=== PATIENT | male | born 1945 | race African-American/Black ===

== ENCOUNTER → 2018-04-08 06:46 | Outpatient (CLI) | payer MEDICARE, BC, SELFPAY ==
--- NOTE | 2018-04-08 17:26 | STRESSREP ---
Stress Test Report Exercise/pharmacologic myocardial perfusion stress test. 72-year-old man with a history of shortness of breath. Stress protocol: Resting EKG demonstrates normal sinus rhythm with rate of 60 bpm normal intervals and noted resting blood pressure is 118/84 mmHg. Patient exercised according to regular Santino protocol for total duration of 6 minutes and 35 seconds attaining a maximum heart rate of 101 bpm which was 68% of the maximum predicted heart rate. The maximum workload attained was 7.8 metabolic equivalents. The patient could not obtain 85% of the maximum predicted heart rate and therefore the test was terminated and changed to a pharmacologic myocardial perfusion stress test. 0.4 mg of regadenoson was then infused per usual protocol followed by rapid intravenous saline flush injection continuous EKG monitoring was performed. At rest there were no ST or T-wave changes noted suggest ischemia at peak infusion no ST or T-wave changes were noted suggest ischemia. During the exercise portion there were no ST or T-wave changes noted suggest ischemia. There was adequate blood rate response and blood pressure response to exercise the peak blood pressure was 140/76 mmHg. Myocardial perfusion protocol. 14.0 mCi of technetium 99m sestamibi was injected at rest. 0.4 mg of regadenoson was infused per usual protocol at peak infusion 42.0 mCi of technetium 99m sestamibi was injected stress images were obtained stress and rest images were reconstructed and compared in the short axis vertical long and horizontal long axis. Gated images were also obtained. Perfusion SPECT analysis. Review of the stress images demonstrate normal uptake of tracer noted in all areas of the myocardium. The resting images similarly demonstrated normal uptake of tracer noted in all areas of the myocardium no areas of reversibility are noted suggest ischemia. Gated SPECT analysis: The gated ejection fraction is noted to be 59%. Conclusion: Normal pharmacologic myocardial perfusion stress test. No clinical angina noted. Good functional aerobic capacity.
== END ==
PROVIDERS: Family Provider Family Medicine; PCP Family Medicine; Visit Provider Internal Medicine Cardiovascular Disease
DX: R07.9 Chest pain, unspecified (principal)
CPT/HCPCS: 78452; 93017; A9500; A4216; J2785

== ENCOUNTER → 2018-09-23 11:29 | Outpatient (CLI) | payer MEDICARE, BC, SELFPAY ==
[2018-09-23 11:32] LABS: Bacteria 0 SEEN /hpf (None Seen); Mucous, Urine 0 SEEN /hpf (<or=2+); Red Blood Cells-Urine 0 SEEN /hpf (0-5); Squamous Epithelial Cells - UA 0 SEEN /hpf (0-5); White Blood Cells 0 SEEN /hpf (0-5)
[2018-09-23 14:38] LABS: Color, Urine Yellow (Yellow); Glucose, Dipstick Normal (Normal); Ketone-Dipstick Negative (Negative); Leukocyte Esterase-Dipstick Negative /ul (Negative); Nitrite-Dipstick Negative (Negative); Occult Blood-Urine Negative /ul (Negative); Protein-Dipstick Negative (Negative); Urine Bilirubin Dipstick Negative (Negative); Urine Clarity Clear (Clear); Urine Urobilinogen 1 mg/dl (Normal); Urine pH 6.5 (5.0 - 8.0)
[2018-09-23 14:41] LABS: Absolute Lymphocyte Count 0.89 X10^3/ul (0.83-4.51); Absolute Neutrophil Count 1.5 X10^3/uL (2.0-7.7); Eosinophil# 0.01 X10^3/uL; Eosinophils% 0.3 % (0-5); Hematocrit 44.7 % (40-54); Hemoglobin 14.2 g/dl (13.0-16.5); Lymphocyte # 0.89 X10^3/ul (4.0); Lymphocyte % 30.7 % (19-41); Mean Corp Hgb Conc 31.8 g/gl (32-36); Mean Corpuscular Hgb 29.5 pg (27.0-32.0); Mean Corpuscular Volume 92.7 fL (80-94); Mean Platelet Vol. 9.6 fl (6.2-12.0); Monocyte# 0.47 X10^3/uL; Monocyte% 16.2 % (0-10); Neutrophil # 1.52 X10^3/uL (2.7-7.7); Neutrophil % 52.5 % (47-70); Platelet Count 229 K/mm3 (150-450); RBC Distribution Width CV 13.6 % (11.6-14.6); RBC Distribution Width SD 46.1 fl (35.1-43.9); Red Blood Count 4.82 M/mm3 (4.6-6.2); White Blood Count 2.9 K/mm3 (4.4-11.0)
[2018-09-23 14:42] LABS: POSITIVE COUNT NO; POSITIVE DIFFERENTIAL NO; POSITIVE MORPHOLOGY NO
[2018-09-23 14:57] LABS: Vitamin D,25 Hydroxy 46.1 ng/mL (29.95-100.01)
[2018-09-23 15:14] LABS: ALB/GLOB Ratio 0.8 RATIO (0.9-2.4); AST(SGOT) 16 U/L (15-37); Alanine Aminotransfer ALT/SGPT 26 U/L (16-61); Albumin, Serum 3.5 g/dL (3.2-5.0); Alkaline Phosphatase 56 U/L (45-117); Anion Gap 7 (5-15); BUN 16 mg/dL (7-18); BUN/Creat Ratio 13.9 RATIO (10-20); Calcium,Total 10.3 mg/dL (8.5-10.1); Chloride 105 mmol/L (98-107); Cholesterol 162 mg/dL (200); Creatinine, Serum 1.15 mg/dL (0.70-1.30); EST Glomerular Filtration Rate 66 mL/min (>60); Est Glom Filt Rate - Afr Amer 80 mL/min (>60); Globulin 4.4 g/dL (2.2-4.2); Glucose 83 mg/dL (74-106); High Density Lipoprotein 45 mg/dL; Potassium 4.5 mmol/L (3.5-5.1); Protein, Total 7.9 g/dL (6.4-8.2); Sodium Level 138 mmol/L (136-145); T4 Free Direct 0.83 ng/dL (0.76-1.46); Thyroid Stim Hormone (TSH) 1.13 uIU/mL (0.358-3.74); Triglycerides 56 mg/dL; Very Low Density Lipoprotein 11 mg/dL (5-40)
== END ==
PROVIDERS: Family Provider Family Medicine; PCP Family Medicine; Visit Provider Family Medicine
DX: I10 Essential (primary) hypertension (principal); E03.9 Hypothyroidism, unspecified; E55.9 Vitamin D deficiency, unspecified
CPT/HCPCS: 36415; 80053; 80061; 81001; 82306; 84439; 84443; 85025

== ENCOUNTER → 2018-09-27 12:13 | Outpatient (CLI) | payer MEDICARE, BC, SELFPAY ==
--- NOTE | 2018-09-27 12:16 | US_ITS ---
STUDY: THYROID ULTRASOUND REASON FOR EXAM: Male, 73 years old. Nodule and right thyroidectomy TECHNIQUE: Ultrasound evaluation of the thyroid was performed with real-time and static parrish-scale imaging. COMPARISON: None. FINDINGS: A right thyroidectomy has been performed. No nodules or masses are seen in the right thyroid bed. LEFT LOBE: The left lobe of the thyroid gland measures 4.3 x 1.6 x 1.6 cm. There is a homogeneous echotexture. In the midportion left thyroid lobe, an ovoid heterogeneous nodule is identified that measures 17 x 12 x 11 mm. No associated echogenic foci are seen. It is peripherally vascular. ISTHMUS: The isthmus measures 6 mm . US/Thyroid IMPRESSION: 17 mm heterogeneous nodule in the left thyroid lobe. Tissue diagnosis is likely indicated. Electronically Signed: Jose Angel Joaquin MD at 8:51 EST Tel , Service support ,
== END ==
PROVIDERS: Family Provider Family Medicine; PCP Family Medicine; Referring Provider Family Medicine; Visit Provider Family Medicine
DX: E04.1 Nontoxic single thyroid nodule (principal)
CPT/HCPCS: 76536

== ENCOUNTER → 2018-10-05 15:40 | Outpatient (CLI) | payer MEDICARE, BC, SELFPAY ==
--- NOTE | 2018-10-05 | ASPS_PTH ---
PATIENT: SANDEEP WOODS LOC: [facility] U#:[id number] AGE/SX: 80/M ROOM: RE10/05/[address]: Dr. Akash Jack MD : 1945 BED: DIS: SPEC #: [id number] RECD: 10/06/18 13:45 STATUS: CIRA REBOLLEDOJesus #: [id number] MARGARET: 10/05/18 00:[address]: Akash Jack DEPT: CYTOLOGY RECD BY: Ced Sommer ENTERED: 10/07/18 13:46 SP TYPE: ASPIRATION OTHR DR: Dr. Jayden Butt MD Tissues: Thyroid gland, NOS Procedures: Pap Stain (control) Special Stain Group II Cytology Other HEADER OPERATION: Left thyroid FNA PRE-OP DIAGNOSIS: Left thyroid nodules TISSUE SUBMITTED: Left thyroid slides DIAGNOSIS CYTOLOGY Fine needle aspiration, left thyroid nodule (smears): Adequate for evaluation. Negative, consistent with benign follicular nodule. AM:octaviano 10/10/18 COMMENT Immediate cytologic evaluation to determine adequacy is not applicable. CYTOLOGY STUDY Slides are reviewed. CYTOLOGY GROSS Received are 6 smears labeled with the patient's name and designated per the requisition as left thyroid. Submitted for staining. ASHLEY:dandre 10/07/18 TC:5 CPT: 32284
== END ==
PROVIDERS: Family Provider Family Medicine; PCP Family Medicine; Referring Provider Surgery; Visit Provider Surgery
DX: E04.2 Nontoxic multinodular goiter (principal)
CPT/HCPCS: 88161; 88313

== ENCOUNTER → 2018-10-12 09:37 | Outpatient (CLI) | payer MEDICARE, BC, SELFPAY ==
[2018-10-12 12:23] LABS: Absolute Lymphocyte Count 1.12 X10^3/ul (0.83-4.51); Absolute Neutrophil Count 1.9 X10^3/uL (2.0-7.7); Basophil# 0.01 X10^3/uL; Basophil% 0.3 % (0-1); Eosinophil# 0.01 X10^3/uL; Eosinophils% 0.3 % (0-5); Hematocrit 46.3 % (40-54); Hemoglobin 15.4 g/dl (13.0-16.5); Lymphocyte # 1.12 X10^3/ul (4.0); Lymphocyte % 28.3 % (19-41); Mean Corp Hgb Conc 33.3 g/gl (32-36); Mean Corpuscular Hgb 30.4 pg (27.0-32.0); Mean Corpuscular Volume 91.5 fL (80-94); Mean Platelet Vol. 9.4 fl (6.2-12.0); Monocyte# 0.87 X10^3/uL; Neutrophil # 1.93 X10^3/uL (2.7-7.7); Neutrophil % 48.6 % (47-70); Platelet Count 216 K/mm3 (150-450); RBC Distribution Width CV 13.6 % (11.6-14.6); RBC Distribution Width SD 45.1 fl (35.1-43.9); Red Blood Count 5.06 M/mm3 (4.6-6.2)
[2018-10-12 12:35] LABS: POSITIVE COUNT NO; POSITIVE DIFFERENTIAL NO; POSITIVE MORPHOLOGY NO
[2018-10-12 12:41] LABS: ALB/GLOB Ratio 0.8 RATIO (0.9-2.4); AST(SGOT) 14 U/L (15-37); Alanine Aminotransfer ALT/SGPT 26 U/L (16-61); Albumin, Serum 3.5 g/dL (3.2-5.0); Alkaline Phosphatase 59 U/L (45-117); Anion Gap 10 (5-15); BUN 19 mg/dL (7-18); Calcium,Total 10.5 mg/dL (8.5-10.1); Chloride 106 mmol/L (98-107); Creatinine, Serum 1.19 mg/dL (0.70-1.30); EST Glomerular Filtration Rate 63 mL/min (>60); Est Glom Filt Rate - Afr Amer 77 mL/min (>60); Globulin 4.4 g/dL (2.2-4.2); Glucose 65 mg/dL (74-106); Protein, Total 7.9 g/dL (6.4-8.2); Sodium Level 140 mmol/L (136-145)
[2018-10-12 19:32] LABS: PTHIN 90.7 pg/mL (18.4-80.1)
== END ==
PROVIDERS: Family Provider Family Medicine; PCP Family Medicine; Visit Provider Family Medicine
DX: E83.52 Hypercalcemia (principal); D72.819 Decreased white blood cell count, unspecified
CPT/HCPCS: 36415; 80053; 82330; 83970; 85025

== ENCOUNTER → 2018-10-21 09:34 | Outpatient (CLI) | payer MEDICARE, BC, SELFPAY ==
--- NOTE | 2018-10-21 09:38 | NM_ITS ---
CLINICAL: 73-year-old male with reported history of clinical hyperparathyroidism, status post right thyroid lobectomy. 99m Tc SESTAMIBI DUAL PHASE PARATHYROID SCINTIGRAPHY COMPARISON: Thyroid ultrasound report 09/27/2018 FINDINGS: Following the intravenous administration of 25.0 mCi of 99m Tc sestamibi, image acquisitions of the anterior neck at 20 minutes and 2.0 hours post radiopharmaceutical provision reveal: 1. Immediate static blood pool acquisitions demonstrate asymmetric visualization of the left lobe thyroid colloid. 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 Physiologic distribution of the radiopharmaceutical is defined within the left submandibular gland. The right submandibular gland is not visualized. 2. Delayed images depict near complete washout of the radiotracer from the previously defined left thyroid bed without evidence of focal retention of the radiotracer identified. NM/Parathyroid Scan IMPRESSION: 1. NEGATIVE 99m Tc SESTAMIBI PARATHYROID IMAGING DUAL PHASE EXAMINATION. 2. there is no definitive scintigraphic evidence of parathyroid adenoma on the current evaluation. Electronically Signed: Ced Hawkins DO at 23:24 EST Tel , Service support ,
--- OUTSIDE RECORDS SUMMARY | 2018-12-16 04:26 | XMS RPT_ITS ---
:1945 Author Organization OHIP Support Name Relationship Address Phone R Unavailable Unavailable Unavailable RIDERRAE Unavailable [address] + [place] [address] R Unavailable Unavailable Unavailable RIDER, DOLLY Unavailable [address] + [place] [address] R Unavailable Unavailable Unavailable RIDER, DOLLY Unavailable [address] + [place] [address] R Unavailable Unavailable Unavailable RIDER, DOLLY Unavailable [address] + [place] [address] R Unavailable Unavailable Unavailable RIDER, DOLLY Unavailable [address] + [place] [address] R Unavailable Unavailable Unavailable RIDER, DOLLY Unavailable [address] + [place] [address] R Unavailable Unavailable Unavailable RIDER, DOLLY Unavailable [address] + [place] [address] RIDER, DOLLY Unavailable [address] + [place] [address] RIDER, DOLLY Unavailable [address] + [place] [address] RIDER, DOLLY Unavailable [address] + [place] [address] RIDER, DOLLY Unavailable [address] + [place] [address] R Unavailable Unavailable Unavailable RIDER, DOLLY Unavailable [address] + [place] [address] R Unavailable Unavailable Unavailable RIDER, DOLLY Unavailable [address] + [place] [address] R Unavailable Unavailable Unavailable RIDER, DOLLY Unavailable [address] + [place] [address] R Unavailable Unavailable Unavailable DOLLY RIDER Unavailable [address] + [place] [address] Care Team Providers Name Role Reyna ELA FLORENTINO Attending Unavailable LUIS ASCENCIO Referring Unavailable DARIAN Velasco Attending Unavailable SILVA DO, LUIS Ulloa Primary Care Unavailable SILVA DO, LUIS Ulloa Attending Unavailable SILVA DO, LUIS D Primary Care Unavailable Mohit Pal Attending Unavailable Darren, Eleazar Attending Unavailable Silva Luis Referring Unavailable Luis Ascencio Primary Care Unavailable Darren, Tilly Attending Unavailable Darren, Tilly Referring Unavailable Silva, Luis Primary Care Unavailable Darren, Tilly Attending Unavailable Jayden Butt Attending Unavailable Schinkyler, Jayden Dye Primary Care Unavailable SchJayden manrique Attending Unavailable Schburton, Jayden Dye Referring Unavailable SchinJayden chávez Primary Care Unavailable Cebul, Akash Attending Unavailable SchinJayden chávez Referring Unavailable Cebul, Akash Attending Unavailable SchinnerJayden Referring Unavailable Cebul, Akash Attending Unavailable Cebul, Akash Referring Unavailable SchinnerJayden E Primary Care Unavailable Schinkyler, Jayden Dye Attending Unavailable SchinJayden chávez Primary Care Unavailable SchJayden manrique Attending Unavailable SchJayden manrique Referring Unavailable SchJayden manrique Primary Care Unavailable PROBLEMS PROBLEMS DATE TYPE CONDITION / CODE ATTENDING STATUS SOURCE 10/21/2018 Unknown E83.52 - Jayden Butt Active [facility] / [facility] E83.52(ICD-10) Hospital Repository 10/05/2018 Unknown 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 Community nodule / Hospital E04.1(ICD-10) Repository 08/04/2018 Admitting Essential (primary) DARIAN Velasco Active [facility] Diagnosis hypertension / [facility] I10(ICD-10) Repository 03/29/2018 Unknown R07.9 - Chest pain, Darren, Eleazar Active [facility] unspecified / Community R07.9(ICD-10) Hospital Repository 03/29/2018 Unknown I50.32 - Chronic Darren, Tilly Active [facility] diastolic Community (congestive) heart Hospital failure / Repository I50.32(ICD-10) 03/29/2018 Unknown I10 - Essential Darren, Eleazar Active [facility] (primary) Community hypertension / Hospital I10(ICD-10) Repository 03/29/2018 Unknown I26.99 - Other Darren, Eleazar Active [facility] pulmonary embolism Community without acute cor Hospital pulmonale / Repository I26.99(ICD-10) PROCEDURES PROCEDURES No Procedure Records FoundRESULTS RESULTS PARATHYROID SCAN Observed: 10/21/2018 Status: F Source: [place] 9:38 AM [facility] REPOSITORY [facility] Imaging Services [address] [place] [address] Parathyroid Scan MR#: [id number] Acct: [id number] Name: LUIS RIDER Rep #: [id number] : 1945 M 73 From: Ced Hawkins DO PCP: Jayden Butt MD Status: REG CLI Study: Parathyroid Scan Date of Exam: 10/21/18 Exam# [id number] Ordering Dr: Jayden Butt MD CLINICAL: 73-year-old male with reported history of clinical hyperparathyroidism, status post right thyroid lobectomy. 99m Tc SESTAMIBI DUAL PHASE PARATHYROID SCINTIGRAPHY COMPARISON: Thyroid ultrasound report 09/27/2018 FINDINGS: Following the intravenous administration of 25.0 mCi of 99m Tc sestamibi, image acquisitions of the anterior neck at 20 minutes and 2.0 hours post radiopharmaceutical provision reveal: 1. Immediate static blood pool acquisitions demonstrate asymmetric visualization of the left lobe thyroid colloid. 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 Physiologic distribution of the radiopharmaceutical is defined within the left submandibular gland. The right submandibular gland is not visualized. 2. Delayed images depict near complete washout of the radiotracer from the previously defined left thyroid bed without evidence of focal retention of the radiotracer identified. NM/Parathyroid Scan IMPRESSION: 1. NEGATIVE 99m Tc SESTAMIBI PARATHYROID IMAGING DUAL PHASE EXAMINATION. 2. there is no definitive scintigraphic evidence of parathyroid adenoma on the current evaluation. Electronically Signed: Ced Hawkins DO at 23:24 EST Tel , Service support , CC: Jayden Butt MD Lunchroom Mother: Signed CBC W/DIFF, AUTOMATED Collected: 10/12/2018 Status: F Source: [place] 9:41 AM [facility] REPOSITORY Order Comment: PERIPHERAL SMEAR TYPE CODE TESTS RESULT OUT OF RANGE REFERENCE UNITS LAB L100.1000 4.4-11.0 K/mm3 Low WBC 4.0 LAB L100.1200 4.6-6.2 M/mm3 Normal RBC 5.06 LAB L100.1300 13.0-16.5 g/dl Normal HGB 15.4 LAB L100.1400 40-54 % Normal HCT 46.3 LAB L100.1500 80-94 fL Normal MCV 91.5 LAB L100.1600 27.0-32.0 pg Normal MCH 30.4 LAB L100.1700 32-36 g/gl Normal MCHC 33.3 LAB L100.1810 11.6-14.6 % Normal RDW CV 13.6 LAB L100.1820 35.1-43.9 fl High RDW SD 45.1 LAB L100.1900 150-450 K/mm3 Normal PLT 216 LAB L100.2000 6.2-12.0 fl Normal MPV 9.4 LAB L100.2100 47-70 % Normal NEUT% 48.6 LAB L100.2200 19-41 % Normal LY% 28.3 LAB L100.2300 0-10 % High MONO% 22.0 LAB L100.2400 0-5 % Normal EO% 0.3 LAB L100.2500 0-1 % Normal BASO% 0.3 LAB L100.2550 0.0-0.9 % Normal IM GRAN % 0.500 Result Comment: IG% - Immature Granulocytes (promyelocytes, myelocytes and metamyelocytes) > 1% indicates that a LEFT SHIFT is Present. LAB L100.2620 2.0-7.7 X10 3/uL Low Absolute Neut 1.9 LAB L100.2720 0.83-4.51 X10 3/ul Normal Absolute Lymph 1.12 Performed By: #### L100.0100, L500.4050, L509.1000 #### [facility] [address] [place], [place], [id number] COMPREHENSIVE METABOLIC Collected: 10/12/2018 Status: F Source: [place] 9:41 AM [facility] REPOSITORY Order Comment: Comments: [id number] PERIPHERAL SMEAR TYPE CODE TESTS RESULT OUT OF RANGE REFERENCE UNITS LAB L501.0100 74-106 mg/dL Low GLU 65 Result Comment: Please note revised GLUCOSE reference range effective 2017. LAB L501.1000 7-18 mg/dL High BUN 19 LAB L501.1100 0.70-1.30 mg/dL Normal CREAT,SERUM 1.19 Result Comment: The validity of the calculated GFR AND GFRAA in patients over 70 years has not been determined. Clinical correlation is essential. LAB L501.1110 >60 mL/min Normal EST GFR 63 Result Comment: Non- GFR Calc LAB L501.1115 >60 mL/min Normal EST GFR - AA 77 Result Comment: GFR Calc LAB L501.1300 10-20 RATIO Normal BUN/CRE 16.0 LAB L501.1500 6.4-8.2 g/dL T Normal PROT 7.9 LAB L501.1800 3.2-5.0 g/dL Normal ALB 3.5 LAB L501.1950 2.2-4.2 g/dL High GLOB 4.4 LAB L501.2000 0.9-2.4 RATIO Low A/G 0.8 LAB L501.2200 8.5-10.1 mg/dL High CA 10.5 LAB L501.4100 15-37 U/L Low AST 14 Result Comment: Slight Hemolysis, Result may be falsely increased. LAB L501.4305 45-117 U/L Normal ALK P 59 LAB L501.4405 16-61 U/L Normal ALT 26 LAB L501.4600 0.20-1.00 mg/dL Normal T BILI 0.30 LAB L501.5300 136-145 mmol/L Normal NA 140 LAB L501.5600 3.5-5.1 mmol/L Normal K 4.0 Result Comment: Slight Hemolysis, Result may be falsely increased. LAB L501.5900 98-107 mmol/L Normal CL 106 LAB L501.6100 21.0-32.0 mmol/L Normal CO2 24.0 LAB L501.6200 5-15 Normal GAP 10 Performed By: #### L100.0100, L500.4050, L509.1000 #### [facility] [address] [place], [address] PTHIN Collected: 10/12/2018 Status: F Source: [place] 9:41 AM [facility] REPOSITORY TYPE CODE TESTS RESULT OUT OF RANGE REFERENCE UNITS LAB L509.1000 18.4-80.1 pg/mL High PTHIN 90.7 Performed By: #### L100.0100, L500.4050, L509.1000 #### [facility] [address] [facility] [place], [address] CALCIUM IONIZED Collected: 10/12/2018 Status: F Source: [place] 9:41 AM [facility] REPOSITORY TYPE CODE TESTS RESULT OUT OF REFERENCE UNITS RANGE LAB L3100.9600 4.5-5.6 mg/dL High IONIZED CA 7.0 Result Comment: Verified by repeat analysis Performed at: [facility] [id number] Contract Officer: Osei Avila PhD, Phone: [phone] Performed By: #### L3100.9600 #### [facility] (refer to report for specific site) refer to report for address and phone number SURGERY VISIT REPORT Observed: 10/05/2018 Status: F Source: [place] 4:19 PM [facility] REPOSITORY [facility] [address] [place] [address]. [address] [place] [address] OFFICE VISIT Date of Service: 10/05/18 MR#: [id number] Acct: [id number] Name: RIDERLUIS Sara Rep #: [id number] : 1945 Provider: Akash Jack MD Age/Sex: 73/M Location: [facility] Status: Signed with Addenda ADDENDUM by Nahed Rolle on 10/05/18 at 1619 OFFICE PROCEDURES Office Procedure Documentation entered by Nahed Rolle 10/05/18 16:19: Procedure Time Out Time Out Informed consent given: Yes Consent signed: Yes Time out checklist: patient, procedure, site marked/identified, positioning of patient, supplies available, allergies confirmed, team agrees on procedure Time out staff in room: Yes Time out verified: Yes Time out date: 10/05/18 Time out time: 15:40 10/05/18 1619 <Electronically signed by Nahed Rolle > Date Nahed Rolle cc: Jayden Butt MD * Signed Intake Intake Visit Reasons: left thyroid FNA Chief Complaint: left thyroid nodule Allergies Iodinated Contrast- Oral and IV Dye [Iodinated Contrast Media - IV Dye] Allergy (Verified 10/03/18 14:36) Hives acetaminophen [From Percocet] Adverse Reaction (Verified 10/03/18 14:36) Swelling oxycodone HCl [From Percocet] Adverse Reaction (Verified 10/03/18 14:36) Swelling Medications Escitalopram Oxalate [Lexapro] 20 mg PO DAILY 05/07/17 [History Confirmed 10/03/18] Hydrochlorothiazide [Hctz] 25 mg PO DAILY 05/07/17 [History Confirmed 10/03/18] Levothyroxine [Synthroid] 100 mcg PO DAILY 05/07/17 [History Confirmed 10/03/18] Losartan Potassium 100 mg PO DAILY 05/07/17 [History Confirmed 10/03/18] Montelukast Sodium [Singulair] 10 mg PO DAILY 05/07/17 [History Confirmed 10/03/18] Spironolactone [Aldactone] 25 mg PO DAILY 05/07/17 [History Confirmed 10/03/18] apixaban 5 mg tablet 5 mg PO BID 10/03/18 [History Confirmed 10/03/18] PFSH Medical History Left thyroid nodule (Acute) Chronic diastolic heart failure (Chronic) SYDNEE (obstructive sleep apnea) (Chronic) HLD (hyperlipidemia) (Chronic) Acute deep vein thrombosis of left lower extremity (Chronic) Bilateral pulmonary embolism (Chronic) Hypothyroid (Chronic) HTN (hypertension) (Chronic) Anxiety (Chronic) Depression (Chronic) Syncope (Chronic) Surgical History History of bilateral knee replacement (Chronic) History of hydrocele (Chronic) History of partial thyroidectomy (Chronic) History of shoulder surgery (Chronic) Hx of cataract extraction (Chronic) Hx of hernia repair (Chronic) Hx of sinus surgery (Chronic) hx saliva gland removal (Chronic) hx uvula removal (Chronic) hx wrist surgery (Chronic) Family History Father Cancer Mother Cancer Hypertension Aunt Diabetes Uncle Diabetes Social History Smoking Status: Former smoker alcohol intake: never substance use type: does not use caffeine: Yes Type: coffee what type of physical activity do you participate in: none seatbelt use: always do you feel safe at home: Yes HPI HPI HPI: LUIS RIDER, is a 73 M who presents to the office today for ultrasound-guided final aspiration left thyroid nodule measuring 1.7 x 1.2 x 1.1 cm Office Procedures Fine Needle Aspiration Provider Documentation Details: Ultrasound-guided final aspiration left thyroid nodule Timeout and informed consent was obtained. 73-year-old gentleman was taken to the procedure room placed on the table. The left neck was sterilely prepped and draped with ChloraPrep because of his allergy to iodine. Under ultrasound guidance 1% lidocaine mixed 50-50 with 0.5% Marcaine was used as a local anesthetic. A total of 2 cc was used under ultrasound guidance. Then a 25-gauge needle was advanced into the lesion. This was technically challenging because of the depth of the nodule and positioning of the nodule close to the jugular vein. A rapid etkk-dro-murtw motion was performed. Specimen was obtained and smeared out on slides. 3 separate passes were performed. He was given activity and wound care instructions. The specimens were treated with fixative. He was given activity wound care instructions. Akash Jack M.D., F.A.C.S. FNA [id number] Thyroid Assessment AND Plan Problems 1. Left thyroid nodule E04.1 Plan 73-year-old -Greek gentleman with a left thyroid nodule with microcalcifications and vascularity. Difficult fine needle aspiration approach. We will await cytology. Hopefully will be able to follow conservatively with ultrasound at 6 or 12 months. Akash Jack M.D., F.A.C.S. TC: Dr Jayden Butt Orders Orders: Coding Level of Care Code Attention Eleni Diagnoses Left thyroid nodule E04.1 Additional Codes FNA - Fine Needle Aspiration: 64933 Thyroid (65554) 10/05/18 1613 <Electronically signed by Akash Jack MD> Date [facility]: Date (if applicable) CC: Jayden Butt MD ASPIRATION (SLIDES Observed: 10/05/2018 Status: F Source: [place] ONLY) 12:00 AM [facility] REPOSITORY Patient: LUIS RIDER : 1945 (73/M) Acct Num: [id number] Phys: Akash Jack MD Unit Num: [id number] Loc: [facility] Specimen: [id number] Received: 10/06/185 Spec Type: ASPIRATION TISSUES 1 TISSUES: Thyroid gland, NOS COMMENT Immediate cytologic evaluation to determine adequacy is not applicable. CYTOLOGY GROSS Received are 6 smears labeled with the patient's name and designated per the requisition as left thyroid. Submitted for staining. RY:dandre 10/07/18 TC:5 CPT: 00608 CYTOLOGY STUDY Slides are reviewed. DIAGNOSIS CYTOLOGY Fine needle aspiration, left thyroid nodule (smears): Adequate for evaluation. Negative, consistent with benign follicular nodule. AM:rg 10/10/18 HEADER OPERATION: Left thyroid FNA PRE-OP DIAGNOSIS: Left thyroid nodules TISSUE SUBMITTED: Left thyroid slides Signed Dc Prabhakar 10/10/18 <signature on file> Performed By: #### PASPS #### [facility] [address] [place], [place] [address]. [place], [place], [address] SURGERY VISIT REPORT Observed: 10/03/2018 Status: F Source: [place] 6:24 PM [facility] REPOSITORY [facility] [address] [place], [place] [address]. [address] [place] [address] OFFICE VISIT Date of Service: 10/03/18 MR#: [id number] Acct: [id number] Name: LUIS RIDER Rep #: [id number] : 1945 Provider: Akash Jack MD Age/Sex: 73/M Location: [facility] Status: Signed Intake Vital Signs10/03/18 Height 6 ft 4 in 10/03/18 Weight: 265 lb 4 oz 10/03/18 Body Mass Index (BMI) 32.3 10/03/18 Blood Pressure 143/83 H Intake Visit Reasons: Thyroid Nodule/US 09/27 [facility] Chief Complaint: left thyroid nodule Networking Technician Required: No Is patient in pain?: No Allergies Iodinated Contrast- Oral and IV Dye [Iodinated Contrast Media - IV Dye] Allergy (Verified 10/03/18 14:36) Hives acetaminophen [From Percocet] Adverse Reaction (Verified 10/03/18 14:36) Swelling oxycodone HCl [From Percocet] Adverse Reaction (Verified 10/03/18 14:36) Swelling Medications Escitalopram Oxalate [Lexapro] 20 mg PO DAILY 05/07/17 [History Confirmed 10/03/18] Hydrochlorothiazide [Hctz] 25 mg PO DAILY 05/07/17 [History Confirmed 10/03/18] Levothyroxine [Synthroid] 100 mcg PO DAILY 05/07/17 [History Confirmed 10/03/18] Losartan Potassium 100 mg PO DAILY 05/07/17 [History Confirmed 10/03/18] Montelukast Sodium [Singulair] 10 mg PO DAILY 05/07/17 [History Confirmed 10/03/18] Spironolactone [Aldactone] 25 mg PO DAILY 05/07/17 [History Confirmed 10/03/18] apixaban 5 mg tablet 5 mg PO BID 10/03/18 [History Confirmed 10/03/18] ON LICENSE OF [facility] Medical History Chronic diastolic heart failure (Chronic) SYDNEE (obstructive sleep apnea) (Chronic) HLD (hyperlipidemia) (Chronic) Acute deep vein thrombosis of left lower extremity (Chronic) Bilateral pulmonary embolism (Chronic) Hypothyroid (Chronic) HTN (hypertension) (Chronic) Anxiety (Chronic) Depression (Chronic) Syncope (Chronic) Surgical History History of bilateral knee replacement (Chronic) History of hydrocele (Chronic) History of partial thyroidectomy (Chronic) History of shoulder surgery (Chronic) Hx of cataract extraction (Chronic) Hx of hernia repair (Chronic) Hx of sinus surgery (Chronic) hx saliva gland removal (Chronic) hx uvula removal (Chronic) hx wrist surgery (Chronic) Family History Father Cancer Mother Cancer Hypertension Aunt Diabetes Uncle Diabetes Social History Smoking Status: Former smoker alcohol intake: never substance use type: does not use caffeine: Yes Type: coffee what type of physical activity do you participate in: none seatbelt use: always do you feel safe at home: Yes HPI HPI HPI: LUIS RIDER, is a 73 M who presents to the office today for surgical consultation regarding a left thyroid nodule. The patient is referred by his primary care physician Dr Jayden Butt and a written copy of my surgical consult recommendations will be returned to him. Mr. Rider is a new patient with Dr. Butt. On review it became apparent that at least 20 years ago the patient had had a right thyroid mass incidentally identified on imaging. He subsequent he had a right thyroid lobectomy. He states that it was benign. The patient apparently runs a chronic low white blood cell count. Claims that approximately 2001 and a bone marrow biopsy. That apparently was not remarkable. The patient also has had a history about 3-4 years ago of a deep venous thrombosis with pulmonary embolism. He states that no specific etiology was found. He was initially treated with Coumadin but because of variability he was more recently changed to Eliquis. At the [facility] to help evaluate his thyroid on September 27, 2018 and he had a thyroid ultrasound. Evidence of the right thyroid lobectomy was noted. The left lobe measures 4.3 x 1.6 x 1.6 cm. There is a 1.7 x 1.2 x 1.1 cm ovoid nodule in the midportion of the left lobe. As of September 23, 2018 white blood cell count was 2.9 with a hemoglobin 14.2 and hematocrit 44.7 and platelet count of 229,000. BUN was 16 and creatinine 1.16. TSH was 1.13 and free T4 0.83 ROS General General: Yes fatigue; no weight change, appetite, colon cancer, breast cancer or weakness HEENT HEENT: Yes eye surgery; no difficulty swallowing, eye injury, swollen glands or hoarseness Endo Endocrine: Yes thyroid disease; no diabetes mellitus, thyroid cancer, Hair loss, heat intolerance or cold intolerance Musc Musculoskeletal: Yes back problems and arthritis; no rheumatoid arthritis, gout or joint pain Cardio Cardiovascular: Yes high blood pressure; no murmur, pacemaker, heart disease, atrial fibrillation, heart attack, heart stent, palpitations, shortness of breat with exertion or chest pain Psych Psychiatric: Yes depression and anxiety; no hearing voices Resp Respiratory: Yes shortness of breath, Yes sleep apnea, No cough, No COPD, Yes asthma, No emphysema, No wheezing Gastro Gastrointestinal: No abdominal pain, No nausea or vomiting, No diarrhea, No constipation, No blood in stool, No acid reflux, No hemorrhoids, No ulcers, No gallbladder problem, No black,tarry stools Ray Hematologic: Yes blood thinners, No blood disorders, No bleeding, No anemia, Yes blood clots Neuro Neurologic: No weakness Exam Neck Other: Well-healed transverse suprasternal incision. Left lobe is just palpable. Neck is supple. Carotids are 3+ no bruits. No cervical adenopathy. Chvostek is negative Cardio Heart Sounds: no murmurs Assessment AND Plan Problems 1. Left thyroid nodule E04.1 Plan 73-year-old gentleman. He has a solitary left thyroid nodule. He has had a remote history of a right thyroid lobectomy for a nodule which on pathology by patient report was benign. He does have a history of DVT and pulmonary embolus. He is on Eliquis. I propose for him a ultrasound-guided final aspiration of the left lobe. I discussed the technique, benefits, risks, alternatives. He has had an opportunity to ask and have questions answered. We will simply have him hold his Eliquis the evening prior to presentation. I would anticipate that after the fine-needle aspiration he would be able to very soon resume that medication. We will schedule and proceed at his discretion. I very much appreciate the kind opportunity of assisting with his surgical care CC: Dr Jayden Jack M.D., F.A.C.S. Coding Level of Care Code Prob focused, straight fwd Diagnoses Left thyroid nodule E04.1 10/03/18 1824 <Electronically signed by Aksah Jack MD> Date [facility]ash [facility] Signature: Date (if applicable) CC: THYROID Observed: 09/27/2018 Status: F Source: [place] 12:16 PM [facility] REPOSITORY [facility] Imaging Services [address] [place] [address] Thyroid MR#: [id number] Acct: [id number] Name: LUIS RIDER Rep #: [id number] : 1945 M 73 From: Jose Angel Joaquin MD PCP: Jayden Butt MD Status: REG CLI Study: Thyroid Date of Exam: 09/27/18 Exam# [id number] Ordering Dr: Jayden Butt MD STUDY: THYROID ULTRASOUND REASON FOR EXAM: Male, 73 years old. Nodule and right thyroidectomy TECHNIQUE: Ultrasound evaluation of the thyroid was performed with real-time and static parrish-scale imaging. COMPARISON: None. FINDINGS: A right thyroidectomy has been performed. No nodules or masses are seen in the right thyroid bed. LEFT LOBE: The left lobe of the thyroid gland measures 4.3 x 1.6 x 1.6 cm. There is a homogeneous echotexture. In the midportion left thyroid lobe, an ovoid heterogeneous nodule is identified that measures 17 x 12 x 11 mm. No associated echogenic foci are seen. It is peripherally vascular. ISTHMUS: The isthmus measures 6 mm . US/Thyroid IMPRESSION: 17 mm heterogeneous nodule in the left thyroid lobe. Tissue diagnosis is likely indicated. Electronically Signed: Jose Angel Joaquin MD at 8:51 EST Tel , Service support , CC: Jayden Butt MD Lunchroom Mother: Signed URINALYSIS, COMPLETE Collected: 09/23/2018 Status: F Source: [place] 11:31 AM [facility] REPOSITORY Order Comment: How was Urine Obtained? CLEAN CATCH TYPE CODE TESTS RESULT OUT OF RANGE REFERENCE UNITS LAB L400.3000 Yellow COLOR Normal Yellow LAB L400.3050 Clear Normal CLARITY Clear LAB L400.3200 Normal mg/dl Normal GLUCOSE, UR Normal LAB L400.3300 Negative mg/dL Normal BILIRUBIN URINE Negative LAB L400.3400 Negative mg/dl Normal KETONE UR Negative LAB L400.3465 1.002-1.030 Normal SP.GR. DIPSTX 1.010 LAB L400.3550 5.0 - 8.0 pH UR Normal 6.5 LAB L400.3600 Negative mg/dl PROT Normal DIPSTX Negative LAB L400.3700 Normal mg/dl High 1 UROBILI LAB L400.3750 Negative Normal NITRITE UR Negative LAB L400.3780 Negative /ul Normal OCCULT BLOOD-UR Negative LAB L400.3800 Negative /ul LEUK Normal ESTERASE Negative LAB L400.4050 0-5 /hpf WBC 0 Normal SEEN LAB L400.4100 0-5 /hpf 0 Normal RBC-UA SEEN LAB L400.4150 0-5 /hpf SQUAM 0 Normal EPI SEEN LAB L400.4300 None Seen /hpf 0 Normal BACTERIA SEEN LAB L400.4350 <or=2+ /hpf 0 Normal MUCUS, URINE SEEN Performed By: #### L400.0001 #### [facility] [place], [address] CBC W/DIFF, AUTOMATED Collected: 09/23/2018 Status: F Source: [place] 11:31 AM [facility] REPOSITORY TYPE CODE TESTS RESULT OUT OF RANGE REFERENCE UNITS LAB L100.1000 4.4-11.0 K/mm3 Low WBC 2.9 LAB L100.1200 4.6-6.2 M/mm3 Normal RBC 4.82 LAB L100.1300 13.0-16.5 g/dl Normal HGB 14.2 LAB L100.1400 40-54 % Normal HCT 44.7 LAB L100.1500 80-94 fL Normal MCV 92.7 LAB L100.1600 27.0-32.0 pg Normal MCH 29.5 LAB L100.1700 32-36 g/gl Low MCHC 31.8 LAB L100.1810 11.6-14.6 % Normal RDW CV 13.6 LAB L100.1820 35.1-43.9 fl High RDW SD 46.1 LAB L100.1900 150-450 K/mm3 Normal PLT 229 LAB L100.2000 6.2-12.0 fl Normal MPV 9.6 LAB L100.2100 47-70 % Normal NEUT% 52.5 LAB L100.2200 19-41 % Normal LY% 30.7 LAB L100.2300 0-10 % High MONO% 16.2 LAB L100.2400 0-5 % Normal EO% 0.3 LAB L100.2500 0-1 % Normal BASO% 0.0 LAB L100.2550 0.0-0.9 % Normal IM GRAN % 0.300 Result Comment: IG% - Immature Granulocytes (promyelocytes, myelocytes and metamyelocytes) > 1% indicates that a LEFT SHIFT is Present. LAB L100.2620 2.0-7.7 X10 3/uL Low Absolute Neut 1.5 LAB L100.2720 0.83-4.51 X10 3/ul Normal Absolute Lymph 0.89 Performed By: #### L100.0100, L506.1000, L500.4050, L500.4100, L501.9520, L506.0400 #### [facility] [address] [place], [address] VITAMIN D,25 HYDROXY Collected: 09/23/2018 Status: F Source: [place] 11:31 AM [facility] REPOSITORY TYPE CODE TESTS RESULT OUT OF RANGE REFERENCE UNITS LAB L506.1000 29.95-100.01 ng/mL Normal Vitamin D 46.1 25-OH Result Comment: Vitamin D 25(OH) Status Range Deficiency <20 ng/mL (50nmol/L) Insuffciency 20 - 30 ng/mL (50 - 75 nmol/L) Sufficiency 30 - 100 ng/mL (75 - 250 nmol/L) Toxicity >100 ng/mL (>250 nmol/L) Performed By: #### L100.0100, L506.1000, L500.4050, L500.4100, L501.9520, L506.0400 #### [facility] [place], [address] COMPREHENSIVE METABOLIC Collected: 09/23/2018 Status: F Source: [place] 11:31 AM [facility] REPOSITORY TYPE CODE TESTS RESULT OUT OF RANGE REFERENCE UNITS LAB L501.0100 74-106 mg/dL Normal GLU 83 Result Comment: Please note revised GLUCOSE reference range effective 2017. LAB L501.1000 7-18 mg/dL Normal BUN 16 LAB L501.1100 0.70-1.30 mg/dL Normal CREAT,SERUM 1.15 Result Comment: The validity of the calculated GFR AND GFRAA in patients over 70 years has not been determined. Clinical correlation is essential. LAB L501.1110 >60 mL/min Normal EST GFR 66 Result Comment: Non- GFR Calc LAB L501.1115 >60 mL/min Normal EST GFR - AA 80 Result Comment: GFR Calc LAB L501.1300 10-20 RATIO Normal BUN/CRE 13.9 LAB L501.1500 6.4-8.2 g/dL T Normal PROT 7.9 LAB L501.1800 3.2-5.0 g/dL Normal ALB 3.5 LAB L501.1950 2.2-4.2 g/dL High GLOB 4.4 LAB L501.2000 0.9-2.4 RATIO Low A/G 0.8 LAB L501.2200 8.5-10.1 mg/dL High CA 10.3 LAB L501.4100 15-37 U/L Normal AST 16 LAB L501.4305 45-117 U/L Normal ALK P 56 LAB L501.4405 16-61 U/L Normal ALT 26 LAB L501.4600 0.20-1.00 mg/dL T Normal BILI 0.40 LAB L501.5300 136-145 mmol/L NA Normal 138 LAB L501.5600 3.5-5.1 mmol/L K Normal 4.5 LAB L501.5900 98-107 mmol/L CL Normal 105 LAB L501.6100 21.0-32.0 mmol/L Normal CO2 26.0 LAB L501.6200 5-15 Normal GAP 7 Performed By: #### L100.0100, L506.1000, L500.4050, L500.4100, L501.9520, L506.0400 #### [facility] [address] [place], [place], [id number] LIPID PROFILE Collected: 09/23/2018 Status: F Source: [place] 11:31 AM [facility] REPOSITORY TYPE CODE TESTS RESULT OUT OF RANGE REFERENCE UNITS LAB L501.4900 200 mg/dL Normal CHOL 162 Result Comment: <200 mg/dL Desirable 200-240 mg/dL Borderline >240 mg/dL High Risk LAB L501.5000 mg/dL Normal TRIG 56 Result Comment: The drugs N-Acetylcysteine and Metamizole may falsely depress this assay. Serum Triglycerides Reference Interval Normal <150 mg/dL Borderline high 150 - 199 mg/dL High 200 - 499 mg/dL Very High > or = 500 mg/dL LAB L501.6400 mg/dL Normal HDL 45 Result Comment: The drugs N-Acetylcysteine and Metamizole may falsely depress this assay. Reference Range HDL <40 mg/dL Low HDL Cholesterol HDL >or= 60 mg/dL High HDL Cholesterol LAB L501.6500 0-130 mg/dL Normal LDL 106 LAB L501.6600 5-40 mg/dL Normal VLDL 11 Performed By: #### L100.0100, L506.1000, L500.4050, L500.4100, L501.9520, L506.0400 #### [facility] [address] [place], [place], [id number] THYROID STIM HORMONE Collected: 09/23/2018 Status: F Source: [place] ([place]) 11:31 AM [facility] REPOSITORY TYPE CODE TESTS RESULT OUT OF RANGE REFERENCE UNITS LAB L501.9520 0.358-3.74 uIU/mL Normal TSH 1.13 Performed By: #### L100.0100, L506.1000, L500.4050, L500.4100, L501.9520, L506.0400 #### [facility] [address] [place], [place], [id number] T4 FREE DIRECT Collected: 09/23/2018 Status: F Source: [place] 11:31 AM [facility] REPOSITORY TYPE CODE TESTS RESULT OUT OF RANGE REFERENCE UNITS LAB L506.0400 0.76-1.46 ng/dL Normal T4 FREE 0.83 DIRECT Performed By: #### L100.0100, L506.1000, L500.4050, L500.4100, L501.9520, L506.0400 #### [facility] [address] [place], [address] K Collected: 08/25/2018 Status: F Source: [facility] 11:36 AM [facility] REPOSITORY TYPE CODE TESTS RESULT OUT OF REFERENCE UNITS RANGE LAB K(LOINC) 3.5-5.1 mmol/L Potassium Level 4.5 Performed By: #### K #### [facility] [address] [place] [id number] LIPID Collected: 08/04/2018 Status: F Source: [facility] 8:45 AM [facility] REPOSITORY TYPE CODE TESTS RESULT OUT OF REFERENCE UNITS RANGE LAB CHOL(LOINC 0-200 mg/dL ) Cholesterol 169 Result Comment: Cholesterol Reference Interval: Less than 200 Desirable 200-239 Borderline high risk 240 and above High risk LAB TRIG(LOINC) 0-150 mg/dL Triglycerides 77 Result Comment: Triglyceride Reference Interval: Less than 150 Normal 150-199 Borderline high risk 200-499 High risk 500 or higher Very high risk LAB HD(LOINC) 40-60 mg/dL HDL Cholesterol 44 LAB LDL(LOINC) 0-130 mg/dL LDL Cholesterol 110 Performed By: #### GFR, CMP, LIPID #### [place] [id number] [place] [id number] CMP Collected: 08/04/2018 Status: F Source: [facility] 8:45 AM [facility] REPOSITORY TYPE CODE TESTS RESULT OUT OF REFERENCE UNITS RANGE LAB GLU(LOINC) 83-110 mg/dL Low Glucose Level 81 LAB NA(LOINC) 136-145 mmol/L Sodium Level 145 LAB K(LOINC) 3.5-5.1 mmol/L Potassium Level 4.3 LAB CL(LOINC) 98-107 mmol/L Chloride High 108 LAB CO2(LOINC) 23-31 mmol/L CO2 26 LAB EBAL(LOINC mEq/L ) Electrolyte Balance 11.0 LAB BUN(LOINC) 7-18 mg/dL BUN 11 LAB CRE(LOINC) 0.70-1.30 mg/dL Creatinine Lvl (s) 1.02 LAB BC(LOINC) 7-27 ratio BUN/Creatinine 11 Ratio LAB CA(LOINC) 8.4-10.2 mg/dL Calcium Lvl 10.2 LAB PROT(LOINC 6.4-8.2 G/dL ) Total Protein 7.4 LAB ALB(LOINC) 3.4-4.8 G/dL Albumin Level 3.6 LAB GLB(LOINC) G/dL Globulin 3.8 LAB AG(LOINC) 1.1-2.5 ratio Low A/G Ratio 0.9 LAB BILT(LOINC 0.2-1.0 mg/dL ) Bili Total 0.4 LAB AP(LOINC) 40-135 U/L Alk Phos 50 LAB AST(LOINC) 10-40 U/L AST/SGOT 16 LAB ALT(LOINC) 10-35 U/L ALT/SGPT 24 Performed By: #### GFR, CMP, LIPID #### [place] [id number] .GFR Collected: 08/04/2018 Status: F Source: [facility] 8:45 AM [facility] REPOSITORY TYPE CODE TESTS RESULT OUT OF REFERENCE UNITS RANGE LAB GFRAA(LOINC ml/min/1.73 ) sqm GFR 87 Greek Result Comment: GFR Population mean for , Non- Americans Ages 20-29 = 116 mL/min/1.73 sq.m. Ages 30-39 = 107 mL/min/1.73 sq.m. Ages 40-49 = 99 mL/min/1.73 sq.m. Ages 50-59 = 93 mL/min/1.73 sq.m. Ages 60-69 = 85 mL/min/1.73 sq.m. Ages 70+ = 75 mL/min/1.73 sq.m. Chronic Kidney Disease: Less than 60 mL/min/1.73 square meters End Stage Renal Disease: Less than 15 mL/min/1.73 square meters LAB GFRNO(LOINC) ml/min/1.73sqm GFR Non- 71 Result Comment: GFR Population mean for , Non- Americans Ages 20-29 = 116 mL/min/1.73 sq.m. Ages 30-39 = 107 mL/min/1.73 sq.m. Ages 40-49 = 99 mL/min/1.73 sq.m. Ages 50-59 = 93 mL/min/1.73 sq.m. Ages 60-69 = 85 mL/min/1.73 sq.m. Ages 70+ = 75 mL/min/1.73 sq.m. Chronic Kidney Disease: Less than 60 mL/min/1.73 square meters End Stage Renal Disease: Less than 15 mL/min/1.73 square meters Performed By: #### GFR, CMP, LIPID #### [place] [id number] PROGRESS Observed: 07/06/2018 Status: COMPLETED Source: [place] 10:33 AM [facility] REPOSITORY HNO ID: [id number] Author: Ela Florentino Service: (none) Author Type: Physician Type: Progress Notes Filed: 07/07/2018 7:55 AM Note Text: Hematology and Medical Oncology PATIENT NAME: Luis Rider. CLINIC NO: [id number]. ATTENDING PHYSICIAN: Ela Florentino MD. DATE OF SERVICE:07/06/2018. DIAGNOSIS: history of idiopathic bilateral pulmonary embolism; difficulty with Coumadin management with low (subtherapeutic) prothrombin time. Consultation requested by Dr. Ascencio for an opinion regarding idiopathic pulmonary embolism. My final recommendations will be communicated back to the requesting physician by way of shared Medical record or letter to requesting physician via [place] mail. PERFORMANCE STATUS:100% HPI: 73-year-old -Greek gentleman who presented in 2013 was progressive shortness of breath. He had no chest pain, cough or hemoptysis or fever at presentation. he was told at the time that he had bilateral pulmonary emboli with DVT. He was treated with IV heparin and subsequently continue Coumadin as outpatient. Patient has no major bleeding complications or problems with Coumadin therapy. His pulmonary embolism and DVT has resolved on treatment. however, in the last year patient has been consistently low prothrombin time despite no change in diet or medication with his warfarin therapy. Patient has no increased bleeding or bruising. He does not smoke tobacco or drink alcohol. He had a colonoscopy several years ago and was told it was normal and his next colonoscopy would be 10 years. He had not had a prostate cancer screening and recent year. Patient also has a chronic leukopenia but no evidence of anemia or thrombocytopenia. His renal function is normal. He follow with Dr. Banks for hypertensive cardiomyopathy. His last echocardiogram 2016 showed a normal concentric left ventricular hypertrophy with normal systolic function. Mr Rider has no weight loss, change in bowel habits, cough or urinary symptom. He has no family history of thromboembolism or thrombophilia. MEDICATIONS: Current Outpatient Prescriptions: levothyroxine (SYNTHROID) 100 mcg tablet Take 100 mcg by mouth once daily. montelukast (SINGULAIR) 10 mg tablet Take 10 mg by mouth once daily. losartan (COZAAR) 100 mg tablet Take 100 mg by mouth once daily. hydroCHLOROthiazide (HYDRODIURIL, ESIDRIX) 25 mg tablet Take 25 mg by mouth once daily. escitalopram oxalate (LEXAPRO) 20 mg tablet Take 20 mg by mouth once daily. ALPRAZolam 0.5 mg dissolvable tablet Take 0.5 mg by mouth three times daily as needed. Garlic 2,000 mg cap Take 1 capsule by mouth once daily. apixaban (ELIQUIS) 5 mg tab(s) Take 1 tablet by mouth twice daily. No current facility-administered medications for this visit. . ALLERGIES: ALLERGIES Allergen Reactions - Iodine Hives - Percocet [Oxycodone* Swelling Swelling of the lips, face . PAST MEDICAL HISTORY:No past medical history on file.. PAST SURGICAL HISTORY: PAST SURGICAL HISTORY Procedure Laterality Date - EYE SURGERY HX Bilateral cataract removal - INGUINAL HERNIA REPAIR HX - JOINT REPLACEMENT HX Bilateral knee replacements - KNEE ARTHROSCOPY Bilateral - SALIVARY GLAND SURGERY HX - THYROIDECTOMY SUBTOTAL/PARTIAL . FAMILY HISTORY: FAMILY HISTORY Problem Relation Age of Onset - Cancer Mother breast - Diabetes Mother - Hypertension Mother - other (back surgery) Brother - Arthritis Sister - other (back surgery) Sister - Cancer Sister brain . SOCIAL HISTORY:Social History Marital status: Spouse name: Years of education: Number of children: Social History Main Topics Smoking status: Former Smoker Packs/day: 0.00 Years: 0.00 Types: Cigarettes Quit date: 07/06/1978 Smokeless tobacco: Never Used Alcohol use: No Drug use: No . REVIEW OF SYSTEMS: CONSTITUTIONAL: No fevers, chills, nightsweats, unintended weight loss HEENT: Denies frequent or severe heaches, nasal congestion/sinus symptoms, problematic allergy problems. EYES: No diplopia or blurry vision. CARDIOVASCULAR: No chest pain, dyspnea, palpitations, orthopnea, PND, ankle edema. PULM: No dyspnea, unexplained cough. GI: No dysphagia/odynophagia, problematic reflux, constipation, diarrhea, changes in stool habits, hematochezia, melena. : No new urinary complaints, including dysuria, gross hematuria or pyuria. NEURO: No new balance problems, peripheral weakness/paresthesias or numbness of concern. MUSC-SKEL: No new joint pain, swelling, or erythema. PSY: No concerns regarding depression, anxiety or panic. INTEGUMENTARY: No new skin changes (rash, new or changing mole, new growth) PHYSICAL EXAMINATION: 73-year-old well-nourished well-developed gentleman in no acute distress BP 140/91 Pulse 66 Temp (Src) 98.2 (Oral) Ht 6' 2.5[verified by Amna Blake MA[ (1.89m) Wt 274 lb (124.3kg) BMI 34.72 kg/(m2). HEENT: Head is normocephalic, atraumatic. Sclerae white, conjunctivae pink. PEERL. EOMs are intact. Oropharynx is benign. LYMPHATICS: There is no palpable adenopathy in the neck, supraclavicular region, axillae, or groin. LUNGS: Lungs are clear to percussion and auscultation. HEART: Heart is normal without murmurs, +S4 gallops, no rubs. ABDOMEN: Soft and nontender without organomegaly. No masses can be palpated. EXTREMITIES: Are without edema. NEUROLOGIC: Exam is physiologic ASSESSMENT: 73-year-old gentleman with history of hypertensive cardiomyopathy AND extensive idiopathic pulmonary embolism. He has difficulty with management of warfarin therapy recently with low prothrombin time despite no changes with his health, diet or medications. PLAN: - since Mr Blanco will need to be on long-term anticoagulation therapy, I recommend stopping warfarin and starting to ELIQUIS 5mg twice daily. - long-term study comparing warfarin versus Eliquis show no increased risks of major bleeding problem with Eliquis compared to warfarin. - avoid aspirin AND NSAIDs - However, I also recommend colon cancer and prostate cancer screening with Hemoccult/fecal occult stool, prostate exam and PSA with his primary care doctor. I spent 45 minutes in the visit, with more than 50% of the total [id number] time of the visit in counseling / coordination of care. - The patient will also follow-up with Dr. Banks next year. Ela Florentino MD. ELECTRONICALLY SIGNED Cc: Dr. Eleazar Banks CNOVSP Observed: 07/06/2018 Status: COMPLETED Source: [place] 9:10 AM [facility] REPOSITORY Visit (SP) Office ([place]) LUIS RIDER ([id number]) 1945 M Date Time Provider Department 07/06/18 9:10 AM ELA FLORENTINO During your visit today, we recorded the following information about you: Temperature Pulse Blood pressure Weight 98.2 degrees 66/minute 140/91 124.3 kg Height 1.892 m Yi Ash LPN 07/06/2018 10:10 AM Signed New patient. Discuss diagnosis of hypoprothrombinemia. Yi Florentino MD 07/07/2018 7:55 AM Signed Hematology and Medical Oncology PATIENT NAME: Luis Rider. CLINIC NO: [id number]. ATTENDING PHYSICIAN: Ela Florentino MD. DATE OF SERVICE:07/06/2018. DIAGNOSIS: history of idiopathic bilateral pulmonary embolism; difficulty with Coumadin management with low (subtherapeutic) prothrombin time. Consultation requested by Dr. Ascencio for an opinion regarding idiopathic pulmonary embolism. My final recommendations will be communicated back to the requesting physician by way of shared Medical record or letter to requesting physician via [place] mail. PERFORMANCE STATUS:100% HPI: 73-year-old -Greek gentleman who presented in 2013 was progressive shortness of breath. He had no chest pain, cough or hemoptysis or fever at presentation. he was told at the time that he had bilateral pulmonary emboli with DVT. He was treated with IV heparin and subsequently continue Coumadin as outpatient. Patient has no major bleeding complications or problems with Coumadin therapy. His pulmonary embolism and DVT has resolved on treatment. however, in the last year patient has been consistently low prothrombin time despite no change in diet or medication with his warfarin therapy. Patient has no increased bleeding or bruising. He does not smoke tobacco or drink alcohol. He had a colonoscopy several years ago and was told it was normal and his next colonoscopy would be 10 years. He had not had a prostate cancer screening and recent year. Patient also has a chronic leukopenia but no evidence of anemia or thrombocytopenia. His renal function is normal. He follow with Dr. Banks for hypertensive cardiomyopathy. His last echocardiogram 2016 showed a normal concentric left ventricular hypertrophy with normal systolic function. Mr Rider has no weight loss, change in bowel habits, cough or urinary symptom. He has no family history of thromboembolism or thrombophilia. MEDICATIONS: Current Outpatient Prescriptions: levothyroxine (SYNTHROID) 100 mcg tablet Take 100 mcg by mouth once daily. montelukast (SINGULAIR) 10 mg tablet Take 10 mg by mouth once daily. losartan (COZAAR) 100 mg tablet Take 100 mg by mouth once daily. hydroCHLOROthiazide (HYDRODIURIL, ESIDRIX) 25 mg tablet Take 25 mg by mouth once daily. escitalopram oxalate (LEXAPRO) 20 mg tablet Take 20 mg by mouth once daily. ALPRAZolam 0.5 mg dissolvable tablet Take 0.5 mg by mouth three times daily as needed. Garlic 2,000 mg cap Take 1 capsule by mouth once daily. apixaban (ELIQUIS) 5 mg tab(s) Take 1 tablet by mouth twice daily. No current facility-administered medications for this visit. . ALLERGIES: ALLERGIES Allergen Reactions - Iodine Hives - Percocet [Oxycodone* Swelling Swelling of the lips, face . PAST MEDICAL HISTORY:No past medical history on file.. PAST SURGICAL HISTORY: PAST SURGICAL HISTORY Procedure Laterality Date - EYE SURGERY HX Bilateral cataract removal - INGUINAL HERNIA REPAIR HX - JOINT REPLACEMENT HX Bilateral knee replacements - KNEE ARTHROSCOPY Bilateral - SALIVARY GLAND SURGERY HX - THYROIDECTOMY SUBTOTAL/PARTIAL . FAMILY HISTORY: FAMILY HISTORY Problem Relation Age of Onset - Cancer Mother breast - Diabetes Mother - Hypertension Mother - other (back surgery) Brother - Arthritis Sister - other (back surgery) Sister - Cancer Sister brain . SOCIAL HISTORY:Social History Marital status: Spouse name: Years of education: Number of children: Social History Main Topics Smoking status: Former Smoker Packs/day: 0.00 Years: 0.00 Types: Cigarettes Quit date: 07/06/1978 Smokeless tobacco: Never Used Alcohol use: No Drug use: No . REVIEW OF SYSTEMS: CONSTITUTIONAL: No fevers, chills, nightsweats, unintended weight loss HEENT: Denies frequent or severe heaches, nasal congestion/sinus symptoms, problematic allergy problems. EYES: No diplopia or blurry vision. CARDIOVASCULAR: No chest pain, dyspnea, palpitations, orthopnea, PND, ankle edema. PULM: No dyspnea, unexplained cough. GI: No dysphagia/odynophagia, problematic reflux, constipation, diarrhea, changes in stool habits, hematochezia, melena. : No new urinary complaints, including dysuria, gross hematuria or pyuria. NEURO: No new balance problems, peripheral weakness/paresthesias or numbness of concern. MUSC-SKEL: No new joint pain, swelling, or erythema. PSY: No concerns regarding depression, anxiety or panic. INTEGUMENTARY: No new skin changes (rash, new or changing mole, new growth) PHYSICAL EXAMINATION: 73-year-old well-nourished well-developed gentleman in no acute distress BP 140/91 Pulse 66 Temp (Src) 98.2 (Oral) Ht 6' 2.5[verified by Amna lBake MA[ (1.89m) Wt 274 lb (124.3kg) BMI 34.72 kg/(m2). HEENT: Head is normocephalic, atraumatic. Sclerae white, conjunctivae pink. PEERL. EOMs are intact. Oropharynx is benign. LYMPHATICS: There is no palpable adenopathy in the neck, supraclavicular region, axillae, or groin. LUNGS: Lungs are clear to percussion and auscultation. HEART: Heart is normal without murmurs, +S4 gallops, no rubs. ABDOMEN: Soft and nontender without organomegaly. No masses can be palpated. EXTREMITIES: Are without edema. NEUROLOGIC: Exam is physiologic ASSESSMENT: 73-year-old gentleman with history of hypertensive cardiomyopathy AND extensive idiopathic pulmonary embolism. He has difficulty with management of warfarin therapy recently with low prothrombin time despite no changes with his health, diet or medications. PLAN: - since Mr Blanco will need to be on long-term anticoagulation therapy, I recommend stopping warfarin and starting to ELIQUIS 5mg twice daily. - long-term study comparing warfarin versus Eliquis show no increased risks of major bleeding problem with Eliquis compared to warfarin. - avoid aspirin AND NSAIDs - However, I also recommend colon cancer and prostate cancer screening with Hemoccult/fecal occult stool, prostate exam and PSA with his primary care doctor. I spent 45 minutes in the visit, with more than 50% of the total [id number] time of the visit in counseling / coordination of care. - The patient will also follow-up with Dr. Banks next year. Ela Florentino MD. ELECTRONICALLY SIGNED Cc: Dr. 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 Follow-up and Disposition History Recorded Prescriptions as of 07/06/2018 Sig: LEVOTHYROXINE 100 MCG TABLET Take 100 mcg by mouth once da* MONTELUKAST 10 MG TABLET Take 10 mg by mouth once aubree* LOSARTAN 100 MG TABLET Take 100 mg by mouth once edgar* HYDROCHLOROTHIAZIDE 25 MG TAB* Take 25 mg by mouth once aubree* ESCITALOPRAM 20 MG TABLET Take 20 mg by mouth once aubree* ALPRAZOLAM 0.5 MG DISINTEGRAT* Take 0.5 mg by mouth three ti* GARLIC 2,000 MG CAPSULE Take 1 capsule by mouth once * APIXABAN 5 MG TABLET Take 1 tablet by mouth twice * Medication notes this encounter WARFARIN 4 MG TABLET >> Yi Ash LPN 07/06/2018 9:29 AM >> YI ASH LPN WedJul 06, 2018 9:29 AM Taking 9 mg 4 days a week and 8 mg 3 days a week WARFARIN 1 MG TABLET >> Yi Ash LPN 07/06/2018 9:29 AM >> YI ASH LPN WedJul 06, 2018 9:29 AM Taking 9 mg 4 days a week and 8 mg 3 days a week Problem List As Of Date 07/06/2018 Noted Resolved Chronic saddle pulmonary embolism without acute*INVALID FOR* Anticoagulant long-term use [Z79.01] INVALID FOR* Visit Notes: >> Yi Ash LPN WedJul 06, 2018 9:39 AM Status: Signed New patient. Discuss diagnosis of hypoprothrombinemia. Yi Ash RACHELLE Encounter Status:Closed by ELA FLORENTINO MD on 07/07/18 STRESS REPORT Observed: 04/08/2018 Status: F Source: [place] ROUGE 5:30 PM [facility] REPOSITORY [facility] Cardiovascular Services [address] [place] [address] MR#: [id number] Acct: [id number] Name: RIDERLUIS Sara Rep #: [id number] : 1945 72 From: Eleazar Banks MD Primary Care: Luis Ascencio DO Status: REG CLI Ordering Dr: Sex: M FRITZ Stress Test Report Exercise/pharmacologic myocardial perfusion stress test. 72-year-old man with a history of shortness of breath. Stress protocol: Resting EKG demonstrates normal sinus rhythm with rate of 60 bpm normal intervals and noted resting blood pressure is 118/84 mmHg. Patient exercised according to regular Santino protocol for total duration of 6 minutes and 35 seconds attaining a maximum heart rate of 101 bpm which was 68% of the maximum predicted heart rate. The maximum workload attained was 7.8 metabolic equivalents. The patient could not obtain 85% of the maximum predicted heart rate and therefore the test was terminated and changed to a pharmacologic myocardial perfusion stress test. 0.4 mg of regadenoson was then infused per usual protocol followed by rapid intravenous saline flush injection continuous EKG monitoring was performed. At rest there were no ST or T-wave changes noted suggest ischemia at peak infusion no ST or T-wave changes were noted suggest ischemia. During the exercise portion there were no ST or T-wave changes noted suggest ischemia. There was adequate blood rate response and blood pressure response to exercise the peak blood pressure was 140/76 mmHg. Myocardial perfusion protocol. 14.0 mCi of technetium 99m sestamibi was injected at rest. 0.4 mg of regadenoson was infused per usual protocol at peak infusion 42.0 mCi of technetium 99m sestamibi was injected stress images were obtained stress and rest images were reconstructed and compared in the short axis vertical long and horizontal long axis. Gated images were also obtained. Perfusion SPECT analysis. Review of the stress images demonstrate normal uptake of tracer noted in all areas of the myocardium. The resting images similarly demonstrated normal uptake of tracer noted in all areas of the myocardium no areas of reversibility are noted suggest ischemia. Gated SPECT analysis: The gated ejection fraction is noted to be 59%. Conclusion: Normal pharmacologic myocardial perfusion stress test. No clinical angina noted. Good functional aerobic capacity. 04/08/18 1730 <Electronically signed by Eleazar Banks MD> Date Eleazar Banks MD CC: Luis Ascencio DO; Eleazar Banks MD Date Dictated: 04/08/181725 Date Transcribed: 04/08/181725 Lunchroom Mother: CO Signed CARDIOLOGY VISIT Observed: 03/29/2018 Status: F Source: RITESH REPORT 10:28 AM [facility] RE[facility]ITORY [facility]. [address] [place] [address] OFFICE VISIT Date of Service: 03/29/18 MR#: [id number] Acct: [id number] Name: LUIS RIDER Rep #: [id number] : 1945 Provider: Eleazar Banks MD Age/Sex: 72/M Location: [facility] Status: Signed HPI HPI Chief Complaint: Follow-up visit. Details: LUIS RIDER, is a 72 M who presents to the office today for a follow-up visit. Is a gentleman with a history of hypertension diastolic dysfunction history of pulmonary embolism who returns for follow-up visit. He has multiple complaints including fatigue neck pain shortness of breath with some activity occasional cough and heartburn. He has also had some memory loss the etiology of which is not entirely clear to him. He has been compliant with all his medications including his losartan and hydrochlorothiazide for blood pressure as well as spironolactone. His physical exam today demonstrates clear lung vo regular rate and rhythm and no pedal edema. His blood pressure is under excellent control. His last echocardiogram which was performed in September 2017 demonstrated an ejection fraction of 55% with no wall motion abnormalities present. He said he had some chest discomfort about a month ago which was pressure-like in sensation and will come up from bed. There was no diaphoresis or radiation of the discomfort. He has not had it since. As remember his last stress test was in 2011. Intake Vital Signs03/29/18 Height 6 ft 4 in 03/29/18 Weight: 269 lb 03/29/18 Body Mass Index (BMI) 32.7 03/29/18 Blood Pressure 130/84 03/29/18 Blood Pressure Location Lt brachial Intake Visit Reasons: 6 M Networking Technician Required: No Accompanied by: None Is patient in pain?: No Allergies Iodinated Contrast- Oral and IV Dye [Iodinated Contrast Media - IV Dye] Allergy (Verified 03/29/18 10:07) Hives acetaminophen [From Percocet] Adverse Reaction (Verified 03/29/18 10:07) Swelling oxycodone HCl [From Percocet] Adverse Reaction (Verified 03/29/18 10:07) Swelling Medications Escitalopram Oxalate [Lexapro] 20 mg PO DAILY 05/07/17 [History Confirmed 03/28/18] Hydrochlorothiazide [Hctz] 25 mg PO DAILY 05/07/17 [History Confirmed 03/28/18] Levothyroxine [Synthroid] 100 mcg PO DAILY 05/07/17 [History Confirmed 03/28/18] Losartan Potassium 100 mg PO DAILY 05/07/17 [History Confirmed 03/28/18] Montelukast Sodium [Singulair] 10 mg PO DAILY 05/07/17 [History Confirmed 03/28/18] Spironolactone [Aldactone] 25 mg PO DAILY 05/07/17 [History Confirmed 03/28/18] warfarin 7.5 mg tablet 7.5 mg PO .COMPLEX 03/28/18 [History Confirmed 03/28/18] Ejection fraction %: 55 to 59 (55% per echo 10/11/2017 at [facility]) ON LICENSE OF [facility] Medical History Chronic diastolic heart failure (Chronic) SYDNEE (obstructive sleep apnea) (Chronic) HLD (hyperlipidemia) (Chronic) Acute deep vein thrombosis of left lower extremity (Chronic) Bilateral pulmonary embolism (Chronic) Hypothyroid (Chronic) HTN (hypertension) (Chronic) Anxiety (Chronic) Depression (Chronic) Syncope (Chronic) Surgical History History of bilateral knee replacement (Chronic) History of hydrocele (Chronic) History of partial thyroidectomy (Chronic) History of shoulder surgery (Chronic) Hx of cataract extraction (Chronic) Hx of hernia repair (Chronic) Hx of sinus surgery (Chronic) hx saliva gland removal (Chronic) hx uvula removal (Chronic) hx wrist surgery (Chronic) Family History Father Cancer Mother Cancer Hypertension Aunt Diabetes Uncle Diabetes Social History Smoking Status: Former smoker alcohol intake: never substance use type: does not use caffeine: Yes Type: coffee what type of physical activity do you participate in: none seatbelt use: always do you feel safe at home: Yes ROS Const Const: Positive for fatigue; negative for body ache, fever(s), chills, night sweats, daytime sleepiness, difficulty sleeping, weight gain, weight loss, increased appetite, poor appetite, anorexia, other, excessive sweating, frequent falls, headache(s) or weakness Eyes Eyes: Negative for blind spots, loss of peripheral vision, transient loss of vision, change in vision, floaters, tunnel vision, other, blurry vision or double vision ENT ENT: Positive for neck pain (managed by Dr. Zamarripa); negative for hearing loss, tinnitus, Nosebleed/epistaxis, post nasal drip, bleeding gums, hoarseness, dry mouth, other, balance problems, dizziness, headache(s), tongue swelling or lip swelling Cardio Chest Pain: Yes Frequency: other (within the last month pt had one episode of chest discomfort) Character: squeezing (pressure) Onset: at rest (pt was sleeping and woke up from chest discomfort) Location: mid sternal Duration: minutes (lasting almost 10 minutes) Relieving: rest Palpitations: No Edema: None Muscle aches with walking: None Additional Details: Within the last month pt had once episode of mid sternal squeezing chest discomfort lasting almost 10 minutes. Pt states I feel like it woke me up from sleeping. Resp Respiratory: Positive for SOB with activity and Cough (procudtive cough); negative for SOB at rest, SOB orthopnea\SOB lying down, Coughing up blood/hemoptysis, chest congestion, pain on inspiration, snoring, stridor, wheezing, crackles, paroxysmal nocturnal dyspnea or other GI GI: Positive for heartburn; negative nausea, vomiting, constipation, belching, bloating, cramping, vomiting blood/hematemesis, bright, red blood in stools, black,tarry stools, loose stools, Difficulty Swallowing or other : Positive for erectile dysfunction; negative for hematuria, frequent nighttime urination/ nocturia or abnormal vaginal bleeding Musc Musc: Positive for muscle aches/ myalgia; negative for muscle weakness, joint pain or balance problems Skin Skin: Negative redness, non-healing lesions, unusual bruising, skin ulcer, wounds, jaundice, other or rash Neuro Neuro: Positive for confusion and memory loss; negative for dizziness, lightheadedness, near syncope, syncope, orthostatic symptoms, frequent falls, headache(s), weakness, restless legs, blurry vision, double vision, vertigo, seizures, lack of coordination or other Ray Hematologic/Lymphatic: Negative for easy bleeding, easy bruising, enlarged lymph nodes or other Endo Endo: Positive for fatigue; negative for cold intolerance, heat intolerance, excessive sweating, flushing, increased thirst/drinking, increased hunger, hair loss, hair growth or other Psych Psych: Negative for anxiety, depression, thoughts of harming anyone, thoughts of harming yourself, visual hallucinations, panic attacks or audible hallucinations Allergy Allergy/Immunology: Negative for throat swelling, Negative for tongue swelling, Negative for hives, Negative for rash, Negative for lip swelling Cardiology Exam Const Appearance: cooperative, healthy appearing, well developed, well groomed and no acute distress Nutritional Appearance: well nourished and average body habitus Orientation: alert, awake and oriented x3 Head Head: normal to inspection, normocephalic and atraumatic Ears: hearing grossly normal bilaterally and external ears normal Nose: external nose normal, nasal mucous membranes and turbinates normal, nares normal, septum normal, no nasal discharge Face and Sinus: face symmetric Mouth: oral mucosae normal, tongue normal, oropharynx normal and moist mucous membranes Teeth and gingiva: dentition normal Throat: posterior oropharynx normal, tonsils normal and uvula midline Eyes General: appearance normal, both eyes and all related structures Eyelids: eyelids normal Conjunctivae: conjunctivae normal Pupils: PERRL, normal by confrontation and accommodation normal EOM: EOM intact bilaterally Neck Neck: normal visual inspection, trachea midline and no JVD JVD: +5 Carotids: normal carotid upstroke and bounding pulses Chest Chest inspection: normal inspection of the chest, symmetric chest movement and normal respiratory effort Auscultation: Bilateral: Clear to Auscultation Cardio Palpation: normal PMI Rate: regular rate Rhythm: regular rhythm Heart sounds: S1 normal, S2 normal and normal, physiologic split S2; negative rub, gallop or murmur GI GI: normal to inspection, soft, no hepatosplenomegaly and bowel sounds present Neuro General: alert, awake, oriented x3, no focal sensory deficit, gait normal and moves all extremities Skin Skin: no rashes or lesions noted Extremities Pulses: Normal: Right Femoral Pulse, Left Femoral Pulse, Right Dorsalis Pedis Pulse, Left Dorsalis Pedis Pulse, Right Posterior Tibial Pulse, Left Posterior Tibial Pulse, Right Radial Pulse, Left Radial Pulse Lower Extremity Edema: None: Bilateral Musculoskel Musculoskeletal: No joint tenderness Psych Psychological: normal affect Assessment AND Plan 1. Chest pain R07.9 Plan He does have some chest pain with features which are difficult to delineate. My recommendation would be for us to further evaluate the above with an exercise stress test. Depending on the findings further recommendations will then be made. Orders Orders: 2. Chronic diastolic heart failure I50.32 Plan He does have a history of diastolic heart failure his blood pressure has been adequately controlled and his most recent echocardiogram demonstrated preserved ejection fraction as noted above. No other changes will be made. 3. HTN (hypertension) I10 Plan His blood pressure continues to be excellently controlled on the current medical therapy no adjustments will need to be made at this particular time. 4. Bilateral pulmonary embolism I26.99 Plan He does have a previous history of bilateral pulmonary embolism but his most recent evaluation with echocardiogram demonstrated that his lung pressures were noted to be in the normotensive range. Thank you for allowing me to participate in the care of your patient. 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) Coding Level of Care Code Off vis,est,level 4 Diagnoses Chest pain R07.9 Chronic diastolic heart failure I50.32 HTN (hypertension) I10 Bilateral pulmonary embolism I26.99 Coding Level of Care Code Off vis,est,level 4 Diagnoses Chest pain R07.9 Chronic diastolic heart failure I50.32 HTN (hypertension) I10 Bilateral pulmonary embolism I26.99 03/29/18 1028 <Electronically signed by Eleazar Banks MD> Date Eleazar Banks MD Cosigner Signature: Date (if applicable) CC: Luis Ascencio DO ALLERGIES ALLERGIES DATE TYPE / CODE NAME / CODE REACTION SEVERITY SOURCE 10/03/2018 Drug oxycodone Swelling Unknown [facility] Allergy/416 HCl/[id number](R Hospital 087628(SNOM XNORM) Repository ED CT) 10/03/2018 Drug Iodinated Hives Unknown [facility] Allergy/416 Contrast- [facility] 204010(SNOM and IV Repository ED CT) Dye/[id number](R XNORM) 10/03/2018 Drug acetaminophen/F0 Swelling Unknown [facility] Allergy/416 71178840(RXNORM) Hospital 522517(SNOM Repository ED CT) ENCOUNTERS ENCOUNTERS ADMIT/DISCHARGE ACCOUNT NUMBER ADMITTING ENCOUNTER LOCATION SOURCE CLASS 10/21/2018 [id number] Ambulatory [facility] ding:NM Repository 10/12/2018 [id number] Ambulatory [facility] ding:MFPLAB Repository 10/05/2018 [id number] Ambulatory [facility] ding:LABSPEC Repository 10/05/2018/10/05/20 [id number] Ambulatory BMSBuilding: [facility] BMSFormerly [facility] Repository 10/03/2018/10/03/20 [id number] Ambulatory BMSBuilding: R[facility] BMS.[facility] Repository 09/27/2018 [id number] Ambulatory [facility] ding:[place] Repository 09/23/2018 [id number] [facility] 08/25/2018/08/29/20 [id number] Ambulatory [address] ding:[facility] Repository 08/04/2018/08/08/20 [id number] Ambulatory [address] ding:[facility] Repository 07/06/2018/07/07/20 [id number] Ambulatory [address] Repository 04/08/2018 [id number] Ambulatory [facility] ding:[facility] Repository 04/08/2018 [id number] Ambulatory BMSBuilding: Ritesh [facility] Repository 03/29/2018/03/29/20 [id number] Ambulatory BMSBuilding: [facility] BMS.[facility] Repository 03/28/2018 [id number] Ambulatory BMSBuilding: [facility] BMS.[facility] Repository PAYERS PAYERS ENCOUNTER GUARANTOR PAYER SUBSCRIBER SOURCE 10/21/2018 LUIS Rebollar Primary LUIS Awad [id number] Insurance:MEDICARE WINTERSDOB: Community BIRCH PART A BPolicy Number: [id number], [place] [id number] Repository [address]Fzd: 330) Date:2018-10-14 [phone] () 10/21/2018 Secondary LUIS L [facility] Insurance:ANTHEMPolicy WINTERSDOB: Community Number: [id number] [id number] Repository Date:9353-08-10GW [address] [place] [address]KR: 10/21/2018 Tertiary NOT GIVENUNK [facility] Insurance:SELF PAY [facility]: Effective Repository Date:2018-10-14 10/12/2018 LUIS L Primary LUIS Sara Awad [id number] Insurance:MEDICARE WINTERSDOB: [facility] BIRCH PART A BPolicy Number: [id number], [place] [id number] Repository [address]Bsd: (851) Date:2018-10-12 [phone] () 10/12/2018 Secondary LUIS L Ritesh Insurance:ANTHEMPolicy WINTERSDOB: Community Number: [id number] Hospital [id number] Repository Date:4840-08-92[address], [place] [address]PQ: 10/12/2018 Tertiary NOT GIVENUNK [facility] Insurance:SELF PAY [facility] Number: Effective Repository Date:2018-10-12 10/05/2018 LUIS L Primary LUIS L Ritesh [id number] Insurance:MEDICARE WINTERSDOB: Community BIRCH PART A BPolicy Number: [id number], [place] [id number] Repository [address]Rgv: (291) Date:2018-10-05 [phone] () 10/05/2018 Secondary LUIS L Ritesh Insurance:ANTHEMPolicy WINTERSDOB: Community Number: [id number] Hospital [id number] Repository Date:2365-34-26[address], [place] [address]GE: 10/05/2018 Tertiary NOT GIVENUNK [place] Insurance:SELF PAY [facility] Number: Effective Repository Date:2018-10-05 10/05/2018 LUIS L Primary LUIS L Ritesh [id number] Insurance:MEDICARE WINTERSDOB: Community BIRCH PART A BPolicy Number: [id number], [place] [id number] Repository [address]Jya: (330) Date:2018-10-03 [phone] () 10/05/2018 Secondary LUIS L Ritesh Insurance:ANTHEMPolicy WINTERSDOB: Community Number: [id number] Hospital [id number] Repository Date:2011-22-43YV [address], [place] [address]AM: 10/05/2018 Tertiary NOT GIVENUNK [place] Insurance:SELF PAY [facility] Number: Effective Repository Date:2018-10-05 10/03/2018 LUIS L Primary LUIS L Ritesh [id number] Insurance:MEDICARE WINTERSDOB: Community BIRCH PART A BPolicy Number: [id number], [place] [id number] Repository [address]Sap: ([phone]) Date:2018-09-28 [phone] () 10/03/2018 Secondary LUIS L Ritesh Insurance:ANTHEMPolicy WINTERSDOB: Community Number: [id number] Hospital [id number] Repository Date:5232-23-60HR [address] [address]RY: 10/03/2018 Tertiary NOT GIVENUNK Ritesh Insurance:SELF PAY [facility] Number: Effective Repository Date:2018-09-30 09/27/2018 LUIS L Primary LUIS L Ritesh [id number] Insurance:MEDICARE WINTERSDOB: Community BIRCH PART A BPolicy Number: [id number], [place] [id number] Repository [address]Bfm: (330) Date:2018-09-23 [phone] () 09/27/2018 Secondary LUIS L Ritesh Insurance:ANTHEMPolicy WINTERSDOB: Community Number: [id number] Hospital [id number] Repository Date:6838-68-09TI [address] [place] [address]VW: 09/27/2018 Tertiary NOT GIVENUNK Ritesh Insurance:SELF PAY [facility] Number: Effective Repository Date:2018-09-23 09/23/2018 LUIS L Primary LUIS L [facility] [id number] Insurance:MEDICARE WINTERSDOB: Community BIRCH PART A BPolicy Number: [id number], [place] [id number] Repository [address]Lht: (330) Date:2018-09-23 [phone] () 09/23/2018 Secondary LUIS L Ritesh Insurance:ANTHEMPolicy WINTERSDOB: Community Number: [id number] Hospital [id number] Repository Date:0775-76-89PX [address], [place] [address]RL: 09/23/2018 Tertiary NOT GIVENUNK [facility] Insurance:SELF PAY [facility] Number: Effective Repository Date:2018-09-23 08/25/2018 LUIS Rebollar [facility] LUIS [facility]ollar [facility] Insurance:MEDICARE WINTERSDOB: [facility] PART BPolicy Number: [id number] Repository VICKY [id number] [place], [place] Date:2018-08-25 [place] [address]~[email or web address]@ZO [id number] 861[address]Mik: ([phone]) OMINTERNET.NETT Name:[facility] [phone] el: ([phone]) Administrators LLCPO (HP) [address]Bozprywyp, [place] 000-0000 (WP) (HP)Tel: [phone]: [phone] 08/25/2018 Secondary LUIS Rebollar [facility] [id number] Repository Number: VICKY [id number] [place], [place] Date:2018-08-25 18759Uiy: [phone] [id number] [phone] Name:BPO [address]OX (HP)Tel: 000 [address]Qwsosrl, [place] 000-0000 (WP) [address]AD: 08/04/2018 LUIS Rebollar [facility] W[facility]SDOB: [facility] PART BPolicy Number: [id number] Repository VICKY [id number] [place], [place] Date:2018-08-04 [place] [address]~[email or web address]@ZO [id number] 30530Ljj: (330) OMINTERNET.NETT Name:[facility] [phone] el: ([phone]) Administrators LLCPO (HP) [address] [address]ajzigm, [place] 000-0000 (WP) (HP)Tel: [phone]: [phone] 08/04/2018 Secondary LUIS [facility] Insurance:ANTHEM BLUE WINTERSDOB: [facility] [id number] Repository Number: VICKY [id number] [place], [place] Date:2018-08-04 364[address]Tym: [phone] [id number] [phone] Name:[facility] BOX ()Tel: [phone], [place] 000-[address] () [address]OE: 04/08/2018 LUIS L Primary LUIS Awad [id number] Insurance:MEDICARE WINTERSDOB: Community BIRCH PART A olicy Number: [id number], [place] [id number] Repository [address]Qlg: 330) Date:2018-03-30 [phone] () 04/08/2018 Secondary LUIS L [facility] Insurance:ANTHEMPolicy WINTERSDOB: Community Number: [id number] Hospital [id number] Repository Date:1802-76-70[address] [address]RQ: 04/08/2018 Tertiary NOT GIVENUNK [place] Insurance:SELF PAY [facility] Number: Effective Repository Date:2018-03-30 04/08/2018 LUIS L Primary LUIS Rebollar [facility] [id number] Insurance:MEDICARE WINTERSDOB: Community BIRCH PART A BPolicy Number: [id number], [place] [id number] Repository [address]Kdg: 330) Date:2018-03-30 [phone] () 04/08/2018 Secondary LUIS L [facility] Insurance:ANTHEMPolicy WINTERSDOB: Community Number: [id number] Hospital [id number] Repository Date:8571-49-32RK[address] [address]LR: 04/08/2018 Tertiary NOT GIVENUNK Ritesh Insurance:SELF PAY [facility] Number: Effective Repository Date:2018-04-08 03/29/2018 LUIS L Primary LUIS Awad [id number] Insurance:MEDICARE WINTERSDOB: [facility] BIRCH PART A BPolicy Number: [id number] [id number] [place] [address]Vaw: Date:2017-11-01 () 03/29/2018 Secondary LUIS L Ritesh Insurance:ANTHEMPolicy WINTERSDOB: Community Number: [id number] Hospital [id number] Repository Date:7093-95-49MF [address]YUQVTGF, [place] [address]EN: 03/29/2018 Tertiary NOT GIVENUNK Ritesh Insurance:SELF PAY [facility] Number: Effective Repository Date:2018-03-29 03/28/2018 Luis L Primary Insurance:SELF NOT GIVENUNK Ritesh [id number] PAY [facility] Number: Effective [place], [place] Date:2018-03-28 Repository [address]Llg: ()
== END ==
PROVIDERS: Family Provider Family Medicine; PCP Family Medicine; Referring Provider Family Medicine; Visit Provider Family Medicine
DX: E21.3 Hyperparathyroidism, unspecified (principal)
CPT/HCPCS: 78070; A9500

== ENCOUNTER → 2019-02-01 16:22 | Outpatient (CLI) | payer MEDICARE, BC, SELFPAY ==
[2018-10-03 14:35] VITALS: BMI 32.3
[2019-02-01 17:32] LABS: Absolute Lymphocyte Count 1.13 X10^3/ul (0.83-4.51); Absolute Neutrophil Count 1.5 X10^3/uL (2.0-7.7); Basophil# 0.01 X10^3/uL; Basophil% 0.3 % (0-1); Eosinophil# 0.02 X10^3/uL; Eosinophils% 0.6 % (0-5); Hematocrit 45.6 % (40-54); Hemoglobin 14.7 g/dl (13.0-16.5); Lymphocyte # 1.13 X10^3/ul (4.0); Lymphocyte % 34.1 % (19-41); Mean Corp Hgb Conc 32.2 g/gl (32-36); Mean Corpuscular Hgb 30.1 pg (27.0-32.0); Mean Corpuscular Volume 93.3 fL (80-94); Mean Platelet Vol. 9.2 fl (6.2-12.0); Monocyte# 0.64 X10^3/uL; Monocyte% 19.3 % (0-10); Neutrophil # 1.49 X10^3/uL (2.7-7.7); Neutrophil % 45.1 % (47-70); POSITIVE COUNT NO; POSITIVE DIFFERENTIAL NO; POSITIVE MORPHOLOGY NO; Platelet Count 185 K/mm3 (150-450); RBC Distribution Width CV 14.1 % (11.6-14.6); RBC Distribution Width SD 46.6 fl (35.1-43.9); Red Blood Count 4.89 M/mm3 (4.6-6.2); White Blood Count 3.3 K/mm3 (4.4-11.0)
[2019-02-01 18:01] LABS: ALB/GLOB Ratio 0.8 RATIO (0.9-2.4); AST(SGOT) 12 U/L (15-37); Alanine Aminotransfer ALT/SGPT 25 U/L (16-61); Albumin, Serum 3.4 g/dL (3.2-5.0); Alkaline Phosphatase 62 U/L (45-117); Anion Gap 7 (5-15); BUN 14 mg/dL (7-18); BUN/Creat Ratio 11.9 RATIO (10-20); Calcium,Total 10.4 mg/dL (8.5-10.1); Chloride 109 mmol/L (98-107); Creatinine, Serum 1.18 mg/dL (0.70-1.30); EST Glomerular Filtration Rate 64 mL/min (>60); Est Glom Filt Rate - Afr Amer 77 mL/min (>60); Globulin 4.1 g/dL (2.2-4.2); Glucose 81 mg/dL (74-106); Potassium 3.8 mmol/L (3.5-5.1); Protein, Total 7.5 g/dL (6.4-8.2); Sodium Level 143 mmol/L (136-145); T4 Free Direct 0.71 ng/dL (0.76-1.46); Thyroid Stim Hormone (TSH) 2.89 uIU/mL (0.358-3.74)
[2019-02-01 18:04] LABS: Vitamin D,25 Hydroxy 41.1 ng/mL (29.95-100.01)
[2019-02-01 18:06] LABS: PTHIN 89.9 pg/mL (18.4-80.1)
== END ==
PROVIDERS: Family Provider Family Medicine; PCP Family Medicine; Visit Provider Family Medicine
DX: I10 Essential (primary) hypertension (principal); E55.9 Vitamin D deficiency, unspecified; E03.9 Hypothyroidism, unspecified; E21.3 Hyperparathyroidism, unspecified
CPT/HCPCS: 36415; 80053; 82306; 83970; 84439; 84443; 85025

== ENCOUNTER → 2019-02-08 09:21 | Outpatient (CLI) | payer MEDICARE, BC, SELFPAY ==
--- NOTE | 2019-02-08 09:28 | RAD_ITS ---
STUDY: X-RAY CHEST REASON FOR EXAM: Male, 73 years old. Short of breath. TECHNIQUE: Frontal and lateral views of the chest. COMPARISON: 03/16/2017. FINDINGS: The lungs are clear and expanded. There is no demonstrated pleural abnormality. Normal size heart. Normal mediastinum and danielle. Normal visualized pulmonary arteries. There is atherosclerotic tortuosity of the aortic arch and descending thoracic aorta. There are diffuse degenerative changes of the visualized thoracic spine. Normal visualized ribs, clavicles, and shoulders. There is no demonstrated abnormality of the visualized soft tissue structures of the upper abdomen. RAD/Chest PA and Lateral IMPRESSION: No change and no acute chest disease. Electronically Signed: Norm Banegas MD at 13:38 EDT , Service support ,
== END ==
PROVIDERS: Family Provider Family Medicine; PCP Family Medicine; Referring Provider Family Medicine; Visit Provider Family Medicine
DX: R06.02 Shortness of breath (principal)
CPT/HCPCS: 71046

== ENCOUNTER → 2019-02-16 13:49 | Outpatient (CLI) | payer MEDICARE, BC, SELFPAY ==
--- NOTE | 2019-02-16 13:51 | ECHOCS_ITS ---
Reason For Study: SOB on exertion, worsening, w.Hx of PE. Procedure This was a 2D Doppler, Color Flow transthoracic echocardiogram. The study was technically difficult. Contrast injection was performed. Exam performed in department. Left Ventricle Based upont the 2D echocardiographic and contrast enhanced images obtained there appears to be grossly normal left ventricular size, wall motion, and systolic function. The estimated ejection fraction is 65 %. There is evidence of diastolic dysfunction. Right Ventricle The right ventricle is not well visualized. Atria Normal left atrium. The right atrium is not well visualized. No doppler evidence for ASD. Mitral Valve There is no mitral annular calcification. Normal mitral valve. Tricuspid Valve The tricuspid valve is not well visualized. Trivial tricuspid valve insufficiency. Unable to estimate RV systolic pressure/pulmonary artery pressure due to technically difficult study. Aortic Valve The aortic valve is not well visualized. Pulmonic Valve The pulmonic valve is not well visualized. Great Vessels Mildly dilated aortic root. Pericardium/Pleural No pericardial effusion. Medication 22 gauge I.V. with prn adaptor inserted into left arm. Diluted definity 2.5ml given slow IV push to enhance endocardial definition. MMode/2D Measurements & Calculations LVIDd: 3.1 cm FS: 42.9 % Ao root diam: 4.4 cm LVIDs: 1.8 cm RVDd: 3.3 cm LAV(MOD-bp): 78.8 ml LAV(MOD-bp) Indexed: 35.6 ml/m2 LAV(MOD-sp2): 70.0 ml LAV(MOD-sp4): 82.1 ml Time Measurements MV dec time: 0.17 sec Doppler Measurements & Calculations MV E max олег: 50.7 cm/sec Lat Peak E' Олег: 6.5 cm/sec Med Peak E' Олег: 7.3 cm/sec MV A max олег: 92.2 cm/sec E/E' lat: 7.8 E/E' med: 6.9 MV E/A: 0.55 Ao V2 max: 129.7 cm/sec LV V1 max: 126.0 cm/sec PA V2 max: 71.1 cm/sec Ao max P.7 mmHg LV V1 max P.4 mmHg Interpretation Summary The study was technically difficult. Contrast injection was performed. Based upont the 2D echocardiographic and contrast enhanced images obtained there appears to be grossly normal left ventricular size, wall motion, and systolic function. The estimated ejection fraction is 65 %. Trivial tricuspid valve insufficiency. Mildly dilated aortic root. Unable to estimate RV systolic pressure/pulmonary artery pressure due to technically difficult study. There is evidence of diastolic dysfunction. Ordering Physician: Jayden Butt Referring Physician: Jayden Butt Performed By: Rosey Solis RDCS, RVT
== END ==
PROVIDERS: Family Provider Family Medicine; PCP Family Medicine; Referring Provider Family Medicine; Visit Provider Family Medicine
DX: R06.02 Shortness of breath (principal)
CPT/HCPCS: 93306; Q9957; A4216; C8929

== ENCOUNTER → 2019-03-23 | Outpatient (CLI) | payer MEDICARE, BC, SELFPAY ==
[2019-03-23 18:14] LABS: PTHIN 99.9 pg/mL (18.4-80.1)
== END | disposition home or self-care (01) ==
LOC: MFPLAB 15:18
PROVIDERS: Family Provider Family Medicine; PCP Family Medicine; Referring Provider Family Medicine; Visit Provider Family Medicine
DX: E21.3 Hyperparathyroidism, unspecified (principal)
CPT/HCPCS: 36415; 82330; 83970

== ENCOUNTER → 2019-03-30 | Outpatient (CLI) | payer MEDICARE, BC, SELFPAY ==
[2019-03-30 09:06] VITALS: BMI 32.8
[2019-03-30 12:36] LABS: Absolute Lymphocyte Count 1.23 X10^3/ul (0.83-4.51); Absolute Neutrophil Count 1.4 X10^3/uL (2.0-7.7); Basophil# 0.01 X10^3/uL; Basophil% 0.3 % (0-1); Eosinophil# 0.03 X10^3/uL; Eosinophils% 0.8 % (0-5); Hematocrit 45.2 % (40-54); Hemoglobin 14.9 g/dl (13.0-16.5); Lymphocyte # 1.23 X10^3/ul (4.0); Lymphocyte % 34.7 % (19-41); Mean Corpuscular Hgb 29.9 pg (27.0-32.0); Mean Corpuscular Volume 90.8 fL (80-94); Monocyte# 0.83 X10^3/uL; Monocyte% 23.4 % (0-10); Neutrophil # 1.43 X10^3/uL (2.7-7.7); Neutrophil % 40.5 % (47-70); Platelet Count 210 K/mm3 (150-450); RBC Distribution Width CV 14.1 % (11.6-14.6); RBC Distribution Width SD 46.3 fl (35.1-43.9); Red Blood Count 4.98 M/mm3 (4.6-6.2); White Blood Count 3.5 K/mm3 (4.4-11.0)
[2019-03-30 12:42] LABS: POSITIVE COUNT NO; POSITIVE DIFFERENTIAL NO; POSITIVE MORPHOLOGY NO
[2019-03-30 12:54] LABS: Anion Gap 5 (5-15); BUN 18 mg/dL (7-18); BUN/Creat Ratio 15.1 RATIO (10-20); Calcium,Total 10.4 mg/dL (8.5-10.1); Chloride 108 mmol/L (98-107); Creatinine, Serum 1.19 mg/dL (0.70-1.30); EST Glomerular Filtration Rate 63 mL/min (>60); Est Glom Filt Rate - Afr Amer 77 mL/min (>60); Glucose 87 mg/dL (74-106); Potassium 4.1 mmol/L (3.5-5.1); Sodium Level 140 mmol/L (136-145)
== END | disposition home or self-care (01) ==
LOC: LAB 11:37
PROVIDERS: Family Provider Family Medicine; PCP Family Medicine; Referring Provider Internal Medicine Cardiovascular Disease; Visit Provider Internal Medicine Cardiovascular Disease
DX: R07.89 Other chest pain (principal); R06.09 Other forms of dyspnea
CPT/HCPCS: 36415; 80048; 85025

== ENCOUNTER → 2019-04-04 | Outpatient (CLI) | payer MEDICARE, BC, SELFPAY ==
[2019-03-30 09:06] VITALS: BMI 32.8
--- NOTE | 2019-04-04 11:27 | US_ITS ---
STUDY: THYROID ULTRASOUND REASON FOR EXAM: Male, 73 years old. Thyroid nodules. History of prior right thyroidectomy. TECHNIQUE: Ultrasound evaluation of the thyroid was performed with real-time and static parrish-scale imaging. COMPARISON: Comparison is made with prior examination dated September 27, 2018. FINDINGS: RIGHT LOBE: The right lobe of the thyroid has been surgically removed. LEFT LOBE: The left lobe of the thyroid gland measures 4.6 cm x 1.6 cm x 1.9 cm. There is a in the midpole of the left lobe, there is a 1.5 cm x 0.8 cm x 0.9 cm hypoechoic well-defined heterogeneous solid nodule. This is essentially unchanged as compared to prior study.. There are no demonstrated solid, cystic or complex lesions. ISTHMUS: The isthmus measures 5.0 mm. The regional lymph nodes are normal. US/Thyroid IMPRESSION: Status post right thyroidectomy. Stable appearance of the hypoechoic heterogeneous nodule in the midportion of the left lobe. Electronically Signed: Neto Jolly, at 8:54 EDT , Service support ,
== END | disposition home or self-care (01) ==
LOC: US 11:27
PROVIDERS: Family Provider Family Medicine; PCP Family Medicine; Referring Provider Surgery; Visit Provider Surgery
DX: E04.1 Nontoxic single thyroid nodule (principal); E03.9 Hypothyroidism, unspecified
CPT/HCPCS: 76536

== ENCOUNTER 2019-04-14 07:34 | Day surgery (SDC) | payer MEDICARE, BC, SELFPAY ==
[2019-03-30 09:06] VITALS: BMI 32.8
[2019-04-07 09:29] VITALS: BMI 32.8
[2019-04-13 11:02] VITALS: BMI 32.8
--- NOTE | 2019-04-14 09:24 | CL.D_ITS ---
Patient Name: SANDEEP WOODS Study Date: 04/14/2019 Performing: Eleazar Banks MD Ht: 75.98 inches 193 cm : 1945 Wt: 268.96 lbs 122 kg Age: 73 Gender: male BSA: 2.51 PROCEDURE(S) PERFORMED [id number] CLINICAL PROFILE AND INDICATIONS Indications: Suspected CAD Heart Failure: None Stress/Imaging Date: 04/08/2018Stress Test with SPECT MPI: Negative CAD Presentations: Symptom unlikely to be ischemic. CONCLUSIONS Non obstructive coronary arteries RECOMMENDATIONS Medical therapy DESCRIPTION OF PROCEDURE The patient arrived to the procedure lab. The risks and benefits of the procedure as well as a full d escription of our services here and current unavailability of surgical backup were fully explained to the patient and/or their significant other prior to the catheterization. The Timeout was completed, verifying the correct patient and procedure. The patient's procedural site was prepped and draped in the usual fashion. Local anesthetic was given subcutaneously to right radial region with Lidocaine 2% . Using a modified Seldinger technique, arterial access was obtained via the right radial artery, a 6 Fr sheath was inserted. Left Coronary Artery selective angiography was performed in multiple views u sing a 5 Fr. 4.0 [place] catheter. Left Coronary Artery selective angiography was performed in multiple views using a 6 Fr. JL 4-125cm catheter. Right Coronary Artery selective angiography was then perfor med in multiple views using a 6 Fr. JR 4-125cm catheter.The arterial sheath was pulled and a TR Band was applied for hemostasis CORONARY ANGIOGRAPHY DOMINANCE: Right Dominant LEFT HEART ASSESSMENT Left Ventricular Ejection Fraction: by Echo 55 % Normal LV wall motion Normal Left Ventricular systolic function LEFT MAIN: Mild calcification LEFT ANTERIOR DESCENDING ARTERY: Mild luminal irregularities less than 30% CIRCUMFLEX ARTERY: No significant disease noted RIGHT CORONARY ARTERY: Mild luminal irregularities less than 30% COMPLICATIONS No Complications PROCEDURE MEDICATIONS Versed 1 mg IV Versed 1 mg IV Versed 1 mg IV Fentanyl 50 mcg IV Oxygen: 2 L/min via nasal cannula Benadryl 50 mg IV @ 04/14/2019 08:30:51 Heparin diluted in 23cc Heparinized saline. Patient given 5cc IA of this solution. 04/14/2019 08:49:1 4 Solu-medrol 125 mg IV 04/14/2019 08:30:43 Verapamil 2.5mg, Ntg 100mcgs, 2000 units of Heparin diluted in 23cc Heparinized saline. Patient give n 5cc IA of this solution. 04/14/2019 08:49:14 SUMMARY OF HEMODYNAMIC DATA Time AIR REST ECG 07:56:52 AO 102/64 (81) SA 08:50:17 Signed By Eleazar Banks MD On 04/14/2019 09:23:22 Eleazar Banks MD
== END 2019-04-14 11:35 | disposition home or self-care (01) ==
LOC: CLSP 07:35
PROVIDERS: Family Provider Family Medicine; PCP Family Medicine; Referring Provider Internal Medicine Cardiovascular Disease; Visit Provider Internal Medicine Cardiovascular Disease
DX: R07.89 Other chest pain (principal); R06.09 Other forms of dyspnea; I11.0 Hypertensive heart disease with heart failure; I50.32 Chronic diastolic (congestive) heart failure; E78.5 Hyperlipidemia, unspecified; F41.9 Anxiety disorder, unspecified; F32.9 Major depressive disorder, single episode, unspecified; E03.9 Hypothyroidism, unspecified; E66.9 Obesity, unspecified; Z68.32 Body mass index [BMI] 32.0-32.9, adult; G47.33 Obstructive sleep apnea (adult) (pediatric); Z87.442 Personal history of urinary calculi; Z86.711 Personal history of pulmonary embolism; Z86.718 Personal history of other venous thrombosis and embolism; Z79.01 Long term (current) use of anticoagulants; Z79.82 Long term (current) use of aspirin; Z79.899 Other long term (current) drug therapy; Z87.891 Personal history of nicotine dependence
CPT/HCPCS: 93454; 99152; 99153; J7040; Q9967; C1769; C1894

== ENCOUNTER → 2019-06-09 | Outpatient (CLI) | payer MEDICARE, BC, SELFPAY ==
[2019-04-13 11:02] VITALS: BMI 32.8
--- NOTE | 2019-06-09 09:52 | RAD_ITS ---
STUDY: X-RAY - ABDOMEN/PELVIS REASON FOR EXAM: Male, 74 years old. Left-sided flank pain. History of kidney stones. TECHNIQUE: Single AP view of the abdomen / pelvis. COMPARISON: None. FINDINGS: There is a moderate amount of colonic fecal material. The visualized liver, spleen and kidneys are grossly normal in size and morphology. Normal soft tissue structures. There are diffuse degenerative changes of the visualized lumbar spine. RAD/Abdomen Single View IMPRESSION: Moderate amount of fecal material is seen in the colon. Electronically Signed: Neto Jolly, at 12:33 EDT , Service support ,
[2019-06-09 11:03] LABS: Absolute Lymphocyte Count 1.18 X10^3/uL (0.83-4.51); Absolute Neutrophil Count 1.8 X10^3/uL (2.0-7.7); Basophil# 0.01 X10^3/uL; Basophil% 0.2 % (0-1); Eosinophil# 0.02 X10^3/uL; Eosinophils% 0.5 % (0-5); Hematocrit 43.4 % (40-54); Hemoglobin 14.2 g/dL (13.0-16.5); Lymphocyte # 1.18 X10^3/ul (4.0); Lymphocyte % 28.8 % (19-41); Mean Corp Hgb Conc 32.7 g/dL (32-36); Mean Corpuscular Hgb 30.2 pg (27.0-32.0); Mean Corpuscular Volume 92.3 fL (80-94); Mean Platelet Vol. 9.1 fl (6.2-12.0); Monocyte# 1.06 X10^3/uL; Monocyte% 25.9 % (0-10); NRBC Flagged by Analyzer 0 % (0-5); Neutrophil % 43.9 % (47-70); Platelet Count 224 K/mm3 (150-450); RBC Distribution Width SD 47.8 fl (35.1-43.9); White Blood Count 4.1 K/mm3 (4.4-11.0)
[2019-06-09 11:17] LABS: Anion Gap 5 (5-15); BUN 14 mg/dL (7-18); BUN/Creat Ratio 12.7 RATIO (10-20); Calcium,Total 9.9 mg/dL (8.5-10.1); Chloride 110 mmol/L (98-107); EST Glomerular Filtration Rate 69 mL/min (>60); Est Glom Filt Rate - Afr Amer 84 mL/min (>60); Glucose 71 mg/dL (74-106); Sodium Level 142 mmol/L (136-145)
== END | disposition home or self-care (01) ==
LOC: MTLAB 09:50
PROVIDERS: Family Provider Family Medicine; PCP Family Medicine; Referring Provider Family Medicine; Visit Provider Family Medicine
DX: R10.9 Unspecified abdominal pain (principal)
CPT/HCPCS: 36415; 74018; 80048; 85025

== ENCOUNTER → 2019-07-06 | Outpatient (CLI) | payer MEDICARE, BC, SELFPAY ==
[2019-04-13 11:02] VITALS: BMI 32.8
[2019-07-06 15:09] LABS: PTHIN 81.3 pg/mL (18.4-80.1)
== END | disposition home or self-care (01) ==
LOC: MTLAB 12:30
PROVIDERS: Family Provider Family Medicine; PCP Family Medicine; Referring Provider Family Medicine; Visit Provider Family Medicine
DX: E21.3 Hyperparathyroidism, unspecified (principal)
CPT/HCPCS: 36415; 82330; 83970

== ENCOUNTER → 2019-07-12 | Outpatient (CLI) | payer MEDICARE, BC, SELFPAY ==
[2019-04-13 11:02] VITALS: BMI 32.8
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
--- NOTE | 2019-07-12 12:08 | RAD_ITS ---
STUDY: X-RAY - RIGHT SHOULDER REASON FOR EXAM: Male, 74 years old. Shoulder pain. TECHNIQUE: 4 view(s) of the shoulder. COMPARISON: None. FINDINGS: There is mild degenerative arthrosis of the glenohumeral articulation. Abnormal AC joint. There is widening to approximately 1.7 cm and there are soft tissue calcifications. Findings may represent previous surgery or injury and chronic AC joint separation. There is a hook of the anterior acromion consistent with a Type III morphology. Bone anchors are seen in the greater tuberosity. There is periarticular soft tissue calcification consistent with a calcific tendinitis. Normal visualized pulmonary apex. RAD/Shoulder min 2 Views IMPRESSION: No definite acute abnormality. Degenerative and postoperative changes. Wide separation of the AC joint. Electronically Signed: Norm Banegas MD at 18:43 EDT , Service support ,
== END | disposition home or self-care (01) ==
LOC: MTRAD 12:06
PROVIDERS: Family Provider Family Medicine; PCP Family Medicine; Referring Provider Family Medicine; Visit Provider Family Medicine
DX: M25.511 Pain in right shoulder (principal); M25.512 Pain in left shoulder
CPT/HCPCS: 73030

== ENCOUNTER → 2019-07-31 10:05 | Outpatient (CLI) | payer MEDICARE, BC, SELFPAY ==
[2019-04-13 11:02] VITALS: BMI 32.8
--- NOTE | 2019-07-31 10:22 | RAD_ITS ---
HISTORY: BACK PAIN COMPARISON: None FINDINGS: # of images incl. paperwork: 3 XR Spine Lumbar 2 or 3 Views: Lumbar vertebral bodies are normal in height. Lumbar disc height is fairly well-preserved except at the L5-S1 level where it is narrowed. Endplate sclerosis is present at that level to the greatest degree. Some anterior enthesophytes are present at other levels. No acute lumbar spine fracture or subluxation. Facet arthropathy is present at many levels, but greatest perhaps at the L3-L4 and L4-L5 levels. Atherosclerotic plaque within the abdominal aorta. Hip arthritis. Mild wedging to the T11 vertebral body. RAD/Lumbar Spine 2 or 3 Views IMPRESSION: No acute lumbar spine fracture or subluxation. at 0603 Reported and signed by: Jose F Del Castillo MD Electronically Signed: Jose F Del Castillo MD at 6:02 EDT Tel , Service support ,
== END ==
PROVIDERS: Family Provider Family Medicine; PCP Family Medicine; Referring Provider Anesthesiology Pain Medicine; Visit Provider Anesthesiology Pain Medicine
DX: M54.9 Dorsalgia, unspecified (principal)
CPT/HCPCS: 72100

== ENCOUNTER → 2019-08-23 10:49 | Outpatient (CLI) | payer MEDICARE, BC, SELFPAY ==
[2019-04-13 11:02] VITALS: BMI 32.8
--- NOTE | 2019-08-23 11:02 | US_ITS ---
STUDY: THYROID ULTRASOUND REASON FOR EXAM: Male, 74 years old. Thyromegaly, right lobe removed TECHNIQUE: Ultrasound evaluation of the thyroid was performed with real-time and static parrish-scale imaging. COMPARISON: 04/04/2019 FINDINGS: RIGHT LOBE: Removed. No new masses are seen in the right thyroid bed. LEFT LOBE: The left lobe of the thyroid gland measures 3.7 x 1.7 x 1.5 cm. There is a homogeneous echotexture. Stable ovoid heterogeneous nodule in the central left thyroid lobe measuring 15 x 10 x 8 mm, without significant vascularity. This likely contains some calcification. ISTHMUS: The isthmus measures 5 mm . US/Thyroid IMPRESSION: Stable nodule in the left thyroid lobe. No new left thyroid lesions are seen. Electronically Signed: Jose Angel Joaquin MD at 18:10 EDT Tel , Service support ,
--- NOTE | 2019-08-23 11:45 | BD_ITS ---
STUDY: DUAL ENERGY X-RAY ABSORPTIOMETRY / DXA REASON FOR EXAM: Male, 74 years old. History of primary hyperparathyroidism. TECHNIQUE: Bone Mineral Density (BMD) measurements of lumbar spine and bilateral hips were obtained. COMPARISON: None. FINDINGS: Lumbar Spine (L1-L4): g/cm2 (1.774) / T-score (4.5) / Z-score (4.3) Findings are suggestive of normal bone density with a low fracture risk. Left Femur Total: g/cm2 (1.162) / T-score (0.4) / Z-score (0.4) Left Femoral Neck: g/cm2 (1.201) / T-score (1.0) / Z-score (1.4) Right Femur Total: g/cm2 (1.152) / T-score (0.4) / Z-score (0.3) Right Femoral Neck: g/cm2 (1.250) / T-score (1.4) / Z-score (1.8) BD/Dexa Bone Density Study IMPRESSION: The patient is considered normal as outlined below according to World [employer] Organization (WHO) criteria with a low fracture risk. Reference Information: The T-score is the number of standard deviations above or below the standard which is normal for young adults at their peak bone mineral density. The World Health Organization (WHO) interprets the T-scores as follows: Above -1 Normal bone density Between -1 and -2.5 Osteopenia Equal to / or below -2.5 Osteoporosis As a practical clinical guideline, osteopenia may be graded as follows: Mild -1 through -1.5 Moderate -1.6 through -2.0 Severe -2.1 through -2.4 The Z-score is the number of standard deviations above or below age-matched controls. A Z-score of less than -1.5 would be considered abnormal. References: 1. NIH Osteoporosis and Related Bone Diseases http://www.osteo.org 2. International Society for Clinical Densitometry http://www.iscd.org 3. National Osteoporosis Foundation http://www.nof.org Electronically Signed: Neto Jolly, at 15:46 EDT , Service support ,
[2019-08-23 14:17] LABS: PSA,Total - Annual Screen 1.15 ng/mL (0.00-4.00)
== END ==
PROVIDERS: Family Provider Family Medicine; PCP Family Medicine; Referring Provider Internal Medicine Endocrinology, Diabetes & Metabolism; Visit Provider Internal Medicine Endocrinology, Diabetes & Metabolism
DX: E01.0 Iodine-deficiency related diffuse (endemic) goiter (principal); E21.3 Hyperparathyroidism, unspecified; Z12.5 Encounter for screening for malignant neoplasm of prostate
CPT/HCPCS: 36415; 76536; 77080; 84153; G0103

== ENCOUNTER → 2019-09-06 08:00 | Outpatient (CLI) | payer MEDICARE, BC, SELFPAY ==
[2019-04-13 11:02] VITALS: BMI 32.8
--- NOTE | 2019-09-06 08:02 | NM_ITS ---
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 99m Tc SESTAMIBI DUAL PHASE PARATHYROID SCINTIGRAPHY COMPARISON: Previous Tc sestamibi parathyroid scintigraphy study dated 10/21/2018, thyroid ultrasound report 08/23/2019 FINDINGS: Following the intravenous administration of 28.9 mCi of 99m Tc sestamibi, image acquisitions of the anterior neck at 20 minutes and 2.0 hours post radiopharmaceutical provision reveal: 1. Immediate static blood pool acquisitions demonstrate distribution of the radiopharmaceutical in the left lobe of thyroid colloid. Absent right lobe of the thyroid parenchyma is noted commensurate with previous right lobectomy. 2. Delayed images depict near complete washout of the radiopharmaceutical in the visualized left thyroid bed without focal retention readily identified. NM/Parathyroid Scan IMPRESSION: 1. NEGATIVE 99m Tc SESTAMIBI PARATHYROID IMAGING DUAL PHASE EXAMINATION. 2. There is scintigraphic evidence of prior right thyroid lobectomy. No typical visualized parathyroid adenoma is demonstrated on the current evaluation. 3. Overall compared to the previous Tc sestamibi parathyroid scintigraphy study dated 10/21/2018, there is no significant interval change. Electronically Signed: Ced Hawkins DO at 22:47 EDT Tel , Service support ,
== END ==
PROVIDERS: Family Provider Family Medicine; PCP Family Medicine; Referring Provider Internal Medicine Endocrinology, Diabetes & Metabolism; Visit Provider Internal Medicine Endocrinology, Diabetes & Metabolism
DX: E21.3 Hyperparathyroidism, unspecified (principal)
CPT/HCPCS: 78070; A9500

== ENCOUNTER → 2019-10-05 13:45 | Outpatient (CLI) | payer MEDICARE, BC, SELFPAY ==
[2019-04-13 11:02] VITALS: BMI 32.8
[2019-10-05 15:57] LABS: T4 Free Direct 0.72 ng/dL (0.76-1.46); Thyroid Stim Hormone (TSH) 2.81 uIU/mL (0.358-3.74)
[2019-10-05 16:07] LABS: Vitamin B12 394 pg/mL (211-911)
== END ==
PROVIDERS: Family Provider Family Medicine; PCP Family Medicine; Referring Provider Family Medicine; Visit Provider Family Medicine
DX: R41.3 Other amnesia (principal)
CPT/HCPCS: 36415; 82607; 84439; 84443

== ENCOUNTER → 2019-10-17 11:05 | Outpatient (CLI) | payer MEDICARE, BC, SELFPAY ==
[2019-10-17 07:32] VITALS: BMI 34.2
[2019-10-17 13:22] LABS: BNP,B-Type NATRIURETIC PEPTIDE 6.1 pg/mL (0-100)
== END ==
PROVIDERS: Family Provider Family Medicine; PCP Family Medicine; Referring Provider Internal Medicine Cardiovascular Disease; Visit Provider Internal Medicine Cardiovascular Disease
DX: R06.09 Other forms of dyspnea (principal)
CPT/HCPCS: 36415; 83880

== ENCOUNTER → 2020-01-19 09:58 | Outpatient (CLI) | payer MEDICARE, BC, SELFPAY ==
[2019-10-17 07:32] VITALS: BMI 34.2
[2020-01-19 12:59] LABS: Vitamin D,25 Hydroxy 40.2 ng/mL
[2020-01-19 13:07] LABS: ALB/GLOB Ratio 0.8 RATIO (0.9-2.4); AST(SGOT) 12 U/L (15-37); Alanine Aminotransfer ALT/SGPT 24 U/L (16-61); Albumin, Serum 3.3 g/dL (3.2-5.0); Alkaline Phosphatase 55 U/L (45-117); Anion Gap 4 (5-15); BUN 16 mg/dL (7-18); BUN/Creat Ratio 13.8 RATIO (10-20); Calcium,Total 10.4 mg/dL (8.5-10.1); Chloride 111 mmol/L (98-107); Cholesterol 193 mg/dL (200); Creatinine, Serum 1.16 mg/dL (0.70-1.30); EST Glomerular Filtration Rate 65 mL/min (>60); Est Glom Filt Rate - Afr Amer 79 mL/min (>60); Globulin 4.4 g/dL (2.2-4.2); Glucose 77 mg/dL (74-106); High Density Lipoprotein 51 mg/dL; Potassium 4.3 mmol/L (3.5-5.1); Protein, Total 7.7 g/dL (6.4-8.2); Sodium Level 143 mmol/L (136-145); Thyroid Stim Hormone (TSH) 2.06 uIU/mL (0.358-3.74); Triglycerides 86 mg/dL; Very Low Density Lipoprotein 17 mg/dL (5-40)
== END ==
PROVIDERS: PCP Family Medicine; Referring Provider Family Medicine; Visit Provider Family Medicine
DX: E03.9 Hypothyroidism, unspecified (principal); I10 Essential (primary) hypertension; E55.9 Vitamin D deficiency, unspecified
CPT/HCPCS: 36415; 80053; 80061; 82306; 84439; 84443

== ENCOUNTER → 2020-01-25 10:08 | Outpatient (CLI) | payer MEDICARE, BC, SELFPAY ==
[2019-10-17 07:32] VITALS: BMI 34.2
== END ==
PROVIDERS: PCP Family Medicine; Referring Provider Family Medicine; Visit Provider Family Medicine
DX: E21.3 Hyperparathyroidism, unspecified (principal)
CPT/HCPCS: 36415; 83970

== ENCOUNTER → 2020-05-16 11:07 | Outpatient (CLI) | payer MEDICARE, BC, SELFPAY ==
[2019-10-17 07:32] VITALS: BMI 34.2
[2020-05-16 12:28] LABS: Absolute Lymphocyte Count 1.18 X10^3/uL (0.83-4.51); Absolute Neutrophil Count 1.9 X10^3/uL (2.0-7.7); Basophil# 0.02 X10^3/uL; Basophil% 0.5 % (0-1); Eosinophil# 0.02 X10^3/uL; Eosinophils% 0.5 % (0-5); Hematocrit 46.4 % (40-54); Hemoglobin 14.7 g/dL (13.0-16.5); Lymphocyte # 1.18 X10^3/ul (4.0); Mean Corp Hgb Conc 31.7 g/dL (32-36); Mean Corpuscular Hgb 29.9 pg (27.0-32.0); Mean Corpuscular Volume 94.3 fL (80-94); Mean Platelet Vol. 9.4 fl (6.2-12.0); Monocyte% 20.4 % (0-10); NRBC Flagged by Analyzer 0 % (0-5); Neutrophil # 1.89 X10^3/uL (2.7-7.7); Neutrophil % 48.1 % (47-70); Platelet Count 216 K/mm3 (150-450); RBC Distribution Width CV 13.8 % (11.6-14.6); RBC Distribution Width SD 47.7 fl (35.1-43.9); Red Blood Count 4.92 M/mm3 (4.6-6.2); White Blood Count 3.9 K/mm3 (4.4-11.0)
[2020-05-16 12:52] LABS: PTHIN 134.1 pg/mL (18.4-80.1)
[2020-05-16 12:56] LABS: Vitamin D,25 Hydroxy 50.1 ng/mL
[2020-05-16 13:03] LABS: ALB/GLOB Ratio 0.8 RATIO (0.9-2.4); AST(SGOT) 14 U/L (15-37); Alanine Aminotransfer ALT/SGPT 19 U/L (16-61); Albumin, Serum 3.4 g/dL (3.2-5.0); Alkaline Phosphatase 67 U/L (45-117); Anion Gap 6 (5-15); BUN 13 mg/dL (7-18); BUN/Creat Ratio 12.5 RATIO (10-20); Calcium,Total 10.5 mg/dL (8.5-10.1); Chloride 111 mmol/L (98-107); Creatinine, Serum 1.04 mg/dL (0.70-1.30); EST Glomerular Filtration Rate 74 mL/min (>60); Est Glom Filt Rate - Afr Amer 89 mL/min (>60); Globulin 4.2 g/dL (2.2-4.2); Glucose 63 mg/dL (74-106); Potassium 3.7 mmol/L (3.5-5.1); Protein, Total 7.6 g/dL (6.4-8.2); Sodium Level 143 mmol/L (136-145); Thyroid Stim Hormone (TSH) 2.48 uIU/mL (0.358-3.74)
== END ==
PROVIDERS: PCP Family Medicine; Referring Provider Family Medicine; Visit Provider Family Medicine
DX: I10 Essential (primary) hypertension (principal); E21.3 Hyperparathyroidism, unspecified; E55.9 Vitamin D deficiency, unspecified; E03.9 Hypothyroidism, unspecified
CPT/HCPCS: 36415; 80053; 82306; 83970; 84443; 85025

== ENCOUNTER → 2020-05-28 13:49 | Outpatient (CLI) | payer MEDICARE, BC, SELFPAY ==
[2019-10-17 07:32] VITALS: BMI 34.2
--- NOTE | 2020-05-28 13:52 | ECHOCS_ITS ---
Reason For Study: AO ROOT DILATATION Procedure This was a 2D Doppler, Color Flow transthoracic echocardiogram. The study was technically difficult. Contrast injection was performed. Exam performed in department. Left Ventricle Normal LV size. Left ventricular systolic function is normal. The estimated ejection fraction is 65 %. Stage 1 diastolic dysfunction. No regional wall motion abnormalities noted. Right Ventricle Normal RV size. Normal systolic function. Atria Normal left atrium. Normal right atrium. Mitral Valve Normal mitral valve. Tricuspid Valve Normal tricuspid valve. Mild tricuspid valve insufficiency. Pulmonary artery systolic pressure is 24 mmHg. Aortic Valve Trisinus/trileaflet aortic valve. Great Vessels Moderately dilated aortic root. The pulmonary artery is normal size. Normal inferior vena cava. Pericardium/Pleural No pericardial effusion. Medication 22 gauge I.V. with prn adaptor inserted into left arm. Diluted definity 5.0ml given slow IV push to enhance endocardial definition. MMode/2D Measurements & Calculations RVDd: 3.9 cm Ao root diam: 4.4 cm LAV(MOD-bp): 45.8 ml LAV(MOD-bp) Indexed: 18.5 ml/m2 LAV(MOD-sp2): 48.1 ml LAV(MOD-sp4): 47.3 ml LA dimension(2D): 4.5 cm LA A4 area: 17.9 cm2 RA A4 area: 19.8 cm2 Time Measurements MV dec time: 0.27 sec Doppler Measurements & Calculations MV E max олег: 57.4 cm/sec Lat Peak E' Олег: 8.7 cm/sec Med Peak E' Олег: 6.6 cm/sec MV A max олег: 104.6 cm/sec E/E' lat: 6.6 E/E' med: 8.7 MV E/A: 0.55 Ao V2 max: 155.1 cm/sec LV V1 max: 145.9 cm/sec PA V2 max: 100.7 cm/sec Ao max P.6 mmHg LV V1 max P.5 mmHg PI end-d олег: 154.2 cm/sec TR max олег: 222.4 cm/sec TR max P.8 mmHg Interpretation Summary Normal LV size. Left ventricular systolic function is normal. The estimated ejection fraction is 65 %. Moderately dilated aortic root. Stage 1 diastolic dysfunction. Mild tricuspid valve insufficiency. Contrast injection was performed. Ordering Physician: Jayden Butt Referring Physician: Jayden Butt Performed By: Araceli Estrada, GIL, RVT
== END ==
PROVIDERS: PCP Family Medicine; Referring Provider Family Medicine; Visit Provider Family Medicine
DX: I77.810 Thoracic aortic ectasia (principal); I51.89 Other ill-defined heart diseases; I36.1 Nonrheumatic tricuspid (valve) insufficiency
CPT/HCPCS: 93306; Q9957; A4216; C8929

== ENCOUNTER → 2020-07-08 09:00 | Outpatient (CLI) | payer MEDICARE, BC, SELFPAY ==
[2019-10-17 07:32] VITALS: BMI 34.2
[2020-07-08 09:52] LABS: Amphetamine Urine VISTA NEGATIVE (<1000 ng/mL); Barbiturate Urine VISTA NEGATIVE (< 200 ng/mL); Benzodiazepine Urine VISTA NEGATIVE (< 200 ng/mL); Cocaine Urine VISTA NEGATIVE (< 300 ng/mL); Ecstacy Urine VISTA NEGATIVE (< 500 ng/mL); Methadone Urine VISTA NEGATIVE (< 300 ng/mL); PCP Urine VISTA NEGATIVE (< 25 ng/mL); THC Urine VISTA NEGATIVE (< 50 ng/mL); Vista UDS pH Range 5
== END ==
PROVIDERS: PCP Family Medicine; Referring Provider Anesthesiology Pain Medicine; Visit Provider Anesthesiology Pain Medicine
DX: F11.20 Opioid dependence, uncomplicated (principal)
CPT/HCPCS: 80307

== ENCOUNTER → 2020-08-09 14:12 | Outpatient (CLI) | payer MEDICARE, BC, SELFPAY ==
[2020-07-09 11:01] VITALS: BMI 32.6
--- NOTE | 2020-08-09 14:15 | CT_ITS ---
STUDY: CT LUMBAR SPINE WITHOUT CONTRAST REASON FOR EXAM: Male, 75 years old. Back pain, leg pain x years, no known injury. Prior pain management injections. RADIATION DOSAGE (If Supplied By Facility): CTDIvol = ( 28.28 ) mGy, DLP = ( 793.39 ) mGycm TECHNIQUE: The patient was scanned in a multi detector CT scanner. High resolution transaxial imaging was performed. Images were obtained from T12 to S1 level. Sagittal and coronal images were reconstructed. Individualized dose optimization techniques were used for this CT. COMPARISON: None FINDINGS: Normal lumbar lordosis. There is no substantial scoliosis. Normal vertebrae of the lumbar spine. L1-2: Normal endplates. Normal disc height and morphology. Facet joint hypertrophy and osteoarthritis. Normal central canal and bilateral lateral recesses. Normal bilateral intervertebral neural foramina. L2-3: Mild degree of disc space narrowing. Spondylosis. Hypertrophy of the facet joints secondary to facet joint osteoarthritis as well as hypertrophy of the ligamentum flavum causing marked degree of bilateral neural foraminal stenosis and a moderate degree of central canal stenosis. L3-4: Moderate degree of central canal and bilateral neural foraminal stenosis secondary to hypertrophy of the facet joints due to osteoarthritis as well as hypertrophy of the ligamentum flavum. L4-5: Moderate degree of disc space narrowing. Bilateral facet joint osteoarthritis with moderate degree of bilateral neural foraminal stenosis. L5-S1: Moderate degree of disc space narrowing. Spondylosis. No significant stenosis seen. There is evidence of a 6.3 cm cyst in the left kidney. Tiny calcifications are seen within the right kidney. CT/Spine Lumbar without Contrast IMPRESSION: Multilevel degenerative changes, as described above. Spinal stenosis as described above. Electronically Signed: Neto Jolly, at 15:23 EDT , Service support ,
== END ==
PROVIDERS: PCP Family Medicine; Referring Provider Anesthesiology Pain Medicine; Visit Provider Anesthesiology Pain Medicine
DX: M54.9 Dorsalgia, unspecified (principal); M79.606 Pain in leg, unspecified
CPT/HCPCS: 72131

== ENCOUNTER → 2020-08-14 08:57 | Outpatient (CLI) | payer MEDICARE, BC, SELFPAY ==
[2020-07-09 11:01] VITALS: BMI 32.6
[2020-08-14 09:03] LABS: Mucous, Urine 0 SEEN /hpf (<or=2+); Red Blood Cells-Urine 0 SEEN /hpf (0-5)
[2020-08-14 10:04] LABS: Absolute Lymphocyte Count 1.21 X10^3/uL (0.83-4.51); Absolute Neutrophil Count 1.7 X10^3/uL (2.0-7.7); Basophil# 0.01 X10^3/uL; Basophil% 0.3 % (0-1); Eosinophil# 0.03 X10^3/uL; Eosinophils% 0.8 % (0-5); Hematocrit 47.7 % (40-54); Lymphocyte # 1.21 X10^3/ul (4.0); Lymphocyte % 33.3 % (19-41); Mean Corp Hgb Conc 31.4 g/dL (32-36); Mean Corpuscular Volume 92.3 fL (80-94); Monocyte% 19.3 % (0-10); NRBC Flagged by Analyzer 0 % (0-5); Neutrophil # 1.66 X10^3/uL (2.7-7.7); Neutrophil % 45.7 % (47-70); Platelet Count 233 K/mm3 (150-450); RBC Distribution Width CV 13.7 % (11.6-14.6); RBC Distribution Width SD 47.4 fl (35.1-43.9); Red Blood Count 5.17 M/mm3 (4.6-6.2); White Blood Count 3.6 K/mm3 (4.4-11.0)
[2020-08-14 10:11] LABS: Color, Urine Straw (Yellow); Glucose, Dipstick Normal (Normal); Ketone-Dipstick Negative (Negative); Leukocyte Esterase-Dipstick Negative /ul (Negative); Nitrite-Dipstick Negative (Negative); Occult Blood-Urine Negative /ul (Negative); Protein-Dipstick Negative (Negative); Urine Bilirubin Dipstick Negative (Negative); Urine Clarity Clear (Clear); Urine Urobilinogen Normal (Normal)
[2020-08-14 10:20] LABS: ALB/GLOB Ratio 0.8 RATIO (0.9-2.4); AST(SGOT) 12 U/L (15-37); Alanine Aminotransfer ALT/SGPT 22 U/L (16-61); Albumin, Serum 3.4 g/dL (3.2-5.0); Alkaline Phosphatase 67 U/L (45-117); Anion Gap 5 (5-15); BUN 16 mg/dL (7-18); BUN/Creat Ratio 14.2 RATIO (10-20); Calcium,Total 10.5 mg/dL (8.5-10.1); Chloride 108 mmol/L (98-107); Cholesterol 192 mg/dL (200); Creatinine, Serum 1.13 mg/dL (0.70-1.30); EST Glomerular Filtration Rate 67 mL/min (>60); Est Glom Filt Rate - Afr Amer 81 mL/min (>60); Globulin 4.4 g/dL (2.2-4.2); Glucose 92 mg/dL (74-106); High Density Lipoprotein 49 mg/dL; Potassium 4.4 mmol/L (3.5-5.1); Protein, Total 7.8 g/dL (6.4-8.2); Sodium Level 141 mmol/L (136-145); T4 Free Direct 0.79 ng/dL (0.76-1.46); Thyroid Stim Hormone (TSH) 0.89 uIU/mL (0.358-3.74); Triglycerides 93 mg/dL; Very Low Density Lipoprotein 19 mg/dL (5-40)
[2020-08-14 10:36] LABS: Bacteria 1+ /hpf (None Seen); Squamous Epithelial Cells - UA 0-5 SEEN /hpf (0-5); White Blood Cells 0-5 SEEN /hpf (0-5)
[2020-08-14 10:38] LABS: PTHIN 86.1 pg/mL (18.4-80.1)
[2020-08-14 10:39] LABS: Vitamin D,25 Hydroxy 38.8 ng/mL
== END ==
PROVIDERS: PCP Family Medicine; Referring Provider Family Medicine; Visit Provider Family Medicine
DX: I10 Essential (primary) hypertension (principal); E03.9 Hypothyroidism, unspecified; E21.3 Hyperparathyroidism, unspecified; E55.9 Vitamin D deficiency, unspecified
CPT/HCPCS: 80053; 80061; 81001; 82306; 83970; 84439; 84443; 85025

== ENCOUNTER → 2020-08-21 14:22 | Outpatient (CLI) | payer MEDICARE, BC, SELFPAY ==
[2020-07-09 11:01] VITALS: BMI 32.6
--- NOTE | 2020-08-21 14:26 | US_ITS ---
STUDY: THYROID ULTRASOUND REASON FOR EXAM: Male, 75 years old. NODULE -- HX OF RT THYROIDECTOMY TECHNIQUE: Ultrasound evaluation of the thyroid was performed with real-time and static parrish-scale imaging. COMPARISON: 08/23/2019 FINDINGS: RIGHT LOBE: Right thyroidectomy. LEFT LOBE: The left lobe of the thyroid gland measures 3.6 x 1.6 x 1.5 cm. There is a homogeneous echotexture. Stable heterogeneous nodule in the left mid thyroid lobe measuring 15 x 9 x 8 mm. Minimal vascularity and no echogenic foci. ISTHMUS: The isthmus measures 4 mm . The regional lymph nodes are normal. US/Thyroid IMPRESSION: Stable left thyroid nodule. No new left thyroid lesions are seen. Continued ultrasound follow-up in 12 months is needed. Electronically Signed: Jose Angel Joaquin MD at 21:02 EDT Tel , Service support ,
== END ==
PROVIDERS: PCP Family Medicine; Referring Provider Family Medicine; Visit Provider Family Medicine
DX: E04.1 Nontoxic single thyroid nodule (principal)
CPT/HCPCS: 76536

== ENCOUNTER → 2020-09-23 13:13 | Outpatient (CLI) | payer MEDICARE, BC, SELFPAY ==
[2020-07-09 11:01] VITALS: BMI 32.6
--- NOTE | 2020-09-23 13:14 | MRI_ITS ---
STUDY: MRI LUMBAR SPINE WITHOUT CONTRAST REASON FOR EXAM: Male, 75 years old. low back pain with radiculopathy, bilat hip and leg pain TECHNIQUE: Standardized fat and water weighted pulse sequences were obtained in the sagittal and axial planes. COMPARISON: None FINDINGS: T12-L1: Normal endplates. Normal disc height, hydration and morphology. Normal bilateral facet joints. Normal central canal and bilateral lateral recesses. Normal bilateral intervertebral neural foramina. Normal lumbar lordosis. There is no substantial scoliosis. Normal conus medullaris that terminates at the L1. L1-2: Normal endplates. Normal disc height, hydration and morphology. Normal bilateral facet joints. Normal central canal and bilateral lateral recesses. Normal bilateral intervertebral neural foramina. L2-3: Mild bilateral facet hypertrophy and severe ligament flavum hypertrophy. Mild bilobed disc protrusion produces moderate spinal stenosis, mild left neural foraminal stenosis and moderate right neural foraminal stenosis with abutment of the right L2 nerve root laterally. L3-4: Severe left facet hypertrophy and moderate right facet hypertrophy with severe ligament flavum hypertrophy. No disc protrusion, spinal stenosis, or neural foraminal stenosis. L4-5: Moderate left facet hypertrophy and mild right facet hypertrophy with moderate ligament flavum hypertrophy. Moderate broad disc protrusion produces moderate spinal stenosis with moderate bilateral lateral recess stenosis with abutment of the L5 nerve roots bilaterally and mild bilateral neural foraminal stenosis. L5-S1: Normal endplates. Normal disc height, hydration and morphology. Normal bilateral facet joints. Normal central canal and bilateral lateral recesses. Normal bilateral intervertebral neural foramina. Normal visualized sacral ala. There is a left renal cyst. MRI/Spine Lumbar (Routine) IMPRESSION: Multilevel degenerative changes, as described above. Electronically Signed: Ced Aguilar MD at 15:35 EST Tel , Service support ,
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
== END ==
PROVIDERS: PCP Family Medicine; Referring Provider Orthopaedic Surgery; Visit Provider Orthopaedic Surgery
DX: M54.16 Radiculopathy, lumbar region (principal)
CPT/HCPCS: 70030; 72148

== ENCOUNTER → 2020-12-18 09:52 | Outpatient (CLI) | payer MEDICARE, BC, SELFPAY ==
[2020-12-18 09:58] LABS: Bacteria 0 SEEN /hpf (None Seen); Mucous, Urine 0 SEEN /hpf (<or=2+); Red Blood Cells-Urine 0 SEEN /hpf (0-5)
[2020-12-18 12:20] LABS: Absolute Lymphocyte Count 1.01 X10^3/uL (0.83-4.51); Absolute Neutrophil Count 1.5 X10^3/uL (2.0-7.7); Basophil# 0.01 X10^3/uL; Basophil% 0.3 % (0-1); Eosinophil# 0.03 X10^3/uL; Eosinophils% 0.9 % (0-5); Hematocrit 46.1 % (40-54); Hemoglobin 14.7 g/dL (13.0-16.5); Lymphocyte # 1.01 X10^3/ul (4.0); Lymphocyte % 30.8 % (19-41); Mean Corp Hgb Conc 31.9 g/dL (32-36); Mean Corpuscular Hgb 29.8 pg (27.0-32.0); Mean Corpuscular Volume 93.3 fL (80-94); Mean Platelet Vol. 9.2 fl (6.2-12.0); Monocyte# 0.68 X10^3/uL; Monocyte% 20.7 % (0-10); NRBC Flagged by Analyzer 0 % (0-5); Neutrophil # 1.53 X10^3/uL (2.7-7.7); Neutrophil % 46.7 % (47-70); Platelet Count 229 K/mm3 (150-450); RBC Distribution Width CV 14.3 % (11.6-14.6); RBC Distribution Width SD 49.1 fl (35.1-43.9); Red Blood Count 4.94 M/mm3 (4.6-6.2); White Blood Count 3.3 K/mm3 (4.4-11.0)
[2020-12-18 12:25] LABS: Glucose, Dipstick Normal (Normal); Ketone-Dipstick Negative (Negative); Leukocyte Esterase-Dipstick Negative /ul (Negative); Nitrite-Dipstick Negative (Negative); Occult Blood-Urine Negative /ul (Negative); Protein-Dipstick 15 mg/dl (Negative); Urine Bilirubin Dipstick Negative (Negative); Urine Urobilinogen Normal (Normal)
[2020-12-18 12:42] LABS: Color, Urine Yellow (Yellow); Urine Clarity Clear (Clear)
[2020-12-18 12:43] LABS: Squamous Epithelial Cells - UA 0-5 SEEN /hpf (0-5); White Blood Cells 0-5 SEEN /hpf (0-5)
[2020-12-18 12:51] LABS: Vitamin D,25 Hydroxy 30.4 ng/mL
[2020-12-18 13:50] LABS: ALB/GLOB Ratio 0.8 RATIO (0.9-2.4); AST(SGOT) 8 U/L (15-37); Alanine Aminotransfer ALT/SGPT 20 U/L (16-61); Albumin, Serum 3.4 g/dL (3.2-5.0); Alkaline Phosphatase 61 U/L (45-117); Anion Gap 5 (5-15); BUN 17 mg/dL (7-18); BUN/Creat Ratio 15.6 RATIO (10-20); Calcium,Total 10.2 mg/dL (8.5-10.1); Chloride 110 mmol/L (98-107); Cholesterol 184 mg/dL (200); Creatinine, Serum 1.09 mg/dL (0.70-1.30); EST Glomerular Filtration Rate 70 mL/min (>60); Est Glom Filt Rate - Afr Amer 84 mL/min (>60); Globulin 4.2 g/dL (2.2-4.2); Glucose 89 mg/dL (74-106); High Density Lipoprotein 54 mg/dL; Potassium 4.2 mmol/L (3.5-5.1); Protein, Total 7.6 g/dL (6.4-8.2); Sodium Level 140 mmol/L (136-145); Thyroid Stim Hormone (TSH) 1.17 uIU/mL (0.358-3.74); Triglycerides 60 mg/dL; Very Low Density Lipoprotein 12 mg/dL (5-40)
== END ==
PROVIDERS: PCP Family Medicine; Referring Provider Family Medicine; Visit Provider Family Medicine
DX: I10 Essential (primary) hypertension (principal); E03.9 Hypothyroidism, unspecified; E21.3 Hyperparathyroidism, unspecified; E55.9 Vitamin D deficiency, unspecified
CPT/HCPCS: 36415; 80053; 80061; 81001; 82306; 83970; 84439; 84443; 85025

== ENCOUNTER → 2020-12-23 10:41 | Outpatient (CLI) | payer MEDICARE, BC, SELFPAY ==
[2020-12-23 11:42] LABS: Amphetamine Urine VISTA NEGATIVE (<1000 ng/mL); Barbiturate Urine VISTA NEGATIVE (< 200 ng/mL); Benzodiazepine Urine VISTA POSITIVE (< 200 ng/mL); Cocaine Urine VISTA NEGATIVE (< 300 ng/mL); Ecstacy Urine VISTA NEGATIVE (< 500 ng/mL); Methadone Urine VISTA NEGATIVE (< 300 ng/mL); PCP Urine VISTA NEGATIVE (< 25 ng/mL); THC Urine VISTA NEGATIVE (< 50 ng/mL); Vista UDS pH Range 5
== END ==
PROVIDERS: PCP Family Medicine; Referring Provider Anesthesiology Pain Medicine; Visit Provider Anesthesiology Pain Medicine
DX: F11.20 Opioid dependence, uncomplicated (principal)
CPT/HCPCS: 80307

== ENCOUNTER 2021-01-30 08:37 | Outpatient (RCR) | payer MEDICARE, BC, SELFPAY ==
[2021-01-30] MEDS: COVID-19 VACC, MRNA(PFIZER)/PF 30 MCG/0.3 ML SYRINGE IM (14:24)
[2021-02-20] MEDS: COVID-19 VACC, MRNA(PFIZER)/PF 30 MCG/0.3 ML SYRINGE IM (14:32)
== END 2021-04-29 23:59 ==
LOC: IMMUN 08:37
PROVIDERS: PCP Family Medicine; Visit Provider Family Medicine
DX: Z23 Encounter for immunization (principal)
CPT/HCPCS: 0001A; 0002A; 91300

== ENCOUNTER → 2021-04-30 10:19 | Outpatient (CLI) | payer MEDICARE, BC, SELFPAY ==
[2021-04-30 12:15] LABS: Absolute Lymphocyte Count 1.16 X10^3/uL (0.83-4.51); Absolute Neutrophil Count 1.1 X10^3/uL (2.0-7.7); Basophil# 0.01 X10^3/uL; Basophil% 0.3 % (0-1); Eosinophil# 0.02 X10^3/uL; Eosinophils% 0.7 % (0-5); Hemoglobin 14.4 g/dL (13.0-16.5); Lymphocyte # 1.16 X10^3/ul (0.83-4.51); Lymphocyte % 38.9 % (19-41); Mean Corpuscular Hgb 29.7 pg (27.0-32.0); Mean Corpuscular Volume 92.8 fL (80-94); Mean Platelet Vol. 9.2 fl (6.2-12.0); Monocyte# 0.68 X10^3/uL; Monocyte% 22.8 % (0-10); NRBC Flagged by Analyzer 0 % (0-5); Neutrophil # 1.09 X10^3/uL (2.7-7.7); Neutrophil % 36.6 % (47-70); Platelet Count 241 K/mm3 (150-450); RBC Distribution Width CV 13.6 % (11.6-14.6); RBC Distribution Width SD 46.4 fl (35.1-43.9); Red Blood Count 4.85 M/mm3 (4.6-6.2)
[2021-04-30 12:40] LABS: ALB/GLOB Ratio 0.8 RATIO (0.9-2.4); AST(SGOT) 12 U/L (15-37); Alanine Aminotransfer ALT/SGPT 18 U/L (16-61); Albumin, Serum 3.4 g/dL (3.2-5.0); Alkaline Phosphatase 59 U/L (45-117); Anion Gap 5 (5-15); BUN 13 mg/dL (7-18); BUN/Creat Ratio 12.9 RATIO (10-20); Calcium,Total 10.1 mg/dL (8.5-10.1); Chloride 112 mmol/L (98-107); Cholesterol 169 mg/dL (200); Creatinine, Serum 1.01 mg/dL (0.70-1.30); EST Glomerular Filtration Rate 76 mL/min (>60); Est Glom Filt Rate - Afr Amer 92 mL/min (>60); Globulin 4.1 g/dL (2.2-4.2); Glucose 82 mg/dL (74-106); High Density Lipoprotein 50 mg/dL; Potassium 3.9 mmol/L (3.5-5.1); Protein, Total 7.5 g/dL (6.4-8.2); Sodium Level 142 mmol/L (136-145); T4 Free Direct 0.63 ng/dL (0.76-1.46); Triglycerides 74 mg/dL; Very Low Density Lipoprotein 15 mg/dL (5-40)
[2021-04-30 12:50] LABS: PTHIN 106.1 pg/mL (18.4-80.1)
== END ==
PROVIDERS: PCP Family Medicine; Referring Provider Family Medicine; Visit Provider Family Medicine
DX: I10 Essential (primary) hypertension (principal); E21.3 Hyperparathyroidism, unspecified; E55.9 Vitamin D deficiency, unspecified; E03.9 Hypothyroidism, unspecified
CPT/HCPCS: 36415; 80053; 80061; 82306; 83970; 84439; 84443; 85025

== ENCOUNTER → 2021-06-04 09:54 | Outpatient (CLI) | payer MEDICARE, BC, SELFPAY ==
--- NOTE | 2021-06-04 09:57 | RAD_ITS ---
STUDY: X-RAY - LEFT HAND REASON FOR EXAM: Male, 76 years old. HAND PAIN TECHNIQUE: 3 view(s) of the hand. COMPARISON: None. FINDINGS: Possible diffuse osteopenia. Mild degenerative disease of the radiocarpal articulation. Normal distal radioulnar joint. Normal visualized carpal bones. Normal carpal articulations Normal carpometacarpal articulation of the thumb. Normal second through fifth carpometacarpal joints. Normal metacarpi. Normal metacarpophalangeal joint of the thumb. There is degenerative arthrosis of the interphalangeal joint of the thumb with articular joint space narrowing. Normal proximal and distal phalanges of the thumb. Normal metacarpophalangeal joints of the second through fifth fingers. Normal proximal and distal interphalangeal joints of the second through fifth fingers. Normal phalanges of the second through fifth fingers. The soft tissue structures are unremarkable. 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 No acute fracture or subluxation. Electronically Signed: Reba Brito MD at 1:52 EDT , Service support ,
--- NOTE | 2021-06-04 09:58 | RAD_ITS ---
STUDY: X-RAY - RIGHT HAND REASON FOR EXAM: Male, 76 years old. HAND PAIN TECHNIQUE: 3 view(s) of the hand. COMPARISON: None. FINDINGS: There is joint space narrowing of the radiocarpal articulation consistent with degenerative arthrosis. Degenerative disease of the distal radioulnar joint. There is chondrocalcinosis at the carpal ulnar joint. Osteopenia with deformity and degenerative disease at the scaphotrapezium trapezoid joint. No acute fracture. There is degenerative arthrosis of the carpometacarpal (CMC) articulation of the thumb. Normal second through fifth carpometacarpal joints. Normal metacarpi. Normal metacarpophalangeal joint of the thumb. Normal interphalangeal joint of the thumb. Normal proximal and distal phalanges of the thumb. Normal metacarpophalangeal joints of the second through fifth fingers. Normal proximal and distal interphalangeal joints of the second through fifth fingers. Normal phalanges of the second through fifth fingers. The soft tissue structures are unremarkable. RAD/Hand Min 3 Views IMPRESSION: Degenerative disease at the level of the wrist. No acute fracture or subluxation. Electronically Signed: Reba Brito MD at 1:50 EDT , Service support ,
--- NOTE | 2021-06-04 09:58 | RAD_ITS ---
STUDY: X-RAY - PELVIS AND BILATERAL HIPS REASON FOR EXAM: Male, 76 years old. HIP PAIN TECHNIQUE: AP view of the pelvis.? 2 views of the right hip, and 2 views of the left hip were obtained. COMPARISON: None. FINDINGS: There is a non-specific bowel gas pattern. Normal visualized soft tissue structures. There is narrowing with cortical sclerosis and osteophyte formation of the sacroiliac joint consistent with degenerative osteoarthritic changes. Normal bilateral superior and inferior pubic rami. Normal pubic symphysis. Normal bilateral ischial tuberosities. Normal visualized right femoral head. There is osteoarthritic spur formation of the right acetabular rim. There is mild articular joint space narrowing of the right hip. Normal visualized left femoral head. There is osteoarthritic spur formation of the left acetabular rim. There is mild articular joint space narrowing of the left hip. RAD/Hips B/L min 2 views w/ Pelvis IMPRESSION: Degenerative disease as described. No acute fracture or subluxation. Electronically Signed: Reba Brito MD at 1:51 EDT , Service support ,
[2021-06-04 12:42] LABS: T4 Free Direct 0.76 ng/dL (0.76-1.46)
[2021-06-04 13:32] LABS: Vitamin B12 182 pg/mL (211-911)
== END ==
PROVIDERS: PCP Family Medicine; Referring Provider Family Medicine; Visit Provider Family Medicine
DX: M79.641 Pain in right hand (principal); M79.642 Pain in left hand; M25.551 Pain in right hip; M25.552 Pain in left hip; R41.3 Other amnesia
CPT/HCPCS: 36415; 73130; 73521; 82607; 84439

== ENCOUNTER → 2021-06-25 14:13 | Outpatient (CLI) | payer MEDICARE, BC, SELFPAY ==
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
== END ==
PROVIDERS: PCP Family Medicine; Referring Provider Ophthalmology; Visit Provider Ophthalmology
DX: S05 Injury of eye and orbit (principal)
CPT/HCPCS: 70030

== ENCOUNTER → 2021-10-21 10:28 | Outpatient (CLI) | payer MEDICARE, BC, SELFPAY ==
[2021-10-21 10:32] LABS: Bacteria 0 SEEN /hpf (None Seen); Mucous, Urine 0 SEEN /hpf (<or=2+); Red Blood Cells-Urine 0 SEEN /hpf (0-5); Squamous Epithelial Cells - UA 0 SEEN /hpf (0-5); White Blood Cells 0 SEEN /hpf (0-5)
[2021-10-21 12:16] LABS: Absolute Lymphocyte Count 1.29 X10^3/uL (0.83-4.51); Absolute Neutrophil Count 1.2 X10^3/uL (2.0-7.7); Basophil# 0.01 X10^3/uL; Basophil% 0.3 % (0-1); Eosinophil# 0.03 X10^3/uL; Eosinophils% 0.9 % (0-5); Hematocrit 43.6 % (40-54); Hemoglobin 14.3 g/dL (13.0-16.5); Lymphocyte # 1.29 X10^3/ul (0.83-4.51); Lymphocyte % 39.4 % (19-41); Mean Corp Hgb Conc 32.8 g/dL (32-36); Mean Corpuscular Hgb 29.7 pg (27.0-32.0); Mean Corpuscular Volume 90.5 fL (80-94); Mean Platelet Vol. 9.2 fl (6.2-12.0); Monocyte# 0.71 X10^3/uL; Monocyte% 21.7 % (0-10); NRBC Flagged by Analyzer 0 % (0-5); Neutrophil # 1.22 X10^3/uL (2.7-7.7); Neutrophil % 37.4 % (47-70); Platelet Count 201 K/mm3 (150-450); RBC Distribution Width CV 13.8 % (11.6-14.6); RBC Distribution Width SD 45.8 fl (35.1-43.9); Red Blood Count 4.82 M/mm3 (4.6-6.2); White Blood Count 3.3 K/mm3 (4.4-11.0)
[2021-10-21 12:17] LABS: Color, Urine Yellow (Yellow); Glucose, Dipstick Normal (Normal); Ketone-Dipstick Negative (Negative); Leukocyte Esterase-Dipstick Negative /ul (Negative); Nitrite-Dipstick Negative (Negative); Occult Blood-Urine Negative /ul (Negative); Protein-Dipstick Negative (Negative); Specific Gravity, Urine 1.015 (1.002-1.030); Urine Bilirubin Dipstick Negative (Negative); Urine Clarity Clear (Clear); Urine Urobilinogen Normal (Normal)
[2021-10-21 12:46] LABS: Vitamin D,25 Hydroxy 30.9 ng/mL
[2021-10-21 12:47] LABS: ALB/GLOB Ratio 0.8 RATIO (0.9-2.4); AST(SGOT) 11 U/L (15-37); Alanine Aminotransfer ALT/SGPT 20 U/L (16-61); Albumin, Serum 3.3 g/dL (3.2-5.0); Alkaline Phosphatase 65 U/L (45-117); Anion Gap 6 (5-15); BUN 14 mg/dL (7-18); BUN/Creat Ratio 12.5 RATIO (10-20); Chloride 109 mmol/L (98-107); Cholesterol 163 mg/dL (200); Creatinine, Serum 1.12 mg/dL (0.70-1.30); EST Glomerular Filtration Rate 68 mL/min (>60); Est Glom Filt Rate - Afr Amer 82 mL/min (>60); Globulin 4.4 g/dL (2.2-4.2); Glucose 85 mg/dL (74-106); High Density Lipoprotein 45 mg/dL; Potassium 4.2 mmol/L (3.5-5.1); Protein, Total 7.7 g/dL (6.4-8.2); Sodium Level 139 mmol/L (136-145); Triglycerides 99 mg/dL; Very Low Density Lipoprotein 20 mg/dL (5-40)
== END ==
PROVIDERS: PCP Family Medicine; Referring Provider Family Medicine; Visit Provider Family Medicine
DX: I10 Essential (primary) hypertension (principal); E03.9 Hypothyroidism, unspecified; E21.3 Hyperparathyroidism, unspecified; E55.9 Vitamin D deficiency, unspecified
CPT/HCPCS: 80053; 80061; 81001; 82306; 83970; 84439; 84443; 85025

== ENCOUNTER → 2021-11-03 10:03 | Outpatient (CLI) | payer MEDICARE, BC, SELFPAY ==
--- NOTE | 2021-11-03 10:04 | ECHOCS_ITS ---
Reason For Study: DILATED AO ROOT Procedure This was a 2D Doppler, Color Flow transthoracic echocardiogram. Contrast injection was performed. The exam was of poor technical quality due to suboptimal acoustic windows. Pt having back pain today. Exam performed in department. Left Ventricle Normal LV size. Left ventricular systolic function is normal. The estimated ejection fraction is 55 %. Stage 1 diastolic dysfunction. No regional wall motion abnormalities noted. Right Ventricle Normal RV size. Normal systolic function. Atria Normal left atrium. Normal right atrium. Mitral Valve Mitral valve not well visualized. Tricuspid Valve The tricuspid valve is not well visualized. Aortic Valve The aortic valve is not well visualized. Pulmonic Valve Normal pulmonic valve. Great Vessels Mild to moderately dilated aortic root. The pulmonary artery is normal size. Normal inferior vena cava. Pericardium/Pleural No pericardial effusion. Medication 22 gauge I.V. with prn adaptor inserted into left arm. Diluted definity 4.0ml given slow IV push to enhance endocardial definition. MMode/2D Measurements & Calculations RVDd: 4.2 cm Ao root diam: 4.3 cm LAV(MOD-bp): 58.3 ml LAV(MOD-bp) Indexed: 23.4 ml/m2 LAV(MOD-sp2): 61.1 ml LAV(MOD-sp4): 49.9 ml LA A4 area: 18.6 cm2 RA A4 area: 17.2 cm2 Doppler Measurements & Calculations MV E max олег: 58.9 cm/sec Lat Peak E' Олег: 10.1 cm/sec Med Peak E' Олег: 7.5 cm/sec MV A max олег: 104.9 cm/sec E/E' lat: 5.8 E/E' med: 7.9 MV E/A: 0.56 Ao V2 max: 153.4 cm/sec LV V1 max: 149.4 cm/sec PA V2 max: 127.1 cm/sec Ao max P.5 mmHg LV V1 max P.0 mmHg PA V2 mean: 77.1 cm/sec PA V2 VTI: 19.0 cm ECHO/Echo Complete W/ Contrast Interpretation Summary Normal LV size. Left ventricular systolic function is normal. The estimated ejection fraction is 55 %. Stage 1 diastolic dysfunction. Mild to moderately dilated aortic root. Ordering Physician: Jayden Butt Referring Physician: Jayden Butt Performed By: Araceli Estrada, GIL, RVT
== END ==
PROVIDERS: PCP Family Medicine; Referring Provider Family Medicine; Visit Provider Family Medicine
DX: I77.810 Thoracic aortic ectasia (principal); I51.89 Other ill-defined heart diseases
CPT/HCPCS: 93306; Q9957; A4216; C8929

== ENCOUNTER 2021-11-28 10:36 | Outpatient (CLI) | payer MEDICARE, BC, SELFPAY ==
--- NOTE | 2021-11-28 10:47 | CT_ITS ---
STUDY: CT ABDOMEN AND PELVIS WITHOUT CONTRAST REASON FOR EXAM: Male, 76 years old. HEMATURIA. History of kidney stones. RADIATION DOSAGE (If Supplied By Facility): CTDIvol = ( 19.87 ) mGy, DLP = ( 1121.76 ) mGycm TECHNIQUE: Transaxial images were obtained from the dome of the diaphragm to the symphysis pubis without oral contrast, and without intravenous contrast. Sagittal and coronal images were reconstructed. Individualized dose optimization techniques were used for this CT. COMPARISON: None. FINDINGS: Mild increased linear markings at the lung bases suggestive of early atelectasis and/or scarring. Calcified right infrahilar lymph nodes. Coronary artery calcification. 1.3 cm hypodensity in the anterior aspect of the left lobe of the liver suggestive of a small cyst. Normal gallbladder and extrahepatic biliary system. Normal spleen. Normal pancreas. Normal bilateral adrenal glands. There is a 5.1 mm nonobstructive calculus in the upper pole calyx of the right kidney. A punctate calcification is seen in the midportion of the right kidney. A 2 mm nonobstructive calculus seen in the lower pole calyx of the right kidney. There are adjacent 3 mm calculi in the lower pole of the right kidney as well. There is a 1.6 cm cyst in the lateral midportion of the kidney. Multiple nonobstructive calculi are seen in the left kidney the largest measures 3 mm. Normal visualized stomach. Normal small intestine. Normal colon. The appendix is visualized and appears normal. There is scattered atherosclerotic calcification of the abdominal aorta and its major visceral branches, without a demonstrated aneurysm. Normal inferior vena cava. Normal retroperitoneum. Mild degree of diffuse bladder wall thickening. Possible 4.4 cm x 5.9 cm mass at the base of the bladder. There is enlargement of the prostate gland. The prostate measures 4.5 cm x 6.6 cm. This causes indentation of the bladder base. Calcifications are seen within the prostate. There is a left-sided inguinal hernia containing adipose tissue. There are degenerative changes of the visualized lumbar spine. CT/Abdomen/Pelvis without Cont IMPRESSION: Bilateral nonobstructive intrarenal calculi. Bilateral renal cysts. Findings suggestive of a bladder mass as described. Correlation with ultrasound is recommended. Electronically Signed: Neto Jolly MD at 11:19 EST , Service support ,
== END 2021-11-28 23:59 | disposition short-term general hospital (02) ==
PROVIDERS: PCP Family Medicine; Referring Provider Family Medicine; Visit Provider Family Medicine
DX: N20.0 Calculus of kidney (principal); N28.1 Cyst of kidney, acquired; R31.9 Hematuria, unspecified
CPT/HCPCS: 74176

== ENCOUNTER 2021-12-29 14:08 | Outpatient (CLI) | payer MEDICARE, BC, SELFPAY ==
--- NOTE | 2021-12-29 14:30 | RAD_ITS ---
EXAM: XR ABDOMEN, 1 VIEW : 1945 CLINICAL INDICATION: CALCULUS OF KIDNEY TECHNIQUE: Frontal supine view of the abdomen/pelvis. This report was created using [employer] report generation technology. COMPARISON: None. FINDINGS: LOWER THORAX: No acute pathology. GASTROINTESTINAL TRACT: Unremarkable. Non-obstructive. No bowel or stomach distention. ORGANS: Unremarkable as visualized. No organomegaly. No abnormal calcifications. BONES/JOINTS: No acute pathology. SOFT TISSUES: No acute pathology. RAD/Abdomen Single View IMPRESSION: Non-obstructive bowel gas pattern. at 0229 Reported and signed by: Geoff Tracy MD Electronically Signed: Geoff Tracy MD at 2:27 EST ,
== END 2021-12-29 23:59 | disposition home or self-care (01) ==
LOC: RAD 14:12
PROVIDERS: PCP Family Medicine; Referring Provider Urology; Visit Provider Urology
DX: N20.0 Calculus of kidney (principal)
CPT/HCPCS: 74018

== ENCOUNTER → 2022-03-16 | Outpatient (CLI) | payer MEDICARE, BC, SELFPAY ==
[2022-03-16 10:11] LABS: Absolute Neutrophil Count 1.3 X10^3/uL (2.0-7.7); Basophil# 0.01 X10^3/uL; Basophil% 0.3 % (0-1); Eosinophil# 0.05 X10^3/uL; Eosinophils% 1.5 % (0-5); Hematocrit 43.9 % (40-54); Hemoglobin 14.2 g/dL (13.0-16.5); Mean Corp Hgb Conc 32.3 g/dL (32-36); Mean Corpuscular Hgb 29.8 pg (27.0-32.0); Mean Corpuscular Volume 92.2 fL (80-94); Mean Platelet Vol. 9.2 fl (6.2-12.0); Monocyte# 0.67 X10^3/uL; Monocyte% 20.7 % (0-10); NRBC Flagged by Analyzer 0 % (0-5); Neutrophil % 40.2 % (47-70); Platelet Count 206 K/mm3 (150-450); RBC Distribution Width CV 13.7 % (11.6-14.6); RBC Distribution Width SD 46.7 fl (35.1-43.9); Red Blood Count 4.76 M/mm3 (4.6-6.2); White Blood Count 3.2 K/mm3 (4.4-11.0)
[2022-03-16 10:41] LABS: PTHIN 84.8 pg/mL (18.4-80.1)
[2022-03-16 10:45] LABS: Vitamin D,25 Hydroxy 30.2 ng/mL
[2022-03-16 10:54] LABS: ALB/GLOB Ratio 0.8 RATIO (0.9-2.4); AST(SGOT) 14 U/L (15-37); Alanine Aminotransfer ALT/SGPT 21 U/L (16-61); Albumin, Serum 3.4 g/dL (3.2-5.0); Alkaline Phosphatase 61 U/L (45-117); Anion Gap 4 (5-15); BUN 14 mg/dL (7-18); Chloride 110 mmol/L (98-107); Creatinine, Serum 1.08 mg/dL (0.70-1.30); EST Glomerular Filtration Rate 70 mL/min (>60); Est Glom Filt Rate - Afr Amer 85 mL/min (>60); Glucose 98 mg/dL (74-106); Protein, Total 7.4 g/dL (6.4-8.2); Sodium Level 140 mmol/L (136-145); T4 Free Direct 0.75 ng/dL (0.76-1.46); Thyroid Stim Hormone (TSH) 0.73 uIU/mL (0.358-3.74)
== END | disposition home or self-care (01) ==
LOC: MTLAB 09:10
PROVIDERS: PCP Family Medicine; Referring Provider Family Medicine; Visit Provider Family Medicine
DX: I10 Essential (primary) hypertension (principal); E21.3 Hyperparathyroidism, unspecified; E03.9 Hypothyroidism, unspecified; E55.9 Vitamin D deficiency, unspecified
CPT/HCPCS: 36415; 80053; 82306; 83970; 84439; 84443; 85025

== ENCOUNTER → 2022-03-19 | Outpatient (CLI) | payer MEDICARE, BC, SELFPAY ==
--- NOTE | 2022-03-19 12:14 | US_ITS ---
STUDY: THYROID ULTRASOUND REASON FOR EXAM: Male, 76 years old. THYROID NODULE TECHNIQUE: Ultrasound evaluation of the thyroid was performed with real-time and static parrish-scale imaging. COMPARISON: Aug 21 2020 2:34pm FINDINGS: RIGHT LOBE: Surgically absent. LEFT LOBE: The left lobe of the thyroid gland measures 3.1x1.6 cm. There is a homogeneous echotexture. There is a nodule. 13 x 10 x 9mm nodule. The lesion is solid with regular margins and janell nodular doppler flow. ISTHMUS: The isthmus is not seen. The regional lymph nodes measure 2 x 4 x 3 mm and 12 x 5 x 4 mm the right.. Prominent bilateral jugular veins. US/Thyroid IMPRESSION: Right neck lymph nodes. These are stable. There are left nodules. These are stable. This nodule is mixed cystic and solid, hypoechoic, [id number], smoothly marginated and contains no echogenic foci. TI-RADS points: 3. TI-RADS category: TR3. This nodule is mildly suspicious but no FNA or follow-up is necessary given the small size of this nodule. Electronically Signed: Cash Pierre MD at 15:47 EDT ,
== END | disposition home or self-care (01) ==
LOC: US 12:14
PROVIDERS: PCP Family Medicine; Referring Provider Family Medicine; Visit Provider Family Medicine
DX: E04.1 Nontoxic single thyroid nodule (principal)
CPT/HCPCS: 76536

== ENCOUNTER → 2022-04-15 | Outpatient (CLI) | payer MEDICARE, BC, SELFPAY ==
[2022-04-15 17:58] LABS: Erythrocyte Sedimentation Rate 45 mm/hr (0-20)
[2022-04-15 18:01] LABS: Absolute Lymphocyte Count 0.62 X10^3/uL (0.83-4.51); Absolute Neutrophil Count 4.7 X10^3/uL (2.0-7.7); Hematocrit 45.1 % (40-54); Hemoglobin 14.7 g/dL (13.0-16.5); Lymphocyte # 0.62 X10^3/ul (0.83-4.51); Mean Corp Hgb Conc 32.6 g/dL (32-36); Mean Corpuscular Hgb 30.6 pg (27.0-32.0); Mean Corpuscular Volume 93.8 fL (80-94); Mean Platelet Vol. 9.4 fl (6.2-12.0); Monocyte# 0.28 X10^3/uL; Monocyte% 4.9 % (0-10); NRBC Flagged by Analyzer 0 % (0-5); Neutrophil # 4.74 X10^3/uL (2.7-7.7); Neutrophil % 83.7 % (47-70); Platelet Count 263 K/mm3 (150-450); RBC Distribution Width CV 12.9 % (11.6-14.6); RBC Distribution Width SD 44.5 fl (35.1-43.9); Red Blood Count 4.81 M/mm3 (4.6-6.2); White Blood Count 5.7 K/mm3 (4.4-11.0)
[2022-04-15 18:04] LABS: ALB/GLOB Ratio 0.6 RATIO (0.9-2.4); AST(SGOT) 10 U/L (15-37); Alanine Aminotransfer ALT/SGPT 22 U/L (16-61); Albumin, Serum 3.3 g/dL (3.2-5.0); Alkaline Phosphatase 67 U/L (45-117); Anion Gap 6 (5-15); BUN 13 mg/dL (7-18); BUN/Creat Ratio 11.1 RATIO (10-20); Calcium,Total 10.6 mg/dL (8.5-10.1); Chloride 109 mmol/L (98-107); Creatinine, Serum 1.17 mg/dL (0.70-1.30); EST Glomerular Filtration Rate 64 mL/min (>60); Est Glom Filt Rate - Afr Amer 78 mL/min (>60); Globulin 5.1 g/dL (2.2-4.2); Glucose 192 mg/dL (74-106); Potassium 4.5 mmol/L (3.5-5.1); Protein, Total 8.4 g/dL (6.4-8.2); Sodium Level 138 mmol/L (136-145)
== END | disposition home or self-care (01) ==
PROVIDERS: PCP Family Medicine; Referring Provider Family Medicine; Visit Provider Nurse Practitioner Family
DX: M25.571 Pain in right ankle and joints of right foot (principal)
CPT/HCPCS: 36415; 80053; 84550; 85025; 85652

== ENCOUNTER → 2022-08-07 | Outpatient (CLI) | payer MEDICARE, BC, SELFPAY ==
--- NOTE | 2022-08-07 09:20 | RAD_ITS ---
PROCEDURE: Sniff test. DATE OF EXAMINATION: 08/07/2022 INDICATION: Male, 77 years old. Dyspnea and shortness of breath. Elevation of the left hemidiaphragm. FLUOROSCOPY TIME (if supplied): (24 seconds) minutes/seconds. 3 images were obtained. A sniff test was performed. There is elevation of the left hemidiaphragm. There is normal translation of the right and left hemidiaphragms. RAD/Chest Sniff Test Fluoro Only IMPRESSION: Normal movement of the left and right hemidiaphragms. Electronically Signed: Neto Jolly MD at 10:29 EDT ,
[2022-08-07 15:53] LABS: BNP,B-Type NATRIURETIC PEPTIDE 7.9 pg/mL (0-100)
== END | disposition home or self-care (01) ==
PROVIDERS: Internal Medicine Cardiovascular Disease; PCP Family Medicine; Referring Provider Internal Medicine Pulmonary Disease; Visit Provider Internal Medicine Pulmonary Disease
DX: R06.00 Dyspnea, unspecified (principal)
CPT/HCPCS: 36415; 76000; 83880

== ENCOUNTER 2022-10-14 10:18 | Outpatient (CLI) | payer MEDICARE, BC, SELFPAY ==
[2022-10-14 10:40] LABS: Bacteria 0 SEEN /hpf (None Seen); Mucous, Urine 0 SEEN /hpf (<or=2+); Red Blood Cells-Urine 0 SEEN /hpf (0-5); Squamous Epithelial Cells - UA 0 SEEN /hpf (0-5)
[2022-10-14 12:34] LABS: Absolute Lymphocyte Count 1.31 X10^3/uL (0.83-4.51); Absolute Neutrophil Count 2.1 X10^3/uL (2.0-7.7); Basophil# 0.01 X10^3/uL; Basophil% 0.2 % (0-1); Eosinophil# 0.03 X10^3/uL; Eosinophils% 0.7 % (0-5); Hematocrit 46.3 % (40-54); Hemoglobin 14.8 g/dL (13.0-16.5); Lymphocyte # 1.31 X10^3/ul (0.83-4.51); Lymphocyte % 31.3 % (19-41); Mean Corpuscular Hgb 29.7 pg (27.0-32.0); Mean Platelet Vol. 9.5 fl (6.2-12.0); Monocyte# 0.76 X10^3/uL; Monocyte% 18.2 % (0-10); NRBC Flagged by Analyzer 0 % (0-5); Neutrophil # 2.05 X10^3/uL (2.7-7.7); Neutrophil % 49.1 % (47-70); Platelet Count 226 K/mm3 (150-450); RBC Distribution Width CV 13.4 % (11.6-14.6); RBC Distribution Width SD 46.3 fl (35.1-43.9); Red Blood Count 4.98 M/mm3 (4.6-6.2); White Blood Count 4.2 K/mm3 (4.4-11.0)
[2022-10-14 12:37] LABS: Color, Urine Yellow (Yellow); Glucose, Dipstick Normal (Normal); Ketone-Dipstick Negative (Negative); Leukocyte Esterase-Dipstick 25 /ul (Negative); Nitrite-Dipstick Negative (Negative); Occult Blood-Urine Negative /ul (Negative); Protein-Dipstick Negative (Negative); Specific Gravity, Urine 1.015 (1.002-1.030); Urine Bilirubin Dipstick Negative (Negative); Urine Clarity Clear (Clear); Urine Urobilinogen Normal (Normal); Urine pH 6.5 (5.0 - 8.0)
[2022-10-14 12:45] LABS: White Blood Cells 0-5 SEEN /hpf (0-5)
[2022-10-14 13:01] LABS: PTHIN 122.4 pg/mL (18.4-80.1); Vitamin B12 349 pg/mL (211-911)
[2022-10-14 13:30] LABS: ALB/GLOB Ratio 0.8 RATIO (0.9-2.4); AST(SGOT) 11 U/L (15-37); Alanine Aminotransfer ALT/SGPT 22 U/L (16-61); Albumin, Serum 3.4 g/dL (3.2-5.0); Alkaline Phosphatase 66 U/L (45-117); Anion Gap 6 (5-15); BUN 11 mg/dL (7-18); BUN/Creat Ratio 10.6 RATIO (10-20); Calcium,Total 10.6 mg/dL (8.5-10.1); Chloride 111 mmol/L (98-107); Cholesterol 180 mg/dL (200); Creatinine, Serum 1.04 mg/dL (0.70-1.30); EST Glomerular Filtration Rate 73 mL/min (>60); Est Glom Filt Rate - Afr Amer 89 mL/min (>60); Globulin 4.2 g/dL (2.2-4.2); Glucose 89 mg/dL (74-106); High Density Lipoprotein 50 mg/dL; Potassium 4.1 mmol/L (3.5-5.1); Protein, Total 7.6 g/dL (6.4-8.2); Sodium Level 142 mmol/L (136-145); T4 Free Direct 0.98 ng/dL (0.76-1.46); Thyroid Stim Hormone (TSH) 0.44 uIU/mL (0.358-3.74); Triglycerides 102 mg/dL; Very Low Density Lipoprotein 20 mg/dL (5-40)
== END 2022-10-14 23:59 | disposition home or self-care (01) ==
LOC: MFPLAB 10:20
PROVIDERS: PCP Family Medicine; Visit Provider Family Medicine
DX: I10 Essential (primary) hypertension (principal); E21.3 Hyperparathyroidism, unspecified; E53.8 Deficiency of other specified B group vitamins; E03.9 Hypothyroidism, unspecified; E55.9 Vitamin D deficiency, unspecified
CPT/HCPCS: 36415; 80053; 80061; 81001; 82306; 82607; 82746; 83970; 84439; 84443; 85025

== ENCOUNTER 2022-10-20 10:43 | Outpatient (CLI) | payer MEDICARE, BC, SELFPAY ==
--- NOTE | 2022-10-20 10:45 | ECHOD_ITS ---
Reason For Study: YONATHAN Procedure This was a 2D Doppler, Color Flow transthoracic echocardiogram. Exam performed in department. Left Ventricle Normal LV size. Left ventricular systolic function is normal. The estimated ejection fraction is 60 %. Stage 1 diastolic dysfunction. No regional wall motion abnormalities noted. Right Ventricle Normal RV size. Normal systolic function. Atria Normal left atrium. Normal right atrium. Mitral Valve Normal mitral valve. Tricuspid Valve Normal tricuspid valve. Aortic Valve Normal aortic valve. Pulmonic Valve Normal pulmonic valve. Great Vessels Mildly dilated aortic root. Pericardium/Pleural No pericardial effusion. MMode/2D Measurements & Calculations Ao root diam: 4.0 cm LAV(MOD-sp4): 27.9 ml LVAd ap4: 23.9 cm2 LVLd ap4: 8.5 cm EDV(MOD-sp4): 55.8 ml EDV(sp4-el): 57.4 ml LVAs ap4: 14.6 cm2 LVLs ap4: 7.3 cm ESV(MOD-sp4): 26.3 ml ESV(sp4-el): 24.8 ml EF(MOD-sp4): 53.0 % EF(sp4-el): 56.8 % SV(MOD-sp4): 29.6 ml SV(sp4-el): 32.6 ml LA A4 area: 12.7 cm2 RA A4 area: 17.7 cm2 Time Measurements MV dec time: 0.21 sec Doppler Measurements & Calculations MV E max олег: 50.8 cm/sec Lat Peak E' Олег: 9.2 cm/sec Med Peak E' Олег: 6.6 cm/sec MV A max олег: 68.5 cm/sec E/E' lat: 5.5 E/E' med: 7.7 MV E/A: 0.74 MV V2 max: 72.4 cm/sec MV dec slope: 242.3 cm/sec2 Ao V2 max: 98.8 cm/sec MV max P.1 mmHg Ao max P.9 mmHg MV V2 mean: 34.9 cm/sec Ao V2 mean: 70.5 cm/sec MV mean P.61 mmHg Ao mean P.3 mmHg MV V2 VTI: 17.0 cm Ao V2 VTI: 20.5 cm AV (velocity ratio): 1.0 LV V1 max: 87.2 cm/sec LV V1 max P.0 mmHg LV V1 mean P.5 mmHg LV V1 mean: 56.6 cm/sec LV V1 VTI: 20.6 cm ECHO/Echo Complete Interpretation Summary Normal LV size. Left ventricular systolic function is normal. The estimated ejection fraction is 60 %. Stage 1 diastolic dysfunction. Mildly dilated aortic root. Ordering Physician: Jayden Butt Referring Physician: Jayden Butt Performed By: Annie Cartagena RCS
== END 2022-10-20 23:59 | disposition home or self-care (01) ==
PROVIDERS: PCP Family Medicine; Visit Provider Family Medicine
DX: I77.810 Thoracic aortic ectasia (principal); R06.02 Shortness of breath
CPT/HCPCS: 93306

== ENCOUNTER 2022-12-07 07:24 | Day surgery (SDC) | payer MEDICARE, BC, SELFPAY ==
[2022-11-24 15:28] LABS: Absolute Lymphocyte Count 1.48 X10^3/uL (0.83-4.51); Absolute Neutrophil Count 1.7 X10^3/uL (2.0-7.7); Basophil# 0.01 X10^3/uL; Basophil% 0.2 % (0-1); Eosinophil# 0.03 X10^3/uL; Eosinophils% 0.7 % (0-5); Hematocrit 45.6 % (40-54); Hemoglobin 15.1 g/dL (13.0-16.5); Lymphocyte # 1.48 X10^3/ul (0.83-4.51); Lymphocyte % 36.9 % (19-41); Mean Corp Hgb Conc 33.1 g/dL (32-36); Mean Corpuscular Hgb 30.6 pg (27.0-32.0); Mean Corpuscular Volume 92.3 fL (80-94); Mean Platelet Vol. 8.5 fl (6.2-12.0); Monocyte# 0.76 X10^3/uL; NRBC Flagged by Analyzer 0 % (0-5); Neutrophil # 1.71 X10^3/uL (2.7-7.7); Neutrophil % 42.7 % (47-70); Platelet Count 240 K/mm3 (150-450); RBC Distribution Width CV 13.5 % (11.6-14.6); RBC Distribution Width SD 45.9 fl (35.1-43.9); Red Blood Count 4.94 M/mm3 (4.6-6.2)
--- NOTE | 2022-11-24 15:30 | RAD_ITS ---
STUDY: X-RAY CHEST REASON FOR EXAM: Male, 77 years old. Shortness of breath. For heart cath on 12/07/22 TECHNIQUE: XR Chest 2 Views COMPARISON: 02/08/2019 FINDINGS: There is atherosclerotic calcification of the aortic arch with tortuosity. There are diffuse degenerative changes of the visualized thoracic spine. There is degenerative osteoarthritis of the bilateral shoulders. There is no demonstrated pleural abnormality. Normal size heart. Normal mediastinum and danielle. Normal visualized pulmonary arteries. There is no demonstrated abnormality of the visualized soft tissue structures of the upper abdomen. RAD/Chest PA and Lateral IMPRESSION: There are no acute findings. Electronically Signed: Cash Pierre MD at 16:53 EST ,
[2022-11-24 15:54] LABS: Anion Gap 3 (5-15); BUN 13 mg/dL (7-18); BUN/Creat Ratio 11.5 RATIO (10-20); Calcium,Total 10.2 mg/dL (8.5-10.1); Chloride 108 mmol/L (98-107); Creatinine, Serum 1.13 mg/dL (0.70-1.30); EST Glomerular Filtration Rate 67 mL/min (>60); Est Glom Filt Rate - Afr Amer 81 mL/min (>60); Glucose 96 mg/dL (74-106); Potassium 3.8 mmol/L (3.5-5.1); Sodium Level 140 mmol/L (136-145)
[2022-11-24 16:12] LABS: International Normalized Ratio 1.2
[2022-11-24 16:13] LABS: Partial Thromboplast Time 31.7 Seconds (24.1-36.2)
--- NOTE | 2022-12-03 17:24 | PCM.HP.BLA ---
History and Physical SANDEEP WOODS, is a 77 M with a history of hypertension, diastolic dysfunction history of pulmonary embolism with continued shortness of breath. In March of 2019 he had complained of chest pain and underwent a cardiac catheterization which demonstrated nonobstructive coronary disease.?? An echocardiogram had been performed recently in October 2021 with demonstrated ejection fraction of 65% with no wall motion abnormalities noted.? His pulmonary systolic pressure was noted to be 24 mmHg.? With his continued JAUREGUI which seems to be worsening Dr. Wilson is requesting a left and right heart cath. Medical History? Acute deep vein thrombosis of left lower extremity Anxiety Bilateral pulmonary embolism (2013) Chronic diastolic heart failure Depression Dilated aortic root DRESS syndrome Essential (primary) hypertension H/O transfusion HLD (hyperlipidemia) Hypothyroidism Left thyroid nodule Nonobstructive atherosclerosis of coronary artery Obesity (BMI 30-39.9) Obstructive sleep apnea Renal calculus, bilateral Syncope Surgical History? History of bilateral knee replacement History of hydrocele History of left heart catheterization (04/14/19) History of partial thyroidectomy History of shoulder surgery Hx of cataract extraction Hx of hernia repair Hx of sinus surgery hx saliva gland removal hx uvula removal hx wrist surgery Family History? Father?? CancerMother?? Cancer HypertensionAunt DiabetesUncle Diabetes Social History? household members:? spouse housing:? house Smoking Status:? Former smoker alcohol intake:? never substance use type:? does not use caffeine:? Yes Type: coffee what type of physical activity do you participate in:? none seatbelt use:? always do you feel safe at home:? Yes ROS Const Const: Negative for fatigue, weakness, headache(s), frequent falls, difficulty sleeping or excessive sweating Eyes Eyes: Negative for loss of peripheral vision, transient loss of vision, blurry vision, double vision or tunnel vision ENT ENT: Positive for balance problems; Negative for headache(s), dizziness or Nosebleed/epistaxis Cardio Chest Pain: No Palpitations: No Edema: None Muscle aches with walking: None Resp Respiratory: Positive for SOB with activity, SOB at rest and SOB orthopnea\SOB lying down; Negative for Cough or paroxysmal nocturnal dyspnea Additional Details: SOB anytime on and never knows when its going to happen GI GI: Negative nausea, vomiting, heartburn or black,tarry stools : Negative for hematuria Musc Musc: Positive for balance problems; Negative for muscle aches/ myalgia, muscle weakness or joint pain Skin Skin: Negative non-healing lesions, rash or unusual bruising Neuro Neuro: Negative for dizziness, lightheadedness, near syncope, syncope, frequent falls, headache(s), weakness, blurry vision, double vision or lack of coordination Ray Hematologic/Lymphatic: Negative for easy bleeding or easy bruising Endo Endo: Negative for fatigue, excessive sweating or increased thirst/drinking Psych Psych: Negative for anxiety or depression Allergy Allergy/Immunology: Negative for hives and Negative for rash Cardiology Exam Const Appearance: cooperative, healthy appearing, no acute distress, well developed and well groomed Nutritional Appearance: average body habitus and well nourished Orientation: alert, awake and oriented x3 Head Head: normal to inspection, normocephalic and atraumatic Ears: hearing grossly normal bilaterally and external ears normal Nose: external nose normal, nares normal, nasal mucous membranes and turbinates normal, septum normal and no nasal discharge Face and Sinus: face symmetric Mouth: oral mucosae normal, tongue normal, oropharynx normal and moist mucous membranes Teeth and gingiva: dentition normal Throat: posterior oropharynx normal, tonsils normal and uvula midline Eyes General: appearance normal, both eyes and all related structures Eyelids: eyelids normal Conjunctivae: conjunctivae normal Pupils: PERRL, normal by confrontation and accommodation normal EOM: EOM intact bilaterally Neck Neck: normal visual inspection, trachea midline and no JVD JVD: +5 Carotids: normal carotid upstroke and bounding pulses Chest Chest inspection: normal inspection of the chest, symmetric chest movement and normal respiratory effort Auscultation: Bilateral: Clear to Auscultation Cardio Palpation: normal PMI Rate: regular rate Rhythm: regular rhythm Heart sounds: S1 normal, S2 normal and normal, physiologic split S2; Negative rub, gallop or murmur GI GI: normal to inspection, soft, no hepatosplenomegaly and bowel sounds present Neuro General: patient alert, patient awake, patient oriented x3, gait normal, moves all extremities and no focal sensory deficit Skin Skin: no rashes or lesions noted Extremities Pulses: Normal: Right Femoral Pulse, Left Femoral Pulse, Right Dorsalis Pedis Pulse, Left Dorsalis Pedis Pulse, Right Posterior Tibial Pulse, Left Posterior Tibial Pulse, Right Radial Pulse and Left Radial Pulse Lower Extremity Edema: None: Bilateral Musculoskel Musculoskeletal: No joint tenderness Psych Psychological: normal affect Assessment & Plan Assessment/Plan (1) Dyspnea on exertion: (2) Bilateral pulmonary embolism: (3) Essential (primary) hypertension: (4) Dilated aortic root: PLAN: Plan With his continued JAUREGUI pt will proceed with R/LHC. Plan of care will be based on findings.
[2022-12-04 08:53] VITALS: BMI 32.5
[2022-12-07 09:30] LABS: Base Excess -2 mmol/L (-2 to +2); Bicarbonate 23.1 mmol/L (22-26); Blood Gas Specimen Type ART; PO2 77 mmHG (75-100); SO2 95 % (95-99); Total Carbon Dioxide 24 mmol/L; pCO2 37.6 mmHg (35-45)
[2022-12-07 09:40] LABS: Blood Gas Specimen Type VEN; VBG BASE EXCESS -2 mmol/L (-1.0-3.5); VBG Bicarbonate 24 mmol/L (22-26); VBG PO2 42 mmHg (25-40); VBG SO2 76 % (50-70); VBG TCO2 25 mmol/L (23-33); VBG pCO2 41.9 mmHg (41-51); VBG pH 7.36 (7.32-7.42)
[2022-12-07 09:46] LABS: Base Excess -2 mmol/L (-2 to +2); Bicarbonate 23.3 mmol/L (22-26); Blood Gas Specimen Type ART; PO2 46 mmHG (75-100); SO2 79 % (95-99); Total Carbon Dioxide 25 mmol/L; pCO2 41.3 mmHg (35-45); pH 7.36 (7.35-7.45)
--- NOTE | 2022-12-07 10:44 | CL.D_ITS ---
Patient Name: SANDEEP WOODS Study Date: 12/07/2022 Performing: Eleazar Banks MD Ht: 76 inches 193.04 cm : 1945 Wt: 267.99 lbs 121.56 kg Age: 77 Gender: male BSA: 2.51 PROCEDURE(S) PERFORMED [id number])RHC/LHC/COR CLINICAL PROFILE AND INDICATIONS Indications: Other Heart Failure: None Stress/Imaging Stress/Image Study Performed: No CAD Presentations: Symptom unlikely to be ischemic. CONCLUSIONS Right heart pressures - mildly to moderately elevated Non obstructive coronary arteries RECOMMENDATIONS Medical therapy DESCRIPTION OF PROCEDURE The patient arrived to the procedure lab. The risks and benefits of the procedure as well as a full description of our services here and current unavailability of surgical backup were fully explained to the patient and/or their significant other prior to the catheterization. The Timeout was completed, verifying the correct patient and procedure. The patient's procedural site was prepped and draped in the usual fashion. Local anesthetic was given subcutaneously to right radial region with Lidocaine 2%. Local anesthetic was given subcutaneously to right groin region with Lidocaine 2%. Using a modified Seldinger technique, arterial access was obtained via the right radial artery, a 6Fr sheath was inserted., arterial access was obtained via the right femoral artery, a 5Fr sheath was inserted. Venous access was obtained via the right femoral vein, a 7Fr sheath was inserted. Left Coronary Artery selective angiography was performed in multiple views using a 5 Fr. JL4 catheter. Right Coronary Artery selective angiography was then performed in multiple views using a 5 Fr. 3DRC (Josef) catheter. A 7Fr thermal dilution catheter was inserted and right heart pressures were recorded, it was then advanced to PA position for cardiac outputs. Thermal dilution cardiac outputs were then recorded. O2 saturations were then obtained. The Thermal dilution catheter was then removed.Contrast was injected through the sheath and the Right Iliac and Femoral artery were assessed for possible closure device.The arterial sheath was pulled and a Mynx closure device was deployed for hemostasis. The venous sheath was then pulled and manual compression applied until hemostasis achieved. The radial arterial sheath was pulled and a TR Band was applied for hemostasis 13cc air inserted. CORONARY ANGIOGRAPHY DOMINANCE: Right Dominant LEFT HEART ASSESSMENT Left Ventricular Ejection Fraction: by Echo 60 % Normal LV wall motion Normal Left Ventricular systolic function RIGHT HEART ASSESSMENT Thermal CO: 9.37 Thermal CI: 3.73 Reyna CO: 10.16 Reyna CI: 4.05 PW: 8/5 5 PA: 48/21 31 RV: 49/0 7 RA: 7/3 3 PVR: 222 SVR: 914 Right Heart pressures - elevated mildly elevated with normal wedge. LEFT MAIN: Mild calcification, Non-obstructive LEFT ANTERIOR DESCENDING ARTERY: Mildly calcified in the proximal and mid segment with mid segment 50% stenosis present. CIRCUMFLEX ARTERY: Angiographically normal RIGHT CORONARY ARTERY: Large dominant tortuous vessel with no significant stenosis present. COMPLICATIONS No Complications PROCEDURE MEDICATIONS Fentanyl 50 mcg IV Versed 1 mg IV Versed 1 mg IV Versed 1 mg IV Benadryl 50 mg IV @ 12/07/2022 08:42:12 Heparin given IA 12/07/2022 09:05:57 Solu-medrol 125 mg IV 12/07/2022 08:42:01 SUMMARY OF HEMODYNAMIC DATA Time AIR REST ECG 08:01:24 AO 131/92 (110) SA 09:07:44 RA 7/3 (3) SV 09:33:33 RV 49/0, 7 09:33:51 PA 48/21 (31) PA 09:34:39 PW 8/5 (5) PV 09:34:55 PA 42/11 (25) 09:37:52 RV 40/-1, 6 09:38:02 RA 4/6 (3) 09:38:12 Type SV CO (l/m) CI (l/m/ HR Time AIR REST Thermal 148.70 9.37 3.73 63 08:01:24 Reyna 161.20 10.16 4.05 63 08:01:24 Label % O2 Pres/Loc Time AIR REST AO 95 PV 09:43:09 RA 79 SV 09:43:25 RV 76 PA 09:43:28 Signed By Eleazar Banks MD On 12/07/2022 10:43:35 Eleazar Banks MD
== END 2022-12-07 12:45 | disposition home or self-care (01) ==
PROVIDERS: PCP Family Medicine; Referring Provider Internal Medicine Cardiovascular Disease; Visit Provider Internal Medicine Cardiovascular Disease
DX: R06.09 Other forms of dyspnea (principal); I26.99 Other pulmonary embolism without acute cor pulmonale; I11.0 Hypertensive heart disease with heart failure; I50.32 Chronic diastolic (congestive) heart failure; I77.819 Aortic ectasia, unspecified site; E11.9 Type 2 diabetes mellitus without complications; Z87.891 Personal history of nicotine dependence; E78.5 Hyperlipidemia, unspecified; I25.10 Atherosclerotic heart disease of native coronary artery without angina pectoris; F41.9 Anxiety disorder, unspecified; G47.33 Obstructive sleep apnea (adult) (pediatric); E03.9 Hypothyroidism, unspecified; F32.A Depression, unspecified; Z86.718 Personal history of other venous thrombosis and embolism
CPT/HCPCS: 36415; 71046; 80048; 82803; 85025; 85610; 85730; 93005; 93456; 99152; 99153; C1760; J7040; C1751; C1769; C1894; Q9967

== ENCOUNTER → 2022-12-25 | Outpatient (CLI) | payer MEDICARE, BC, SELFPAY | END | disposition home or self-care (01) | PROVIDERS: PCP Family Medicine; Visit Provider Internal Medicine Endocrinology, Diabetes & Metabolism | DX: N20.0 Calculus of kidney (principal) | CPT/HCPCS: 81050 ==

== ENCOUNTER → 2023-03-19 | Outpatient (CLI) | payer MEDICARE, BC, SELFPAY ==
[2023-03-19 16:02] LABS: Bacteria 0 SEEN /hpf (None Seen); Mucous, Urine 0 SEEN /hpf (<or=2+); Squamous Epithelial Cells - UA 0 SEEN /hpf (0-5); White Blood Cells 0 SEEN /hpf (0-5)
[2023-03-19 17:58] LABS: Absolute Lymphocyte Count 1.59 X10^3/uL (0.83-4.51); Absolute Neutrophil Count 1.7 X10^3/uL (2.0-7.7); Basophil# 0.01 X10^3/uL; Basophil% 0.3 % (0-1); Eosinophil# 0.04 X10^3/uL; Hematocrit 44.8 % (40-54); Hemoglobin 14.5 g/dL (13.0-16.5); Lymphocyte # 1.59 X10^3/ul (0.83-4.51); Lymphocyte % 39.8 % (19-41); Mean Corp Hgb Conc 32.4 g/dL (32-36); Mean Corpuscular Hgb 30.1 pg (27.0-32.0); Mean Corpuscular Volume 93.1 fL (80-94); Mean Platelet Vol. 9.4 fl (6.2-12.0); Monocyte# 0.66 X10^3/uL; Monocyte% 16.5 % (0-10); NRBC Flagged by Analyzer 0 % (0-5); Neutrophil # 1.68 X10^3/uL (2.7-7.7); Neutrophil % 41.9 % (47-70); Platelet Count 255 K/mm3 (150-450); RBC Distribution Width CV 13.4 % (11.6-14.6); RBC Distribution Width SD 45.7 fl (35.1-43.9); Red Blood Count 4.81 M/mm3 (4.6-6.2)
[2023-03-19 18:00] LABS: Color, Urine Yellow (Yellow); Glucose, Dipstick Normal (Normal); Ketone-Dipstick Negative (Negative); Leukocyte Esterase-Dipstick Negative /ul (Negative); Nitrite-Dipstick Negative (Negative); Occult Blood-Urine 50 /ul (Negative); Protein-Dipstick Negative (Negative); Urine Bilirubin Dipstick Negative (Negative); Urine Clarity Clear (Clear); Urine Urobilinogen Normal (Normal); Urine pH 6.5 (5.0 - 8.0)
[2023-03-19 18:10] LABS: Vitamin B12 222 pg/mL (211-911); Vitamin D,25 Hydroxy 44.7 ng/mL
[2023-03-19 18:15] LABS: Red Blood Cells-Urine 0-5 SEEN /hpf (0-5)
[2023-03-19 18:28] LABS: ALB/GLOB Ratio 0.9 RATIO (0.9-2.4); AST(SGOT) 21 U/L (15-37); Alanine Aminotransfer ALT/SGPT 36 U/L (16-61); Albumin, Serum 3.5 g/dL (3.2-5.0); Alkaline Phosphatase 58 U/L (45-117); Anion Gap 3 (5-15); BUN 17 mg/dL (7-18); Calcium,Total 10.3 mg/dL (8.5-10.1); Chloride 111 mmol/L (98-107); Cholesterol 185 mg/dL (200); Creatinine, Serum 1.13 mg/dL (0.70-1.30); EST Glomerular Filtration Rate 67 mL/min (>60); Est Glom Filt Rate - Afr Amer 81 mL/min (>60); Globulin 4.1 g/dL (2.2-4.2); Glucose 91 mg/dL (74-106); High Density Lipoprotein 47 mg/dL; Potassium 4.3 mmol/L (3.5-5.1); Protein, Total 7.6 g/dL (6.4-8.2); Sodium Level 138 mmol/L (136-145); T4 Free Direct 0.72 ng/dL (0.76-1.46); Thyroid Stim Hormone (TSH) 0.88 uIU/mL (0.358-3.74); Triglycerides 104 mg/dL; Very Low Density Lipoprotein 21 mg/dL (5-40)
[2023-03-20 08:03] LABS: PTHIN 80.6 pg/mL (18.4-80.1)
== END | disposition home or self-care (01) ==
LOC: MFPLAB 15:42
PROVIDERS: PCP Family Medicine; Visit Provider Family Medicine
DX: I10 Essential (primary) hypertension (principal); E21.3 Hyperparathyroidism, unspecified; N20.0 Calculus of kidney; E03.9 Hypothyroidism, unspecified; E53.8 Deficiency of other specified B group vitamins; E55.9 Vitamin D deficiency, unspecified
CPT/HCPCS: 80053; 80061; 81001; 82306; 82607; 83970; 84439; 84443; 85025

== ENCOUNTER → 2023-05-04 | Outpatient (CLI) | payer MEDICARE, BC, SELFPAY ==
[2023-05-04 13:15] LABS: AST(SGOT) 15 U/L (15-37); Alanine Aminotransfer ALT/SGPT 24 U/L (16-61); Albumin, Serum 3.3 g/dL (3.2-5.0); Alkaline Phosphatase 64 U/L (45-117); Bilirubin, Direct 0.08 mg/dL (0.00-0.30); Globulin 4.4 g/dL (2.2-4.2); Protein, Total 7.7 g/dL (6.4-8.2)
== END | disposition home or self-care (01) ==
LOC: MTLAB 11:13
PROVIDERS: PCP Family Medicine; Referring Provider Internal Medicine Pulmonary Disease; Visit Provider Internal Medicine Pulmonary Disease
DX: I27.0 Primary pulmonary hypertension (principal)
CPT/HCPCS: 36415; 80076

== ENCOUNTER → 2023-05-10 | Outpatient (CLI) | payer MEDICARE, BC, SELFPAY ==
--- NOTE | 2023-05-10 12:45 | NM_ITS ---
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 VENTILATION-PERFUSION LUNG SCINTIGRAPHY COMPARISON: None available FINDINGS: The patient was administered 53 mCi 99m Tc DTPA aerosol. The aerosol ventilation study demonstrates relatively uniform ventilation identified throughout the bilateral lung vo Central clumping of the aerosol is noted in the left hemithorax. Following the intravenous administration of 5.3 mCi of 99m Tc MAA the pulmonary perfusion study reveals uniform perfusion throughout both lung vo. There are no segmental or subsegmental perfusion defects identified. There are no ventilation-perfusion mismatches observed. NM/Lung Scan Vent/Perf IMPRESSION: 1. NORMAL 99m Tc MAA pulmonary perfusion imaging examination, according to PIOPED II interpretive criteria. (Sotsman et al, Radiology 246: 941, 2008 Sopaco et al, J Nucl Med 49: 1741, 2008). 2. Central clumping of the aerosol may be secondary to obstructive airway mechanics and or clinical tachypnea. Electronically Signed: Ced Hawkins, at 14:53 EDT ,
== END | disposition home or self-care (01) ==
LOC: NM 12:43
PROVIDERS: PCP Family Medicine; Referring Provider Internal Medicine Pulmonary Disease; Visit Provider Internal Medicine Pulmonary Disease
DX: I27.0 Primary pulmonary hypertension (principal)
CPT/HCPCS: 78582; A9540; A9567

== ENCOUNTER → 2023-05-31 | Outpatient (CLI) | payer MEDICARE, BC, SELFPAY ==
[2023-05-31 11:10] LABS: AST(SGOT) 13 U/L (15-37); Alanine Aminotransfer ALT/SGPT 19 U/L (16-61); Albumin, Serum 3.4 g/dL (3.2-5.0); Alkaline Phosphatase 61 U/L (45-117); Bilirubin, Direct 0.15 mg/dL (0.00-0.30); Globulin 4.7 g/dL (2.2-4.2); Protein, Total 8.1 g/dL (6.4-8.2)
== END | disposition home or self-care (01) ==
LOC: LAB 09:11
PROVIDERS: PCP Family Medicine; Referring Provider Internal Medicine Pulmonary Disease; Visit Provider Internal Medicine Pulmonary Disease
DX: I27.0 Primary pulmonary hypertension (principal)
CPT/HCPCS: 36415; 80076

== ENCOUNTER → 2023-08-13 | Outpatient (CLI) | payer MEDICARE, BC, SELFPAY ==
[2023-08-13 09:01] LABS: Bacteria 0 SEEN /hpf (None Seen); Mucous, Urine 0 SEEN /hpf (<or=2+); White Blood Cells 0 SEEN /hpf (0-5)
--- NOTE | 2023-08-13 09:30 | RAD_ITS ---
EXAM: XR CHEST, 2 VIEWS CLINICAL INDICATION: sob TECHNIQUE: Frontal and lateral views of the chest. COMPARISON: XR Chest dated 11/24/2022 FINDINGS: LUNGS AND PLEURAL SPACES: Normal. No consolidation or edema. No pneumothorax. No effusion. HEART: Normal heart size. MEDIASTINUM: No mediastinal or hilar mass. BONES/JOINTS: No acute abnormality. UPPER ABDOMEN: Stable elevation of the left hemidiaphragm. RAD/Chest PA and Lateral IMPRESSION: No acute cardiopulmonary abnormality. No interval change. Electronically Signed: Will House MD at 15:27 EDT ,
[2023-08-13 10:21] LABS: Absolute Lymphocyte Count 1.32 X10^3/uL (0.83-4.51); Basophil# 0.02 X10^3/uL; Basophil% 0.5 % (0-1); Eosinophil# 0.03 X10^3/uL; Eosinophils% 0.7 % (0-5); Hematocrit 43.1 % (40-54); Hemoglobin 13.9 g/dL (13.0-16.5); Lymphocyte # 1.32 X10^3/ul (0.83-4.51); Lymphocyte % 31.7 % (19-41); Mean Corp Hgb Conc 32.3 g/dL (32-36); Mean Corpuscular Volume 92.9 fL (80-94); Mean Platelet Vol. 9.1 fl (6.2-12.0); Monocyte# 0.82 X10^3/uL; Monocyte% 19.7 % (0-10); NRBC Flagged by Analyzer 0 % (0-5); Neutrophil # 1.95 X10^3/uL (2.7-7.7); Neutrophil % 46.9 % (47-70); Platelet Count 231 K/mm3 (150-450); RBC Distribution Width CV 13.1 % (11.6-14.6); RBC Distribution Width SD 44.1 fl (35.1-43.9); Red Blood Count 4.64 M/mm3 (4.6-6.2); White Blood Count 4.2 K/mm3 (4.4-11.0)
[2023-08-13 10:38] LABS: Color, Urine Yellow (Yellow); Glucose, Dipstick Normal (Normal); Ketone-Dipstick Negative (Negative); Leukocyte Esterase-Dipstick Negative /ul (Negative); Nitrite-Dipstick Negative (Negative); Occult Blood-Urine 150 /ul (Negative); Protein-Dipstick Negative (Negative); Urine Bilirubin Dipstick Negative (Negative); Urine Clarity Clear (Clear); Urine Urobilinogen Normal (Normal)
[2023-08-13 10:46] LABS: Vitamin B12 366 pg/mL (211-911); Vitamin D,25 Hydroxy 44.9 ng/mL
[2023-08-13 10:51] LABS: BNP,B-Type NATRIURETIC PEPTIDE 2.9 pg/mL (0-100)
[2023-08-13 10:56] LABS: PTHIN 102.3 pg/mL (18.4-80.1); Red Blood Cells-Urine 10-25 SEEN /hpf (0-5); Squamous Epithelial Cells - UA 0-5 SEEN /hpf (0-5)
[2023-08-13 11:07] LABS: ALB/GLOB Ratio 0.9 RATIO (0.9-2.4); AST(SGOT) 8 U/L (15-37); Alanine Aminotransfer ALT/SGPT 25 U/L (16-61); Albumin, Serum 3.6 g/dL (3.2-5.0); Alkaline Phosphatase 52 U/L (45-117); Anion Gap 3 (5-15); BUN 17 mg/dL (7-18); Calcium,Total 10.6 mg/dL (8.5-10.1); Chloride 109 mmol/L (98-107); Cholesterol 163 mg/dL (200); Creatinine, Serum 1.21 mg/dL (0.70-1.30); EST Glomerular Filtration Rate 61 mL/min (>60); Est Glom Filt Rate - Afr Amer 74 mL/min (>60); Globulin 4.1 g/dL (2.2-4.2); Glucose 98 mg/dL (74-106); High Density Lipoprotein 44 mg/dL; Potassium 4.3 mmol/L (3.5-5.1); Protein, Total 7.7 g/dL (6.4-8.2); Sodium Level 137 mmol/L (136-145); T4 Free Direct 0.92 ng/dL (0.76-1.46); Thyroid Stim Hormone (TSH) 0.09 uIU/mL (0.358-3.74); Triglycerides 103 mg/dL; Very Low Density Lipoprotein 21 mg/dL (5-40)
== END | disposition home or self-care (01) ==
PROVIDERS: PCP Family Medicine; Referring Provider Family Medicine; Visit Provider Family Medicine
DX: R06.02 Shortness of breath (principal); E21.3 Hyperparathyroidism, unspecified; E03.9 Hypothyroidism, unspecified; I10 Essential (primary) hypertension; R41.3 Other amnesia; E55.9 Vitamin D deficiency, unspecified
CPT/HCPCS: 36415; 71046; 80053; 80061; 81001; 82306; 82607; 83880; 83970; 84439; 84443; 85025

== ENCOUNTER → 2023-08-17 | Outpatient (CLI) | payer MEDICARE, BC, SELFPAY ==
--- NOTE | 2023-08-17 11:15 | CYSPIN_PTH ---
PATIENT: SANDEEP WOODS LOC: [facility] U#:[id number] AGE/SX: 78/M ROOM: RE08/17/[address]: Dr. Jayden Butt MD : 1945 BED: DIS: 08/17/2023 SPEC #: [id number] RECD: 08/17/23 12:43 STATUS: CIRA ROSS #: [id number] MARGARET: 08/17/23 11:[address]: Jayden Butt DEPT: CYTOLOGY RECD BY: Ramona Palma Tissues: Urine Procedures: Pap Stain (control) Special Stain Group II Cytospin Fluid HEADER OPERATION: Not noted PRE-OP DIAGNOSIS: Not noted TISSUE SUBMITTED: Urine for cytology DIAGNOSIS CYTOLOGY Urine for cytology (cytospin): Atypical urothelial cells (AUC), Lyndsay System Category III. Mild acute inflammation. See comment. [place]:octaviano 08/18/2023 COMMENT Numerous red blood cells are also noted. Clinical correlation and appropriate follow up are necessary. The Lyndsay System for urine cytology diagnostic categorization was used in the evaluation of this case. Case has been reviewed in consultation with Dr. Prabhakar who concurs with the above diagnosis. IDC:AM CYTOLOGY STUDY Slides are reviewed. CYTOLOGY GROSS Received is 80 ml of gold cloudy fluid labeled with the patient's name and and designated per the requisition as urine. Submitted for cytology preparation. / octaviano 08/17/2023 TC:5 CPT: 16465
[2023-08-17 11:16] LABS: Cytology, Body Fluid / CSF SEE PATHOLOGY REPORT
== END | disposition home or self-care (01) ==
LOC: MFPLAB 10:34
PROVIDERS: PCP Family Medicine; Visit Provider Family Medicine
DX: R31.9 Hematuria, unspecified (principal)
CPT/HCPCS: 87086; 88108; 88313

== ENCOUNTER → 2023-08-26 | Outpatient (CLI) | payer MEDICARE, BC, SELFPAY ==
--- NOTE | 2023-08-26 13:43 | ECHOCS_ITS ---
Version 2 Reason For Study: THORACIC AORTIC ECSTASIA Procedure This was a 2D Doppler, Color Flow transthoracic echocardiogram. The study was technically difficult. Due to poor accoustic windows. Contrast injection was performed. Exam performed in department. Left Ventricle Normal LV size. Left ventricular systolic function is normal. The estimated ejection fraction is 65 %. Stage 1 diastolic dysfunction. No regional wall motion abnormalities noted. Right Ventricle The right ventricle is not well visualized. Tricuspid Valve The tricuspid valve is not well visualized. Mild tricuspid valve insufficiency. Pulmonic Valve The pulmonic valve is not well visualized. Great Vessels Mild to moderately dilated aortic root. The pulmonary is not well visualized. Inferior vena cava collapse with sniff. Pericardium/Pleural No pericardial effusion. Medication 22 gauge I.V. with prn adaptor inserted into left arm. Diluted definity 3.5ml given slow IV push to enhance endocardial definition. MMode/2D Measurements & Calculations Ao root diam: 4.5 cm LAV(MOD-sp2): 68.1 ml LVAd ap4: 26.4 cm2 LVLd ap4: 9.2 cm EDV(MOD-sp4): 65.2 ml EDV(sp4-el): 64.4 ml LVAs ap4: 12.7 cm2 LVLs ap4: 7.0 cm ESV(MOD-sp4): 22.1 ml ESV(sp4-el): 19.5 ml EF(MOD-sp4): 66.0 % EF(sp4-el): 69.6 % SV(MOD-sp4): 43.1 ml SV(MOD-sp2): 40.1 ml LVAd ap2: 25.2 cm2 LVLd ap2: 8.0 cm EDV(MOD-sp2): 63.7 ml EDV(sp2-el): 67.5 ml LVAs ap2: 13.8 cm2 LVLs ap2: 7.5 cm ESV(MOD-sp2): 23.6 ml ESV(sp2-el): 21.7 ml EF(MOD-sp2): 62.9 % SV(sp4-el): 44.8 ml LA dimension(2D): 3.5 cm TAPSE: 2.3 cm Time Measurements MV dec time: 0.13 sec Doppler Measurements & Calculations MV E max олег: 62.3 cm/sec Lat Peak E' Олег: 10.7 cm/sec Med Peak E' Олег: 11.6 cm/sec MV A max олег: 108.1 cm/sec E/E' lat: 5.9 E/E' med: 5.4 MV E/A: 0.58 Ao V2 max: 174.0 cm/sec LV V1 max: 97.4 cm/sec PA V2 max: 97.2 cm/sec Ao max P.1 mmHg LV V1 max P.8 mmHg Ao V2 mean: 127.6 cm/sec LV V1 mean P.4 mmHg Ao mean P.1 mmHg LV V1 mean: 75.3 cm/sec Ao V2 VTI: 26.7 cm LV V1 VTI: 17.2 cm AV (velocity ratio): 0.64 TR max олег: 192.2 cm/sec TR max P.8 mmHg ECHO/Echo Complete W/ Contrast Interpretation Summary Normal LV size. Left ventricular systolic function is normal. The estimated ejection fraction is 65 %. Stage 1 diastolic dysfunction. Mild to moderately dilated aortic root. Mild tricuspid valve insufficiency. Contrast injection was performed. Ordering Physician: Jayden Butt Referring Physician: Jayden Butt Performed By: Rosey Solis, GIL, RVT
== END | disposition home or self-care (01) ==
LOC: CVS 13:42
PROVIDERS: PCP Family Medicine; Referring Provider Family Medicine; Visit Provider Family Medicine
DX: Z86.711 Personal history of pulmonary embolism (principal); I77.810 Thoracic aortic ectasia
CPT/HCPCS: 93306; Q9957; A4216; C8929

== ENCOUNTER → 2023-08-31 | Outpatient (CLI) | payer MEDICARE, BC, SELFPAY ==
--- NOTE | 2023-08-31 | CYSPIN_PTH ---
PATIENT: SANDEEP WOODS LOC: [facility] U#:[id number] AGE/SX: 78/M ROOM: RE08/31/[address]: Luli Ramirez : 1945 BED: DIS: 08/31/2023 SPEC #: [id number] RECD: 08/31/23 15:00 STATUS: CIRA VANDANA #: [id number] MARGARET: 08/31/23 00:[address]: Luli Ramirez DEPT: CYTOLOGY RECD BY: Agnes Miller ENTERED: 09/01/23 08:58 SP TYPE: CYSPIN FL OTHR DR: Dr. Jayden Butt MD Tissues: Urine Procedures: Pap Stain (control) Special Stain Group II Cytospin Fluid HEADER OPERATION: Not noted PRE-OP DIAGNOSIS: Asymptomatic microscopic hematuria TISSUE SUBMITTED: Urine for cytology DIAGNOSIS CYTOLOGY Urine for cytology (cytospin): Atypical urothelial cells present (AUC), Lyndsay System Category III. See comment. AM:octaviano 09/01/2023 COMMENT The Lyndsay System for urine cytology diagnostic categorization was used in the evaluation of this case. CYTOLOGY STUDY Slides are reviewed. CYTOLOGY GROSS Received is 80 ml of yellow hazy fluid labeled with the patient's name and and designated per the requisition as urine. Submitted for cytology preparation. / octaviano 09/01/2023 TC:? CPT: 80391
[2023-08-31 10:14] LABS: PSA,Total - Annual Screen 3.02 ng/mL (0.00-4.00)
[2023-08-31 15:41] LABS: Cytology, Body Fluid / CSF SEE PATHOLOGY REPORT
== END | disposition home or self-care (01) ==
PROVIDERS: PCP Family Medicine; Referring Provider Nurse Practitioner; Visit Provider Nurse Practitioner
DX: Z12.5 Encounter for screening for malignant neoplasm of prostate (principal); R31.21 Asymptomatic microscopic hematuria
CPT/HCPCS: 36415; 84153; 88108; 88313; G0103

== ENCOUNTER → 2023-09-03 | Outpatient (CLI) | payer MEDICARE, BC, SELFPAY ==
--- NOTE | 2023-09-03 12:04 | CT_ITS ---
HISTORY: JAUREGUI. TECHNIQUE: CT angiogram of the chest was performed after the intravenous administration of 100 mL Isovue-370. Post-processing of the angiographic images was performed with multiplanar reformation and 3D reconstruction. Individualized dose optimization techniques were used for this CT. 1332 images. COMPARISON: XR 08/13/2023. FINDINGS: CENTRAL AIRWAYS: Grossly patent with mild dependent fluid in the right bronchus. LUNGS: Very mild dependent lower lobe atelectasis. PLEURA: No pneumothorax or significant pleural effusion. HEART/PERICARDIUM: Heart within normal limits in size with coronary artery disease. No pericardial effusion. PULMONARY ARTERIES: Suboptimal contrast bolus. No definite large central filling defect. Nondiagnostic examination of the hilar more distal vessels due to suboptimal contrast bolus and artifact from arm positioning. AORTA/VESSELS: Mild ectatic 4.1 cm ascending aorta with mild atherosclerosis. No dissection flap. MEDIASTINUM/JASON: No pathologically enlarged lymph nodes. CHEST WALL: Chronic metallic foreign bodies in the lower neck, left chest, and arm from prior trauma. Degenerative changes of the osseous structures. UPPER ABDOMEN: Included the imaged left renal cystic lesion and nonobstructing renal calculi. CT/CTA Chest W/WO Contrast IMPRESSION: Suboptimal contrast bolus with nondiagnostic examination of the hilar and more distal pulmonary arteries. Consider repeat examination or VQ scan. Electronically Signed: Rosaura Osullivan MD at 14:39 EDT ,
[2023-09-03 12:35] VITALS: BP 116/76; PULSE 95; RESP 16; O2SAT 98; BMI 33.7
[2023-09-03] MEDS: DiphenhydrAMINE 50 MG/ML Syringe IV (12:53)
[2023-09-03] MEDS: Methylprednisolone Sod Succ 40 MG/ML VIAL IV (12:59)
[2023-09-03 14:11] VITALS: BP 143/97; PULSE 89; RESP 16; O2SAT 94
[2023-09-03 14:43] VITALS: BP 133/92; PULSE 94; RESP 16; O2SAT 98
== END | disposition home or self-care (01) ==
LOC: CT 12:03
PROVIDERS: PCP Family Medicine; Visit Provider Physician Assistant Medical
DX: I27.0 Primary pulmonary hypertension (principal); R06.09 Other forms of dyspnea
CPT/HCPCS: 71275; 93225; 93226; 96374; Q9967; A4216

== ENCOUNTER → 2023-11-05 | Outpatient (CLI) | payer MEDICARE, BC, SELFPAY ==
[2023-11-05 10:37] LABS: Bacteria 0 SEEN /hpf (None Seen); Mucous, Urine 0 SEEN /hpf (<or=2+); Red Blood Cells-Urine 0 SEEN /hpf (0-5)
[2023-11-05 12:16] LABS: Color, Urine Yellow (Yellow); Glucose, Dipstick Normal (Normal); Ketone-Dipstick 5 mg/dl (Negative); Leukocyte Esterase-Dipstick 25 /ul (Negative); Nitrite-Dipstick Negative (Negative); Occult Blood-Urine Negative /ul (Negative); Protein-Dipstick Negative (Negative); Specific Gravity, Urine 1.015 (1.002-1.030); Urine Bilirubin Dipstick Negative (Negative); Urine Clarity Clear (Clear); Urine Urobilinogen 1 mg/dl (Normal)
[2023-11-05 12:24] LABS: Absolute Lymphocyte Count 1.58 X10^3/uL (0.83-4.51); Absolute Neutrophil Count 1.8 X10^3/uL (2.0-7.7); Basophil# 0.02 X10^3/uL; Basophil% 0.5 % (0-1); Eosinophil# 0.02 X10^3/uL; Eosinophils% 0.5 % (0-5); Hemoglobin 13.8 g/dL (13.0-16.5); Lymphocyte # 1.58 X10^3/ul (0.83-4.51); Lymphocyte % 36.9 % (19-41); Mean Corp Hgb Conc 32.1 g/dL (32-36); Mean Corpuscular Hgb 29.4 pg (27.0-32.0); Mean Corpuscular Volume 91.7 fL (80-94); Mean Platelet Vol. 9.2 fl (6.2-12.0); Monocyte# 0.87 X10^3/uL; Monocyte% 20.3 % (0-10); NRBC Flagged by Analyzer 0 % (0-5); Neutrophil # 1.76 X10^3/uL (2.7-7.7); Neutrophil % 41.1 % (47-70); Platelet Count 263 K/mm3 (150-450); RBC Distribution Width CV 13.5 % (11.6-14.6); RBC Distribution Width SD 46.1 fl (35.1-43.9); Red Blood Count 4.69 M/mm3 (4.6-6.2); White Blood Count 4.3 K/mm3 (4.4-11.0)
[2023-11-05 12:26] LABS: Squamous Epithelial Cells - UA 0-5 SEEN /hpf (0-5); White Blood Cells 0-5 SEEN /hpf (0-5)
[2023-11-05 12:30] LABS: ALB/GLOB Ratio 0.8 RATIO (0.9-2.4); AST(SGOT) 12 U/L (15-37); Alanine Aminotransfer ALT/SGPT 15 U/L (16-61); Albumin, Serum 3.5 g/dL (3.2-5.0); Alkaline Phosphatase 56 U/L (45-117); Anion Gap 5 (5-15); BUN 25 mg/dL (7-18); BUN/Creat Ratio 16.7 RATIO (10-20); Calcium,Total 10.5 mg/dL (8.5-10.1); Chloride 111 mmol/L (98-107); EST Glomerular Filtration Rate 48 mL/min (>60); Est Glom Filt Rate - Afr Amer 58 mL/min (>60); Globulin 4.4 g/dL (2.2-4.2); Glucose 107 mg/dL (74-106); Potassium 4.1 mmol/L (3.5-5.1); Protein, Total 7.9 g/dL (6.4-8.2); Sodium Level 140 mmol/L (136-145)
== END | disposition home or self-care (01) ==
LOC: MFPLAB 10:31
PROVIDERS: PCP Family Medicine; Visit Provider Family Medicine
DX: I10 Essential (primary) hypertension (principal)
CPT/HCPCS: 36415; 80053; 81001; 85025

== ENCOUNTER 2023-11-30 07:31 | Emergency (ER) | payer MEDICARE, BC, SELFPAY ==
[2023-11-30 07:31] VITALS: BP 103/51; PULSE 113; RESP 18; O2SAT 100
[2023-11-30 07:32] VITALS: BP 154/100; PULSE 109; RESP 20; TEMP 36.3; O2SAT 98; BMI 33.7
[2023-11-30] MEDS: predniSONE 20 MG Tablet 60 MG PO (08:26)
[2023-11-30] MEDS: Ibuprofen 600 MG Tablet PO (08:26)
--- OUTSIDE RECORDS SUMMARY | 2023-11-30 08:39 | XMS RPT_ITS | CCD ---
Author Name Unknown Address [address] [place] [address] [address] [place] [id number] Organization [facility] Care Team Providers Care Adjuster Arbitrator Name Role Phone Eleazar Banks Unavailable Jermain Stoddard Primary Care Provider MARIAJOSE SUMMERS, DR. FRANCIS Attending UnavailJERMAIN Corcoran MD Primary Care Unavailable Jermain Stoddard MD Primary Care Provider DERECK WILSON Referring Unavailable JERMAIN STODDARD Primary Care Unavailable DERECK WILSON Attending Unavailable JERMAIN STODDARD Primary Care Unavailable JERMAIN STODDARD Attending Unavailable JERMAIN STODDARD Referring Unavailable JERMAIN STODDARD Primary Care Unavailable JERMAIN STODDARD Attending Unavailable JERMAIN STODDARD Referring Unavailable Allergies Allergy Classification Reported Allergen(s) Allergy Type Date of Onset Reaction(s) Facility (1 source) Acetaminophen / oxyCODONE Drug Allergy 07-06-2018 [facility] (1 source) Iodine Drug Allergy 07-06-2018 [facility] Medications Current Medications Medication Drug Class(es) Dates Sig (Normalized) Sig (Original) predniSONE 20 mg oral tablet (1 source) Start: 04-13-2022 End: 04-18-2022 take 2 tablets by mouth once daily predniSONE (DELTASONE) 20 mg tablet Indications: Acute right ankle pain Take 2 tablets by mouth once daily for 5 days. 10 tablet 0 04/13/2022 04/18/2022 Active Completed/Discontinued Medications Medication Drug Class(es) Dates Sig (Normalized) Sig (Original) ALPRAZolam 0.5 mg disintegrating oral tablet (1 source) Benzodiazepine Start: 04-04-2018 take 1 tablet by mouth every eight hours as needed ALPRAZolam 0.5 mg dissolvable tablet Take 0.5 mg by mouth three times daily as needed. 0 04/04/2018 Active Problems Active Problems Problem Classification Problem Date Documented Da te Episodic/Chronic Other aftercare (2 sources) Encounter for follow-up examination after completed treatment for conditions other than malignant neoplasm; Translations: [Encounter for follow-up examination after completed treatment for conditions other than malignant ne] Onset: 09-07-2022 Episodic Other non-traumatic joint disorders (1 source) Acute ankle pain; Translations: [Pain in right ankle and joints of right foot] Episodic Other upper respiratory disease (3 sources) Vocal cord dysfunction; Translations: [Other diseases of vocal cords] 10-05-2023 Episodic 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; 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] Onset: 07-06-2018 07-06-2018 Chronic Past or Other Problems Problem Classification Problem Date Documented Da te Episodic/Chronic Other aftercare (1 source) Long-term current use of anticoagulant; 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] Onset: 07-06-2018 07-06-2018 Episodic Results Test Name Value Interpretation Reference Range Facil ity Vital Signs Date Time Vital Sign Value Performing Clinician Arabella mueller 04-13-2022 11:54-0400 Body temperature 98.01 [degF] Fran Loja APRN.CNP Work Phone: [facility] 04-13-2022 11:54-0400 Diastolic blood pressure 84 mm[Hg] Fran Loja APRN.CNP Work Phone: [facility] 04-13-2022 11:54-0400 Heart rate 88 /min Fran Loja APRN.CNP Work Phone: [facility] 04-13-2022 11:54-0400 Respiratory rate 16 /min Fran Loja APRN.CNP Work Phone: [facility] 04-13-2022 11:54-0400 SaO2% (BldA) [Mass fraction] 99 % Fran Loja APRN.CNP Work Phone: [facility] 04-13-2022 11:54-0400 Systolic blood pressure 148 mm[Hg] Fran Loja APRN.DIRECTOR EXPORT Work Phone: [facility] Encounters Encounter Date Encounter Type Care Provider Facility Start: 11-02-2023 End: 11-03-2023 ambulatory JERMAIN Hardik JAIMEAZEBJAYLEEN [facility] Start: 11-02-2023 End: 11-02-2023 Subsequent hospital visit by physician Dereck Wilson MD Work Phone: [facility] [place] Procedures Date Procedure Procedure Detail Performing Clinician Start: 04-13-2022 Radex ankle complete minimum 3 views Fran King KAREN.DIRECTOR EXPORT Work Phone: Plan of Treatment Date Care Activity Detail Author Start: 11-02-2023 End: 11-02-2023 Patient encounter procedure 11/02/2023 1:15 PM EST Appointment [facility] [place] [address] [place] [address] Leeanna Almazan, [facility]-TRAFFIC ANALYSIS TECHNICIAN [address] [place] [address] [facility] [place] Start: 10-22-2023 COVID-19 (5 - Booste r for Pfizer series) COVID-19 (5 - Booster for Pfizer series) [facility] Start: 10-20-2023 End: 10-20-2023 Patient encounter procedure 10/20/2023 4:00 PM EST Appointment [facility] [place] [address] [place] [address] Leeanna Almazan, [facility]-TRAFFIC ANALYSIS TECHNICIAN [address] [place] [address] [facility] [place] Start: 07-23-2023 FLU (#1) FLU (#1) [facility] Start: 11-22-2021 ADVANCE DIRECTIVE DISCUSSION ADVANCE DIRECTIVE DISCUSSION [facility] Start: 2009 PNEUMOVAX AGE 65 AND OVER WITH 5YR LOOKBACK (#1) PNEUMOVAX AGE 65 AND OVER WITH 5YR LOOKBACK (#1) [facility] Start: 1994 SHINGRIX VACCINE (1 of 2) SHINGRIX VACCINE (1 of 2) [facility] Start: 1989 DIABETES SCREEN DIABETES SCREEN [facility] Start: 1963 Urine microalbumin profile DTAP,TDAP,TD (1 - Tdap) [facility] Start: 1962 HEPATITIS C SCREENING HEPATITIS C SC ARAVIND [facility] Start: 1960 MenB (1 of 2 - MenB 2-Dose Series Bexsero) MenB (1 of 2 - MenB 2-Dose Series Bexsero) [facility] Start: 1956 Adult depression screening assessment DEPRESSION SCREENING [facility] Start: 1951 Tetanus Diphtheria a nd Pertussis Vaccines (1 - Tdap) Tetanus Diphtheria and Pertussis Vaccines (1 - Tdap) [facility] Start: 1945 MMR (1 of 1 - Standa rd series) MMR (1 of 1 - Standard series) [facility] Start: 1945 Varicella (1 of 2 - 2-dose childhood series) Varicella (1 of 2 - 2-dose childhood series) [facility] Payers Date Payer Category Payer Medicare [id number] 2022 Unknown [id number] 2004 Unknown MARK BLUE CARD PPO OOS [id number] 2004-Present [phone] [address] [place] [address] PPO [id number] 2004 Unknown MARK FLORES BC BS PPO [id number] 2004-Present [address] [place] [address] [id number] 2002 Medicare MEDICARE MEDICAR E A AND B [id number] 2002-Present [phone] [address] [address] [place] [address] Medicare [id number] 2002 Medicare MEDICARE MEDICAR E PART A [id number] 2002-Present [address] [place] [address] [id number] 1944 Unknown [id number] 1945 Unknown [id number] 1944 Unknown [id number] 1945 Unknown [id number] Social History Date Type Detail Facility Start: 07-06-2018 Tobacco smoking status PRIS Ex-smoker [facility] End: 07-06-1978 History of tobacco use Current smoker [facility] End: 07-06-1978 History of tobacco use Cigarette Smoker [facility] Start: 07-06-2018 Tobacco use and exposure Smokeless tobacco non-user [facility] Start: 04-13-2022 Alcohol 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) [facility] Start: 1945 Sex Assigned At Not on file [facility] Start: 04-03-2022 End: 04-13-2022 Exposure to SARS-CoV-2 (event) Not sure [facility] Work Phone: Tobacco smoking status [facility] Tobacco smoking consumption unknown [facility] Gender identity Not on file [facility] Clinical Notes 04-13-2022 to 11-02-2023 Ancillary Progress Note - Leeanna Almazan, [facility] - 11/02/2023 1:15 PM ESTAncillary Progress Note - Leeanna Almazan, [facility]-TRAFFIC ANALYSIS TECHNICIAN - 11/02/2023 1:15 PM EST Note Date & Type Note Facility 11-02-2023 Miscellaneous Notes Formattin g of this note is different from the original. [facility] Speech-Language Pathology Progress Note 11/02/2023 Patient Name: Luis Rider Date of : 11/09/2006 Age: 5 1945 MR#: [id number] Session Type: individual; vocal cord dysfunction Length of Session: 30 minutes Pain Scale: NPR Referring Physician: Jermain Stoddard Kang for Severity & Performance Levels: 1 Total assistance required/?25% accuracy 2 Maximal assistance required/25-49% accuracy 3 Moderate assistance required/50-74% accuracy 4 Minimal assistance required/75-89% accuracy 5 Standby assistance required/approx. 90% accuracy 6 Modified independence ?91% accuracy 7 Independent/ consistently accurate N/A Not Addressed Short Term Objectives Progress 1. Luis Rider will complete metered diaphragmatic breathing exercises with minimal cues for 5 minutes in supine, sitting, and standing positions. Progressing Sitting - min cues (verbal, visual and tactile) Standing - min cues (verbal visual and tactile) 2. Luis Rider will utilize lower abdominal breath support during light exertion (fast walk, slow jog, jumping jacks, stairs, etc) with 80% accuracy. Progressing walking 3. Luis Rider will demonstrate increased awareness of breathing and implement learned strategies when prompted. Progressing Good execution of metered breathing techniques and explanation of reasoning behind using them Additional Comments: Luis reports exercises going better at home and episodes are becoming fewer. He is able to use techniques to help resolve episodes. If Luis Rider is discharged prior to the next treatment, consider this note the most recent progress report and discharge summary. Plan: 1. Continue use of metered breathing exercises with diaphragmatic breath support to control symptoms of vocal cord dysfunction. Follow-up: Follow up not required at this time. Luis can contact this therapist should new concerns arise. Follow up with physician is recommended. Leeanna Almazan M.A., CCC-TRAFFIC ANALYSIS TECHNICIAN Speech-Language Pathologist [phone] documented in this encounter [facility] 11-02-2023 Progress note Formatting of t his note is different from the original. [facility] Speech-Language Pathology Progress Note 11/02/2023 Patient Name: Luis Rider Date of : 11/09/2006 Age: 5 1945 MR#: [id number] Session Type: individual; vocal cord dysfunction Length of Session: 30 minutes Pain Scale: NPR Referring Physician: Jermain Kang for Severity & Performance Levels: 1 Total assistance required/?25% accuracy 2 Maximal assistance required/25-49% accuracy 3 Moderate assistance required/50-74% accuracy 4 Minimal assistance required/75-89% accuracy 5 Standby assistance required/approx. 90% accuracy 6 Modified independence ?91% accuracy 7 Independent/ consistently accurate N/A Not Addressed Short Term Objectives Progress 1. Luis Rider will complete metered diaphragmatic breathing exercises with minimal cues for 5 minutes in supine, sitting, and standing positions. Progressing Sitting - min cues (verbal, visual and tactile) Standing - min cues (verbal visual and tactile) 2. Luis Rider will utilize lower abdominal breath support during light exertion (fast walk, slow jog, jumping jacks, stairs, etc) with 80% accuracy. Progressing walking 3. Luis Rider will demonstrate increased awareness of breathing and implement learned strategies when prompted. Progressing Good execution of metered breathing techniques and explanation of reasoning behind using them Additional Comments: Luis reports exercises going better at home and episodes are becoming fewer. He is able to use techniques to help resolve episodes. If Luis Rider is discharged prior to the next treatment, consider this note the most recent progress report and discharge summary. Plan: 1. Continue use of metered breathing exercises with diaphragmatic breath support to control symptoms of vocal cord dysfunction. Follow-up: Follow up not required at this time. Luis can contact this therapist should new concerns arise. Follow up with physician is recommended. Leeanna Almazan M.A., CCC-TRAFFIC ANALYSIS TECHNICIAN Speech-Language Pathologist [phone] Electronically signed by Leeanna Almazan, [facility]-TRAFFIC ANALYSIS TECHNICIAN at 11/02/2023 1:50 PM EST [facility] 10-20-2023 Miscellaneous Notes Formattin g of this note is different from the original. [facility] Speech-Language Pathology Progress Note 10/20/2023 Patient Name: Luis Rider Date of : 11/09/2006 Age: 5 1945 MR#: [id number] Session Type: individual; vocal cord dysfunction Length of Session: 45 minutes Pain Scale: NPR Referring Physician: Jermain E Schinner Kang for Severity & Performance Levels: 1 Total assistance required/?25% accuracy 2 Maximal assistance required/25-49% accuracy 3 Moderate assistance required/50-74% accuracy 4 Minimal assistance required/75-89% accuracy 5 Standby assistance required/approx. 90% accuracy 6 Modified independence ?91% accuracy 7 Independent/ consistently accurate N/A Not Addressed Short Term Objectives Progress 1. Luis Rider will complete metered diaphragmatic breathing exercises with minimal cues for 5 minutes in supine, sitting, and standing positions. Progressing Supine - patient not able to lie flat Sitting - mod/max cues (verbal, visual and tactile) Standing - max cues (verbal visual and tactile) 2. Luis Rider will utilize lower abdominal breath support during light exertion (fast walk, slow jog, jumping jacks, stairs, etc) with 80% accuracy. Not addressed in this session 3. Luis Rider will demonstrate increased awareness of breathing and implement learned strategies when prompted. Progressing Reviewed anatomy and metered breathing techniques with patient and explained difference between shallow chest breathing and diaphragmatic breathing in the body Additional Comments: Luis reports some improvement with breathing in regular activities at home. Struggles to complete exercises successfully at home. If Luis Rider is discharged prior to the next treatment, consider this note the most recent progress report and discharge summary. Plan: 1. Continue use of metered breathing exercises with diaphragmatic breath support to control symptoms of vocal cord dysfunction. Follow-up: In two weeks to monitor progress in performance of techniques and expand use into movement. Leeanna Almazan M.A., CCC-TRAFFIC ANALYSIS TECHNICIAN Speech-Language Pathologist [phone] documented in this encounter [facility] 10-20-2023 Progress note Formatting of t his note is different from the original. [facility] Speech-Language Pathology Progress Note 10/20/2023 Patient Name: Luis Rider Date of : 11/09/2006 Age: 5 1945 MR#: [id number] Session Type: individual; vocal cord dysfunction Length of Session: 45 minutes Pain Scale: NPR Referring Physician: Jermain Stoddard Kang for Severity & Performance Levels: 1 Total assistance required/?25% accuracy 2 Maximal assistance required/25-49% accuracy 3 Moderate assistance required/50-74% accuracy 4 Minimal assistance required/75-89% accuracy 5 Standby assistance required/approx. 90% accuracy 6 Modified independence ?91% accuracy 7 Independent/ consistently accurate N/A Not Addressed Short Term Objectives Progress 1. Luis Rider will complete metered diaphragmatic breathing exercises with minimal cues for 5 minutes in supine, sitting, and standing positions. Progressing Supine - patient not able to lie flat Sitting - mod/max cues (verbal, visual and tactile) Standing - max cues (verbal visual and tactile) 2. Luis Rider will utilize lower abdominal breath support during light exertion (fast walk, slow jog, jumping jacks, stairs, etc) with 80% accuracy. Not addressed in this session 3. Luis Rider will demonstrate increased awareness of breathing and implement learned strategies when prompted. Progressing Reviewed anatomy and metered breathing techniques with patient and explained difference between shallow chest breathing and diaphragmatic breathing in the body Additional Comments: Luis reports some improvement with breathing in regular activities at home. Struggles to complete exercises successfully at home. If Luis Rider is discharged prior to the next treatment, consider this note the most recent progress report and discharge summary. Plan: 1. Continue use of metered breathing exercises with diaphragmatic breath support to control symptoms of vocal cord dysfunction. Follow-up: In two weeks to monitor progress in performance of techniques and expand use into movement. Leeanna Almazan M.A., CCC-TRAFFIC ANALYSIS TECHNICIAN Speech-Language Pathologist [phone] Electronically signed by Leeanna Almazan, [facility]-TRAFFIC ANALYSIS TECHNICIAN at 10/20/2023 4:40 PM EST [facility] 10-05-2023 Consult note Formatting of th is note might be different from the original. [facility] Speech-Language Pathology Voice Evaluation for Vocal Cord Dysfunction Test Date: 10/05/2023 Patient Name: Luis Rider Date of : 1945 Age: 78 y.o. MR#: [id number] Referring Physician: Dereck Wilson Length of Session: 60 minutes Summary: Luis Rider was referred for a voice evaluation by Dr. Wilson to rule out vocal cord dysfunction. Pulmonary function and cardiovascular testing have been completed. Results indicate normal function. Luis was in obvious respiratory distress upon entering room. Luis reports experiencing episodes of dyspnea at this level for the last 15-20 years. These events occur during exertion and occasionally at rest. Symptoms consistent with vocal cord dysfunction include: Coughing/throat clearing before,during,or after episodes, Dizziness/lightheadedness, Inspiratory stridor which he cannot replicate, Nasal symptoms (post-nasal drip,congestion,sneezing), Sensation he cannot get enought air, Tightness in the throat,upper chest/neck, and Visual changes/blurred vision . When events occur, he attempts rest. Luis Rider states that these activities are beneficial in reducing symptoms. Use of an albuterol inhaler has demonstrated little to no appreciable change in symptoms. Episodes typically last up to an hour minutes. Medical history is significant for allergies, asthma, high blood pressure, sleep apnea. 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 Other activities include working in the yard. Under therapeutic guidance, Luis practiced metered breathing techniques in supine, sitting, and standing positions. Luis utilized equal respiratory cycles (one second inhalation and one second exhalation) to gain active control of the respiratory pattern. Luis had difficulty with metered breathing exercises in standing position using visual (mirror) and tactile prompts to assist with monitoring the compensatory, shallow upper chest breathing pattern. Using these cues, Luis was able to identify this pattern and replace it with diaphragmatic breath support instead. Marked change in ease of breathing was noted while using techniques. Luis is to practice metered breathing techniques six to eight minutes per day, two minutes in each position, using diaphragmatic breath support. Luis is to use metered breathing actively as soon as symptoms of vocal cord dysfunction occur. Impression: Symptoms are consistent with vocal cord dysfunction in the presence of asthma. Symptoms appear consistent based on reported symptoms, lack of appreciable change reported with inhaler use, and difficulty primarily reported with inhalation. . Recommendations: 1. Use of metered breathing with diaphragmatic breath support to control symptoms of vocal cord dysfunction. 2. Follow through with recommended vocal hygiene protocol. 3. Patient will follow-up with therapist in 2 weeks on 10/20/23 at 4:00 to discuss progress with prescribed metered breathing exercises and follow through with vocal hygiene protocol. 4. Discuss concerns related to allergies with PCP. Goals: 1. Patient will paraphrase basic anatomy and physiology of respiration and phonation with 80% accuracy. 2. Patient will complete metered, diaphragmatic breathing techniques in supine, sitting, and standing positions with 80% accuracy and no more than 1 verbal cue (per position). 3. Patient will utilize lower abdominal breath support during light exertion (fast walk, slow jog, jumping jacks, stairs, etc) with 80% accuracy. Thank you for the referral. Leeanna Almazan M.A., [facility]-TRAFFIC ANALYSIS TECHNICIAN Speech-Language Pathologist CC: Referring Physician(s) [facility] Work Phone: 10-05-2023 Miscellaneous Notes Formattin g of this note might be different from the original. [facility] Speech-Language Pathology Voice Evaluation for Vocal Cord Dysfunction Test Date: 10/05/2023 Patient Name: Luis Rider Date of : 1945 Age: 78 y.o. MR#: [id number] Referring Physician: Dereck Wilson Length of Session: 60 minutes Summary: Luis Rider was referred for a voice evaluation by Dr. Wilson to rule out vocal cord dysfunction. Pulmonary function and cardiovascular testing have been completed. Results indicate normal function. Luis was in obvious respiratory distress upon entering room. Luis reports experiencing episodes of dyspnea at this level for the last 15-20 years. These events occur during exertion and occasionally at rest. Symptoms consistent with vocal cord dysfunction include: Coughing/throat clearing before,during,or after episodes, Dizziness/lightheadedness, Inspiratory stridor which he cannot replicate, Nasal symptoms (post-nasal drip,congestion,sneezing), Sensation he cannot get enought air, Tightness in the throat,upper chest/neck, and Visual changes/blurred vision . When events occur, he attempts rest. Luis Rider states that these activities are beneficial in reducing symptoms. Use of an albuterol inhaler has demonstrated little to no appreciable change in symptoms. Episodes typically last up to an hour minutes. Medical history is significant for allergies, asthma, high blood pressure, sleep apnea. 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 Other activities include working in the yard. Under therapeutic guidance, Luis practiced metered breathing techniques in supine, sitting, and standing positions. Luis utilized equal respiratory cycles (one second inhalation and one second exhalation) to gain active control of the respiratory pattern. Luis had difficulty with metered breathing exercises in standing position using visual (mirror) and tactile prompts to assist with monitoring the compensatory, shallow upper chest breathing pattern. Using these cues, Luis was able to identify this pattern and replace it with diaphragmatic breath support instead. Marked change in ease of breathing was noted while using techniques. Luis is to practice metered breathing techniques six to eight minutes per day, two minutes in each position, using diaphragmatic breath support. Luis is to use metered breathing actively as soon as symptoms of vocal cord dysfunction occur. Impression: Symptoms are consistent with vocal cord dysfunction in the presence of asthma. Symptoms appear consistent based on reported symptoms, lack of appreciable change reported with inhaler use, and difficulty primarily reported with inhalation. . Recommendations: 1. Use of metered breathing with diaphragmatic breath support to control symptoms of vocal cord dysfunction. 2. Follow through with recommended vocal hygiene protocol. 3. Patient will follow-up with therapist in 2 weeks on 10/20/23 at 4:00 to discuss progress with prescribed metered breathing exercises and follow through with vocal hygiene protocol. 4. Discuss concerns related to allergies with PCP. Goals: 1. Patient will paraphrase basic anatomy and physiology of respiration and phonation with 80% accuracy. 2. Patient will complete metered, diaphragmatic breathing techniques in supine, sitting, and standing positions with 80% accuracy and no more than 1 verbal cue (per position). 3. Patient will utilize lower abdominal breath support during light exertion (fast walk, slow jog, jumping jacks, stairs, etc) with 80% accuracy. Thank you for the referral. Leeanna Almazan M.A., [facility]-TRAFFIC ANALYSIS TECHNICIAN Speech-Language Pathologist CC: Referring Physician(s) Electronically signed by Leeanna Almazan, [facility]-TRAFFIC ANALYSIS TECHNICIAN at 10/05/2023 2:12 PM EST documented in this encounter [facility] 04-13-2022 Note HNO ID: [id number] Author: RT Estela(R) Service: ? Author Type: Senior [employer]ogen[employer] Laboratory Director Type: Progress Notes Filed: 04/13/2022 12:30 PM Note Text: Radiology Service Progress Note PATIENT NAME: Luis Rider DATE OF SERVICE: April 13, 2022 TIME: 12:18 PM PATIENT IDENTITY VERIFICATION COMPLETED USING TWO (2) IDENTIFIERS: Name and Date of confirmed by patient verbally. FALL SCREENING: Has the patient had 2 falls in the last year or 1 fall with injury or currently using an Ambulatory Assistive Device (Walker, Cane, Wheelchair, Crutches, etc.)? Yes, Patient High Risk for Falls What interventions were put in place to prevent falls during this visit? Instructed Patient to Call for Help if Needed, Offered Assistance with Transfers/Clothing, Instructed Patient to Remain Seated (Not on Exam Table) Until Exam and Increased Observations by Caregivers PATIENT GENDER DATA: Male PATIENT RELEVANT IMPLANT DATA REVIEWED: Yes RADIOLOGY DEPARTMENT: General X-ray: Exam(s) Completed: Lower Extremity X-Ray(s): Ankle, Right PERIPHERAL IV DATA: Not applicable SIGNED BY: RT Estela(R) April 13, 2022 12:18 PM [facility] 04-13-2022 Note HNO ID: [id number] Author: Fran Loja APRN.DIRECTOR EXPORT Service: ? Author Type: Nurse Practitioner Type: Progress Notes Filed: 04/13/2022 1:15 PM Note Text: Subjective HPI HPI Luis Rider is a 76 year old male who presents today for CC of right ankle pain, cause unknown. This started 4-5 days ago, is now severe. Has tried ultram without relief. Symptoms are worsened by walking. Risk factors questionable hx of gout, neg testing in past. Denies numbness/tingling of right lower extremity. Denies hx of diabetes. Hx of blood clots. .Patient presents with: Ankle Pain: right ankle pain, denies injury x 4-5 days No past medical history on file. PAST SURGICAL HISTORY Procedure Laterality Date - EYE SURGERY HX Bilateral cataract removal - INGUINAL HERNIA REPAIR HX - JOINT REPLACEMENT HX Bilateral knee replacements - KNEE ARTHROSCOPY Bilateral - SALIVARY GLAND SURGERY HX - THYROIDECTOMY SUBTOTAL/PARTIAL ALLERGIES Iodine and Percocet [Oxycodone-Acetaminophen] MEDICATIONS levothyroxine (SYNTHROID) 100 mcg tablet Take 100 [...] Take 1 tablet by mouth twice daily. FAMILY HISTORY Problem Relation Age of Onset - Cancer Mother breast - Diabetes Mother - Hypertension Mother - other (back surgery) Brother - Arthritis Sister - other (back surgery) Sister - Cancer Sister brain Social History Tobacco Use - Smoking status: Former Smoker Types: Cigarettes Quit date: 07/06/1978 Years since quittin.8 - Smokeless tobacco: Never Used Substance Use Topics - Alcohol use: No - Drug use: No ROS Objective Blood pressure 148/84, pulse 88, temperature 36.7 ?C (98 ?F), resp. rate 16, SpO2 99 %. Physical Exam Constitutional: General: He is not in acute distress. Appearance: He is not toxic-appearing or diaphoretic. HENT: Head: Normocephalic and atraumatic. Cardiovascular: Pulses: Dorsalis pedis pulses are 2+ on the right side. Posterior tibial pulses are 2+ on the right side. Pulmonary: Effort: Pulmonary effort is normal. No accessory muscle usage or respiratory distress. Musculoskeletal: Right ankle: Swelling present. No deformity, ecchymosis or lacerations. Tenderness present over the medial malleolus. Decreased range of motion. Right Achilles Tendon: Normal. Neurological: Mental Status: He is alert and oriented to person, place, and time. ASSESSMENT/PLAN: 1. Acute right ankle pain - ICD9: 719.47, 338.19, ICD10: M25.571 Xray negative Possible gout attack Will cover with prednisone F/u with pcp in next 3-5 days for recheck. Not candidate for crutches, use guaman/walker for relief. Declined boot. - XR ANKLE GENERAL 3V AP/LAT/OBL RIGHT Impression: 1. No acute fracture or dislocation. ? Dictated by : KAYCE KAUR MD ? - PREDNISONE 20 MG TABLET Agrees to plan Fran Loja APRN.DIRECTOR EXPORT [facility] 04-13-2022 History of Presen t illness Narrative Subjective HPI HPI Luis Rider is a 76 year old male who presents today for CC of right ankle pain, cause unknown. This started 4-5 days ago, is now severe. Has tried ultram without relief. Symptoms are worsened by walking. Risk factors questionable hx of gout, neg testing in past. Denies numbness/tingling of right lower extremity. Denies hx of diabetes. Hx of blood clots. .Patient presents with: Ankle Pain: right ankle pain, denies injury x 4-5 days No past medical history on file. PAST SURGICAL HISTORY Procedure Laterality Date EYE SURGERY HX Bilateral cataract removal INGUINAL HERNIA REPAIR HX JOINT REPLACEMENT HX Bilateral knee replacements KNEE ARTHROSCOPY Bilateral SALIVARY GLAND SURGERY HX THYROIDECTOMY SUBTOTAL/PARTIAL ALLERGIES Iodine and Percocet [Oxycodone-Acetaminophen] MEDICATIONS levothyroxine (SYNTHROID) 100 mcg tablet Take 100 [...] Take 1 tablet by mouth twice daily. FAMILY HISTORY Problem Relation Age of Onset Cancer Mother breast Diabetes Mother Hypertension Mother other (back surgery) Brother Arthritis Sister other (back surgery) Sister Cancer Sister brain Social History Tobacco Use Smoking status: Former Smoker Types: Cigarettes Quit date: 07/06/1978 Years since quittin.8 Smokeless tobacco: Never Used Substance Use Topics Alcohol use: No Drug use: No ROS Objective Blood pressure 148/84, pulse 88, temperature 36.7 C (98 F), resp. rate 16, SpO2 99 %. Physical Exam Constitutional: General: He is not in acute distress. Appearance: He is not toxic-appearing or diaphoretic. HENT: Head: Normocephalic and atraumatic. Cardiovascular: Pulses: Dorsalis pedis pulses are 2+ on the right side. Posterior tibial pulses are 2+ on the right side. Pulmonary: Effort: Pulmonary effort is normal. No accessory muscle usage or respiratory distress. Musculoskeletal: Right ankle: Swelling present. No deformity, ecchymosis or lacerations. Tenderness present over the medial malleolus. Decreased range of motion. Right Achilles Tendon: Normal. Neurological: Mental Status: He is alert and oriented to person, place, and time. ASSESSMENT/PLAN: 1. Acute right ankle pain - ICD9: 719.47, 338.19, ICD10: M25.571 Xray negative Possible gout attack Will cover with prednisone F/u with pcp in next 3-5 days for recheck. Not candidate for crutches, use guaman/walker for relief. Declined boot. - XR ANKLE GENERAL 3V AP/LAT/OBL RIGHT Impression: 1. No acute fracture or dislocation. Dictated by : KAYCE KAUR MD - PREDNISONE 20 MG TABLET Agrees to plan Fran Loja APRN.CNP documented in this encounter [facility] Vocal cord dysfunction Other diseases of vocal cords [facility] Diagnosis Vocal cord dysfunction- Primary Other diseases of vocal cords documented in this encounter [facility] note* Diagnosis Vocal cord dysfunction- Primary Other diseases of vocal cords documented in this encounter [facility] for referral (narrative)* Diagnostic Procedure Only (Urgent) - Closed Specialty Diagnoses / Procedures Referred By Willy ochoa Referred To Contact XR IMAGING Diagnoses Acute right ankle pain Procedures XR ANKLE GENERAL 3V AP/LAT/OBL RIGHT RADEX ANKLE COMPLETE MINIMUM 3 VIEWS Fran Loja APRN.CNP [address] [place] [address] Xr Imaging Referral ID Status Reason Start Date Expiration Date V isits Requested Visits Authorized [id number] Closed Auto-Generate d Referral 04/13/2022 05/13/2023 1 1 [facility] Summary Purpose Family History No Family History Records FoundNo Family History Records FoundNo Family History Records Found Advance Directives No Advanced Directives Records FoundNo Advanced Directives Records FoundNo Advanced Directives Records Found Additional Source Comments Source Comments (unrecognize d section and content) In the event this informatio n is protected by the Federal Confidentiality of Alcohol and Drug Abuse Patient Records regulations: The Federal rules restrict any use of the information to criminally investigate or prosecute any alcohol or drug abuse patient.[facility] Reason for Visit (unrecogniz ed section and content) Specialty Diagnoses / Procedures Referred By Willy t Referred To Contact Speech Pathology / Speech Therapy Diagnoses R. CHON/EPIC Procedures VOCAL CORD DYSFUNCTION Dereck Wilson MD [address] [place] [address] Leeanna Almazan, [facility]-TRAFFIC ANALYSIS TECHNICIAN [address] [place] [address] Referral ID Status Reason Start Date Expiration Date Visits Re quested Visits Authorized [id number] Closed 09/22/2023 11/21/2023 1 1 Referral ID Status Reason Start Date Expiration Date V isits Requested Visits Authorized [id number] Authorized 09/22/2023 11/21/2023 30 30 Care Teams (unrecognized sec tion and content) Adjuster Arbitrator Relationship Specialty Start Date End Date Jermain Stoddard MD [address] [facility] [address] [place], [place] [id number] PCP - General Family Medicine 10/05/23 Adjuster Arbitrator Relationship Specialty Start Date End Date Jermain Stoddard MD [address] [facility] [address] [place], [place] [id number] PCP - General Family Medicine 10/05/23 (unrecognized sect ion and content) No Status Records FoundNo Status Records FoundNo Status Records Found INFORMATION SOURCE (unrecogn ized section and content) DATE CREATED AUTHOR AUTHOR'S ORGANIZ ATION 09/19/2022 [facility] ([place]) DATE CREATED AUTHOR AUTHOR'S ORGANIZ ATION 11/04/2023 [facility] FOR RECORDS PERTAINING TO PATIENTS WHO ARE OR HAVE BEEN ENROLLED IN A CHEMICAL DEPENDENCY/SUBSTANCEABUSE PROGRAM, SOME INFORMATION MAY BE OMITTED. This clinical summary was aggregated from multiple sources. Caution should be exercised in using it in the provision of clinical care. This summary normalizes information from multiple sources, and as a consequence, information in this document may materially change the coding, format and clinical context of patient data. In addition, data may be omitted in some cases. CLINICAL DECISIONS SHOULD BE BASED ON THE PRIMARY CLINICAL RECORDS. [facility]. provides no warranty or guarantee of the accuracy or completeness of information in this document.
--- NOTE | 2023-11-30 08:43 | EX.ED.UPPERE ---
HPI History of Present Illness Chief Complaint: Upper Extremity Injury Informant: patient Narrative Narrative: [id number] male presents increasing nontraumatic right wrist pain and swelling over 3 days. No fevers or chills. He states 50 years ago had a traumatic injury at work from a drill press. He required surgery with tendon repair. She is intermittently would have pain and swelling. He relates last time he was seen here. Denies any new traumas. He states he took aspirin product last time last evening. denies paresthesias. Prior similar symptoms: Yes PFSH PFSH Medical History Acute deep vein thrombosis of left lower extremity Anxiety Bilateral pulmonary embolism (2013) Chronic diastolic heart failure Depression Dilated aortic root DRESS syndrome Essential (primary) hypertension H/O transfusion HLD (hyperlipidemia) Hypothyroidism Left thyroid nodule Nephrolithiasis Nonobstructive atherosclerosis of coronary artery Obesity (BMI 30-39.9) Obstructive sleep apnea Primary hyperparathyroidism Renal calculus, bilateral Secondary hyperparathyroidism Syncope Home Medications apixaban 5 mg tablet (Eliquis) 5 mg PO BID 10/03/18 [History Last Taken 12/03/22] losartan 100 mg tablet 100 mg PO DAILY #90 tabs 10/17/19 [Rx Last Taken 12/07/22] spironolactone 100 mg tablet 100 mg PO DAILY 07/15/21 [History Last Taken Unknown] levothyroxine 175 mcg tablet 175 mcg PO DAILY 08/07/22 [History Last Taken 12/07/22] montelukast 10 mg tablet 10 mg PO DAILY 08/07/22 [History Last Taken Unknown] spironolactone 25 mg tablet (Aldactone) 25 mg PO DAILY 12/08/22 [History Last Taken Unknown] vortioxetine 20 mg tablet (Trintellix) 20 mg PO DAILY 12/08/22 [History Last Taken Unknown] potassium citrate 10 mEq (1,080 mg) tablet,extended release 10 meq PO TID #90 tabs 08/31/23 [Rx Last Taken Unknown] hydrocodone-acetaminophen 5-325mg 5mg-325mg 1 tab PO Q6H PRN PRN Pain 3 days #12 TABLETS 11/30/23 [Rx Last Taken Unknown] prednisone 20 mg tablet 40 mg (2 x 20 mg) PO DAILY #12 TABLETS 11/30/23 [Rx Last Taken Unknown] Allergy/AdvReac Type Severity Reaction Status Date / Time Iodinated Contrast Media Allergy Hives Verified 11/30/23 07:32 [Iodinated Contrast Media - IV Dye] acetaminophen [From Percocet] AdvReac Swelling Verified 11/30/23 07:32 oxycodone HCl [From Percocet] AdvReac Swelling Verified 11/30/23 07:32 Family History Father Cancer Mother Cancer Hypertension Arthritis Breast cancer Diabetes Aunt Diabetes Uncle Diabetes Sister Cancer Family History no significant family his Surgical History History of bilateral knee replacement History of hydrocele History of left heart catheterization (04/14/19) History of partial thyroidectomy History of shoulder surgery Hx of cataract extraction Hx of hernia repair Hx of sinus surgery hx saliva gland removal hx uvula removal hx wrist surgery Surgical History no surgical history Social History household members: spouse housing: house Smoking Status: Former smoker alcohol intake: never substance use type: does not use caffeine: Yes Type: coffee what type of physical activity do you participate in: none seatbelt use: always do you feel safe at home: Yes ROS ROS ED Constitutional Constitutional ED: Denies chills, fever(s) or sweats Eyes Eyes: Denies change in vision ENT ENT ED: Denies dysphagia or sore throat Cardiovascular Cardiovascular: Denies chest pain, leg edema, palpitations or racing heartbeat Respiratory/Chest Respiratory/Chest: Denies cough, dyspnea or dyspnea on exertion Gastrointestinal Gastrointestinal: Denies abdominal pain, diarrhea, nausea or vomiting Genitourinary Genitourinary ED: Denies dysuria, hematuria or urinary frequency Musculoskeletal Musculoskeletal: Reports extremity pain; Denies back pain or neck pain Integumentary Denies rash or wounds Neurologic Neurologic: Denies headache(s), paresthesias or weakness EXAM Physical Exam Const Vital Signs: 11/30/23 07:32 11/30/23 07:31 Temperature 97.3 F L Temperature Source Temporal Pulse Rate 109 H 113 H Respiratory Rate 20 H 18 Blood Pressure 154/100 H 103/51 L Blood Pressure Mean 118 68 Pulse Ox 98 100 Oxygen Delivery Method Room Air Room Air Positive well nourished and well developed Constitutional Narrative: Nontoxic General Appearance ED: well developed HEENT Reports moist mucous membranes normocephalic and atraumatic Eyes PERRL, EOMs intact bilaterally and conjunctivae normal General Eye ED: Yes normal appearance of both eyes Neck no lymphadenopathy and supple General: Negative for tenderness Chest Wall Chest: Negative for tenderness Resp normal respiratory effort and normal air movement Effort and Inspection: symmetric chest movement; Negative for respiratory distress Cardio regular rate, regular rhythm and no murmurs Peripheral Pulses: pulses 2+ throughout GI normal to inspection, nondistended, normoactive bowel sounds and non-tender Palpation: Negative for guarding or rebound tenderness present Back/Spine no CVA tenderness and no thoracic nor lumbar tenderness Extremity Extremity Narrative: Right upper extremity: No shoulder or elbow tenderness. There is wrist swelling on exam, there is no erythema no warmth. A previous healed scar on the volar aspect. There was a circular scar on the dorsal aspect of the wrist over the radius. Swelling was noted more on the volar aspect. Skin was intact. General Extremety ED: Yes edema and tenderness General Extremity: edema Neuro oriented x3 and no sensory deficits noted Sensorium / Orientation: awake and alert Skin no rashes or lesions noted and no wounds MDM MDM MDM Narrative Medical decision making narrative: Interventions / MDM: Differential diagnosis: Arthralgia, gout Diagnosis considered but do not suspect: Septic joint however no redness or warmth My EKG interpretation: N/A Imaging independently reviewed and interpreted by myself: N/A External documents reviewed: Records reviewed from 2017 he was seen for similar he was placed on prednisone and hydrocodone. Test considered but not ordered:N/A ED course: Patient similar episode from 2017. Initially treated with Motrin, prednisone and Saji wrap in the ED. He drove himself here. No clinical septic joint. He states he has a wrist splint at home for which she can use. Additional review records he is on Eliquis for history of PE. Will avoid continuing NSAIDs. He will continue prednisone and short prescription for hydrocodone for symptom control. He stated improved after few days previously. He will follow-up with PCP with strict return precautions. Re-evaluation: stable Disposition discussed with patient/family/significant other: Patient Case discussed with consulting clinician: N/A This note was generated with [employer] software. It may contain incorrect words, spelling, and punctuation that were not noted in checking the note before signing. Discharge Plan Triage Chief Complaint: Upper Extremity Injury ED Provider: Romeo Solis Dx/Rx/DC Orders Clinical Impression: Arthralgia of wrist, right Instructions: ED Arthralgia Prescriptions: New hydrocodone-acetaminophen [hydrocodone-acetaminophen] 5-325 mg tablet 1 tab PO Q6H PRN PRN (Reason: Pain) 3 Days Qty: 12 0RF prednisone 20 mg tablet 40 mg PO DAILY Qty: 12 0RF Rx Instructions: Next dose 12/01/2023 No Action Eliquis 5 mg tablet 5 mg PO BID losartan 100 mg tablet 100 mg PO DAILY Qty: 90 3RF spironolactone 100 mg tablet 100 mg PO DAILY Patient Comments: take 1 tablet by mouth once daily levothyroxine 175 mcg tablet 175 mcg PO DAILY Patient Comments: take 1 tablet by mouth once daily spironolactone [Aldactone] 25 mg tablet 25 mg PO DAILY Trintellix 20 mg tablet 20 mg PO DAILY montelukast 10 mg tablet 10 mg PO DAILY potassium citrate 10 mEq (1,080 mg) tablet extended release 10 meq PO TID Qty: 90 3RF Primary Care Provider: Jayden Butt Referrals: Jayden Butt MD [Primary Care Provider] - 3-5 Days if not improving Activity Restrictions/Additional Instructions: Take medications as provided. Continue Saji wrap and your wrist splint. If you develop any fevers, return to the ED for reevaluation. Otherwise follow-up with your doctor. Disposition Disposition: Home, Self Care Discharge Date/Time: 11/30/23 08:47
[2023-11-30 08:45] VITALS: BP 138/77; PULSE 82; RESP 16; O2SAT 97
== END 2023-11-30 08:47 | disposition home or self-care (01) ==
PROVIDERS: Emergency Provider Emergency Medicine; PCP Family Medicine; Visit Provider Emergency Medicine
DX: M25.531 Pain in right wrist (principal); I11.0 Hypertensive heart disease with heart failure; I50.32 Chronic diastolic (congestive) heart failure; Z87.891 Personal history of nicotine dependence; E78.5 Hyperlipidemia, unspecified; Z79.01 Long term (current) use of anticoagulants; E03.9 Hypothyroidism, unspecified; Z79.899 Other long term (current) drug therapy; Z96.653 Presence of artificial knee joint, bilateral; Z98.49 Cataract extraction status, unspecified eye; Z86.711 Personal history of pulmonary embolism; X58.XXXA Exposure to other specified factors, initial encounter; Y92.89 Other specified places as the place of occurrence of the external cause
CPT/HCPCS: 99282

== ENCOUNTER 2024-01-05 22:20 | Inpatient (IN) | payer MEDICARE, BC, SELFPAY ==
[2024-01-05 22:20] VITALS: BP 196/98; PULSE 87; RESP 26; TEMP 36.5; O2SAT 99; BMI 33.9
--- OUTSIDE RECORDS SUMMARY | 2024-01-05 22:33 | XMS RPT_ITS | CCD ---
Author Name Unknown Address [address] [place] [address] [address] [place] [address] Organization [facility] Care Team Providers Care Yarn Bleaching Machine Operator Name Role Phone Eleazar Banks Unavailable Jermain Stoddard Primary Care Provider MARIAJOSE USMMERS, DR. FRANCIS Attending UnavailJERMAIN Corcoran MD Primary [...] source) Acetaminophen / oxyCODONE Drug Allergy 07-06-2018 [facility] (1 source) Iodine Drug Allergy 07-06-2018 [facility] Medications Current Medications Medication Drug Class(es) [...] source) Long-term current use of anticoagulant; Translations: [retirement (current) use of anticoagulants] Onset: 07-06-2018 07-06-2018 Episodic Results Test Name Value Interpretation Reference Range Facil ity Vital Signs Date Time Vital Sign Value Performing Clinician Arabella mueller 04-13-2022 11:54-0400 Body temperature 98.01 [degF] Fran Loja APRN.CNP Work Phone: [facility] 04-13-2022 11:54-0400 Diastolic blood pressure 84 mm[Hg] Fran Loja APRN.CNP Work Phone: [facility] 04-13-2022 11:54-0400 Heart rate 88 /min Fran Loja APRN.CNP Work Phone: [facility] 04-13-2022 11:54-0400 Respiratory rate 16 /min Fran Loja APRN.CNP Work Phone: [facility] 04-13-2022 11:54-0400 SaO2% (BldA) [Mass fraction] 99 % Fran Loja APRN.CNP Work Phone: [facility] 04-13-2022 11:54-0400 Systolic blood pressure 148 mm[Hg] Fran Loja APRN.GEOGRAPHIC INFORMATION SYSTEM ANALYST Work Phone: [facility] Encounters Encounter Date Encounter Type Care Provider Facility Start: 11-02-2023 End: 11-03-2023 ambulatory JERMAIN Hardik JAIMEAZEBJAYLEEN [facility] Start: 11-02-2023 End: 11-02-2023 Subsequent hospital visit by physician Dereck Wilson MD Work Phone: [facility] [place] Procedures Date Procedure Procedure Detail Performing Clinician Start: 04-13-2022 Radex ankle complete minimum 3 views Fran King KAREN.GEOGRAPHIC INFORMATION SYSTEM ANALYST Work Phone: Plan of Treatment Date Care Activity Detail Author Start: 11-02-2023 End: 11-02-2023 Patient encounter procedure 11/02/2023 1:15 PM EST Appointment [facility] [place] [address] [place] [address] Leeanna Almazan, [facility]-SYNOPTIC METEOROLOGIST [address] [place] [address] [facility] [place] Start: 10-22-2023 COVID-19 (5 - Booste r for Pfizer series) COVID-19 (5 - Booster for Pfizer series) [facility] Start: 10-20-2023 End: 10-20-2023 Patient encounter procedure 10/20/2023 4:00 PM EST Appointment [facility] [place] [address] [place] [address] Leeanna Almazan, [facility]-SYNOPTIC METEOROLOGIST [address] [place] [address] [facility] [place] Start: 07-23-2023 FLU (#1) FLU (#1) [facility] Start: 11-22-2021 ADVANCE DIRECTIVE DISCUSSION ADVANCE DIRECTIVE DISCUSSION [facility] Start: 2009 PNEUMOVAX AGE 65 AND OVER WITH 5YR LOOKBACK (#1) PNEUMOVAX AGE 65 AND OVER WITH 5YR LOOKBACK (#1) [facility] Start: 1994 SHINGRIX VACCINE (1 of 2) SHINGRIX VACCINE (1 of 2) [facility] Start: 1989 DIABETES SCREEN DIABETES SCREEN [facility] Start: 1963 Urine microalbumin profile DTAP,TDAP,TD (1 - Tdap) [facility] Start: 1962 HEPATITIS C SCREENING HEPATITIS C SC ARAVIND [facility] Start: 1960 MenB (1 of 2 - MenB 2-Dose Series Bexsero) MenB (1 of 2 - MenB 2-Dose Series Bexsero) [facility] Start: 1956 Adult depression screening assessment DEPRESSION SCREENING [facility] Start: 1951 Tetanus Diphtheria a nd Pertussis Vaccines (1 - Tdap) Tetanus Diphtheria and Pertussis Vaccines (1 - Tdap) [facility] Start: 1945 MMR (1 of 1 - Standa rd series) MMR (1 of 1 - Standard series) [facility] Start: 1945 Varicella (1 of 2 - 2-dose childhood series) Varicella (1 of 2 - 2-dose childhood series) [facility] Payers Date Payer Category Payer Medicare [id number] 2022 Unknown [id number] 2004 Unknown MARK BLUE CARD PPO OOS [id number] 2004-Present [phone] [address] [place] [address] PPO [id number] 2004 Unknown MARK FLOR[employer] BS PPO [id number] 2004-Present [address] [place] [address] [id number] 2002 Medicare MEDICARE MEDICAR E A AND B [id number] 2002-Present [phone] [address] [address] [place] [address] Medicare [id number] 2002 Medicare MEDICARE MEDICAR E PART A [id number] 2002-Present [address] [place] [address] [id number] 1944 Unknown [id number] 1944 Unknown [id number] 1944 Unknown [id number] 1944 Unknown [id number] Social History Date Type Detail Facility Start: 07-06-2018 Tobacco smoking status SCIS Ex-smoker [facility] End: 07-06-1978 History of tobacco use Current smoker [facility] End: 07-06-1978 History of tobacco use Cigarette Smoker [facility] Start: 07-06-2018 Tobacco use and exposure Smokeless tobacco non-user [facility] Start: 04-13-2022 Alcohol intake Current non-dr director 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 medical education of alcohol (finding) [facility] Start: 1945 Sex Assigned At Not on file [facility] Start: 04-03-2022 End: 04-13-2022 Exposure to SARS-CoV-2 (event) Not sure [facility] Work Phone: Tobacco smoking status [facility] Tobacco smoking consumption unknown [facility] Gender identity Not on file [facility] Clinical Notes 04-13-2022 to 11-02-2023 Ancillary Progress Note - Leeanna Almazan, [facility] - 11/02/2023 1:15 PM ESTAncillary Progress Note - Leeanna Almazan, [facility]-SYNOPTIC METEOROLOGIST - 11/02/2023 1:15 PM EST Note Date & Type Note Facility 11-02-2023 Miscellaneous Notes Formattin g of this note is different from the original. [facility] Speech-Language Pathology Progress Note 11/02/2023 Patient Name: Luis Rider Date of : 11/09/2006 Age: 5 1945 MR#: [id number] Session Type: individual; vocal cord dysfunction Length [...] with physician is recommended. Leeanna Almazan M.A., CCC-SYNOPTIC METEOROLOGIST Speech-Language Pathologist [phone] documented in this encounter [facility] 11-02-2023 Progress note Formatting of t his note is different from the original. [facility] Speech-Language Pathology Progress Note 11/02/2023 Patient Name: Luis Rider Date of : 11/09/2006 Age: 5 1945 MR#: [id number] Session Type: individual; vocal cord dysfunction Length [...] with physician is recommended. Leeanna Almazan M.A., CCC-SYNOPTIC METEOROLOGIST Speech-Language Pathologist [phone] Electronically signed by Leeanna Almazan, [facility]-SYNOPTIC METEOROLOGIST at 11/02/2023 1:50 PM EST [facility] 10-20-2023 Miscellaneous Notes Formattin g of this note is different from the original. [facility] Speech-Language Pathology Progress Note 10/20/2023 Patient Name: Luis Rider Date of : 11/09/2006 Age: 5 1945 MR#: [id number] Session Type: individual; vocal cord dysfunction Length [...] expand use into movement. Leeanna Almazan M.A., CCC-SYNOPTIC METEOROLOGIST Speech-Language Pathologist [phone] documented in this encounter [facility] 10-20-2023 Progress note Formatting of t his note is different from the original. [facility] Speech-Language Pathology Progress Note 10/20/2023 Patient Name: Luis Rider Date of : 11/09/2006 Age: 5 1945 MR#: [id number] Session Type: individual; vocal cord dysfunction Length [...] expand use into movement. Leeanna Almazan M.A., CCC-SYNOPTIC METEOROLOGIST Speech-Language Pathologist [phone] Electronically signed by Leeanna Almazan, [facility]-SYNOPTIC METEOROLOGIST at 10/20/2023 4:40 PM EST [facility] 10-05-2023 Consult note Formatting of th is note might be different from the original. [facility] Speech-Language Pathology Voice Evaluation for Vocal Cord Dysfunction Test Date: 10/05/2023 Patient Name: Luis Rider Date of : 1945 Age: 78 y.o. MR#: [id number] Referring Physician: Dereck Wilson Length of Session: [...] . When events occur, he attempts rest. uLis Rider states that these activities are beneficial in reducing symptoms. Use of an albuterol inhaler has demonstrated little to no appreciable change in symptoms. Episodes typically last up to an hour minutes. Medical history is significant for allergies, asthma, high blood pressure, sleep apnea. 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 Other activities include [...] you for the referral. Leeanna Almazan M.A., [facility]-SYNOPTIC METEOROLOGIST Speech-Language Pathologist CC: Referring Physician(s) [facility] Work Phone: 10-05-2023 Miscellaneous Notes Formattin g of this note might be different from the original. [facility] Speech-Language Pathology Voice Evaluation for Vocal Cord Dysfunction Test Date: 10/05/2023 Patient Name: Luis Rider Date of : 1945 Age: 78 y.o. MR#: [id number] Referring Physician: Dereck Wilson Length of Session: [...] pressure, sleep apnea. 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 Other activities include [...] you for the referral. Leeanna Almazan M.A., [facility]-SYNOPTIC METEOROLOGIST Speech-Language Pathologist CC: Referring Physician(s) Electronically signed by Leeanna Almazan, [facility]-SYNOPTIC METEOROLOGIST at 10/05/2023 2:12 PM EST documented in this encounter [facility] 04-13-2022 Note HNO ID: [id number] Author: RT Estela(R) Service: ? Author Type: Structural Draftsman Type: Progress Notes Filed: 04/13/2022 12:30 PM [...] RT Estela(R) April 13, 2022 12:18 PM [facility] 04-13-2022 Note HNO ID: [id number] Author: Fran Loja APRN.GEOGRAPHIC INFORMATION SYSTEM ANALYST Service: ? Author Type: Nurse Practitioner Type: [...] MG TABLET Agrees to plan Fran Loja APRN.GEOGRAPHIC INFORMATION SYSTEM ANALYST [facility] 04-13-2022 History of Presen t illness Narrative [...] Fran Loja APRN.CNP documented in this encounter [facility] documented in this encounter [facility]* Diagnosis Vocal cord dysfunction Other diseases of vocal cords [facility] Diagnosis Vocal cord dysfunction- Primary Other diseases of vocal cords documented in this encounter [facility] note* Diagnosis Vocal cord dysfunction- Primary Other diseases of vocal cords documented in this encounter [facility] for referral (narrative)* Diagnostic Procedure Only (Urgent) - Closed Specialty Diagnoses / Procedures Referred By Willy ochoa Referred To Contact XR IMAGING Diagnoses Acute right ankle pain Procedures XR ANKLE GENERAL 3V AP/LAT/OBL RIGHT RADEX ANKLE COMPLETE MINIMUM 3 VIEWS Fran Loja APRN.CNP [address] [place] [address] Xr Imaging Referral ID Status Reason Start Date Expiration Date V isits Requested Visits Authorized [id number] Closed Auto-Generate d Referral 04/13/2022 05/13/2023 1 1 [facility] Summary Purpose Family History No Family History [...] or prosecute any alcohol or drug abuse patient.[facility] Reason for Visit (unrecogniz ed section and content) Specialty Diagnoses / Procedures Referred By Willy t Referred To Contact Speech Pathology / Speech Therapy Diagnoses R. CHON/EPIC Procedures VOCAL CORD DYSFUNCTION Dereck Wilson MD [address] [place] [address] Leeanna Almazan, [facility]-SYNOPTIC METEOROLOGIST [address] [place] [address] Referral ID Status Reason Start Date Expiration Date Visits Re quested Visits Authorized [id number] Closed 09/22/2023 11/21/2023 1 1 Referral ID Status Reason Start Date Expiration Date V isits Requested Visits Authorized [id number] Authorized 09/22/2023 11/21/2023 30 30 Care Teams (unrecognized sec tion and content) Yarn Bleaching Machine Operator Relationship Specialty Start Date End Date Jermain Stoddard MD [address] [facility] [address] [place], [place] [phone] PCP - General Family Medicine 10/05/23 Yarn Bleaching Machine Operator Relationship Specialty Start Date End Date Jermain Stoddard MD [address] [facility] [address] [place], [place] [phone] PCP - General Family Medicine 10/05/23 (unrecognized sect ion and content) No Status Records FoundNo Status Records FoundNo Status Records Found INFORMATION SOURCE (unrecogn ized section and content) DATE CREATED AUTHOR AUTHOR'S ORGANIZ ATION 09/19/2022 [facility] [employer] ([place]) DATE CREATED AUTHOR AUTHOR'S ORGANIZ ATION 11/04/2023 [facility] FOR RECORDS PERTAINING TO PATIENTS WHO ARE [...] BE BASED ON THE PRIMARY CLINICAL RECORDS. [employer] [facility]. provides no warranty or guarantee of the accuracy or completeness of information in this document.
[2024-01-05 22:49] VITALS: BP 159/104; PULSE 83; RESP 23; O2SAT 99
[2024-01-05 22:50] VITALS: O2SAT 99
--- NOTE | 2024-01-05 23:05 | EDS_ITS ---
HPI History of Present Illness Chief Complaint: Shortness of Breath Narrative Narrative: 78-year-old male with history of dementia and is a very poor informant presenting with dyspnea. He is unable to recall all of the events that happened. When I ask him questions he stares at me and breathes heavily and is hard to keep directing him. He states he thinks he went to sleep without his CPAP and then woke up short of breath. He recalls getting up and walking outside and feeling short of breath. His is also a very poor informant states this has been ongoing for a very long time. He is also medication from his bun machine operator that she states is a special medication . She cannot recall what it is. They did not bring the prescription list. Patient states that his lungs feel like they are burning. states that she made spaghetti for dinner and she ate but then went to lay down I does not know if he ate dinner or not. No reported fevers at home but the states that he has been coughing for 2 weeks. He is actually starting to improve. She states that this variety of symptoms with burning lungs and dyspnea and confusion are all nothing new to him. He had multiple episodes of this over the last year. There is no specific diagnosis for it. Patient is on Eliquis secondary to history of PE. Has not missed any doses. Patient does not have any chest pressure or pleuritic chest pain and only states his chest is burning. Patient continually states are you mad at me and NH causing a problem . He directs his questions at both me and his . He seems to be confused. I directly asked his about the confusion she again states is chronic and intermittent. He is on a medication at home or early dementia but she does not know the name of this medication. No head trauma. [facility] Medical History Acute deep vein thrombosis of left lower extremity Anxiety Asthma Bilateral pulmonary embolism (2013) Chronic diastolic heart failure CPAP (continuous positive airway pressure) dependence Dementia Depression Dilated aortic root DRESS syndrome Essential (primary) hypertension Former smoker H/O transfusion HLD (hyperlipidemia) Hypothyroidism Left thyroid nodule Migraines Nephrolithiasis Nonobstructive atherosclerosis of coronary artery Obesity (BMI 30-39.9) Obstructive sleep apnea Primary hyperparathyroidism Pulmonary embolism Renal calculus, bilateral Secondary hyperparathyroidism Sleep apnea Syncope Home Medications apixaban 5 mg tablet (Eliquis) 5 mg PO BID 10/03/18 [History Last Taken 12/03/22] losartan 100 mg tablet 100 mg PO DAILY #90 tabs 10/17/19 [Rx Last Taken 12/07/22] spironolactone 100 mg tablet 100 mg PO DAILY 07/15/21 [History Last Taken Unknown] montelukast 10 mg tablet 10 mg PO DAILY 08/07/22 [History Last Taken Unknown] vortioxetine 20 mg tablet (Trintellix) 20 mg PO DAILY 12/08/22 [History Last Taken Unknown] potassium citrate 10 mEq (1,080 mg) tablet,extended release 10 meq PO TID #90 tabs 08/31/23 [Rx Last Taken Unknown] alprazolam 1 mg tablet 1 mg PO TID PRN anxiety 01/06/24 [History Last Taken Unknown] levothyroxine 200 mcg tablet 200 mcg PO DAILY thyroid 01/06/24 [History Last Taken Unknown] tamsulosin 0.4 mg capsule 0.4 mg PO DAILY urination 01/06/24 [History Last Taken Unknown] dexamethasone 2 mg tablet 6 mg (3 x 2 mg) PO DAILY 8 days #24 tabs 01/07/24 [Rx Last Taken Unknown] Allergy/AdvReac Type Severity Reaction Status Date / Time Iodinated Contrast Media Allergy Hives Verified 01/05/24 22:22 [Iodinated Contrast Media - IV Dye] acetaminophen [From Percocet] AdvReac Swelling Verified 01/05/24 22:22 oxycodone HCl [From Percocet] AdvReac Swelling Verified 01/05/24 22:22 Family History Father Cancer Mother Cancer Hypertension Arthritis Breast cancer Diabetes Aunt Diabetes Uncle Diabetes Sister Cancer Surgical History History of bilateral knee replacement History of hydrocele History of left heart catheterization (04/14/19) History of partial thyroidectomy History of shoulder surgery Hx of cataract extraction Hx of hernia repair Hx of sinus surgery hx saliva gland removal hx uvula removal hx wrist surgery Social History household members: spouse housing: house Smoking Status: Former smoker alcohol intake: never substance use type: does not use caffeine: Yes Type: coffee what type of physical activity do you participate in: none seatbelt use: always do you feel safe at home: Yes ROS ROS ED Eyes Eyes: Denies blurry vision or change in vision ENT ENT ED: Denies rhinorrhea or sore throat Cardiovascular Cardiovascular: Denies palpitations Respiratory/Chest Respiratory/Chest: Reports dyspnea and dyspnea on exertion Gastrointestinal Gastrointestinal: Denies abdominal pain or constipation Genitourinary Genitourinary ED: Denies dysuria Musculoskeletal Musculoskeletal: Denies arthralgias or back pain Integumentary Denies abscess Neurologic Neurologic: Denies headache(s) or paresthesias Psychiatric Psychiatric: Reports anxiety; Denies depression EXAM Physical Exam Const Vital Signs: 01/05/24 22:20 01/05/24 22:49 01/05/24 22:50 Temperature 97.7 F L Temperature Source Temporal Pulse Rate 87 83 Respiratory Rate 26 H 23 H Respiratory Effort Short of Breath Respiratory Pattern Tachypnea Blood Pressure 196/98 H 159/104 H Blood Pressure Mean 130 122 Pulse Ox 99 99 Oxygen Delivery Method Room Air Room Air Room Air 01/05/24 23:34 01/06/24 00:20 01/06/24 00:37 Temperature 98.0 F Temperature Source Pulse Rate 95 82 Respiratory Rate 25 H 20 H Respiratory Effort Respiratory Pattern Blood Pressure 174/95 H 168/82 H Blood Pressure Mean 121 110 Pulse Ox 99 98 96 Oxygen Delivery Method Room Air Positive well nourished General Appearance ED: Negative for pallor HEENT Reports moist mucous membranes atraumatic Eyes PERRL and EOMs intact bilaterally Neck no lymphadenopathy Resp normal respiratory effort Auscultation: rales right base Cardio regular rate and regular rhythm Neuro oriented x3, CN's II-XII intact bilaterally and no sensory deficits noted Sensorium / Orientation: alert Motor Exam: general weakness Psych Psych Narrative: Slightly confused Skin no wounds General Skin Exam: Negative for jaundice or pallor MDM MDM MDM Narrative Medical decision making narrative: Patient went to sleep without his CPAP mask and woke up dyspneic. He appears to be confused but he has normal vital signs at this point. Initially a little tachypneic but no tachycardia. He is now 16 respiration rate in the room heart rate is in the 80s. Blood pressure is normalized. Differential includes ACS, CHF, pneumonia, COVID, influenza, RSV, dehydration, anemia, electrolyte abnormality, anxiety, dementia. Considered PE however patient is on Eliquis. CBC will be obtained to assess white blood cell count, hemoglobin, platelets. BMP to assess renal function, electrolytes, glucose. High-sensitivity troponin and EKG to assess for ischemia/dysrhythmia. Chest x-ray to rule out pneumonia or CHF. COVID, influenza, RSV will be obtained. Since patient is confused I will obtain urinalysis. Urinalysis is negative. White blood cell count 4.3. Patient lymphopenic. Renal function and electrolytes unremarkable. High- sensitivity troponin is 6. EKG normal sinus rhythm with a ventricular rate of 87 bpm without sign of ischemic change. Chest x-ray on my interpretation shows no acute process. At 12:30 AM the patient's stated she asked nursing to come evaluate him as he is more confused and he is repeating himself. I went into the room to discuss this with her and he did not have any focal neurologic deficits. He was repeating himself but again the patient has been confused for more than a year. She states that he is more confused now and to the best of her ability he believes that the last time he was completely normal and alert and oriented x 3 was about 9 PM when she went to bed. She also admits that he has had more confusion over the last several months secondary to dementia and has been on some medication for this but has not followed up and they apparently have not discussed the fact that it is not really working for him. Patient will be sent for CT. I discussed with the patient that he is not hypoxic, tachypneic, tachycardic. I do not have a medical reason that he needs to be admitted other than he is confused. The patient's at this point became angry because she wants to stay in the hospital. I explained to her if he she does not need to be medically admitted he could still be admitted and put in correction and treated for COVID-19 if she cannot manage him at home due to the confusion and his weakness. If his CT brain is normal and we ambulate him and he is stable and not hypoxic we will attempt to get him home but if there is any concern for his weakness and debility we will admit him for placement. Impression: 1. COVID-19 2. Acute delirium Lab Data Labs: Laboratory Results - last 24 hr 01/05/24 01/05/24 23:30 23:35 WBC 4.3 L RBC 5.04 Hgb 14.5 Hct 44.5 MCV 88.3 MCH 28.8 MCHC 32.6 RDW Std Deviation 44.6 H RDW Coeff of Priti 13.8 Plt Count 295 MPV 9.0 Immature Gran % (Auto) 0.700 Neut % (Auto) 42.7 L Lymph % (Auto) 42.8 H Spink % (Auto) 12.6 H Eos % (Auto) 0.7 Baso % (Auto) 0.5 Absolute Neuts (auto) 1.8 L Absolute Lymphs (auto) 1.83 Nucleated RBC % 0 Sodium 144 Potassium 3.5 Chloride 113 H Carbon Dioxide 23.0 Anion Gap 8 BUN 12 Creatinine 1.27 Estim Creat Clear Calc 68.47 Est GFR (MDRD) Af Amer 70 Est GFR (MDRD) Non-Af 58 L BUN/Creatinine Ratio 9.4 L Glucose 105 Calcium 10.3 H Troponin I High Sens 6 B-Natriuretic Peptide 53.0 Urine Color Yellow Urine Clarity Clear Urine pH 6.5 Ur Specific [place] 1.020 Urine Protein 15 H Urine Glucose (UA) Normal Urine Ketones Negative Urine Occult Blood 10 H Urine Nitrite Negative Urine Bilirubin Negative Urine Urobilinogen 1 H Ur Leukocyte Esterase 25 H Urine RBC 0 SEEN Urine WBC 0 SEEN Ur Squamous Epith Cells 5-10 SEEN Urine Bacteria 1+ Urine Mucus 0 SEEN Radiography Diagnostic Testing: Clinical Impression(s) from Imaging Studies Chest X-Ray 01/05/24 23:05 IMPRESSION: Stable chest. Elevated left hemidiaphragm and minimal chronic left basilar changes. Tortuous but stable aortic contour. Electronically Signed: Yoana Velazquez MD at 0:18 EST , Brain CT 01/06/24 00:26 IMPRESSION: 1. No acute intracranial abnormality. 2. Mild bilateral periventricular and subcortical white matter chronic small vessel disease with age appropriate cerebral atrophy. 3. Chronic paranasal sinus disease Electronically Signed: Royce Coronel MD at 1:14 EST , Discharge Plan Disposition Disposition: Acute Care Hospital [facility] Discharge Date/Time: 01/06/24 02:43
--- NOTE | 2024-01-05 23:05 | RAD_ITS ---
EXAM: XR CHEST, 1 VIEW CLINICAL INDICATION: chest pain TECHNIQUE: Frontal view of the chest. COMPARISON: August 13, 2023. FINDINGS: LUNGS AND PLEURAL SPACES: TECHNIQUE: 2 views to include the lung apices and bases. Moderately elevated left hemidiaphragm and a thin linear line atelectasis or scarring at the left lung base both appear similar to prior exam. No convincing infiltrates or effusions. No pneumothorax. HEART: Unremarkable. Cardiac silhouette not enlarged. MEDIASTINUM: Central airways and mediastinal contour are unremarkable with the exception of tortuous descending thoracic aorta, stable from oldest exam provided from November 24, 2022. BONES/JOINTS: There are 3 metallic densities projecting just inferior to the left mid thorax on this exam, also stable. Similar postoperative change of the right humeral head, is not fully included. No acute fracture. SOFT TISSUES: Unremarkable. RAD/Chest 1 View (Portable) IMPRESSION: Stable chest. Elevated left hemidiaphragm and minimal chronic left basilar changes. Tortuous but stable aortic contour. Electronically Signed: Yoana Velazquez MD at 0:18 EST ,
--- NOTE | 2024-01-05 23:05 | EKG12_ITS ---
Test Reason : DYSRHYTHMIA Blood Pressure : / mmHG Vent. Rate : 087 BPM Atrial Rate : 087 BPM P-R Int : 194 ms QRS Dur : 096 ms QT Int : 386 ms P-R-T Axes : 042 022 055 degrees QTc Int : 464 ms Normal sinus rhythm Baseline artifact Probably Normal Confirmed by Austin Rousseau ([id number]), greeting card editor MARY PINO ([id number]) on 01/06/2024 8:07:37 AM Referred By: ANNMARIE Confirmed By:Austin Rousseau
[2024-01-05 23:34] VITALS: O2SAT 99
[2024-01-05 23:38] LABS: Mucous, Urine 0 SEEN /hpf (<or=2+); Red Blood Cells-Urine 0 SEEN /hpf (0-5); White Blood Cells 0 SEEN /hpf (0-5)
[2024-01-05 23:41] LABS: Absolute Lymphocyte Count 1.83 X10^3/uL (0.83-4.51); Absolute Neutrophil Count 1.8 X10^3/uL (2.0-7.7); Basophil# 0.02 X10^3/uL; Basophil% 0.5 % (0-1); Eosinophil# 0.03 X10^3/uL; Eosinophils% 0.7 % (0-5); Hematocrit 44.5 % (40-54); Hemoglobin 14.5 g/dL (13.0-16.5); Lymphocyte # 1.83 X10^3/ul (0.83-4.51); Lymphocyte % 42.8 % (19-41); Mean Corp Hgb Conc 32.6 g/dL (32-36); Mean Corpuscular Hgb 28.8 pg (27.0-32.0); Mean Corpuscular Volume 88.3 fL (80-94); Monocyte# 0.54 X10^3/uL; Monocyte% 12.6 % (0-10); NRBC Flagged by Analyzer 0 % (0-5); Neutrophil # 1.83 X10^3/uL (2.7-7.7); Neutrophil % 42.7 % (47-70); Platelet Count 295 K/mm3 (150-450); RBC Distribution Width CV 13.8 % (11.6-14.6); RBC Distribution Width SD 44.6 fl (35.1-43.9); Red Blood Count 5.04 M/mm3 (4.6-6.2); White Blood Count 4.3 K/mm3 (4.4-11.0)
[2024-01-05 23:42] LABS: Color, Urine Yellow (Yellow); Glucose, Dipstick Normal (Normal); Ketone-Dipstick Negative (Negative); Leukocyte Esterase-Dipstick 25 /ul (Negative); Nitrite-Dipstick Negative (Negative); Occult Blood-Urine 10 /ul (Negative); Protein-Dipstick 15 mg/dl (Negative); Urine Bilirubin Dipstick Negative (Negative); Urine Clarity Clear (Clear); Urine Urobilinogen 1 mg/dl (Normal); Urine pH 6.5 (5.0 - 8.0)
[2024-01-05 23:52] LABS: Bacteria 1+ /hpf (None Seen); Squamous Epithelial Cells - UA 5-10 SEEN /hpf (0-5)
[2024-01-05 23:59] LABS: Anion Gap 8 (5-15); BUN 12 mg/dL (7-18); BUN/Creat Ratio 9.4 RATIO (10-20); Calcium,Total 10.3 mg/dL (8.5-10.1); Chloride 113 mmol/L (98-107); Creatinine, Serum 1.27 mg/dL (0.70-1.30); EST Glomerular Filtration Rate 58 mL/min (>60); Est Glom Filt Rate - Afr Amer 70 mL/min (>60); Estimated Creatinine Clearance 68.47 ml/min; Glucose 105 mg/dL (74-106); Potassium 3.5 mmol/L (3.5-5.1); Sodium Level 144 mmol/L (136-145); Troponin-I HS 6 pg/mL (3.0-78.0)
[2024-01-06] VITALS (10 sets, daily range): BP systolic 150–174; BP diastolic 87–110; PULSE 70–101; RESP 16–28; TEMP 36.6–36.9; O2SAT 93–98; BMI 33.5
--- NOTE | 2024-01-06 00:26 | CT_ITS ---
STUDY: CT BRAIN WITHOUT CONTRAST REASON FOR EXAM: Male, 78 years old. Altered mental status RADIATION DOSAGE (If Supplied By Facility): CTDIvol = ( 44.99 ) mGy, DLP = ( 897.35 ) mGycm TECHNIQUE: Transaxial CT imaging of the brain was performed without administration of intravenous contrast material. Individualized dose optimization techniques were used for this CT. COMPARISON: No relevant priors. FINDINGS: Normal soft tissue structures. Normal calvarium. There is mild cerebral atrophy with widening of the extra-axial spaces and ventricular dilatation. There is mild bilateral periventricular and subcortical white matter hypoattenuation which is symmetric in distribution. Normal basal ganglia and thalami. Normal brainstem. Normal cerebellum. There is no intracranial hemorrhage. There are no findings of an acute ischemic infarction. There is mild mucoperiosteal thickening of the paranasal sinuses. CT/Brain/Head without Contrast IMPRESSION: 1. No acute intracranial abnormality. 2. Mild bilateral periventricular and subcortical white matter chronic small vessel disease with age appropriate cerebral atrophy. 3. Chronic paranasal sinus disease Electronically Signed: Royce Coronel MD at 1:14 EST ,
--- NOTE | 2024-01-06 00:52 | PCM.HP.STD ---
[facility] - General General Date of Admission: 01/06/24 Date of Service: 01/06/24 Chief Complaint: SOB, Cough and Confusion. HPI Narrative SANDEEP RIDER, is a 78 M with a past medical history of essential hypertension, hyperlipidemia, hypothyroidism; with history of Left thyroid nodule and subsequent partial thyroidectomy, obesity; with BMI of 33.9 this admission, history of bilateral PE (2013); on Eliquis, history of chronic diastolic CHF; with preserved LVEF, history of DRESS syndrome, history of syncope, history of primary hyperparathyroidism, history of allergy to IV contrast dye, chronic depression; on Trintellix, chronic severe generalized anxiety; on Xanax TID, chronic dementia; with intermittent confusion and OA; s/p bilateral TKR's who presents to [facility] ER complaining of SOB, cough and confusion. Mr. Rider is not a fully-reliable historian at this time so information was gathered from chart, medical staff and computer. According to the records his symptoms began approximately 2 weeks prior to admission with an increasing frequent productive cough with copious yellowish sputum and a viral-type URI along with a burning sensation in his lungs accompanied by an acute worsening of his chronic confusion. There is no report of related fevers, chills, nausea, vomiting, diarrhea, constipation or chest pain and but he is extremely anxious and cannot relax or sit still even with supplemental oxygen on because of his persistent SOB. In the ER his assay returned positive for COVID-19 complicated by clinical evidence acute bacterial bronchitis; with persistent hyperventilation and acute delirium in the setting of chronic dementia and he was then admitted to the general medical floor for supportive care for a stay that is expected to be greater than 48 hours. [facility] Medical History (Updated 01/06/24 @ 05:[address] Eloy Packer, ) Acute deep vein thrombosis of left lower extremity Anxiety Asthma Bilateral pulmonary embolism (2013) Chronic diastolic heart failure CPAP (continuous positive airway pressure) dependence Dementia Depression Dilated aortic root DRESS syndrome Essential (primary) hypertension Former smoker H/O transfusion HLD (hyperlipidemia) Hypothyroidism Left thyroid nodule Migraines Nephrolithiasis Nonobstructive atherosclerosis of coronary artery Obesity (BMI 30-39.9) Obstructive sleep apnea Primary hyperparathyroidism Pulmonary embolism Renal calculus, bilateral Secondary hyperparathyroidism Sleep apnea Syncope Home Medications apixaban 5 mg tablet (Eliquis) 5 mg PO BID 11/12/18 [History Last Taken 12/03/22] losartan 100 mg tablet 100 mg PO DAILY #90 tabs 10/17/19 [Rx Last Taken 12/07/22] spironolactone 100 mg tablet 100 mg PO DAILY 07/15/21 [History Last Taken Unknown] levothyroxine 175 mcg tablet 175 mcg PO DAILY . 08/07/22 [History Last Taken 12/07/22] montelukast 10 mg tablet 10 mg PO DAILY 08/07/22 [History Last Taken Unknown] spironolactone 25 mg tablet (Aldactone) 25 mg PO DAILY 12/08/22 [History Last Taken Unknown] vortioxetine 20 mg tablet (Trintellix) 20 mg PO DAILY 12/08/22 [History Last Taken Unknown] potassium citrate 10 mEq (1,080 mg) tablet,extended release 10 meq PO TID #90 tabs 08/31/23 [Rx Last Taken Unknown] hydrocodone-acetaminophen 5-325mg 5mg-325mg 1 tab PO Q6H PRN PRN Pain 3 days #12 TABLETS 11/30/23 [Rx Last Taken Unknown] prednisone 20 mg tablet 40 mg (2 x 20 mg) PO DAILY #12 TABLETS 11/30/23 [Rx Last Taken Unknown] alprazolam 1 mg tablet 1 mg PO TID PRN anxiety 01/06/24 [History Last Taken Unknown] levothyroxine 200 mcg tablet 200 mcg PO DAILY thyroid 01/06/24 [History Last Taken Unknown] tamsulosin 0.4 mg capsule 0.4 mg PO DAILY urination 01/06/24 [History Last Taken Unknown] Allergy/AdvReac Type Severity Reaction Status Date / Time Iodinated Contrast Media Allergy Hives Verified 01/05/24 22:22 [Iodinated Contrast Media - IV Dye] acetaminophen [From Percocet] AdvReac Swelling Verified 01/05/24 22:22 oxycodone HCl [From Percocet] AdvReac Swelling Verified 01/05/24 22:22 Family History Father Cancer Mother Cancer Hypertension Arthritis Breast cancer Diabetes Aunt Diabetes Uncle Diabetes Sister Cancer Surgical History History of bilateral knee replacement History of hydrocele History of left heart catheterization (04/14/19) History of partial thyroidectomy History of shoulder surgery Hx of cataract extraction Hx of hernia repair Hx of sinus surgery hx saliva gland removal hx uvula removal hx wrist surgery Social History household members: spouse housing: house Smoking Status: Former smoker alcohol intake: never substance use type: does not use caffeine: Yes Type: coffee what type of physical activity do you participate in: none seatbelt use: always do you feel safe at home: Yes ROS ROS Narrative Review of systems: Constitutional: Patient denies fevers or chills. Eyes: Patient denies blurry vision or change in vision ENT: Patient denies rhinorrhea or sore throat CV: Patient denies chest pain or palpitations Respiratory: Reports dyspnea and dyspnea on exertion with frequent non-productive cough. Gastrointestinal: Patient denies abdominal pain, nausea, vomiting, diarrhea or constipation Genitourinary: Patient denies dysuria or hematuria MSK: Patient denies arthralgias or back pain Skin: Patient denies rash or abscess. Neurologic: Patient admits to confusion but he denies headache or paresthesias Psychiatric: Patient reports anxiety but he denies depression Hematology: Patient denies easy bleeding or easy bruisability Endocrine: Patient denies polydipsia, polyuria or polyphagia. Allergy: Patient denies lip swelling, tongue swelling or urticaria. 14 point ROS otherwise negative except for positives noted above in HPI. Vital Signs Vital Signs Vital Signs: 01/05/24 22:20 01/05/24 22:49 01/05/24 22:50 Temperature 97.7 F L Temperature Source Temporal Pulse Rate 87 83 Respiratory Rate 26 H 23 H Respiratory Effort Short of Breath Respiratory Pattern Tachypnea Blood Pressure 196/98 H 159/104 H Blood Pressure Mean 130 122 Pulse Ox 99 99 Oxygen Delivery Method Room Air Room Air Room Air 01/05/24 23:34 01/06/24 00:20 01/06/24 00:37 Temperature 98.0 F Temperature Source Pulse Rate 95 82 Respiratory Rate 25 H 20 H Respiratory Effort Respiratory Pattern Blood Pressure 174/95 H 168/82 H Blood Pressure Mean 121 110 Pulse Ox 99 98 96 Oxygen Delivery Method Room Air Weight Weight: 278 lb 10.629 oz Body Mass Index (BMI) 33.9 Physical Exam Const alert, no apparent distress, average body habitus, healthy appearing and well nourished General Appearance: cooperative Orientation / Consciousness: confused HEENT normocephalic, head/scalp atraumatic, hearing grossly normal bilaterally and moist oral mucous membranes Eyes PERRL and EOMs intact bilaterally Neck no lymphadenopathy and supple Resp Resp Narrative: Mildly diminished breath sounds throughout coarse rhonci and persistent hyperventilation. Auscultation: rhonchi Cardio regular rate and regular rhythm GI normal to inspection, nondistended, normoactive bowel sounds, soft to palpation, non-tender and non-distended Extremity normal to inspection, full ROM and no clubbing, cyanosis or edema Skin Skin Narrative: Patient has no evidence of rash at this time. Neuro CN's II-XII intact bilaterally, moves all extremities and no focal motor deficits Sensorium / Orientation: awake, alert, oriented to person and oriented to place Speech: speech normal Motor Exam: strength 5/5 throughout Psych Mood & Affect: anxious Results Medical Records Data Attestation: I reviewed the patient's medical records Lab / Micro Data Attestation: I reviewed the patient's lab results. 01/05/24 23:35 01/05/24 23:35 Labs: Laboratory Results - last 24 hr 01/05/24 23:30: Urine Color Yellow, Urine Clarity Clear, Urine pH 6.5, Ur Specific [place] 1.020, Urine Protein 15 H, Urine Glucose (UA) Normal, Urine Ketones Negative, Urine Occult Blood 10 H, Urine Nitrite Negative, Urine Bilirubin Negative, Urine Urobilinogen 1 H, Ur Leukocyte Esterase 25 H, Urine RBC 0 SEEN, Urine WBC 0 SEEN, Ur Squamous Epith Cells 5-10 SEEN, Urine Bacteria 1+, Urine Mucus 0 SEEN 01/05/24 23:35: WBC 4.3 L, RBC 5.04, Hgb 14.5, Hct 44.5, MCV 88.3, MCH 28.8, MCHC 32.6, RDW Std Deviation 44.6 H, RDW Coeff of Priti 13.8, Plt Count 295, MPV 9.0, Immature Gran % (Auto) 0.700, Neut % (Auto) 42.7 L, Lymph % (Auto) 42.8 H, [place] % (Auto) 12.6 H, Eos % (Auto) 0.7, Baso % (Auto) 0.5, Absolute Neuts (auto) 1.8 L, Absolute Lymphs (auto) 1.83, Nucleated RBC % 0, Sodium 144, Potassium 3.5, Chloride 113 H, Carbon Dioxide 23.0, Anion Gap 8, BUN 12, Creatinine 1.27, Estim Creat Clear Calc 68.47, Est GFR (MDRD) Af Amer 70, Est GFR (MDRD) Non-Af 58 L, BUN/Creatinine Ratio 9.4 L, Glucose 105, Calcium 10.3 H, Troponin I High Sens 6, B-Natriuretic Peptide 53.0 Micro: Microbiology 01/05/24 23:30 Mucosa - Nose SARS-CoV-2, Influenza & RSV (PCR) - Preliminary SARS-CoV-2 (COVID 19 PCR) Imaging Radiology Impression Chest X-Ray 01/05/24 23:05 IMPRESSION: Stable chest. Elevated left hemidiaphragm and minimal chronic left basilar changes. Tortuous but stable aortic contour. Electronically Signed: Yoana Velazquez MD at 0:18 EST Reading Location ID and State: [facility] / [place] Tel , Service support , [facility] Imaging Services [address] [place] [id number] Brain/Head without Contrast MR#: [id number] Acct: [id number] Name: SANDEEP RIDER Rep #: [id number] : 1945 M 78 From: Royce Coronel MD PCP: Dr. Jayden Butt MD Status: [facility] ER Study: Brain/Head without Contrast Date of Exam: 01/06/24 Exam# [id number] Ordering Dr: Ariel Bardales DO STUDY: CT BRAIN WITHOUT CONTRAST REASON FOR EXAM: Male, 78 years old. Altered mental status RADIATION DOSAGE (If Supplied By Facility): CTDIvol = ( 44.99 ) mGy, DLP = ( 897.35 ) mGycm TECHNIQUE: Transaxial CT imaging of the brain was performed without administration of intravenous contrast material. Individualized dose optimization techniques were used for this CT. COMPARISON: No relevant priors. FINDINGS: Normal soft tissue structures. Normal calvarium. There is mild cerebral atrophy with widening of the extra-axial spaces and ventricular dilatation. There is mild bilateral periventricular and subcortical white matter hypoattenuation which is symmetric in distribution. Normal basal ganglia and thalami. Normal brainstem. Normal cerebellum. There is no intracranial hemorrhage. There are no findings of an acute ischemic infarction. There is mild mucoperiosteal thickening of the paranasal sinuses. CT/Brain/Head without Contrast IMPRESSION: 1. No acute intracranial abnormality. 2. Mild bilateral periventricular and subcortical white matter chronic small vessel disease with age appropriate cerebral atrophy. 3. Chronic paranasal sinus disease Electronically Signed: Royce Coronel MD at 1:14 EST , CC: Dr. Ariel Bardales DO; Dr. Jayden Butt MD ~ Extension Clerk: Signed Assessment & Plan Assessment/Plan (1) COVID-19: (2) Acute bronchitis due to infection: (3) Acute delirium: (4) Chronic dementia: (5) Generalized weakness: (6) Ambulatory dysfunction: PLAN: Plan 1. COVID-19 positive with frequent non-productive cough due to suspected acute bacterial bronchitis and chronic paranasal sinusitis noted on head CT - Admit to general medical floor under contact and droplet precautions. Give IV Rocephin and oral Azithromycin in addition to oral Decadron to prevent further worsening of his respiratory status after ~2 weeks of struggling with this illness with worsening cough productive of copious yellowish sputum. Give ibuprofen prn for [id number] (level 1-5/10) pain or fever. Continue hydrocodone/APAP for severe (level 6-10/10) pain. 2. Acute delirium in the setting of chronic dementia due to #1 causing generalized weakness with ambulatory dysfunction that is causing his beloved to not be able to care for him at home in his current condition - Continue supportive care and monitor for improvement. Check TSH, B12 and Folate levels to evaluate for potentially reversible causes of confusion. Finally, his is interested in potential rehabilitation on TCU once his infections outlined above have been neutralized so we will consult PT/OT and Case Management to see this patient on-rounds in the AM with help appreciated in advance. 3. Essential hypertension - Continue home regimen as previous plus give IV hydralazine prn for systolic blood pressure > 160 mm Hg. 4. Hyperlipidemia - Resume statin. 5. Hypothyroidism; with history of Left thyroid nodule and subsequent partial thyroidectomy - Continue Synthroid and check TSH in light of #2. 6. Obesity; with BMI of 33.9 this admission - Weight loss will be recommended. 7. History of bilateral PE (2013); on Eliquis - Continue Eliquis as previous. 8. History of chronic diastolic CHF; with preserved LVEF - Stable with no evidence of flare. 9. History of DRESS syndrome - Noted. 10. History of syncope - Noted. 11. History of primary hyperparathyroidism - Noted. 12. History of allergy to IV contrast dye with hives - Avoid IV contrast if possible. 13. Chronic depression; on Trintellix with severe generalized anxiety on scheduled Xanax TID - Continue current therapy. 14. OA; s/p bilateral TKR's - Stable. 15. DVT prophylaxis - Patient is already on Elqiuis for #7 which will be continued. Total time: Approximately 55 minutes. Charges/Coding Visit Charges Inpatient E&M: 51408 Init Hosp L2
--- OUTSIDE RECORDS SUMMARY | 2024-01-06 01:20 | XMS RPT_ITS | CCD ---
Author Name Unknown Address [address] [place] [address] [place] [address] Organization [facility] Care Team Providers Care Tobacco Buyer Name Role Phone Eleazar Banks Unavailable Jermain [...] source) Acetaminophen / oxyCODONE Drug Allergy 07-06-2018 [facility] (1 source) Iodine Drug Allergy 07-06-[address] [facility] Medications Current Medications Medication Drug Class(es) [...] source) Long-term current use of anticoagulant; Translations: [care home (current) use of anticoagulants] Onset: 07-06-2018 07-06-2018 Episodic Results Test Name Value Interpretation Reference Range Facil ity Vital Signs Date Time Vital Sign Value Performing Clinician Arabella mueller 04-13-2022 11:54-0400 Body temperature 98.01 [degF] Fran Loja APRN.CNP Work Phone: [facility] 04-13-2022 11:54-0400 Diastolic blood pressure 84 mm[Hg] Fran Loja APRN.CNP Work Phone: [facility] 04-13-2022 11:54-0400 Heart rate 88 /min Fran Loja APRN.CNP Work Phone: [facility] 04-13-2022 11:54-0400 Respiratory rate 16 /min Fran Loja APRN.CNP Work Phone: [facility] 04-13-2022 11:54-0400 SaO2% (BldA) [Mass fraction] 99 % Fran Loja APRN.CNP Work Phone: [facility] 04-13-2022 11:54-0400 Systolic blood pressure 148 mm[Hg] Fran Loja APRN.SOLAR SITE ASSESSMENT SPECIALIST Work Phone: [facility] Encounters Encounter Date Encounter Type Care Provider Facility Start: 11-02-2023 End: 11-03-2023 ambulatory JERMAIN Hardik JAIMEAZEBJAYLEEN [facility] Start: 11-02-2023 End: 11-02-2023 Subsequent hospital visit by physician Dereck Wilson MD Work Phone: [facility] Procedures Date Procedure Procedure Detail Performing Clinician Start: 04-13-2022 Radex ankle complete minimum 3 views Fran King KAREN.SOLAR SITE ASSESSMENT SPECIALIST Work Phone: Plan of Treatment Date Care Activity Detail Author Start: 11-02-2023 End: 11-02-2023 Patient encounter procedure 11/02/2023 1:15 PM EST Appointment [facility] [address] [place] [address] Leeanna Almazan, [facility]-YARDING AND FOLDING MACHINE OPERATOR [address] [address] [facility] Start: 10-22-2023 COVID-19 (5 - Booste r for Pfizer series) COVID-19 (5 - Booster for Pfizer series) [facility] Start: 10-20-2023 End: 10-20-2023 Patient encounter procedure 10/20/2023 4:00 PM EST Appointment [facility] [address] [place] [address] Leeanna Almazan, [facility]-YARDING AND FOLDING MACHINE OPERATOR [address] [place] [address] [facility] Start: 07-23-2023 FLU (#1) FLU (#1) [facility] Start: 11-22-2021 ADVANCE DIRECTIVE DISCUSSION ADVANCE DIRECTIVE DISCUSSION [facility] Start: 2009 PNEUMOVAX AGE 65 AND OVER WITH 5YR LOOKBACK (#1) PNEUMOVAX AGE 65 AND OVER WITH 5YR LOOKBACK (#1) [facility] Start: 1994 SHINGRIX VACCINE (1 of 2) SHINGRIX VACCINE (1 of 2) [facility] Start: 1989 DIABETES SCREEN DIABETES SCREEN [facility] Start: 1963 Urine microalbumin profile DTAP,TDAP,TD (1 - Tdap) [facility] Start: 1962 HEPATITIS C SCREENING HEPATITIS C SC ARAVIND [facility] Start: 1960 MenB (1 of 2 - MenB 2-Dose Series Bexsero) MenB (1 of 2 - MenB 2-Dose Series Bexsero) [facility] Start: 1956 Adult depression screening assessment DEPRESSION SCREENING [facility] Start: 1951 Tetanus Diphtheria a nd Pertussis Vaccines (1 - Tdap) Tetanus Diphtheria and Pertussis Vaccines (1 - Tdap) [facility] Start: 1945 MMR (1 of 1 - Standa rd series) MMR (1 of 1 - Standard series) [facility] Start: 1945 Varicella (1 of 2 - 2-dose childhood series) Varicella (1 of 2 - 2-dose childhood series) [facility] Payers Date Payer Category Payer Medicare [id number] 2022 Unknown [id number] 2004 Unknown MARK BLUE CARD PPO OOS [id number] 2004-Present [phone] [address] [place] [address] PPO [id number] 2004 Unknown MARK [employer] BS PPO [id number] 2004-Present [address] [place] [address] [id number] 2002 Medicare MEDICARE MEDICAR E A AND B [id number] 2002-Present [phone] [address] [address] [place] [address] Medicare [id number] 2002 Medicare MEDICARE MEDICAR E PART A [id number] 2002-Present [address] [place] [address] 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 non-dr barrel builder of alcohol (finding) [facility] Start: 1945 Sex Assigned At Not on file [facility] Start: 04-03-2022 End: 04-13-2022 Exposure to SARS-CoV-2 (event) Not sure [facility] Work Phone: Tobacco smoking status [facility] Tobacco smoking consumption unknown [facility] Gender identity Not on file [facility] Clinical Notes 04-13-2022 to 11-02-2023 Ancillary Progress Note - Leeanna Almazan, [facility] - 11/02/2023 1:15 PM ESTAncillary Progress Note - Leeanna Almazan, [facility]-YARDING AND FOLDING MACHINE OPERATOR - 11/02/2023 1:15 PM EST Note Date & Type Note Facility 11-02-2023 Miscellaneous Notes Formattin g of this note is different from the original. [facility] Speech-Language Pathology Progress Note 11/02/2023 Patient Name: Luis Rider Date of : 11/09/2006 Age: 5 1945 MR#: [id number] Session Type: individual; vocal cord dysfunction Length [...] with physician is recommended. Leeanna Almazan M.A., CCC-YARDING AND FOLDING MACHINE OPERATOR Speech-Language Pathologist [phone] documented in this encounter [facility] 11-02-2023 Progress note Formatting of t his note is different from the original. [facility] Speech-Language Pathology Progress Note 11/02/2023 Patient Name: Luis Rider Date of : 11/09/2006 Age: 5 1945 MR#: [id number] Session Type: individual; vocal cord dysfunction Length [...] with physician is recommended. Leeanna Almazan M.A., CCC-YARDING AND FOLDING MACHINE OPERATOR Speech-Language Pathologist [phone] Electronically signed by Leeanna Almazan, [facility]-YARDING AND FOLDING MACHINE OPERATOR at 11/02/2023 1:50 PM EST [facility] 10-20-2023 Miscellaneous Notes Formattin g of this note is different from the original. [facility] Speech-Language Pathology Progress Note 10/20/2023 Patient Name: Luis Rider Date of : 11/09/2006 Age: 5 1945 MR#: [id number] Session Type: individual; vocal cord dysfunction Length [...] expand use into movement. Leeanna Almazan M.A., CCC-YARDING AND FOLDING MACHINE OPERATOR Speech-Language Pathologist [phone] documented in this encounter [facility] 10-20-2023 Progress note Formatting of t his note is different from the original. [facility] Speech-Language Pathology Progress Note 10/20/2023 Patient Name: Luis Rider Date of : 11/09/2006 Age: 5 1945 MR#: [id number] Session Type: individual; vocal cord dysfunction Length [...] expand use into movement. Leeanna Almazan M.A., CCC-YARDING AND FOLDING MACHINE OPERATOR Speech-Language Pathologist [phone] Electronically signed by Leeanna Almazan, [facility]-YARDING AND FOLDING MACHINE OPERATOR at 10/20/2023 4:40 PM EST [facility] 10-05-2023 Consult note Formatting of th is note might be different from the original. [facility] Speech-Language Pathology Voice Evaluation for Vocal Cord Dysfunction Test Date: 10/05/2023 Patient Name: Luis Rider Date of : 1945 Age: 78 y.o. MR#: [id number] Referring Physician: Dereck Wilson Length of Session: [...] pressure, sleep apnea. 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 Other activities [...] you for the referral. Leeanna Almazan M.A., [facility]-YARDING AND FOLDING MACHINE OPERATOR Speech-Language Pathologist CC: Referring Physician(s) [facility] Work Phone: 10-05-2023 Miscellaneous Notes Formattin g of this note might be different from the original. [facility] Speech-Language Pathology Voice Evaluation for Vocal Cord Dysfunction Test Date: 10/05/2023 Patient Name: Luis Rider Date of : 1945 Age: 78 y.o. MR#: [id number] Referring Physician: Dereck Wilson Length of Session: [...] When events occur, he attempts rest. Luis Rdier states that these activities are beneficial in reducing symptoms. Use of an albuterol inhaler has demonstrated little to no appreciable change in symptoms. Episodes typically last up to an hour minutes. Medical history is significant for allergies, asthma, high blood pressure, sleep apnea. 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 Other activities [...] you for the referral. Leeanna Almazan M.A., [facility]-YARDING AND FOLDING MACHINE OPERATOR Speech-Language Pathologist CC: Referring Physician(s) Electronically signed by Leeanna Almazan, [facility]-YARDING AND FOLDING MACHINE OPERATOR at 10/05/2023 2:12 PM EST documented in this encounter [facility] 04-13-2022 Note HNO ID: [id number] Author: RT Estela(R) Service: ? Author Type: Excavating Machine Operator Type: Progress Notes Filed: 04/13/2022 12:30 PM [...] RT Estela(R) April 13, 2022 12:18 PM [facility] 04-13-2022 Note HNO ID: [id number] Author: Fran Loja APRN.SOLAR SITE ASSESSMENT SPECIALIST Service: ? Author Type: Nurse Practitioner Type: [...] MG TABLET Agrees to plan Fran Loja APRN.SOLAR SITE ASSESSMENT SPECIALIST [facility] 04-13-2022 History of Presen t illness [...] Fran Loja APRN.CNP documented in this encounter [facility] Diagnosis Vocal cord dysfunction Other diseases of vocal cords [facility] Diagnosis Vocal cord dysfunction- Primary Other diseases of vocal cords documented in this encounter [facility] note* Diagnosis Vocal cord dysfunction- Primary Other diseases of vocal cords documented in this encounter [facility] for referral (narrative)* Diagnostic Procedure Only (Urgent) - Closed Specialty Diagnoses / Procedures Referred By Willy ochoa Referred To Contact XR IMAGING Diagnoses Acute right ankle pain Procedures XR ANKLE GENERAL 3V AP/LAT/OBL RIGHT RADEX ANKLE COMPLETE MINIMUM 3 VIEWS Fran Loja APRN.CNP [address] [place] [address] Xr Imaging Referral ID Status Reason Start Date Expiration Date V isits Requested Visits Authorized [id number] Closed Auto-Generate d Referral 04/13/2022 05/13/2023 1 1 [facility] Summary Purpose Family History No Family History [...] or prosecute any alcohol or drug abuse patient.[facility] Reason for Visit (unrecogniz ed section and content) Specialty Diagnoses / Procedures Referred By Willy t Referred To Contact Speech Pathology / Speech Therapy Diagnoses R. CHON/EPIC Procedures VOCAL CORD DYSFUNCTION Dereck Wilson MD [address] [place] [address] Leeanna Almazan, [facility]-YARDING AND FOLDING MACHINE OPERATOR [address] [place] [address] Referral ID Status Reason Start Date Expiration Date Visits Re quested Visits Authorized [id number] Closed 09/22/2023 11/21/2023 1 1 Referral ID Status Reason Start Date Expiration Date V isits Requested Visits Authorized [id number] Authorized 09/22/2023 11/21/2023 30 30 Care Teams (unrecognized sec tion and content) Tobacco Buyer Relationship Specialty Start Date End Date Jermain Stoddard MD [address] [facility] [address] [place], [place] [id number] PCP - General Family Medicine 10/05/23 Tobacco Buyer Relationship Specialty Start Date End Date Jermain Stoddard MD [address] [facility] [address] [place], [place] [id number] PCP - General Family Medicine 10/05/23 (unrecognized sect ion and content) No Status Records FoundNo Status Records FoundNo Status Records Found INFORMATION SOURCE (unrecogn ized section and content) DATE CREATED AUTHOR AUTHOR'S ORGANIZ ATION 09/19/2022 [facility] ([place]) DATE CREATED AUTHOR AUTHOR'S ORGANIZ ATION 11/04/2023 [facility] FOR RECORDS PERTAINING TO PATIENTS WHO [...] BE BASED ON THE PRIMARY CLINICAL RECORDS. [employer] [facility]. provides no warranty or guarantee of the accuracy or completeness of information in this document.
--- OUTSIDE RECORDS SUMMARY | 2024-01-06 01:29 | XMS RPT_ITS | CCD ---
Author Name Unknown Address [address] [place] [address] [address] [place] [address] Organization [facility] Care Team Providers Care Cloth Boil Off Machine Operator Name Role Phone Eleazar Banks [...] source) Acetaminophen / oxyCODONE Drug Allergy 07-06-2018 [facility] (1 source) Iodine Drug Allergy 07-06-2018 [facility] Medications Current Medications Medication Drug Class(es) Dates [...] source) Long-term current use of anticoagulant; Translations: [skilled nursing (current) use of anticoagulants] Onset: 07-06-2018 07-06-2018 Episodic Results Test Name Value Interpretation Reference Range Facil ity Vital Signs Date Time Vital Sign Value Performing Clinician Arabella mueller 04-13-2022 11:54-0400 Body temperature 98.01 [degF] Fran Loja APRN.CNP Work Phone: [facility] 04-13-2022 11:54-0400 Diastolic blood pressure 84 mm[Hg] Fran Loja APRN.CNP Work Phone: [facility] 04-13-2022 11:54-0400 Heart rate 88 /min Fran Loja APRN.CNP Work Phone: [facility] 04-13-2022 11:54-0400 Respiratory rate 16 /min Fran Loja APRN.CNP Work Phone: [facility] 04-13-2022 11:54-0400 SaO2% (BldA) [Mass fraction] 99 % Fran Loja APRN.CNP Work Phone: [facility] 04-13-2022 11:54-0400 Systolic blood pressure 148 mm[Hg] Fran Loja APRN.DYNAMO REPAIRER Work Phone: [facility] Encounters Encounter Date Encounter Type Care Provider Facility Start: 11-02-2023 End: 11-03-2023 ambulatory JERMAIN Hardik JAIMEAZEBJAYLEEN [facility] Start: 11-02-2023 End: 11-02-2023 Subsequent hospital visit by physician Dereck Wilson MD Work Phone: [facility] Procedures Date Procedure Procedure Detail Performing Clinician Start: 04-13-2022 Radex ankle complete minimum 3 views Fran King KAREN.DYNAMO REPAIRER Work Phone: Plan of Treatment Date Care Activity Detail Author Start: 11-02-2023 End: 11-02-2023 Patient encounter procedure 11/02/2023 1:15 PM EST Appointment [facility] [address] [place] [address] Leeanna Almazan, [facility]-HEALTHCARE EDUCATOR [address] [place] [address] [facility] Start: 10-22-2023 COVID-19 (5 - Booste r for Pfizer series) COVID-19 (5 - Booster for Pfizer series) [facility] Start: 10-20-2023 End: 10-20-2023 Patient encounter procedure 10/20/2023 4:00 PM EST Appointment [facility] [address] [place] [address] Leeanna Almazan, [facility]-HEALTHCARE EDUCATOR [address] [place] [address] [facility] Start: 07-23-2023 FLU (#1) FLU (#1) [facility] Start: 11-22-2021 ADVANCE DIRECTIVE DISCUSSION ADVANCE DIRECTIVE DISCUSSION [facility] Start: 2009 PNEUMOVAX AGE 65 AND OVER WITH 5YR LOOKBACK (#1) PNEUMOVAX AGE 65 AND OVER WITH 5YR LOOKBACK (#1) [facility] Start: 1994 SHINGRIX VACCINE (1 of 2) SHINGRIX VACCINE (1 of 2) [facility] Start: 1989 DIABETES SCREEN DIABETES SCREEN [facility] Start: 1963 Urine microalbumin profile DTAP,TDAP,TD (1 - Tdap) [facility] Start: 1962 HEPATITIS C SCREENING HEPATITIS C SC ARAVIND [facility] Start: 1960 MenB (1 of 2 - MenB 2-Dose Series Bexsero) MenB (1 of 2 - MenB 2-Dose Series Bexsero) [facility] Start: 1956 Adult depression screening assessment DEPRESSION SCREENING [facility] Start: 1951 Tetanus Diphtheria a nd Pertussis Vaccines (1 - Tdap) Tetanus Diphtheria and Pertussis Vaccines (1 - Tdap) [facility] Start: 1945 MMR (1 of 1 - Standa rd series) MMR (1 of 1 - Standard series) [facility] Start: 1945 Varicella (1 of 2 - 2-dose childhood series) Varicella (1 of 2 - 2-dose childhood series) [facility] Payers Date Payer Category Payer Medicare [id number] 2022 Unknown [id number] 2004 Unknown [employer] PPO OOS [id number] 2004-Present [phone] [address] [place] [address] PPO [id number] 2004 Unknown [employer] BS PPO [id number] 2004-Present [address] [place] [address] [id number] 2002 Medicare MEDICARE MEDICAR E A AND B [id number] 2002-Present [phone] [address] [address] [place] [address] Medicare [id number] 2002 Medicare MEDICARE MEDICAR E PART A [id number] 2002-Present [address] [place] [address] [id number] 1945 Unknown [id number] 1944 Unknown [id number] 1944 Unknown [id number] 1944 Unknown [id number] Social History Date Type Detail Facility Start: 07-06-2018 Tobacco smoking status UTIS Ex-smoker [facility] End: 07-06-1978 History of tobacco use Current smoker [facility] End: 07-06-1978 History of tobacco use Cigarette Smoker [facility] Start: 07-06-2018 Tobacco use and exposure Smokeless tobacco non-user [facility] Start: 04-13-2022 Alcohol 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) [facility] Start: 1945 Sex Assigned At Not on file [facility] Start: 04-03-2022 End: 04-13-2022 Exposure to SARS-CoV-2 (event) Not sure [facility] Work Phone: Tobacco smoking status [facility] Tobacco smoking consumption unknown [facility] Gender identity Not on file [facility] Clinical Notes 04-13-2022 to 11-02-2023 Ancillary Progress Note - Leeanna Almazan, [facility] - 11/02/2023 1:15 PM ESTAncillary Progress Note - Leeanna Almazan, [facility]-HEALTHCARE EDUCATOR - 11/02/2023 1:15 PM EST Note Date & Type Note Facility 11-02-2023 Miscellaneous Notes Formattin g of this note is different from the original. [facility] Speech-Language Pathology Progress Note 11/02/2023 Patient Name: Luis Rider Date of : 11/09/2006 Age: 5 1945 MR#: [id number] Session Type: individual; vocal cord dysfunction Length [...] with physician is recommended. Leeanna Almazan M.A., CCC-HEALTHCARE EDUCATOR Speech-Language Pathologist [phone] documented in this encounter [facility] 11-02-2023 Progress note Formatting of t his note is different from the original. [facility] Speech-Language Pathology Progress Note 11/02/2023 Patient Name: Luis Rider Date of : 11/09/2006 Age: 5 1945 MR#: [id number] Session Type: individual; vocal cord dysfunction Length [...] with physician is recommended. Leeanna Almazan M.A., CCC-HEALTHCARE EDUCATOR Speech-Language Pathologist [phone] Electronically signed by Leeanna Almazan, [facility]-HEALTHCARE EDUCATOR at 11/02/2023 1:50 PM EST [facility] 10-20-2023 Miscellaneous Notes Formattin g of this note is different from the original. [facility] Speech-Language Pathology Progress Note 10/20/2023 Patient Name: Luis Rider Date of : 11/09/2006 Age: 5 1945 MR#: [id number] Session Type: individual; vocal cord dysfunction Length [...] expand use into movement. Leeanna Almazan M.A., CCC-HEALTHCARE EDUCATOR Speech-Language Pathologist [phone] documented in this encounter [facility] 10-20-2023 Progress note Formatting of t his note is different from the original. [facility] Speech-Language Pathology Progress Note 10/20/2023 Patient Name: Luis Rider Date of : 11/09/2006 Age: 5 1945 MR#: [id number] Session Type: individual; vocal cord dysfunction Length [...] expand use into movement. Leeanna Almazan M.A., CCC-HEALTHCARE EDUCATOR Speech-Language Pathologist [phone] Electronically signed by Leeanna Almazan, [facility]-HEALTHCARE EDUCATOR at 10/20/2023 4:40 PM EST [facility] 10-05-2023 Consult note Formatting of th is note might be different from the original. [facility] Speech-Language Pathology Voice Evaluation for Vocal Cord Dysfunction Test Date: 10/05/2023 Patient Name: Luis Rider Date of : 1945 Age: 78 y.o. MR#: [id number] Referring Physician: Dereck Wilson Length of Session: [...] pressure, sleep apnea. 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 Leeanna Almazan M.A., [facility]-HEALTHCARE EDUCATOR Speech-Language Pathologist CC: Referring Physician(s) [facility] Work Phone: 10-05-2023 Miscellaneous Notes Formattin g of this note might be different from the original. [facility] Speech-Language Pathology Voice Evaluation for Vocal Cord Dysfunction Test Date: 10/05/2023 Patient Name: Luis Rider Date of : 1945 Age: 78 y.o. MR#: [id number] Referring Physician: Dereck Wilson Length of Session: [...] pressure, sleep apnea. 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 Leeanna Almazan M.A., [facility]-HEALTHCARE EDUCATOR Speech-Language Pathologist CC: Referring Physician(s) Electronically signed by Leeanna Almazan, [facility]-HEALTHCARE EDUCATOR at 10/05/2023 2:12 PM EST documented in this encounter [facility] 04-13-2022 Note HNO ID: [id number] Author: RT Estela(R) Service: ? Author Type: Healthcare Account Manager Type: Progress Notes Filed: 04/13/2022 12:30 PM [...] RT Estela(R) April 13, 2022 12:18 PM [facility] 04-13-2022 Note HNO ID: [id number] Author: Fran Loja APRN.DYNAMO REPAIRER Service: ? Author Type: Nurse Practitioner Type: [...] MG TABLET Agrees to plan Fran Loja APRN.DYNAMO REPAIRER [facility] 04-13-2022 History of Presen t illness Narrative [...] 20 MG TABLET Agrees to plan Fran oLja APRN.CNP documented in this encounter [facility] Vocal cord dysfunction Other diseases of vocal cords [facility] Diagnosis Vocal cord dysfunction- Primary Other diseases of vocal cords documented in this encounter [facility] note* Diagnosis Vocal cord dysfunction- Primary Other diseases of vocal cords documented in this encounter [facility] for referral (narrative)* Diagnostic Procedure Only (Urgent) - Closed Specialty Diagnoses / Procedures Referred By Willy ochoa Referred To Contact XR IMAGING Diagnoses Acute right ankle pain Procedures XR ANKLE GENERAL 3V AP/LAT/OBL RIGHT RADEX ANKLE COMPLETE MINIMUM 3 VIEWS Fran Loja APRN.CNP [address] [place] [address] Xr Imaging Referral ID Status Reason Start Date Expiration Date V isits Requested Visits Authorized [id number] Closed Auto-Generate d Referral 04/13/2022 05/13/2023 1 1 [facility] Summary Purpose Family History No Family History [...] or prosecute any alcohol or drug abuse patient.[facility] Reason for Visit (unrecogniz ed section and content) Specialty Diagnoses / Procedures Referred By Willy t Referred To Contact Speech Pathology / Speech Therapy Diagnoses R. CHON/EPIC Procedures VOCAL CORD DYSFUNCTION Dereck Wilson MD [address] [place] [address] Leeanna Almazan, [facility]-HEALTHCARE EDUCATOR [address] [place] [address] Referral ID Status Reason Start Date Expiration Date Visits Re quested Visits Authorized [id number] Closed 09/22/2023 11/21/2023 1 1 Referral ID Status Reason Start Date Expiration Date V isits Requested Visits Authorized [id number] Authorized 09/22/2023 11/21/2023 30 30 Care Teams (unrecognized sec tion and content) Cloth Boil Off Machine Operator Relationship Specialty Start Date End Date Jermain Stoddard MD [address] [facility] [address] [place], [place] [id number] PCP - General Family Medicine 10/05/23 Cloth Boil Off Machine Operator Relationship Specialty Start Date End Date Jermain Stoddard MD [address] [facility] [address] [place], [place] [id number] PCP - General Family Medicine 10/05/23 (unrecognized sect ion and content) No Status Records FoundNo Status Records FoundNo Status Records Found INFORMATION SOURCE (unrecogn ized section and content) DATE CREATED AUTHOR AUTHOR'S ORGANIZ ATION 09/19/2022 [facility] ([place]) DATE CREATED AUTHOR AUTHOR'S ORGANIZ ATION 11/04/2023 [facility] FOR RECORDS PERTAINING TO PATIENTS WHO [...] BE BASED ON THE PRIMARY CLINICAL RECORDS. [employer] [facility]. provides no warranty or guarantee of the accuracy or completeness of information in this document.
[2024-01-06] MEDS: Ipratropium/Albuterol Sulfate 3 ML AMPUL.NEB INHALATION (01:52)
--- OUTSIDE RECORDS SUMMARY | 2024-01-06 02:40 | XMS RPT_ITS | CCD ---
Author Name Unknown Address [address] [place] [address] [address] [place] [id number] Organization [facility] Care Team Providers Care Safe And Vault Mechanic Name Role Phone Eleazar Banks Unavailable Jermain Stoddard Primary Care Provider [phone] MARIAJOSE SUMMERS, DR. FRANCIS Attending UnavailJERMAIN Corcoran [...] Acetaminophen / oxyCODONE Drug Allergy 07-06-2018 [facility] (1 source) Iodine Drug Allergy 07-06-2018 [facility] Medications Current Medications Medication Drug Class(es) Dates [...] source) Long-term current use of anticoagulant; Translations: [longterm (current) use of anticoagulants] Onset: 07-06-2018 07-06-2018 Episodic Results Test Name Value Interpretation Reference Range Facil ity Vital Signs Date Time Vital Sign Value Performing Clinician Arabella mueller 04-13-2022 11:54-0400 Body temperature 98.01 [degF] Fran Loja APRN.CNP Work Phone: [facility] 04-13-2022 11:54-0400 Diastolic blood pressure 84 mm[Hg] Fran Loja APRN.CNP Work Phone: [facility] 04-13-2022 11:54-0400 Heart rate 88 /min Fran Loja APRN.CNP Work Phone: [facility] 04-13-2022 11:54-0400 Respiratory rate 16 /min Fran Loja APRN.CNP Work Phone: [facility] 04-13-2022 11:54-0400 SaO2% (BldA) [Mass fraction] 99 % Fran Loja APRN.CNP Work Phone: [facility] 04-13-2022 11:54-0400 Systolic blood pressure 148 mm[Hg] Fran Loja APRN.ORTHOPEDIC RN Work Phone: [facility] Encounters Encounter Date Encounter Type Care Provider Facility Start: 11-02-2023 End: 11-03-2023 ambulatory JERMAIN Hardik JAIMEAZEBJAYLEEN [facility] Start: 11-02-2023 End: 11-02-2023 Subsequent hospital visit by physician Dereck Wilson MD Work Phone: [facility] [place] Procedures Date Procedure Procedure Detail Performing Clinician Start: 04-13-2022 Radex ankle complete minimum 3 views Fran King KAREN.ORTHOPEDIC RN Work Phone: Plan of Treatment Date Care Activity Detail Author Start: 11-02-2023 End: 11-02-2023 Patient encounter procedure 11/02/2023 1:15 PM EST Appointment [facility] [place] [address] [place] [address] Leeanna Almazan, [facility]-CUSTOMER SALES ADVISOR [address] [place] [address] [facility] [place] Start: 10-22-2023 COVID-19 (5 - Booste r for Pfizer series) COVID-19 (5 - Booster for Pfizer series) [facility] Start: 10-20-2023 End: 10-20-2023 Patient encounter procedure 10/20/2023 4:00 PM EST Appointment [facility] [place] [address] [place] [address] Leeanna Almazan, [facility]-CUSTOMER SALES ADVISOR [address] [place] [address] [facility] [place] Start: 07-23-2023 FLU (#1) FLU (#1) [facility] Start: 11-22-2021 ADVANCE DIRECTIVE DISCUSSION ADVANCE DIRECTIVE DISCUSSION [facility] Start: 2009 PNEUMOVAX AGE 65 AND OVER WITH 5YR LOOKBACK (#1) PNEUMOVAX AGE 65 AND OVER WITH 5YR LOOKBACK (#1) [facility] Start: 1994 SHINGRIX VACCINE (1 of 2) SHINGRIX VACCINE (1 of 2) [facility] Start: 1989 DIABETES SCREEN DIABETES SCREEN [facility] Start: 1963 Urine microalbumin profile DTAP,TDAP,TD (1 - Tdap) [facility] Start: 1962 HEPATITIS C SCREENING HEPATITIS C SC ARAVIND [facility] Start: 1960 MenB (1 of 2 - MenB 2-Dose Series Bexsero) MenB (1 of 2 - MenB 2-Dose Series Bexsero) [facility] Start: 1956 Adult depression screening assessment DEPRESSION SCREENING [facility] Start: 1951 Tetanus Diphtheria a nd Pertussis Vaccines (1 - Tdap) Tetanus Diphtheria and Pertussis Vaccines (1 - Tdap) [facility] Start: 1945 MMR (1 of 1 - Standa rd series) MMR (1 of 1 - Standard series) [facility] Start: 1945 Varicella (1 of 2 - 2-dose childhood series) Varicella (1 of 2 - 2-dose childhood series) [facility] Payers Date Payer Category Payer Medicare [id number] 2022 Unknown [id number] 2004 Unknown MARK BLUE CARD PPO OOS [id number] 2004-Present [phone] [address] [place] [address] PPO [id number] 2004 Unknown MARK FLORES BC BS PPO [id number] 2004-Present [address] [place] [address] [id number] 2002 Medicare MEDICARE MEDICAR E A AND B [id number] 2002-Present [phone] [address] [address] [place] [address] Medicare [id number] 2002 Medicare MEDICARE MEDICAR E PART A [id number] 2002-Present [address] [place] [address] [id number] 1944 Unknown [id number] 1944 Unknown [id number] 1944 Unknown [id number] 1944 Unknown [id number] Social History Date Type Detail Facility Start: 07-06-2018 Tobacco smoking status ORIS Ex-smoker [facility] End: 07-06-1978 History of tobacco use Current smoker [facility] End: 07-06-1978 History of tobacco use Cigarette Smoker [facility] Start: 07-06-2018 Tobacco use and exposure Smokeless tobacco non-user [facility] Start: 04-13-2022 Alcohol intake 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 non-dr 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 of alcohol (finding) [facility] Start: 1945 Sex Assigned At Not on file [facility] Start: 04-03-2022 End: 04-13-2022 Exposure to SARS-CoV-2 (event) Not sure [facility] Work Phone: Tobacco smoking status [facility] Tobacco smoking consumption unknown [facility] Gender identity Not on file [facility] Clinical Notes 04-13-2022 to 11-02-2023 Ancillary Progress Note - Leeanna Almazan, [facility] - 11/02/2023 1:15 PM ESTAncillary Progress Note - Leeanna Almazan, [facility]-CUSTOMER SALES ADVISOR - 11/02/2023 1:15 PM EST Note Date & Type Note Facility 11-02-2023 Miscellaneous Notes Formattin g of this note is different from the original. [facility] Speech-Language Pathology Progress Note 11/02/2023 Patient Name: Luis Rider Date of : 11/09/2006 Age: 5 1945 MR#: [id number] Session Type: individual; vocal cord dysfunction Length [...] with physician is recommended. Leeanna Almazan M.A., CCC-CUSTOMER SALES ADVISOR Speech-Language Pathologist [phone] documented in this encounter [facility] 11-02-2023 Progress note Formatting of t his note is different from the original. [facility] Speech-Language Pathology Progress Note 11/02/2023 Patient Name: Luis Rider Date of : 11/09/2006 Age: 5 1945 MR#: [id number] Session Type: individual; vocal cord dysfunction Length [...] with physician is recommended. Leeanna Almazan M.A., CCC-CUSTOMER SALES ADVISOR Speech-Language Pathologist [phone] Electronically signed by Leeanna Almazan, [facility]-CUSTOMER SALES ADVISOR at 11/02/2023 1:50 PM EST [facility] 10-20-2023 Miscellaneous Notes Formattin g of this note is different from the original. [facility] Speech-Language Pathology Progress Note 10/20/2023 Patient Name: Luis Rider Date of : 11/09/2006 Age: 5 1945 MR#: [id number] Session Type: individual; vocal cord dysfunction Length [...] expand use into movement. Leeanna Almazan M.A., CCC-CUSTOMER SALES ADVISOR Speech-Language Pathologist [phone] documented in this encounter [facility] 10-20-2023 Progress note Formatting of t his note is different from the original. [facility] Speech-Language Pathology Progress Note 10/20/2023 Patient Name: Luis Rider Date of : 11/09/2006 Age: 5 1945 MR#: [id number] Session Type: individual; vocal cord dysfunction Length [...] expand use into movement. Leeanna Almazan M.A., CCC-CUSTOMER SALES ADVISOR Speech-Language Pathologist [phone] Electronically signed by Leeanna Almazan, [facility]-CUSTOMER SALES ADVISOR at 10/20/2023 4:40 PM EST [facility] 10-05-2023 Consult note Formatting of th is note might be different from the original. [facility] Speech-Language Pathology Voice Evaluation for Vocal Cord Dysfunction Test Date: 10/05/2023 Patient Name: Luis Rider Date of : 1945 Age: 78 y.o. MR#: [id number] Referring Physician: Dereck Wilson Length of Session: [...] pressure, sleep apnea. 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 Other activities [...] Leeanna Almazan M.A., [facility]-CUSTOMER SALES ADVISOR Speech-Language Pathologist CC: Referring Physician(s) [facility] Work Phone: 10-05-2023 Miscellaneous Notes Formattin g of this note might be different from the original. [facility] Speech-Language Pathology Voice Evaluation for Vocal Cord Dysfunction Test Date: 10/05/2023 Patient Name: Luis Rider Date of : 1945 Age: 78 y.o. MR#: [id number] Referring Physician: Dereck Wilson Length of Session: [...] pressure, sleep apnea. 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 Author Type: Stick Welder Type: Progress Notes Filed: 04/13/2022 12:30 PM [...] RT Estela(R) April 13, 2022 12:18 PM [facility] 04-13-2022 Note HNO ID: [id number] Author: Fran Loja APRN.ORTHOPEDIC RN Service: ? Author Type: Nurse Practitioner Type: [...] MG TABLET Agrees to plan Fran Loja APRN.ORTHOPEDIC RN [facility] 04-13-2022 History of Presen t illness [...] Fran Loja APRN.CNP documented in this encounter [facility] Diagnosis Vocal cord dysfunction Other diseases of vocal cords [facility] Diagnosis Vocal cord dysfunction- Primary Other diseases of vocal cords documented in this encounter [facility] note* Diagnosis Vocal cord dysfunction- Primary Other diseases of vocal cords documented in this encounter [facility] for referral (narrative)* Diagnostic Procedure Only (Urgent) - Closed Specialty Diagnoses / Procedures Referred By Willy ochoa Referred To Contact XR IMAGING Diagnoses Acute right ankle pain Procedures XR ANKLE GENERAL 3V AP/LAT/OBL RIGHT RADEX ANKLE COMPLETE MINIMUM 3 VIEWS Fran Loja APRN.CNP [address] [place] [address] Xr Imaging Referral ID Status Reason Start Date Expiration Date V isits Requested Visits Authorized [id number] Closed Auto-Generate d Referral 04/13/2022 05/13/2023 1 1 [facility] Summary Purpose Family History No Family [...] or prosecute any alcohol or drug abuse patient.[facility] Reason for Visit (unrecogniz ed section and content) Specialty Diagnoses / Procedures Referred By Willy t Referred To Contact Speech Pathology / Speech Therapy Diagnoses R. CHON/EPIC Procedures VOCAL CORD DYSFUNCTION Dereck Wilson MD [address] [place] [address] Leeanna Almazan, [facility]-CUSTOMER SALES ADVISOR [address] [place] [address] Referral ID Status Reason Start Date Expiration Date Visits Re quested Visits Authorized [id number] Closed 09/22/2023 11/21/2023 1 1 Referral ID Status Reason Start Date Expiration Date V isits Requested Visits Authorized [id number] Authorized 09/22/2023 11/21/2023 30 30 Care Teams (unrecognized sec tion and content) Safe And Vault Mechanic Relationship Specialty Start Date End Date Jermain Stoddard MD [address] [facility] [address] [place], [place] [id number] PCP - General Family Medicine 10/05/23 Safe And Vault Mechanic Relationship Specialty Start Date End Date Jermain Stoddard MD [address] [facility] [address] [place], [place] [id number] PCP - General Family Medicine 10/05/23 (unrecognized sect ion and content) No Status Records FoundNo Status Records FoundNo Status Records Found INFORMATION SOURCE (unrecogn ized section and content) DATE CREATED AUTHOR AUTHOR'S ORGANIZ ATION 09/19/2022 [facility] ([place]) DATE CREATED AUTHOR AUTHOR'S ORGANIZ ATION 11/04/2023 [facility] FOR RECORDS PERTAINING TO PATIENTS WHO [...] BE BASED ON THE PRIMARY CLINICAL RECORDS. [email or web address] [facility]. provides no warranty or guarantee of the accuracy or completeness of information in this document.
[2024-01-06] MEDS: Ibuprofen 400 MG Tablet 200 MG PO (03:29)
[2024-01-06] MEDS: ALPRAZolam 0.5 MG Tablet 1 MG PO ×4 (03:30→22:10)
[2024-01-06] MEDS: HYDROcodone Bitartrate/Apap 5/325 Tablet PO ×2 (03:30→13:26)
[2024-01-06] MEDS: POTASSIUM CITRATE 10 MEQ TABLET.ER PO ×3 (03:33→22:10)
[2024-01-06] MEDS: dexAMETHasone 4 MG Tablet 6 MG PO (03:33)
[2024-01-06] MEDS: Losartan Potassium 100 MG Tablet PO (03:34)
[2024-01-06] MEDS: Azithromycin 250 MG Tablet PO (03:34)
[2024-01-06] MEDS: Levothyroxine 100 MCG Tablet 200 MCG PO (05:30)
[2024-01-06] MEDS: Ceftriaxone 1 GM/50 ML BAG IV (05:30)
[2024-01-06 07:49] LABS: Absolute Lymphocyte Count 0.61 X10^3/uL (0.83-4.51); Absolute Neutrophil Count 3.4 X10^3/uL (2.0-7.7); Basophil# 0.01 X10^3/uL; Basophil% 0.2 % (0-1); Hematocrit 43.7 % (40-54); Hemoglobin 14.1 g/dL (13.0-16.5); Lymphocyte # 0.61 X10^3/ul (0.83-4.51); Lymphocyte % 14.3 % (19-41); Mean Corp Hgb Conc 32.3 g/dL (32-36); Mean Corpuscular Volume 89.9 fL (80-94); Mean Platelet Vol. 8.9 fl (6.2-12.0); Monocyte% 4.7 % (0-10); NRBC Flagged by Analyzer 0 % (0-5); Neutrophil # 3.41 X10^3/uL (2.7-7.7); Neutrophil % 80.1 % (47-70); Platelet Count 279 K/mm3 (150-450); RBC Distribution Width SD 45.8 fl (35.1-43.9); Red Blood Count 4.86 M/mm3 (4.6-6.2); White Blood Count 4.3 K/mm3 (4.4-11.0)
[2024-01-06 08:14] LABS: Anion Gap 5 (5-15); BUN 12 mg/dL (7-18); BUN/Creat Ratio 9.4 RATIO (10-20); Calcium,Total 10.1 mg/dL (8.5-10.1); Chloride 115 mmol/L (98-107); Creatinine, Serum 1.28 mg/dL (0.70-1.30); EST Glomerular Filtration Rate 58 mL/min (>60); Est Glom Filt Rate - Afr Amer 70 mL/min (>60); Estimated Creatinine Clearance 67.49 ml/min; Glucose 118 mg/dL (74-106); Magnesium 2.3 mg/dL (1.6-2.6); Phosphorus 1.8 mg/dL (2.5-4.9); Potassium 3.8 mmol/L (3.5-5.1); Sodium Level 144 mmol/L (136-145); Thyroid Stim Hormone (TSH) 6.63 uIU/mL (0.358-3.74)
[2024-01-06 09:00] LABS: Vitamin B12 379 pg/mL (211-911)
[2024-01-06] MEDS: VORTIOXETINE HYDROBROMIDE 10 MG TABLET 20 MG PO (09:01)
[2024-01-06] MEDS: Montelukast 10 MG Tablet PO (09:01)
[2024-01-06] MEDS: Cholecalciferol (Vit D3) 125 MCG CAPSULE (5,000 UNITS) PO (09:01)
[2024-01-06] MEDS: Ascorbic Acid 500 MG Tablet 1000 MG PO (09:01)
[2024-01-06] MEDS: Spironolactone 50 MG Tablet 100 MG PO (09:01)
[2024-01-06] MEDS: APIXABAN 5 MG TABLET PO ×2 (09:02→22:10)
[2024-01-06] MEDS: Zinc Sulfate 50 mg zinc (220 mg) ORAL capsule PO (09:02)
--- NOTE | 2024-01-06 09:07 | NURSING ---
pt in isolation/covid precautions, primary RN in room. 1mg (0.5mg tab x2) xanax removed from omnicell and handed to primary RN in pt's room to administer.
--- NOTE | 2024-01-06 11:26 | CASEMGMT ---
RIAN DAVID Assessment Face to Face with patient for initial transition planning/care coordination assessment. RIAN DAVID introduced self and role at [facility], pt voices understanding. Pt is confused at this time, pt Dilshad called for assessment. Pt is agreeable to answer this RIAN DAVID questions. Care providers, pharmacy, and demographics verified. Admitting dx: COVID with Acute Delirium LACE Strata: 2 PCP: [facility] Specialists: Pt states the pt sees a [facility] in [place] but was unable to recall the name or facility. Pt sees Dr. Banks. Preferred Pharmacy: [facility] Insurance: [employer] Prescription Benefit: Yes LNOK: Dilshad Rider (W) Living Arrangements: Pt lives with his in a single story home with a BM and HR with 3 steps to enter with HR and no issues using the steps normally. ADLs/IADLs: Ind with ADLs. helps with IADLs Transportation: Pt and pt drive DME: Cane and walker at home but the pt does not use. Shower chair. Pt states the pt has a CPAP at home for nighttime use. Denies additional O2 at home currently. Pt updated that the pt might qualify for home O2. A verbal list of local in-network DME providers given to the pt at this time. Pt chose [facility] for any potential O2 needs. HHC/SNF: Denies history Plan: TBD. Pt 6-Click is 20 at this time, PT/OT eval pending. Pt is confused at this time. Will follow for DC needs. Elyse Gonzalez RN, CM
[2024-01-07 00:05] VITALS: BP 167/102; PULSE 70; RESP 18; TEMP 36.6; O2SAT 97
[2024-01-07 04:31] VITALS: O2SAT 97; O2SAT 98
[2024-01-07 05:31] VITALS: BP 155/106; PULSE 66; RESP 18; TEMP 36.6; O2SAT 96
[2024-01-07 05:33] VITALS: BMI 33.5
[2024-01-07] MEDS: Levothyroxine 100 MCG Tablet 200 MCG PO (05:34)
[2024-01-07] MEDS: POTASSIUM CITRATE 10 MEQ TABLET.ER PO (05:34)
[2024-01-07 10:05] VITALS: BP 167/91; PULSE 76; RESP 16; TEMP 36.2; O2SAT 94
[2024-01-07] MEDS: Ceftriaxone 1 GM/50 ML BAG IV (10:06)
[2024-01-07] MEDS: Losartan Potassium 100 MG Tablet PO (10:07)
[2024-01-07] MEDS: Spironolactone 50 MG Tablet 100 MG PO (10:07)
[2024-01-07] MEDS: Ascorbic Acid 500 MG Tablet 1000 MG PO (10:08)
[2024-01-07] MEDS: Azithromycin 250 MG Tablet PO (10:08)
[2024-01-07] MEDS: dexAMETHasone 4 MG Tablet 6 MG PO (10:08)
[2024-01-07] MEDS: Zinc Sulfate 50 mg zinc (220 mg) ORAL capsule PO (10:08)
[2024-01-07] MEDS: VORTIOXETINE HYDROBROMIDE 10 MG TABLET 20 MG PO (10:08)
[2024-01-07] MEDS: APIXABAN 5 MG TABLET PO (10:09)
[2024-01-07] MEDS: Montelukast 10 MG Tablet PO (10:09)
[2024-01-07] MEDS: Cholecalciferol (Vit D3) 125 MCG CAPSULE (5,000 UNITS) PO (10:09)
--- NOTE | 2024-01-07 14:28 | DCINST_ITS ---
Discharge Instructions Diet Discharge Diet: No restrictions Activity Discharge Activity: Return to Normal Activity Dressing / Incision Call your doctor if you observe: Fever of 101 or Higher, Shortness of breath, Dizziness, Fainting spells, Swelling in the ankles, Chest pain and Increased palpitations (irregular heartbeat) Follow Up Care Test Results: Test results from this visit will be discussed in further detail at your follow- up appointment, if applicable. Discharge Plan Admission Admit Date/Time: 01/06/24 01:19 Attending Provider: Andrés Bhatt Primary Care Provider: Jayden Butt Consulting Providers: Eloy Packer Discharge Orders/Prescriptions Prescriptions: New dexamethasone 2 mg tablet 6 mg PO DAILY 8 Days Qty: 24 0RF Continued Eliquis 5 mg tablet 5 mg PO BID losartan 100 mg tablet 100 mg PO DAILY Qty: 90 3RF spironolactone 100 mg tablet 100 mg PO DAILY Patient Comments: take 1 tablet by mouth once daily Trintellix 20 mg tablet 20 mg PO DAILY montelukast 10 mg tablet 10 mg PO DAILY levothyroxine 200 mcg tablet 200 mcg PO DAILY Patient Comments: take 1 tablet by mouth once daily tamsulosin 0.4 mg capsule 0.4 mg PO DAILY Patient Comments: take 1 capsule by mouth once daily alprazolam 1 mg tablet 1 mg PO TID PRN Patient Comments: take 1 tablet by mouth three times a day if needed potassium citrate 10 mEq (1,080 mg) tablet extended release 10 meq PO TID Qty: 90 3RF Discontinued levothyroxine 175 mcg tablet 175 mcg PO DAILY Patient Comments: take 1 tablet by mouth once daily spironolactone [Aldactone] 25 mg tablet 25 mg PO DAILY hydrocodone-acetaminophen [hydrocodone-acetaminophen] 5-325 mg tablet 1 tab PO Q6H PRN PRN (Reason: Pain) 3 Days Qty: 12 0RF prednisone 20 mg tablet 40 mg PO DAILY Qty: 12 0RF Rx Instructions: Next dose 12/01/2023 Referrals / Follow Up: Jayden Butt MD [Primary Care Provider] - Within 1 Week Disposition Disposition (needs filled in before D/C Order can be placed): Home, Self Care
--- NOTE | 2024-01-07 14:55 | CASEMGMT ---
RIAN CM to pt room at this time for DC assistance. Pt at [facility]. Pt is A&Ox3 now and is ready to go home. Pt denies the need for OP therapy or HHC now. Pt states feeling safe and comfortable DC today via his . No additional needs at this time.
[2024-01-07 15:08] VITALS: BP 163/100; PULSE 72; RESP 16; TEMP 36.2; O2SAT 97
--- NOTE | 2024-01-07 15:10 | PHA.DC.MC.R ---
Pharmacy [facility] has performed discharge medication reconciliation and counseling for this patient. Patient counseled via telephone due to COVID precautions. 1. DEXAMETHASONE 6MG PO DAILY X 8 DAYS The patient's discharge medication list was reviewed for discrepancies and discrepancies were resolved. The patient was counseled on the following discharge medications and changes in medications for homegoing were reviewed. The Reason for Use, instructions for use, and potential side effects were reviewed for all new medications. The patient's questions regarding all of their medications were answered. The patient was able to verbally demonstrate an understanding of their discharge medications. Medications at Discharge Home Medications apixaban 5 mg tablet (Eliquis) 5 mg PO BID 10/03/18 losartan 100 mg tablet 100 mg PO DAILY #90 tabs 10/17/19 spironolactone 100 mg tablet 100 mg PO DAILY 07/15/21 montelukast 10 mg tablet 10 mg PO DAILY 08/07/22 vortioxetine 20 mg tablet (Trintellix) 20 mg PO DAILY 12/08/22 potassium citrate 10 mEq (1,080 mg) tablet,extended release 10 meq PO TID #90 tabs 08/31/23 alprazolam 1 mg tablet 1 mg PO TID PRN anxiety 01/06/24 levothyroxine 200 mcg tablet 200 mcg PO DAILY thyroid 01/06/24 tamsulosin 0.4 mg capsule 0.4 mg PO DAILY urination 01/06/24 dexamethasone 2 mg tablet 6 mg (3 x 2 mg) PO DAILY 8 days #24 tabs 01/07/24
--- NOTE | 2024-01-07 15:56 | DS.PCM_ITS ---
Providers Date of Admission: 01/06/24 Primary Care Physician: Dr. Jayden Butt MD Reason For Visit: COVID 19 WITH ACUTE DELIRIUM IN THE SETTING Diagnosis Discharge Diagnosis (1) COVID-19: Status: Acute Code(s): U07.1 - COVID-19 (2) Acute bronchitis due to infection: Status: Acute Code(s): J20.9 - Acute bronchitis, unspecified (3) Acute delirium: Status: Acute Code(s): R41.0 - Disorientation, unspecified (4) Chronic dementia: Status: Chronic Code(s): F03.90 - Unspecified dementia, unspecified severity, without behavioral disturbance, psychotic disturbance, mood disturbance, and anxiety (5) Generalized weakness: Status: Acute Code(s): R53.1 - Weakness (6) Ambulatory dysfunction: Status: Acute Code(s): R26.2 - Difficulty in walking, not elsewhere classified Medications at Discharge Home Medications apixaban 5 mg tablet (Eliquis) 5 mg PO BID 10/03/18 losartan 100 mg tablet 100 mg PO DAILY #90 tabs 10/17/19 spironolactone 100 mg tablet 100 mg PO DAILY 07/15/21 montelukast 10 mg tablet 10 mg PO DAILY 08/07/22 vortioxetine 20 mg tablet (Trintellix) 20 mg PO DAILY 12/08/22 potassium citrate 10 mEq (1,080 mg) tablet,extended release 10 meq PO TID #90 tabs 08/31/23 alprazolam 1 mg tablet 1 mg PO TID PRN anxiety 01/06/24 levothyroxine 200 mcg tablet 200 mcg PO DAILY thyroid 01/06/24 tamsulosin 0.4 mg capsule 0.4 mg PO DAILY urination 01/06/24 dexamethasone 2 mg tablet 6 mg (3 x 2 mg) PO DAILY 8 days #24 tabs 01/07/24 Hospital Course Operations None Procedures None Summary of Care Provided Minutes Spent on Discharge: 33 Hospital Course: Per HPI: SANDEEP RIDER, is a 78 M with a past medical history of essential hypertension, hyperlipidemia, hypothyroidism; with history of Left thyroid nodule and subsequent partial thyroidectomy, obesity; with BMI of 33.9 this admission, history of bilateral PE (2013); on Eliquis, history of chronic diastolic CHF; with preserved LVEF, history of DRESS syndrome, history of syncope, history of primary hyperparathyroidism, history of allergy to IV contrast dye, chronic depression; on Trintellix, chronic severe generalized anxiety; on Xanax TID, chronic dementia; with intermittent confusion and OA; s/p bilateral TKR's who presents to [facility] ER complaining of SOB, cough and confusion. Mr. Rider is not a fully-reliable historian at this time so information was gathered from chart, medical staff and computer. According to the records his symptoms began approximately 2 weeks prior to admission with an increasing frequent productive cough with copious yellowish sputum and a viral-type URI along with a burning sensation in his lungs accompanied by an acute worsening of his chronic confusion. There is no report of related fevers, chills, nausea, vomiting, diarrhea, constipation or chest pain and but he is extremely anxious and cannot relax or sit still even with supplemental oxygen on because of his persistent SOB. In the ER his assay returned positive for COVID-19 complicated by clinical evidence acute bacterial bronchitis; with persistent hyperventilation and acute delirium in the setting o f chronic dementia and he was then admitted to the general medical floor for supportive care for a stay that is expected to be greater than 48 hours. Hospital Course: 1. COVID-19 with acute delirium in the setting of chronic mild dementia? 78-year-old male with a history of mild dementia presents to the hospital with an increased delirium and weakness. He tested positive for COVID and there was some suspicion for a bacterial bronchitis. However he had significant imp rovement in less than 24 hours and was afebrile without a leukocytosis and no findings on chest x-ray to indicate a bacterial pneumonia therefore given his age I elected to discontinue his antibiotics on discharge and just proceed with treatment of his COVID-19 as he had required some oxygen therapy during this admission. On the day of discharge he was ambulated by nursing staff and physical therapy and did not feel the need for SNF placement for oxygen with ambulation. I discussed with him and his the plan for possible discharge today with expressed understanding of the risk benefits going home and are okay with going home today. 2. Essential hypertension, hyperlipidemia, hypothyroidism, chronic diastolic CHF, chronic depression, history of PE are all chronic medical conditions which complicate his care. His home medications were continued where appropriate Physical Exam Narrative General: Alert, Oriented x3, Cooperative, No apparent distress HEENT: Atraumatic, PERRLA, EOMI, Normocephalic Oral: Moist Mucosa Neck: Supple, No JVD Lungs: Diminished, Normal air movement, No rhonchi, No wheeze, No rales Cardiovascular: Regular rate, Regular Rhythm, Normal S1, Normal S2, No murmurs Abdomen: Soft, Non Tender, Non-Distended, No Hepato-splenomegaly Extremities: No edema, Capillary Refill Less than 3 Seconds Skin: No rashes, No breakdown Musculoskeletal: No Tenderness to Palpation of Joints or Extremities Neurological: No focal neurological deficits, Motor Exam 5/5 strength throughout, Sensory exam intact to light touch and pain Psych/Mental Status: Normal Affect, Appropriate Weight / BMI Weight Weight: 275 lb 6.4 oz Body Mass Index (BMI) 33.5 ABG / Lab / Microbiology Data 01/06/24 07:32 01/06/24 07:32 Microbiology: Microbiology 01/05/24 23:30 Mucosa - Nose SARS-CoV-2, Influenza & RSV (PCR) - Final SARS-CoV-2 (COVID 19 PCR) D/C Instructions Discharge Diet: No restrictions Call your doctor if you observe: Fever of 101 or Higher, Shortness of breath, Dizziness, Fainting spells, Swelling in the ankles, Chest pain and Increased palpitations (irregular heartbeat) Meaningful Use Info Meaningful Use Diagnoses (Choose all that apply): None applicable Discharge Plan Admission Admit Date/Time: 01/06/24 01:19 Attending Provider: Andrés Bhatt Primary Care Provider: Jayden Butt Consulting Providers: Eloy Packer Discharge Orders/Prescriptions Prescriptions: New dexamethasone 2 mg tablet 6 mg PO DAILY 8 Days Qty: 24 0RF Continued Eliquis 5 mg tablet 5 mg PO BID losartan 100 mg tablet 100 mg PO DAILY Qty: 90 3RF spironolactone 100 mg tablet 100 mg PO DAILY Patient Comments: take 1 tablet by mouth once daily Trintellix 20 mg tablet 20 mg PO DAILY montelukast 10 mg tablet 10 mg PO DAILY levothyroxine 200 mcg tablet 200 mcg PO DAILY Patient Comments: take 1 tablet by mouth once daily tamsulosin 0.4 mg capsule 0.4 mg PO DAILY Patient Comments: take 1 capsule by mouth once daily alprazolam 1 mg tablet 1 mg PO TID PRN Patient Comments: take 1 tablet by mouth three times a day if needed potassium citrate 10 mEq (1,080 mg) tablet extended release 10 meq PO TID Qty: 90 3RF Discontinued levothyroxine 175 mcg tablet 175 mcg PO DAILY Patient Comments: take 1 tablet by mouth once daily spironolactone [Aldactone] 25 mg tablet 25 mg PO DAILY hydrocodone-acetaminophen [hydrocodone-acetaminophen] 5-325 mg tablet 1 tab PO Q6H PRN PRN (Reason: Pain) 3 Days Qty: 12 0RF prednisone 20 mg tablet 40 mg PO DAILY Qty: 12 0RF Rx Instructions: Next dose 12/01/2023 Referrals / Follow Up: Jayden Butt MD [Primary Care Provider] - Within 1 Week Disposition Disposition (needs filled in before D/C Order can be placed): Home, Self Care Charges/Coding Visit Charges Inpatient E&M: 05771 Disch Hosp >30min
== END 2024-01-07 15:44 | disposition home or self-care (01) | DRG 178 ==
LOC: ED 01-06 00:24 → MS3 01-06 01:28
PROVIDERS: Admitting Provider Internal Medicine; Emergency Provider Student in an Organized Health Care Education/Training Program; PCP Family Medicine; Visit Provider Family Medicine
DX: U07.1 COVID-19 (principal); I50.32 Chronic diastolic (congestive) heart failure; F05 Delirium due to known physiological condition; D72.12 Drug rash with eosinophilia and systemic symptoms syndrome; I11.0 Hypertensive heart disease with heart failure; F03.90 Unspecified dementia, unspecified severity, without behavioral disturbance, psychotic disturbance, mood disturbance, and anxiety; E21.3 Hyperparathyroidism, unspecified; F32.89 Other specified depressive episodes; E03.9 Hypothyroidism, unspecified; M19.90 Unspecified osteoarthritis, unspecified site; E78.5 Hyperlipidemia, unspecified; I25.10 Atherosclerotic heart disease of native coronary artery without angina pectoris; G47.33 Obstructive sleep apnea (adult) (pediatric); J20.8 Acute bronchitis due to other specified organisms; R26.2 Difficulty in walking, not elsewhere classified; E66.9 Obesity, unspecified; Z68.33 Body mass index [BMI] 33.0-33.9, adult; Z79.01 Long term (current) use of anticoagulants; Z87.891 Personal history of nicotine dependence; F41.1 Generalized anxiety disorder; R53.1 Weakness; Z86.711 Personal history of pulmonary embolism; Z99.89 Dependence on other enabling machines and devices; Z79.899 Other long term (current) drug therapy; Z96.653 Presence of artificial knee joint, bilateral
CPT/HCPCS: 70450; 71045; 80048; 81001; 82607; 82746; 83735; 83880; 84100; 84443; 84484; 85025; 87631; 93005; 94640; 94668; 97161; 97165; 99285; A4216

== ENCOUNTER → 2024-02-04 | Outpatient (CLI) | payer MEDICARE, BC, SELFPAY ==
[2024-02-04 17:19] LABS: Anion Gap 4 (5-15); BUN 15 mg/dL (7-18); BUN/Creat Ratio 12.4 RATIO (10-20); Calcium,Total 10.2 mg/dL (8.5-10.1); Chloride 111 mmol/L (98-107); Creatinine, Serum 1.21 mg/dL (0.70-1.30); EST Glomerular Filtration Rate 61 mL/min (>60); Est Glom Filt Rate - Afr Amer 74 mL/min (>60); Glucose 70 mg/dL (74-106); Potassium 3.7 mmol/L (3.5-5.1); Sodium Level 142 mmol/L (136-145)
== END | disposition home or self-care (01) ==
LOC: MTLAB 14:09
PROVIDERS: PCP Family Medicine; Referring Provider Family Medicine; Visit Provider Family Medicine
DX: I27.20 Pulmonary hypertension, unspecified (principal)
CPT/HCPCS: 36415; 80048

== ENCOUNTER → 2024-03-23 | Outpatient (CLI) | payer MEDICARE, BC, SELFPAY ==
[2024-03-23 10:30] LABS: Basophil# 0.01 X10^3/uL; Basophil% 0.3 % (0-1); Eosinophil# 0.03 X10^3/uL; Eosinophils% 0.9 % (0-5); Hemoglobin 14.7 g/dL (13.0-16.5); Lymphocyte % 43.6 % (19-41); Mean Corp Hgb Conc 32.7 g/dL (32-36); Mean Corpuscular Hgb 29.2 pg (27.0-32.0); Mean Corpuscular Volume 89.5 fL (80-94); Mean Platelet Vol. 8.8 fl (6.2-12.0); Monocyte# 0.73 X10^3/uL; Monocyte% 22.7 % (0-10); NRBC Flagged by Analyzer 0 % (0-5); Neutrophil # 1.03 X10^3/uL (2.7-7.7); Neutrophil % 32.2 % (47-70); Platelet Count 209 K/mm3 (150-450); RBC Distribution Width CV 14.3 % (11.6-14.6); Red Blood Count 5.03 M/mm3 (4.6-6.2); White Blood Count 3.2 K/mm3 (4.4-11.0)
[2024-03-23 10:46] LABS: Vitamin D,25 Hydroxy 46.9 ng/mL
[2024-03-23 10:47] LABS: PTHIN 125.2 pg/mL (18.4-80.1)
[2024-03-23 11:02] LABS: ALB/GLOB Ratio 0.8 RATIO (0.9-2.4); AST(SGOT) 18 U/L (15-37); Alanine Aminotransfer ALT/SGPT 21 U/L (16-61); Albumin, Serum 3.3 g/dL (3.2-5.0); Alkaline Phosphatase 56 U/L (45-117); Anion Gap 4 (5-15); BUN 11 mg/dL (7-18); BUN/Creat Ratio 10.9 RATIO (10-20); Calcium,Total 10.4 mg/dL (8.5-10.1); Chloride 111 mmol/L (98-107); Cholesterol 167 mg/dL (200); Creatinine, Serum 1.01 mg/dL (0.70-1.30); EST Glomerular Filtration Rate 76 mL/min (>60); Est Glom Filt Rate - Afr Amer 91 mL/min (>60); Globulin 4.2 g/dL (2.2-4.2); Glucose 97 mg/dL (74-106); High Density Lipoprotein 45 mg/dL; Magnesium 2.1 mg/dL (1.6-2.6); Potassium 4.2 mmol/L (3.5-5.1); Protein, Total 7.5 g/dL (6.4-8.2); Sodium Level 139 mmol/L (136-145); T4 Free Direct 1.07 ng/dL (0.76-1.46); Thyroid Stim Hormone (TSH) 0.06 uIU/mL (0.358-3.74); Triglycerides 79 mg/dL; Very Low Density Lipoprotein 16 mg/dL (5-40)
== END | disposition home or self-care (01) ==
LOC: MFPLAB 09:26
PROVIDERS: PCP Family Medicine; Visit Provider Family Medicine
DX: I10 Essential (primary) hypertension (principal); E03.9 Hypothyroidism, unspecified; E21.3 Hyperparathyroidism, unspecified; E55.9 Vitamin D deficiency, unspecified
CPT/HCPCS: 80053; 80061; 82306; 83735; 83970; 84439; 84443; 85025

== ENCOUNTER → 2024-03-29 | Outpatient (CLI) | payer MEDICARE, BC, SELFPAY ==
--- NOTE | 2024-03-29 11:28 | US_ITS ---
STUDY: THYROID ULTRASOUND REASON FOR EXAM: Male, 78 years old. nodule TECHNIQUE: Ultrasound evaluation of the thyroid was performed with real-time and static parrish-scale imaging. COMPARISON: None. FINDINGS: RIGHT LOBE: Nonvisualized status post lobectomy. LEFT LOBE: The left lobe of the thyroid gland measures 3.2 x 1.4 x 1.2 cm. There is a homogeneous echotexture. There is a complex nodule in the midpole demonstrating peripheral nodular vascularity measuring 7 x 6 x 5 mm.. ISTHMUS: The isthmus measures 2.8 mm . The regional lymph nodes are normal. The nodule has decreased in size since prior exam. US/Thyroid IMPRESSION: Postop change status post right thyroidectomy. Stable appearance to left thyroid nodule. Recommend follow-up study as per as per guidelines of [place] [employer] Electronically Signed: Leonardo Cat MD at 22:13 EDT ,
== END | disposition home or self-care (01) ==
LOC: US 11:27
PROVIDERS: PCP Family Medicine; Referring Provider Family Medicine; Visit Provider Family Medicine
DX: E04.1 Nontoxic single thyroid nodule (principal)
CPT/HCPCS: 76536

== ENCOUNTER → 2024-04-04 | Outpatient (CLI) | payer MEDICARE, BC, SELFPAY ==
[2024-04-04 12:43] LABS: Erythrocyte Sedimentation Rate 16 mm/hr (0-20)
[2024-04-04 12:44] LABS: Absolute Lymphocyte Count 1.15 X10^3/uL (0.83-4.51); Absolute Neutrophil Count 1.3 X10^3/uL (2.0-7.7); Basophil# 0.01 X10^3/uL; Basophil% 0.3 % (0-1); Eosinophil# 0.05 X10^3/uL; Eosinophils% 1.7 % (0-5); Hematocrit 45.3 % (40-54); Hemoglobin 14.9 g/dL (13.0-16.5); Lymphocyte # 1.15 X10^3/ul (0.83-4.51); Lymphocyte % 38.7 % (19-41); Mean Corp Hgb Conc 32.9 g/dL (32-36); Mean Corpuscular Hgb 29.4 pg (27.0-32.0); Mean Corpuscular Volume 89.5 fL (80-94); Mean Platelet Vol. 9.8 fl (6.2-12.0); Monocyte# 0.46 X10^3/uL; Monocyte% 15.5 % (0-10); NRBC Flagged by Analyzer 0 % (0-5); Neutrophil # 1.28 X10^3/uL (2.7-7.7); Neutrophil % 43.1 % (47-70); Platelet Count 228 K/mm3 (150-450); RBC Distribution Width CV 14.4 % (11.6-14.6); RBC Distribution Width SD 46.9 fl (35.1-43.9); Red Blood Count 5.06 M/mm3 (4.6-6.2)
[2024-04-04 13:23] LABS: CRP < 2.90 mg/L (0.0-3.0)
== END | disposition home or self-care (01) ==
LOC: MTLAB 10:05
PROVIDERS: PCP Family Medicine; Referring Provider Specialist; Visit Provider Specialist
DX: M25.561 Pain in right knee (principal)
CPT/HCPCS: 36415; 85025; 85652; 86140

== ENCOUNTER 2024-05-03 10:17 | Outpatient (CLI) | payer MEDICARE, BC, SELFPAY ==
[2024-05-03 13:13] LABS: Iron 118 ug/dL (65-175)
[2024-05-04 15:10] LABS: Lead, Blood Adult 16+yrs 2.2 ug/dL (0.0-3.4)
== END 2024-05-03 23:59 | disposition home or self-care (01) ==
PROVIDERS: PCP Family Medicine; Referring Provider Ophthalmology; Visit Provider Ophthalmology
DX: H53.8 Other visual disturbances (principal)
CPT/HCPCS: 36415; 83540; 83655

== ENCOUNTER 2024-05-17 12:47 | Emergency (ER) | payer MEDICARE, BC, SELFPAY ==
[2024-05-17 12:48] VITALS: BP 123/67; PULSE 96; RESP 20; TEMP 36.6; O2SAT 96; BMI 33.7
--- NOTE | 2024-05-17 13:54 | RAD_ITS ---
STUDY: X-RAY CHEST REASON FOR EXAM: Male, 79 years old. Chest pain TECHNIQUE: Single AP portable view of the chest. COMPARISON: Comparison is made with prior study dated January 05, 2024. FINDINGS: EKG electrodes are seen. Stable elevation of the left hemidiaphragm with increased linear markings at the left lung base suggestive of scarring. There is no demonstrated pleural abnormality. Normal size heart. Normal mediastinum and danielle. Normal visualized pulmonary arteries. There is atherosclerotic tortuosity of the aortic arch and descending thoracic aorta. There are diffuse degenerative changes of the visualized thoracic spine. Normal visualized ribs, clavicles, and shoulders. There is no demonstrated abnormality of the visualized soft tissue structures of the upper abdomen. RAD/Chest 1 View (Portable) IMPRESSION: Stable examination. No acute abnormality is seen. Electronically Signed: Neto Jolly MD at 14:33 EDT ,
--- NOTE | 2024-05-17 13:54 | EKG12_ITS ---
Test Reason : CHEST PAIN Blood Pressure : / mmHG Vent. Rate : 081 BPM Atrial Rate : 081 BPM P-R Int : 178 ms QRS Dur : 100 ms QT Int : 370 ms P-R-T Axes : 036 009 048 degrees QTc Int : 429 ms Normal sinus rhythm Normal ECG Confirmed by Austin Rousseau ([id number]), state editor MARY PINO ([id number]) on 05/18/2024 11:11:23 AM Referred By: Confirmed By:Austin Rousseau
[2024-05-17 14:05] LABS: Absolute Lymphocyte Count 1.47 X10^3/uL (0.83-4.51); Basophil# 0.02 X10^3/uL; Basophil% 0.5 % (0-1); Eosinophil# 0.08 X10^3/uL; Eosinophils% 1.9 % (0-5); Hematocrit 43.3 % (40-54); Hemoglobin 14.3 g/dL (13.0-16.5); Lymphocyte # 1.47 X10^3/ul (0.83-4.51); Lymphocyte % 34.5 % (19-41); Mean Corpuscular Hgb 29.1 pg (27.0-32.0); Mean Platelet Vol. 9.6 fl (6.2-12.0); Monocyte# 0.72 X10^3/uL; Monocyte% 16.9 % (0-10); NRBC Flagged by Analyzer 0 % (0-5); Neutrophil # 1.96 X10^3/uL (2.7-7.7); Platelet Count 237 K/mm3 (150-450); RBC Distribution Width CV 13.9 % (11.6-14.6); RBC Distribution Width SD 44.3 fl (35.1-43.9); Red Blood Count 4.92 M/mm3 (4.6-6.2); White Blood Count 4.3 K/mm3 (4.4-11.0)
--- NOTE | 2024-05-17 14:16 | EX.ED.DYSGE1 ---
HPI History of Present Illness Chief Complaint: Syncope Informant: patient and EMS Narrative Narrative: 79-year-old male presenting to the emergency room with reported near syncopal episode. Patient states he woke this morning ate breakfast and was felt that he was in his usual state of health. He went to a computer store when he suddenly began to feel not well. He states the best that he can describe it is the feeling you get before you pass out. He states he laid his head down on the counter and when he looked up felt the need to put it back down. He felt a slight pressure in his chest and went out to his car and sat for a few minutes. He drove to Dr. Wilson's office where he has scheduled appointment. He states he was in the waiting room for a bit and felt back to his normal state. He went into the exam room and sat down on the table where he began to get the same feeling again. He states that his vision seemed to tunnel. He did not have any palpitations or sweatiness. He states that he sat in a chair and people were asking him questions but he does not know if he was answering them correctly. EMS was called and he states that since being here at the hospital he is feeling better. He currently states that he feels well and would like to go home if possible. He has a history of diastolic dysfunction 1, prior pulmonary embolism on apixaban. Brain, nonobstructive atherosclerosis of coronary arteries. He wears CPAP at night but did not wear it last night. Patient states that he will occasionally be short of breath and he will rest and feel fine. He states that is not unusual for him. His tells me that he has had similar episodes like this in the past through the years with negative workups. [facility] Medical History Former smoker CPAP (continuous positive airway pressure) dependence Sleep apnea Pulmonary embolism Asthma Migraines Dementia Primary hyperparathyroidism Secondary hyperparathyroidism Nephrolithiasis Dilated aortic root H/O transfusion Nonobstructive atherosclerosis of coronary artery Obstructive sleep apnea Obesity (BMI 30-39.9) Renal calculus, bilateral Hypothyroidism DRESS syndrome Essential (primary) hypertension Left thyroid nodule Depression Syncope Anxiety Chronic diastolic heart failure HLD (hyperlipidemia) Acute deep vein thrombosis of left lower extremity Bilateral pulmonary embolism (2013) Home Medications ?Medication ?Instructions ?Recorded ?Last Taken ?Type apixaban 5 mg tablet (Eliquis) 5 mg PO BID 10/03/18 12/03/22 History losartan 100 mg tablet 100 mg PO DAILY #90 tabs 10/17/19 12/07/22 Rx spironolactone 100 mg tablet 100 mg PO DAILY 07/15/21 Unknown History montelukast 10 mg tablet 10 mg PO DAILY 08/07/22 Unknown History vortioxetine 20 mg tablet 20 mg PO DAILY 12/08/22 Unknown History (Trintellix) potassium citrate 10 mEq (1,080 10 meq PO TID #90 tabs 08/31/23 Unknown Rx mg) tablet,extended release alprazolam 1 mg tablet 1 mg PO TID PRN anxiety 01/06/24 Unknown History levothyroxine 200 mcg tablet 200 mcg PO DAILY thyroid 01/06/24 Unknown History tamsulosin 0.4 mg capsule 0.4 mg PO DAILY urination 01/06/24 Unknown History dexamethasone 2 mg tablet 6 mg (3 x 2 mg) PO DAILY 8 days 01/07/24 Unknown Rx #24 tabs Allergy/AdvReac Type Severity Reaction Status Date / Time Iodinated Contrast Media Allergy Hives Verified 01/05/24 22:22 (Iodinated Contrast Media - IV Dye) acetaminophen (From Percocet) AdvReac Swelling Verified 01/05/24 22:22 oxycodone HCl (From Percocet) AdvReac Swelling Verified 01/05/24 22:22 Family History Father Cancer Mother Cancer Hypertension Arthritis Breast cancer Diabetes Aunt Diabetes Uncle Diabetes Sister Cancer Surgical History History of left heart catheterization (04/14/19) hx uvula removal hx saliva gland removal Hx of sinus surgery History of partial thyroidectomy History of shoulder surgery History of hydrocele Hx of hernia repair hx wrist surgery History of bilateral knee replacement Hx of cataract extraction Social History household members: spouse housing: house Smoking Status: Former smoker alcohol intake: never substance use type: does not use caffeine: Yes Type: coffee what type of physical activity do you participate in: none seatbelt use: always do you feel safe at home: Yes ROS ROS ED Constitutional Constitutional ED: Denies chills, fever(s), sweats or weight loss Eyes Eyes: Denies change in vision or diplopia ENT ENT ED: Denies ear pain, rhinorrhea or sore throat Cardiovascular Cardiovascular: Reports other Details: Near syncope ; Denies chest pain, orthopnea, palpitations or racing heartbeat Respiratory/Chest Respiratory/Chest: Denies cough, dyspnea or orthopnea Gastrointestinal Gastrointestinal: Denies abdominal pain, diarrhea, nausea or vomiting Genitourinary Genitourinary ED: Denies dysuria, hematuria or urinary frequency Musculoskeletal Musculoskeletal: Denies arthralgias, back pain, myalgias or neck pain Integumentary Denies abscess or rash Neurologic Neurologic: Denies headache(s), paresthesias or weakness Psychiatric Psychiatric: Denies anxiety, depression, suicidal ideation or suicidal thoughts Endocrine Endocrinology: Denies polydipsia, polyphagia or polyuria Allergic/Immunologic Allergic/Immunologic ED: Denies mouth swelling, tongue swelling or urticaria EXAM Physical Exam Const Vital Signs: 05/17/24 12:48 05/17/24 12:54 05/17/24 13:54 Temperature 98 F Temperature Source Tympanic Pulse Rate 96 Respiratory Rate 20 H Respiratory Pattern Normal Blood Pressure 123/67 H Blood Pressure Mean 85 Pulse Ox 96 Oxygen Delivery Method Room Air 05/17/24 14:47 05/17/24 16:00 05/17/24 17:21 Temperature 97.9 F Temperature Source Pulse Rate 81 82 77 Respiratory Rate 18 16 16 Respiratory Pattern Blood Pressure 107/66 125/90 H 110/68 Blood Pressure Mean 79 101 82 Pulse Ox 98 97 99 Oxygen Delivery Method Room Air Room Air Positive well nourished and well developed General Appearance ED: well developed HEENT Reports normocephalic, head/scalp atraumatic and moist mucous membranes Eyes PERRL and EOMs intact bilaterally Neck no lymphadenopathy, supple and no JVD Resp normal respiratory effort and clear to auscultation bilaterally Cardio regular rate, regular rhythm and no murmurs GI normal to inspection, nondistended, normoactive bowel sounds and non-tender Palpation: soft Back/Spine no CVA tenderness and normal ROM Extremity normal to inspection General Extremety ED: Negative for edema General Extremity: Negative for edema Neuro oriented x3 and CN's II-XII intact bilaterally Sensorium / Orientation: alert Motor Exam: strength 5/5 throughout Psych mental status grossly normal Mood & Affect: Negative for depressed or tearful Skin no rashes or lesions noted and no wounds MDM MDM MDM Narrative Medical decision making narrative: Differential diagnosis includes ACS, pulmonary embolism, cardiac dysrhythmia, vasovagal syncope syncope NOS, dehydration, stroke, aortic dissection, My independent interpretation of the chest x-ray is no acute process. White count 4.3 which is chronic for him. Hemoglobin 14.3. 2 sets of cardiac enzymes are normal. Creatinine 1.28 with a BUN of 23. Normal electrolytes. Patient's had no events on the monitor. His EKG is unchanged. He is ambulating without any difficulty. Patient feels well would like to go home. states that he has had episodes like this in the past with no definitive findings. I think it is reasonable as he never lost consciousness and he has had so far negative workup that he be discharged home. As he is anticoagulated and not missed any doses given the above workup and his history I think it is unlikely to be pulmonary embolism. History & Record Review Discussion w/independent historian: EMS personnel and Patient Lab Data Attestation: I reviewed the patient's lab results. Labs: Laboratory Results - last 24 hr 05/17/24 05/17/24 13:56 15:58 WBC 4.3 L RBC 4.92 Hgb 14.3 Hct 43.3 MCV 88.0 MCH 29.1 MCHC 33.0 RDW Std Deviation 44.3 H RDW Coeff of Priti 13.9 Plt Count 237 MPV 9.6 Immature Gran % (Auto) 0.200 Neut % (Auto) 46.0 L Lymph % (Auto) 34.5 [place] % (Auto) 16.9 H Eos % (Auto) 1.9 Baso % (Auto) 0.5 Absolute Neuts (auto) 2.0 Absolute Lymphs (auto) 1.47 Nucleated RBC % 0 Sodium 141 Potassium 4.3 Chloride 110 H Carbon Dioxide 25.0 Anion Gap 6 BUN 23 H Creatinine 1.28 Estim Creat Clear Calc 64.93 Est GFR (MDRD) Af Amer 70 Est GFR (MDRD) Non-Af 58 L BUN/Creatinine Ratio 18.0 Glucose 99 Calcium 10.9 H Troponin I High Sens 4 4 Radiography Diagnostic Testing: Clinical Impression(s) from Imaging Studies Chest X-Ray 05/17/24 13:54 IMPRESSION: Stable examination. No acute abnormality is seen. Electronically Signed: Neto Jolly MD at 14:33 EDT , EKG Initial EKG: Attestation: I personally reviewed and interpreted this EKG as follows: Comments: Normal sinus rhythm ventricular rate of 81 bpm. No significant change from EKG dated 05 January 2024 Discharge Plan Triage Chief Complaint: Syncope ED Provider: Mamadou Christianson Dx/Rx/DC Orders Clinical Impression: Near syncope, Chronic anticoagulation Instructions: Causes of Syncope Prescriptions: No Action Eliquis 5 mg tablet 5 mg PO BID losartan 100 mg tablet 100 mg PO DAILY Qty: 90 3RF spironolactone 100 mg tablet 100 mg PO DAILY Patient Comments: take 1 tablet by mouth once daily Trintellix 20 mg tablet 20 mg PO DAILY montelukast 10 mg tablet 10 mg PO DAILY levothyroxine 200 mcg tablet 200 mcg PO DAILY Patient Comments: take 1 tablet by mouth once daily tamsulosin 0.4 mg capsule 0.4 mg PO DAILY Patient Comments: take 1 capsule by mouth once daily alprazolam 1 mg tablet 1 mg PO TID PRN Patient Comments: take 1 tablet by mouth three times a day if needed dexamethasone 2 mg tablet 6 mg PO DAILY 8 Days Qty: 24 0RF potassium citrate 10 mEq (1,080 mg) tablet extended release 10 meq PO TID Qty: 90 3RF Primary Care Provider: Jayden Butt Referrals: Jayden Butt MD [Primary Care Provider] - As Needed Print Language: Swedish Disposition Disposition: Home, Self Care Discharge Date/Time: 05/17/24 17:22 NIHSS NIHSS 1a. Level of Consciousness: Alert; keenly responsive 1b. LOC Questions: Answers BOTH questions correctly. 1c. LOC Commands: Performs both tasks correctly. 2. Best Gaze: Normal 3. Visual: No visual loss 4. Facial Palsy: Normal symmetrical movements 5a. Left Arm: No drift; arm holds 90 (or 45) degrees for full 10 seconds 5b. Right Arm: No drift; arm holds 90 (or 45) degrees for full 10 seconds 6a. Left Leg: No drift; leg holds 30-degree position for full 5 seconds 6b. Right Leg: No drift; leg holds 30-degree position for full 5 seconds 7. Limb Ataxia: Absent 8. Sensory: Normal; no sensory loss 9. Best Language: No aphasia; normal 10. Dysarthria: Normal 11. Extinction and Inattention: No abnormality Total: 0
[2024-05-17 14:28] LABS: Anion Gap 6 (5-15); BUN 23 mg/dL (7-18); Calcium,Total 10.9 mg/dL (8.5-10.1); Chloride 110 mmol/L (98-107); Creatinine, Serum 1.28 mg/dL (0.70-1.30); EST Glomerular Filtration Rate 58 mL/min (>60); Est Glom Filt Rate - Afr Amer 70 mL/min (>60); Estimated Creatinine Clearance 64.93 ml/min; Glucose 99 mg/dL (74-106); Potassium 4.3 mmol/L (3.5-5.1); Sodium Level 141 mmol/L (136-145); Troponin-I HS (w/2H Reflex) 4 pg/mL (3.0-78.0)
[2024-05-17 14:47] VITALS: BP 107/66; PULSE 81; RESP 18; O2SAT 98
[2024-05-17 16:00] VITALS: BP 125/90; PULSE 82; RESP 16; O2SAT 97
[2024-05-17 16:00] LABS: Reflex Troponin-HS? (from REC) Y
[2024-05-17 16:43] LABS: Troponin-I HS 4 pg/mL (3.0-78.0)
[2024-05-17 17:21] VITALS: BP 110/68; PULSE 77; RESP 16; TEMP 36.6; O2SAT 99
== END 2024-05-17 17:22 | disposition home or self-care (01) ==
PROVIDERS: Emergency Provider Emergency Medicine; PCP Family Medicine; Visit Provider Emergency Medicine
DX: R55 Syncope and collapse (principal); I11.0 Hypertensive heart disease with heart failure; I50.32 Chronic diastolic (congestive) heart failure; Z87.891 Personal history of nicotine dependence; E78.5 Hyperlipidemia, unspecified; I25.10 Atherosclerotic heart disease of native coronary artery without angina pectoris; Z79.01 Long term (current) use of anticoagulants; G47.33 Obstructive sleep apnea (adult) (pediatric); Z99.89 Dependence on other enabling machines and devices; Z86.711 Personal history of pulmonary embolism; F41.9 Anxiety disorder, unspecified; Z79.899 Other long term (current) drug therapy; E03.9 Hypothyroidism, unspecified; Z96.653 Presence of artificial knee joint, bilateral; Z98.41 Cataract extraction status, right eye; Z98.42 Cataract extraction status, left eye
CPT/HCPCS: 71045; 80048; 84484; 85025; 93005; 99283

== ENCOUNTER → 2024-06-12 | Outpatient (CLI) | payer MEDICARE, BC, SELFPAY ==
[2024-06-12 10:14] LABS: AST(SGOT) 15 U/L (15-37); Alanine Aminotransfer ALT/SGPT 21 U/L (16-61); Albumin, Serum 3.4 g/dL (3.2-5.0); Alkaline Phosphatase 59 U/L (45-117); Bilirubin, Direct 0.16 mg/dL (0.00-0.30); Globulin 4.2 g/dL (2.2-4.2); Protein, Total 7.6 g/dL (6.4-8.2)
== END | disposition home or self-care (01) ==
LOC: LAB 08:41
PROVIDERS: PCP Family Medicine; Referring Provider Internal Medicine Pulmonary Disease; Visit Provider Internal Medicine Pulmonary Disease
DX: I27.0 Primary pulmonary hypertension (principal)
CPT/HCPCS: 36415; 80076

== ENCOUNTER → 2024-07-20 | Outpatient (CLI) | payer MEDICARE, BC, SELFPAY ==
--- NOTE | 2024-07-20 09:21 | RAD_ITS ---
INDICATION: sob EXAMINATION/TECHNIQUE: X-RAY - XR Chest 2 Views COMPARISON: May 17, 2024 FINDINGS: LINES/DEVICES: None. LUNGS: No consolidation, edema or effusion. No pneumothorax. MEDIASTINUM AND CARDIOVASCULAR STRUCTURES: Cardiac silhouette not enlarged. Central airways and mediastinal contour are unremarkable. BONES AND SOFT TISSUES: Unremarkable. RAD/Chest PA and Lateral IMPRESSION: No radiographic evidence of acute cardiopulmonary disease. Electronically Signed: Gama Victro DO at 18:07 EDT ,
[2024-07-20 09:22] LABS: Bacteria 0 SEEN /hpf (None Seen); Mucous, Urine 0 SEEN /hpf (<or=2+); Squamous Epithelial Cells - UA 0 SEEN /hpf (0-5); White Blood Cells 0 SEEN /hpf (0-5)
[2024-07-20 10:21] LABS: Ionized Calcium Order ORDER TUBE
[2024-07-20 12:28] LABS: Color, Urine Yellow (Yellow); Glucose, Dipstick Normal (Normal); Ketone-Dipstick 5 mg/dl (Negative); Leukocyte Esterase-Dipstick Negative /ul (Negative); Nitrite-Dipstick Negative (Negative); Occult Blood-Urine 10 /ul (Negative); Protein-Dipstick 15 mg/dl (Negative); Urine Bilirubin Dipstick Negative (Negative); Urine Clarity Clear (Clear); Urine Urobilinogen 1 mg/dl (Normal)
[2024-07-20 12:43] LABS: Vitamin D,25 Hydroxy 37.2 ng/mL
[2024-07-20 12:44] LABS: Absolute Lymphocyte Count 1.08 X10^3/uL (0.83-4.51); Absolute Neutrophil Count 1.6 X10^3/uL (2.0-7.7); Basophil# 0.01 X10^3/uL; Basophil% 0.3 % (0-1); Eosinophil# 0.17 X10^3/uL; Hematocrit 37.1 % (40-54); Lymphocyte # 1.08 X10^3/ul (0.83-4.51); Lymphocyte % 31.6 % (19-41); Mean Corp Hgb Conc 32.3 g/dL (32-36); Mean Corpuscular Hgb 29.4 pg (27.0-32.0); Mean Corpuscular Volume 90.9 fL (80-94); Mean Platelet Vol. 9.4 fl (6.2-12.0); Monocyte# 0.54 X10^3/uL; Monocyte% 15.8 % (0-10); NRBC Flagged by Analyzer 0 % (0-5); Neutrophil % 46.7 % (47-70); Platelet Count 236 K/mm3 (150-450); RBC Distribution Width CV 14.5 % (11.6-14.6); RBC Distribution Width SD 48.4 fl (35.1-43.9); Red Blood Count 4.08 M/mm3 (4.6-6.2); White Blood Count 3.4 K/mm3 (4.4-11.0)
[2024-07-20 12:53] LABS: Red Blood Cells-Urine 0-5 SEEN /hpf (0-5)
[2024-07-20 12:56] LABS: Ionized Calcium 5.61 mg/dL (4.36-5.20)
[2024-07-20 13:05] LABS: ALB/GLOB Ratio 0.8 RATIO (0.9-2.4); AST(SGOT) 11 U/L (15-37); Alanine Aminotransfer ALT/SGPT 23 U/L (16-61); Alkaline Phosphatase 59 U/L (45-117); Anion Gap 6 (5-15); BUN 9 mg/dL (7-18); Calcium,Total 10.5 mg/dL (8.5-10.1); Chloride 115 mmol/L (98-107); Cholesterol 163 mg/dL (200); Creatinine, Serum 1.12 mg/dL (0.70-1.30); EST Glomerular Filtration Rate 67 mL/min (>60); Est Glom Filt Rate - Afr Amer 81 mL/min (>60); Globulin 3.9 g/dL (2.2-4.2); Glucose 118 mg/dL (74-106); High Density Lipoprotein 45 mg/dL; Magnesium 2.6 mg/dL (1.6-2.6); Potassium 3.5 mmol/L (3.5-5.1); Protein, Total 6.9 g/dL (6.4-8.2); Sodium Level 145 mmol/L (136-145); Triglycerides 99 mg/dL; Very Low Density Lipoprotein 20 mg/dL (5-40)
[2024-07-20 14:32] LABS: BNP,B-Type NATRIURETIC PEPTIDE 18.4 pg/mL (0-100)
[2024-07-21 17:10] LABS: PTHIN 78.7 pg/mL (18.4-80.1)
== END | disposition home or self-care (01) ==
PROVIDERS: PCP Family Medicine; Referring Provider Family Medicine; Visit Provider Family Medicine
DX: I77.810 Thoracic aortic ectasia (principal); I10 Essential (primary) hypertension; R06.02 Shortness of breath; E83.52 Hypercalcemia; E03.9 Hypothyroidism, unspecified; E21.3 Hyperparathyroidism, unspecified
CPT/HCPCS: 71046; 80053; 80061; 81001; 82306; 82330; 83735; 83880; 83970; 84439; 84443; 85025

== ENCOUNTER 2024-07-21 09:33 | Outpatient (CLI) | payer MEDICARE, BC, SELFPAY ==
--- NOTE | 2024-07-21 09:35 | ECHOCS_ITS ---
Reason For Study: Thoracic Aortic Ectasia Procedure This was a 2D Doppler, Color Flow transthoracic echocardiogram. The study was technically difficult. Parasternal images done with patient laying in right lateral position. Contrast injection was used. Exam performed in department. Left Ventricle Normal LV size. Left ventricular systolic function is normal. The left ventricular ejection fraction is 60 %. Stage 1 diastolic dysfunction. No regional wall motion abnormalities noted. Right Ventricle Normal RV size. Normal systolic function. Atria Normal left atrium. Normal right atrium. Tricuspid Valve Normal tricuspid valve. Trivial tricuspid valve insufficiency. Pulmonic Valve Normal pulmonic valve. Great Vessels Mild to moderately dilated aortic root. The pulmonary artery is normal size. Normal inferior vena cava. Pericardium/Pleural No pericardial effusion. Medication 22 gauge I.V. with prn adaptor inserted into left arm. Diluted definity 4ml given slow IV push to enhance endocardial definition. MMode/2D Measurements & Calculations LVIDd: 4.2 cm IVSd: 0.96 cm Ao root diam: 4.6 cm LVIDs: 3.2 cm LVPWd: 1.3 cm LA dimension: 3.2 cm FS: 23.3 % LAV(MOD-bp): 66.2 ml LA A4 area: 20.6 cm2 RA A4 area: 17.1 cm2 LAV(MOD-bp) Indexed: 26.6 ml/m2 LAV(MOD-sp2): 77.6 ml LAV(MOD-sp4): 57.1 ml TAPSE: 3.3 cm Time Measurements MV dec time: 0.18 sec Doppler Measurements & Calculations MV E max олег: 75.0 cm/sec Lat Peak E' Олег: 7.8 cm/sec Med Peak E' Олег: 12.3 cm/sec MV A max олег: 114.7 cm/sec E/E' lat: 9.7 E/E' med: 6.1 MV E/A: 0.65 MV V2 max: 121.4 cm/sec MV P1/2t max олег: 108.1 cm/sec Ao V2 max: 180.9 cm/sec MV max P.9 mmHg MV P1/2t: 71.3 msec Ao max P.1 mmHg MV V2 mean: 78.7 cm/sec Ao V2 mean: 138.5 cm/sec MV mean P.9 mmHg MV dec slope: 444.3 cm/sec2 Ao mean P.4 mmHg MV V2 VTI: 21.2 cm MVA(P1/2t): 3.1 cm2 Ao V2 VTI: 36.9 cm LV V1 max: 137.4 cm/sec TR max олег: 153.0 cm/sec LV V1 max P.6 mmHg TR max P.4 mmHg ECHO/Echo Complete W/ Contrast Interpretation Summary Normal LV size. Left ventricular systolic function is normal. The left ventricular ejection fraction is 60 %. Stage 1 diastolic dysfunction. Mild to moderately dilated aortic root. Contrast injection was performed. Ordering Physician: Jayden Butt Referring Physician: Jayden Butt Performed By: Tyler Holloway RCS
== END 2024-07-21 23:59 | disposition home or self-care (01) ==
PROVIDERS: PCP Family Medicine; Referring Provider Family Medicine; Visit Provider Family Medicine
DX: I77.810 Thoracic aortic ectasia (principal)
CPT/HCPCS: 93306; Q9957; A4216; C8929

== ENCOUNTER → 2024-08-16 | Outpatient (CLI) | payer MEDICARE, BC, SELFPAY ==
--- NOTE | 2024-08-16 12:49 | CT_ITS ---
STUDY: CTA CHEST REASON FOR EXAM: Male, 79 years old. SOB/HX PE/UNRESPONSIVE TO MEDS RADIATION DOSAGE (If Supplied By Facility): CTDIvol = ( 16.23 ) mGy, DLP = ( 570.72 ) mGycm TECHNIQUE: The examination was performed with the intravenous administration of IV 100mL Isovue-370. Post-processing of the angiographic images was performed, with multiplanar reformation and 3D reconstruction. Once again, there is a suboptimal contrast bolus limiting the evaluation of pulmonary emboli although no gross pulmonary embolism is seen. Individualized dose optimization techniques were used for this CT. COMPARISON: Comparison is made with prior study dated September 03, 2023. FINDINGS: Normal enhancement of the main pulmonary artery and right and left pulmonary arteries. Normal enhancement of the bilateral peripheral pulmonary arteries. There is no demonstrated pulmonary embolism. There is aneurysmal dilatation of the ascending aorta. The transverse diameter of the ascending aorta measures 41 mm''s. There is no demonstrated aortic dissection. There are calcifications of the coronary arteries. Normal mediastinum. Normal hilar regions. Normal visualized trachea and bronchi. The lungs are well expanded. Stable increased markings at the lung bases suggestive of atelectasis and/or scarring. Normal pleura. Normal chest wall structures. There are degenerative changes of thoracic spine. There is a 7 cm cyst in the lower posterior aspect of the left kidney. CT/CTA Chest W/WO Contrast IMPRESSION: Minimally dilated root of the ascending thoracic aorta. Poor contrast bolus limiting the evaluation of pulmonary emboli although no significant embolism is seen. Coronary artery calcification. Left renal cyst. Electronically Signed: Neto Jolly MD at 8:25 EDT ,
== END | disposition home or self-care (01) ==
LOC: CT 12:45
PROVIDERS: PCP Family Medicine; Referring Provider Family Medicine; Visit Provider Family Medicine
DX: R06.02 Shortness of breath (principal)
CPT/HCPCS: 71275; Q9967

== ENCOUNTER 2024-09-04 10:08 | Emergency (ER) | payer MEDICARE, BC, SELFPAY ==
[2024-09-04] VITALS (8 sets, daily range): BP systolic 146–163; BP diastolic 84–102; PULSE 74–101; RESP 15–28; TEMP 36.6–36.7; O2SAT 0–99; BMI 35.3
--- NOTE | 2024-09-04 10:14 | ED.VIS.DYS ---
HPI History of Present Illness Chief Complaint: Shortness of Breath [facility] Medical History Former smoker CPAP (continuous positive airway pressure) dependence Sleep apnea Pulmonary embolism Asthma Migraines Dementia Primary hyperparathyroidism Secondary hyperparathyroidism Nephrolithiasis Dilated aortic root H/O transfusion Nonobstructive atherosclerosis of coronary artery Obstructive sleep apnea Obesity (BMI 30-39.9) Renal calculus, bilateral Hypothyroidism DRESS syndrome Essential (primary) hypertension Left thyroid nodule Depression Syncope Anxiety Chronic diastolic heart failure HLD (hyperlipidemia) Acute deep vein thrombosis of left lower extremity Bilateral pulmonary embolism (2013) Home Medications ?Medication ?Instructions ?Recorded ?Last Taken ?Type apixaban 5 mg tablet (Eliquis) 5 mg PO BID 10/03/18 12/03/22 History losartan 100 mg tablet 100 mg PO DAILY #90 tabs 10/17/19 12/07/22 Rx spironolactone 100 mg tablet 100 mg PO DAILY 07/15/21 Unknown History montelukast 10 mg tablet 10 mg PO DAILY 08/07/22 Unknown History vortioxetine 20 mg tablet 20 mg PO DAILY 12/08/22 Unknown History (Trintellix) potassium citrate 10 mEq (1,080 10 meq PO TID #90 tabs 08/31/23 Unknown Rx mg) tablet,extended release alprazolam 1 mg tablet 1 mg PO TID PRN anxiety 01/06/24 Unknown History levothyroxine 200 mcg tablet 200 mcg PO DAILY thyroid 01/06/24 Unknown History tamsulosin 0.4 mg capsule 0.4 mg PO DAILY urination 01/06/24 Unknown History dexamethasone 2 mg tablet 6 mg (3 x 2 mg) PO DAILY 8 days 01/07/24 Unknown Rx #24 tabs furosemide 40 mg tablet 40 mg PO DAILY 09/04/24 Unknown History mirtazapine 7.5 mg tablet 3.75 - 7.5 mg PO QHS PRN 09/04/24 Unknown History riociguat 2.5 mg tablet (Adempas) 2.5 mg PO TID 09/04/24 Unknown History sildenafil (pulm.hypertension) 20 20 mg PO TID 09/04/24 Unknown History mg tablet Allergy/AdvReac Type Severity Reaction Status Date / Time Iodinated Contrast Media Allergy Hives Verified 09/04/24 10:11 (Iodinated Contrast Media - IV Dye) acetaminophen (From Percocet) AdvReac Swelling Verified 09/04/24 10:11 oxycodone HCl (From Percocet) AdvReac Swelling Verified 09/04/24 10:11 Family History Father Cancer Mother Cancer Hypertension Arthritis Breast cancer Diabetes Aunt Diabetes Uncle Diabetes Sister Cancer Surgical History History of left heart catheterization (04/14/19) hx uvula removal hx saliva gland removal Hx of sinus surgery History of partial thyroidectomy History of shoulder surgery History of hydrocele Hx of hernia repair hx wrist surgery History of bilateral knee replacement Hx of cataract extraction Social History household members: spouse housing: house Smoking Status: Former smoker alcohol intake: never substance use type: does not use caffeine: Yes Type: coffee what type of physical activity do you participate in: none seatbelt use: always do you feel safe at home: Yes EXAM Physical Exam Const Vital Signs: 09/04/24 10:11 09/04/24 10:17 09/04/24 10:33 Temperature 97.8 F Temperature Source Oral Pulse Rate 101 H Respiratory Rate 28 H Respiratory Effort Short of Breath Respiratory Depth Shallow Respiratory Pattern Tachypnea Blood Pressure 163/102 H Blood Pressure Mean 122 Pulse Ox 0 Oxygen Delivery Method Room Air Room Air 09/04/24 11:08 09/04/24 11:40 09/04/24 12:00 Temperature Temperature Source Pulse Rate 87 86 74 Respiratory Rate 16 20 H 15 Respiratory Effort Respiratory Depth Respiratory Pattern Tachypnea Blood Pressure 151/86 H 152/93 H Blood Pressure Mean 107 112 Pulse Ox 97 97 Oxygen Delivery Method Room Air Room Air 09/04/24 13:00 Temperature Temperature Source Pulse Rate 87 Respiratory Rate 19 H Respiratory Effort Respiratory Depth Respiratory Pattern Blood Pressure 158/99 H Blood Pressure Mean 118 Pulse Ox 98 Oxygen Delivery Method Room Air MDM MDM MDM Narrative Medical decision making narrative: HISTORY OF PRESENT ILLNESS: 79 old male presents with shortness of breath. Notes 1 to 2 days of worsening shortness of breath with exertion. Notes chronic swelling in his legs. No unilateral leg swelling or no edema. Denies cough fever chills. Denies chest pain or palpitations. Denies any bleeding diathesis. Last dose of Eliquis was this morning. Notes history of blood clots but denies any missed doses of Eliquis. The patient denies recent surgery in the last 4 weeks or immobilization in the last 3 days, hemoptysis, unilateral leg swelling or malignancy with treatment the last 6 months or palliative. No estrogen use noted. REVIEW OF SYSTEMS: Pertinent positives: Shortness of breath Pertinent negatives: Chest pain, palpitations, bleeding diathesis PHYSICAL EXAM: Nursing triage notes reviewed, Vital signs reviewed Constitutional: please see mdm HENT: MMM Eyes: Pupils equal round and reactive to light, Extraocular muscles intact Neck: No stridor, no JVD, full neck ROM Lungs: Clear to auscultation, No wheezing or rales. No increased work of breathing, no conversational dyspnea, no accessory muscle use, no nasal flaring. No respiratory distress noted Heart: Regular rate and rhythm, No murmurs, No rubs and No gallops, 2+ distal pulses (radial, femoral, posterior tibial) in all extremities Abdomen: Soft, there is no tenderness, rigidity, rebound or guarding, no obvious peritoneal signs, no palpable pulsatile abdominal masses, no auscultated abdominal bruit : No CVAT Extremities: No edema Neuro: No focal neurological deficits, cranial nerves II through XII intact, 5/5 strength in all extremities. Intact sensation to light touch in all extremities, 2+ reflexes bilateral patella tendons. Normal gait. No ataxia. Skin: No rash or lesions noted MEDICAL DECISION MAKING: Chief Complaint: Dyspnea External records reviewed: Reviewed prior echocardiogram from June 2024 shows an ejection fraction of 60% Factors affecting care: PE on Eliquis, CAD, hypertension, hyperlipidemia, Social determinants of health: Denies smoking History obtained from others: none Consults: none [facility] Narrative: The patient was initially hypertensive with a blood pressure 160/102, tachypneic with respiratory 28, slightly tachycardic with a heart rate of 101. Exam with slight crackles noted in the bases of bilateral lungs, slight lower extremity edema. No respiratory distress noted. Notification for advanced airway, noninvasive ventilation or oxygen therapy initially. I considered pulmonary embolism however the patient is compliant with home Eliquis, is not tachycardic, hypoxic and has no signs of right heart strain on EKG or troponin low suspicion for PE by clinical history as he is low risk Wells score. I considered the following differential diagnosis: Pneumonia, ACS, arrhythmia, anemia, CHF, PE, COPD exacerbation I obtained a broad lab and imaging workup to further elucidate the etiology of the patient's complaints. ALL IMAGES (IF OBTAINED) HAVE BEEN PERSONALLY REVIEWED AND INTERPRETED BY MYSELF. EKG with normal sinus rhythm, normal axis, no intervals, no STEMI I have personally reviewed the patient's chest x-ray. Chest x-ray is unremarkable for pulmonary edema, pneumothorax, pneumonia or focal cardiopulmonary abnormality. High-sensitivity troponin is negative, no evidence of myocardial ischemia COVID flu RSV negative CBC without leukocytosis, severe anemia, no thrombocytopenia. BMP without evidence of significant electrolyte abnormalities, no anion gap, no acute kidney injury. I initially want to order a BNP however our machine is down unable to assess this at this time. The patient does have any volume overload on exam, is not hypoxic, is no pulm edema on chest x-ray low suspicion for heart failure. Upon reassessment patient's vital signs improved. He ambulated without significant hypoxia. He is appropriate for discharge home. The patient and/or family, caregivers express understanding. The patient and/or family, caregivers agrees with the plan. Shared decision making: I will have a discussion with the patient and or visitors regarding risk/benefits of further testing or admission. They will be made aware of of the risk/benefits inherent in this decision they will be given the opportunity to voice understanding. Total critical care time today provided was at least 0 minutes. This excludes separately billable procedures. Critical care time (if documented) is secondary to the patient having high probability of clinically significant/life threatening deterioration in the patient's condition which required my urgent intervention. Impression: 1. Dyspnea 2. History of PE Dispo: Discharge home This note was generated with [employer] dictation software. It may contain incorrect words, spelling, and punctuation that were not noted in review of the chart prior to signing. Lab Data Labs: Laboratory Results - last 24 hr 09/04/24 11:10 WBC 3.5 L RBC 4.56 L Hgb 13.4 Hct 41.3 MCV 90.6 MCH 29.4 MCHC 32.4 RDW Std Deviation 46.6 H RDW Coeff of Priti 13.9 Plt Count 186 MPV 9.0 Immature Gran % (Auto) 0.300 Neut % (Auto) 53.2 Lymph % (Auto) 32.4 [place] % (Auto) 12.7 H Eos % (Auto) 1.4 Baso % (Auto) 0.0 Absolute Neuts (auto) 1.8 L Absolute Lymphs (auto) 1.12 Nucleated RBC % 0 Sodium 143 Potassium 3.7 Chloride 112 H Carbon Dioxide 24.0 Anion Gap 7 BUN 15 Creatinine 1.13 Estim Creat Clear Calc 75.18 Est GFR (MDRD) Af Amer 80 Est GFR (MDRD) Non-Af 66 BUN/Creatinine Ratio 13.3 Glucose 85 Calcium 10.6 H Troponin I High Sens 5 Radiography Diagnostic Testing: Clinical Impression(s) from Imaging Studies Chest X-Ray 09/04/24 11:15 IMPRESSION: No active disease. Electronically Signed: Ced Aguilar MD at 11:42 EDT Reading Location ID and State: [facility] Tel , Service support , Discharge Plan Triage Chief Complaint: Shortness of Breath ED Provider: Marvin Han Dx/Rx/DC Orders Prescriptions: No Action Eliquis 5 mg tablet 5 mg PO BID losartan 100 mg tablet 100 mg PO DAILY Qty: 90 3RF spironolactone 100 mg tablet 100 mg PO DAILY Patient Comments: take 1 tablet by mouth once daily Trintellix 20 mg tablet 20 mg PO DAILY montelukast 10 mg tablet 10 mg PO DAILY levothyroxine 200 mcg tablet 200 mcg PO DAILY Patient Comments: take 1 tablet by mouth once daily tamsulosin 0.4 mg capsule 0.4 mg PO DAILY Patient Comments: take 1 capsule by mouth once daily alprazolam 1 mg tablet 1 mg PO TID PRN Patient Comments: take 1 tablet by mouth three times a day if needed dexamethasone 2 mg tablet 6 mg PO DAILY 8 Days Qty: 24 0RF furosemide 40 mg tablet 40 mg PO DAILY mirtazapine 7.5 mg tablet 3.75 - 7.5 mg PO QHS PRN sildenafil (pulm.hypertension) 20 mg tablet 20 mg PO TID Adempas 2.5 mg tablet 2.5 mg PO TID potassium citrate 10 mEq (1,080 mg) tablet extended release 10 meq PO TID Qty: 90 3RF Primary Care Provider: Jayden Butt Referrals: Jayden Butt MD [Primary Care Provider] - Print Language: Bhutanese
--- NOTE | 2024-09-04 10:33 | EKG12_ITS ---
Test Reason : SOB Blood Pressure : / mmHG Vent. Rate : 099 BPM Atrial Rate : 099 BPM P-R Int : 182 ms QRS Dur : 104 ms QT Int : 360 ms P-R-T Axes : 049 024 064 degrees QTc Int : 462 ms Normal sinus rhythm Normal ECG Confirmed by Austin Rousseau ([id number]), marketing editor TRENA LORENZ ([id number]) on 09/05/2024 8:28:05 AM Referred By: Confirmed By:Austin Rousseau
--- NOTE | 2024-09-04 11:15 | RAD_ITS ---
STUDY: X-RAY CHEST REASON FOR EXAM: Male, 79 years old. Shortness of breath TECHNIQUE: Single AP portable view of the chest. COMPARISON: 07/20/2024 FINDINGS: The lungs are clear and expanded. Elevated left hemidiaphragm which is unchanged. Normal size heart. Normal mediastinum and danielle. Normal visualized pulmonary arteries. There is atherosclerotic tortuosity of the aortic arch and descending thoracic aorta. Normal visualized thoracic spine. Normal visualized ribs, clavicles, and shoulders. There is no demonstrated abnormality of the visualized soft tissue structures of the upper abdomen. RAD/Chest 1 View (Portable) IMPRESSION: No active disease. Electronically Signed: Ced Aguilar MD at 11:42 EDT ,
[2024-09-04 11:37] LABS: Absolute Lymphocyte Count 1.12 X10^3/uL (0.83-4.51); Absolute Neutrophil Count 1.8 X10^3/uL (2.0-7.7); Eosinophil# 0.05 X10^3/uL; Eosinophils% 1.4 % (0-5); Hematocrit 41.3 % (40-54); Hemoglobin 13.4 g/dL (13.0-16.5); Lymphocyte # 1.12 X10^3/ul (0.83-4.51); Lymphocyte % 32.4 % (19-41); Mean Corp Hgb Conc 32.4 g/dL (32-36); Mean Corpuscular Hgb 29.4 pg (27.0-32.0); Mean Corpuscular Volume 90.6 fL (80-94); Monocyte# 0.44 X10^3/uL; Monocyte% 12.7 % (0-10); NRBC Flagged by Analyzer 0 % (0-5); Neutrophil # 1.84 X10^3/uL (2.7-7.7); Neutrophil % 53.2 % (47-70); Platelet Count 186 K/mm3 (150-450); RBC Distribution Width CV 13.9 % (11.6-14.6); RBC Distribution Width SD 46.6 fl (35.1-43.9); Red Blood Count 4.56 M/mm3 (4.6-6.2); White Blood Count 3.5 K/mm3 (4.4-11.0)
[2024-09-04] MEDS: Ipratropium/Albuterol Sulfate 3 ML AMPUL.NEB INHALATION (11:40)
[2024-09-04 11:46] LABS: Anion Gap 7 (5-15); BUN 15 mg/dL (7-18); BUN/Creat Ratio 13.3 RATIO (10-20); Calcium,Total 10.6 mg/dL (8.5-10.1); Chloride 112 mmol/L (98-107); Creatinine, Serum 1.13 mg/dL (0.70-1.30); EST Glomerular Filtration Rate 66 mL/min (>60); Est Glom Filt Rate - Afr Amer 80 mL/min (>60); Estimated Creatinine Clearance 75.18 ml/min; Glucose 85 mg/dL (74-106); Potassium 3.7 mmol/L (3.5-5.1); Sodium Level 143 mmol/L (136-145); Troponin-I HS 5 pg/mL (3.0-78.0)
[2024-09-13 10:09] LABS: BNP,B-Type NATRIURETIC PEPTIDE 8.5 pg/mL (0.0-100.0)
== END 2024-09-04 15:04 | disposition home or self-care (01) ==
PROVIDERS: Emergency Provider Emergency Medicine; PCP Family Medicine; Visit Provider Emergency Medicine
DX: R06.00 Dyspnea, unspecified (principal); I11.0 Hypertensive heart disease with heart failure; I50.32 Chronic diastolic (congestive) heart failure; I25.10 Atherosclerotic heart disease of native coronary artery without angina pectoris; E78.5 Hyperlipidemia, unspecified; Z87.891 Personal history of nicotine dependence; Z86.711 Personal history of pulmonary embolism; G47.33 Obstructive sleep apnea (adult) (pediatric); Z99.89 Dependence on other enabling machines and devices; Z79.01 Long term (current) use of anticoagulants; Z79.899 Other long term (current) drug therapy; Z79.890 Hormone replacement therapy; E03.9 Hypothyroidism, unspecified; F41.9 Anxiety disorder, unspecified; F32.A Depression, unspecified; Z96.653 Presence of artificial knee joint, bilateral; Z98.49 Cataract extraction status, unspecified eye
CPT/HCPCS: 71045; 80048; 83880; 84484; 85025; 87631; 93005; 94640; 99284

== ENCOUNTER → 2024-12-07 | Outpatient (CLI) | payer MEDICARE, BC, SELFPAY ==
--- NOTE | 2024-12-07 13:00 | RAD_ITS ---
INDICATION: Shortness of breath, pulmonary hypertension EXAMINATION/TECHNIQUE: X-RAY - XR Chest 2 Views COMPARISON: FINDINGS: LINES/DEVICES: None. LUNGS: No consolidation, edema or effusion. Slightly elevated left hemidiaphragm. No pneumothorax. MEDIASTINUM AND CARDIOVASCULAR STRUCTURES: Cardiac silhouette not enlarged. Central airways and mediastinal contour are unremarkable. BONES AND SOFT TISSUES: Unremarkable. RAD/Chest PA and Lateral IMPRESSION: No radiographic evidence of acute cardiopulmonary disease. Electronically Signed: Gama Victor DO at 16:12 EST ,
== END | disposition home or self-care (01) ==
LOC: RAD 12:56
PROVIDERS: PCP Family Medicine; Referring Provider Family Medicine; Visit Provider Family Medicine
DX: R06.02 Shortness of breath (principal)
CPT/HCPCS: 71046

== ENCOUNTER → 2024-12-15 | Outpatient (CLI) | payer MEDICARE, BC, SELFPAY ==
--- NOTE | 2024-12-15 12:41 | ECHOD_ITS ---
Reason For Study: afib Procedure This was a 2D Doppler, Color Flow transthoracic echocardiogram. Technically difficult study. Apicals done in parasternal window. Parasternals done in RLD. Subcostals done RLD apical window. Exam performed in department. Left Ventricle Normal LV size. Moderate concentric left ventricular hypertrophy. Left ventricular systolic function is normal. The left ventricular ejection fraction is 65 %. Stage 1 diastolic dysfunction. No regional wall motion abnormalities noted. Right Ventricle Normal RV size. Normal systolic function. Mitral Valve Normal mitral valve. Tricuspid Valve Normal tricuspid valve. Aortic Valve Trisinus/trileaflet aortic valve. Pulmonic Valve Normal pulmonic valve. Great Vessels Normal aortic root. The pulmonary artery is normal size. Inferior vena cava collapse with sniff. Pericardium/Pleural No pericardial effusion. MMode/2D Measurements & Calculations LVIDd: 4.6 cm IVSd: 1.5 cm LAV(MOD-sp4): 25.9 ml LVIDs: 3.0 cm LVPWd: 1.4 cm FS: 35.0 % LVAd ap4: 22.9 cm2 SV(MOD-sp4): 41.4 ml SV(sp4-el): 41.1 ml LVLd ap4: 8.3 cm SI(MOD-sp4): 16.5 ml/m2 EDV(MOD-sp4): 54.0 ml EDV(sp4-el): 53.4 ml LVAs ap4: 9.4 cm2 LVLs ap4: 6.0 cm ESV(MOD-sp4): 12.7 ml ESV(sp4-el): 12.4 ml EF(MOD-sp4): 76.6 % EF(sp4-el): 76.8 % LA A4 area: 12.4 cm2 RA A4 area: 18.2 cm2 Time Measurements MV dec time: 0.15 sec Doppler Measurements & Calculations MV E max олег: 63.6 cm/sec Lat Peak E' Олег: 8.9 cm/sec Med Peak E' Олег: 12.2 cm/sec MV A max олег: 92.7 cm/sec E/E' lat: 7.2 E/E' med: 5.2 MV E/A: 0.69 MV V2 max: 92.1 cm/sec MV dec slope: 432.2 cm/sec2 Ao V2 max: 145.6 cm/sec MV max P.4 mmHg Ao max P.5 mmHg MV V2 mean: 63.8 cm/sec Ao V2 mean: 112.6 cm/sec MV mean P.7 mmHg Ao mean P.5 mmHg MV V2 VTI: 25.3 cm Ao V2 VTI: 34.0 cm AV (velocity ratio): 0.99 LV V1 max: 141.6 cm/sec PA V2 max: 96.5 cm/sec LV V1 max P.0 mmHg PA V2 mean: 71.4 cm/sec LV V1 mean P.1 mmHg LV V1 mean: 108.9 cm/sec LV V1 VTI: 33.6 cm ECHO/Echo Complete Interpretation Summary Normal LV size. Left ventricular systolic function is normal. The left ventricular ejection fraction is 65 %. Stage 1 diastolic dysfunction. Moderate concentric left ventricular hypertrophy. Ordering Physician: Hetal Humphreys Referring Physician: Hetal Humphreys Performed By: Annie Cartagena RCS
== END | disposition home or self-care (01) ==
LOC: CVS 12:41
PROVIDERS: PCP Family Medicine; Referring Provider Physician Assistant Medical; Visit Provider Physician Assistant Medical
DX: R06.09 Other forms of dyspnea (principal); I48.92 Unspecified atrial flutter
CPT/HCPCS: 93306

== ENCOUNTER → 2024-12-21 | Outpatient (CLI) | payer MEDICARE, BC, SELFPAY | END | disposition home or self-care (01) | LOC: PSN 08:43 | PROVIDERS: PCP Family Medicine; Referring Provider Physician Assistant Medical; Visit Provider Physician Assistant Medical | DX: I48.0 Paroxysmal atrial fibrillation (principal) | CPT/HCPCS: 93225; 93226 ==

== ENCOUNTER → 2025-01-26 | Outpatient (CLI) | payer MEDICARE, BC, SELFPAY ==
[2025-01-26 11:00] LABS: Absolute Lymphocyte Count 1.17 X10^3/uL (0.83-4.51); Absolute Neutrophil Count 1.8 X10^3/uL (2.0-7.7); Basophil# 0.01 X10^3/uL; Basophil% 0.3 % (0-1); Eosinophil# 0.07 X10^3/uL; Eosinophils% 1.9 % (0-5); Hemoglobin 12.5 g/dL (13.0-16.5); Lymphocyte # 1.17 X10^3/ul (0.83-4.51); Lymphocyte % 31.6 % (19-41); Mean Corp Hgb Conc 32.9 g/dL (32-36); Mean Corpuscular Hgb 29.4 pg (27.0-32.0); Mean Corpuscular Volume 89.4 fL (80-94); Monocyte# 0.68 X10^3/uL; Monocyte% 18.4 % (0-10); NRBC Flagged by Analyzer 0 % (0-5); Neutrophil # 1.75 X10^3/uL (2.7-7.7); Neutrophil % 47.3 % (47-70); Platelet Count 201 K/mm3 (150-450); RBC Distribution Width CV 14.2 % (11.6-14.6); RBC Distribution Width SD 46.2 fl (35.1-43.9); Red Blood Count 4.25 M/mm3 (4.6-6.2); White Blood Count 3.7 K/mm3 (4.4-11.0)
[2025-01-26 11:06] LABS: PTHIN 101 pg/mL (11-61)
[2025-01-26 13:05] LABS: ALB/GLOB Ratio 1.1 RATIO (0.9-2.4); AST(SGOT) 15 U/L (<=37); Alanine Aminotransfer ALT/SGPT 8 U/L (<=46); Alkaline Phosphatase 61 U/L (40-129); Anion Gap 11 (5-15); BUN 19 mg/dL (4-19); Calcium,Total 10.6 mg/dL (7.6-11.0); Carbon Dioxide 21.5 mmol/L (21.0-32.0); Chloride 108 mmol/L (98-108); Creatinine, Serum 1.25 mg/dL (0.70-1.20); EST Glomerular Filtration Rate 58 (>60); Globulin 3.6 g/dL (2.2-4.2); Glucose 90 mg/dL (70-99); Magnesium 2.1 mg/dL (1.5-2.2); Potassium 3.9 mmol/L (3.3-5.1); Protein, Total 7.6 g/dL (5.9-8.4); Sodium Level 140 mmol/L (133-145); Thyroid Stim Hormone (TSH) 0.404 uIU/mL (0.300-4.200); Total Bilirubin 0.37 mg/dL (0.00-1.30); Vitamin D,25 Hydroxy 29.8 ng/mL (30-100)
[2025-01-26 13:26] LABS: Cholesterol 168 mg/dL (<=200); High Density Lipoprotein 41 mg/dL; Low Density Lipoprotein Calc. 112 mg/dL; Triglycerides 75 mg/dL; Very Low Density Lipoprotein 15 mg/dL (5-40); cholesterol:hdl ratio screen 4.06
[2025-01-26 18:00] LABS: Ferritin 151 ng/mL (37-417); Vitamin B12 200 pg/mL (180-914)
[2025-01-26 22:11] LABS: Iron 77 ug/dL (65-175); Iron Binding Capacity,Total 290 ug/dL (250-450); Iron Binding Capacity,Unsat 213 ug/dL (228-428)
== END | disposition home or self-care (01) ==
LOC: MFPLAB 09:30
PROVIDERS: PCP Family Medicine; Referring Provider Family Medicine; Visit Provider Family Medicine
DX: D64.9 Anemia, unspecified (principal); I48.92 Unspecified atrial flutter; E21.3 Hyperparathyroidism, unspecified; E55.9 Vitamin D deficiency, unspecified; I10 Essential (primary) hypertension
CPT/HCPCS: 36415; 80053; 80061; 82306; 82607; 82728; 83540; 83550; 83735; 83970; 84443; 85025

== ENCOUNTER → 2025-02-15 | Outpatient (CLI) | payer MEDICARE, BC, SELFPAY ==
[2025-02-15 16:51] LABS: Pro- Brain NATRIURETIC PEPTIDE < 36 pg/mL (<=1800)
== END | disposition home or self-care (01) ==
LOC: MTLAB 11:29
PROVIDERS: PCP Family Medicine; Referring Provider Internal Medicine Pulmonary Disease; Visit Provider Internal Medicine Pulmonary Disease
DX: I27.0 Primary pulmonary hypertension (principal)
CPT/HCPCS: 36415; 83880

== ENCOUNTER → 2025-05-07 | Outpatient (CLI) | payer MEDICARE, BC, SELFPAY ==
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
[2025-05-07 16:25] LABS: Pro- Brain NATRIURETIC PEPTIDE < 36 pg/mL (<=1800)
== END | disposition home or self-care (01) ==
LOC: MTLAB 10:18
PROVIDERS: PCP Family Medicine; Referring Provider Internal Medicine Pulmonary Disease; Visit Provider Internal Medicine Pulmonary Disease
DX: I27.0 Primary pulmonary hypertension (principal); R06.00 Dyspnea, unspecified
CPT/HCPCS: 36415; 71046; 83880

== ENCOUNTER 2025-08-30 11:02 | Outpatient (CLI) | payer MEDICARE, BC, SELFPAY ==
[2025-08-30 12:21] LABS: Hematocrit 41.5 % (40-54); Hemoglobin 13.7 g/dL (13.0-16.5); Immature Granulocytes Count 0.030 X10^3/uL (0.0-0.0); Mean Corp Hgb Conc 33.0 g/dL (32-36); Mean Corpuscular Volume 87.7 fL (80-94); Mean Platelet Vol. 9.2 fl (6.2-12.0); NRBC Flagged by Analyzer 0 % (0-5); Platelet Count 270 K/mm3 (150-450); RBC Distribution Width CV 12.9 % (11.6-14.6); RBC Distribution Width SD 41.4 fl (35.1-43.9); Red Blood Count 4.73 M/mm3 (4.6-6.2); White Blood Count 4.7 K/mm3 (4.4-11.0)
[2025-08-30 15:52] LABS: PTHIN 106 pg/mL (11-61)
[2025-08-30 19:19] LABS: AST(SGOT) 16 U/L (<=37); Alanine Aminotransfer ALT/SGPT 17 U/L (<=46); Albumin, Serum 3.8 g/dL (3.4-4.8); Alkaline Phosphatase 75 U/L (40-129); Anion Gap 13 (5-15); BUN 13 mg/dL (4-19); BUN/Creat Ratio 13.3 RATIO (10-20); Calcium,Total 11.0 mg/dL (7.6-11.0); Carbon Dioxide 22.6 mmol/L (21.0-32.0); Chloride 106 mmol/L (98-108); Cholesterol 167 mg/dL (<=200); Globulin 4.1 g/dL (2.2-4.2); Glucose 99 mg/dL (70-99); Low Density Lipoprotein Calc. 89 mg/dL; Magnesium 2.0 mg/dL (1.5-2.2); Potassium 3.3 mmol/L (3.3-5.1); Triglycerides 213 mg/dL; Very Low Density Lipoprotein 43 mg/dL (5-40); cholesterol:hdl ratio screen 4.68
[2025-08-30 19:50] LABS: Vitamin D,25 Hydroxy 25.5 ng/mL (30-100)
== END 2025-08-30 23:59 | disposition home or self-care (01) ==
LOC: MFPLAB 11:03
PROVIDERS: PCP Family Medicine; Visit Provider Family Medicine
DX: I10 Essential (primary) hypertension (principal); E03.9 Hypothyroidism, unspecified; E21.3 Hyperparathyroidism, unspecified; E55.9 Vitamin D deficiency, unspecified
CPT/HCPCS: 36415; 80053; 80061; 82306; 83735; 83970; 84439; 84443; 85025

== ENCOUNTER → 2025-10-24 | Outpatient (CLI) | payer MEDICARE, BC, SELFPAY ==
[2025-10-24 11:50] LABS: Mucous, Urine 0 SEEN /hpf (<or=2+); Red Blood Cells-Urine 0 SEEN /hpf (0-5); Squamous Epithelial Cells - UA 0 SEEN /hpf (0-5)
[2025-10-24 15:05] LABS: Color, Urine Straw (Yellow); Glucose, Dipstick Normal (Normal); Ketone-Dipstick Negative (Negative); Leukocyte Esterase-Dipstick Negative /ul (Negative); Nitrite-Dipstick Negative (Negative); Occult Blood-Urine Negative /ul (Negative); Protein-Dipstick Negative (Negative); Specific Gravity, Urine 1.010 (1.002-1.030); Urine Bilirubin Dipstick Negative (Negative)
[2025-10-24 15:09] LABS: Hematocrit 43.1 % (40-54); Hemoglobin 14.4 g/dL (13.0-16.5); Immature Granulocytes Count 0.010 X10^3/uL (0.0-0.0); Mean Corp Hgb Conc 33.4 g/dL (32-36); Mean Corpuscular Volume 89.8 fL (80-94); Mean Platelet Vol. 9.2 fl (6.2-12.0); NRBC Flagged by Analyzer 0 % (0-5); Platelet Count 204 K/mm3 (150-450); RBC Distribution Width CV 14.7 % (11.6-14.6); RBC Distribution Width SD 48.7 fl (35.1-43.9); Red Blood Count 4.80 M/mm3 (4.6-6.2); White Blood Count 3.7 K/mm3 (4.4-11.0)
[2025-10-24 15:56] LABS: AST(SGOT) 15 U/L (<=37); Alanine Aminotransfer ALT/SGPT 14 U/L (<=46); Albumin, Serum 3.8 g/dL (3.4-4.8); Alkaline Phosphatase 66 U/L (40-129); Anion Gap 11 (5-15); BUN 13 mg/dL (4-19); BUN/Creat Ratio 10.6 RATIO (10-20); Calcium,Total 10.6 mg/dL (7.6-11.0); Carbon Dioxide 23.9 mmol/L (21.0-32.0); Chloride 107 mmol/L (98-108); Globulin 3.6 g/dL (2.2-4.2); Glucose 132 mg/dL (70-99); Magnesium 2.1 mg/dL (1.5-2.2); Potassium 3.9 mmol/L (3.3-5.1); Vitamin D,25 Hydroxy 31.5 ng/mL (30-100)
[2025-10-24 16:27] LABS: PTHIN 109 pg/mL (11-61)
== END | disposition home or self-care (01) ==
LOC: MFPLAB 11:47
PROVIDERS: PCP Family Medicine; Visit Provider Family Medicine
DX: E21.3 Hyperparathyroidism, unspecified (principal); I10 Essential (primary) hypertension; E55.9 Vitamin D deficiency, unspecified
CPT/HCPCS: 36415; 80053; 81001; 82306; 83735; 83970; 85025